=== PATIENT | male | born 1960 | race Native Hawaiian/Other Pacific Islander ===

== ENCOUNTER 2020-01-08 15:55 | Emergency (ER) | payer OTHER, SELFPAY ==
--- NOTE | 2020-01-08 | CT_ITS ---
EXAMINATION: NONCONTRAST HEAD CT NONCONTRAST CERVICAL SPINE CT INDICATION INFORMATION: Fall. COMPARISON: Report from 12/14/2018. No images available. TECHNIQUE: Separate noncontrast CT examinations of the head and cervical spine were performed. Coronal and sagittal images were created for each examination at the technologist workstation. This CT examination was performed using dose optimization techniques as appropriate, variously including the following: *Automated exposure control *Adjustment of mA and/or kV according to patient size (this includes techniques or standardized protocols for targeted exams where dose is matched to indication/reason for exam; i.e. extremities or head) *Use of iterative reconstruction technique DLP: 1415 mGy-cm FINDINGS: Head: There is no evidence of acute intracranial hemorrhage or territorial infarction. No abnormal mass effect or midline shift is seen. Leon to white matter differentiation is well preserved. No extra-axial fluid collections are identified. No hydrocephalus. Proportional prominence of the ventricles and sulcal spaces is consistent with mild volume loss. Patchy periventricular and deep white matter hypoattenuation is consistent with mild small vessel ischemic changes. No acute osseous or soft tissue abnormality. The mastoid air cells and visualized portions of the paranasal sinuses are well aerated. Cervical spine: There is anatomic alignment of the vertebral bodies and posterior elements. The atlantoaxial and atlantooccipital articulations are intact. Vertebral body heights are maintained. There is multilevel intervertebral disc space narrowing with endplate osteophyte formation and facet arthropathy. No evidence of acute fracture. No prevertebral soft tissue swelling. Visualized portions of the lung apices are unremarkable. The thyroid gland is unremarkable. IMPRESSION: 1. No acute intracranial finding. 2. No acute fracture or malalignment of the cervical spine. Degenerative change noted.
--- NOTE | 2020-01-08 | XR_ITS ---
EXAMINATION: RIGHT RIBS, PELVIS, LUMBAR SPINE, RIGHT KNEE CLINICAL INFORMATION: Fall with pain COMPARISON: Chest radiograph 02/24/2019 TECHNIQUE: 4 views right knee, 3 views lumbar spine, single view pelvis, 4 views right ribs FINDINGS: RIGHT KNEE: Some minor degenerative changes are present at the patellofemoral joint but no other abnormality is seen. No fracture is detected. No effusion is seen. Some faint vascular calcifications are present. LUMBAR SPINE: Mild spondylitic changes are present with flowing anterior osteophytes. Disc spaces are well preserved. No bony destructive lesion or fracture seen. PELVIS: Single view pelvis shows no significant abnormality aside from some minimal degenerative changes in the hips with some mild supra-acetabular sclerosis. Phleboliths noted in the right hemipelvis. RIBS: Four views of the right ribs fail to demonstrate any rib fracture. IMPRESSION: No evidence of a traumatic injury.
--- NOTE | 2020-01-08 | XR_ITS ---
EXAMINATION: XR CHEST CLINICAL INFORMATION: Fall COMPARISON: None TECHNIQUE: 2 views of the chest were obtained. FINDINGS: No significant abnormality is noted involving the heart, lungs, mediastinum, bony thorax or soft tissues. Mild degenerative changes in the spine with osteophyte formation. IMPRESSION: No acute intrathoracic disease
--- NOTE | 2020-01-08 | ECG_ITS ---
Test Reason : DIZZY Blood Pressure : / mmHG Vent. Rate : 081 BPM Atrial Rate : 081 BPM P-R Int : 176 ms QRS Dur : 084 ms QT Int : 380 ms P-R-T Axes : 052 014 033 degrees QTc Int : 441 ms Normal sinus rhythm Normal ECG When compared with ECG of 24-FEB-2019 15:51, No significant change was found Referred By: Santana Yanes Electronically Signed By:JAVIER CARLOS
[2020-01-08 16:28] VITALS: BP 136/73; PULSE 94; RESP 18; TEMP 37.1; O2SAT 98; BMI 81.8
--- NOTE | 2020-01-08 16:36 | PC.NURSE ---
BGL CHECKED 208. PT REPORTS FEELING OF HYPOGLYEMIA. PATIENT ASKED TO REMAIN NP0
[2020-01-08 16:40] LABS: Glucose, Whole Blood 203 mg/dL (60-115)
[2020-01-08 21:45] VITALS: BP 140/70; PULSE 84; RESP 17; TEMP 36.6; O2SAT 97
[2020-01-08 23:04] LABS: MANUAL DIFF FLAG NO
[2020-01-08 23:08] LABS: Basophils Absolute Auto 0.1 X10*3/uL (0.0-0.2); Basophils Percent Auto 0.8 % (0-2); Eosinophils Absolute Auto 0.2 X10*3/uL (0.0-0.4); Eosinophils Percent Auto 2.5 % (0-4); Hematocrit 40.3 % (42-52); Hemoglobin 13.6 g/dl (14.0-18.0); Lymphocytes Absolute Auto 2.3 X10*3/uL (1.2-4.9); Lymphocytes Percent Auto 38.5 % (20-40); Mean Corpuscular HGB Conc 33.7 g/dl (31.0-36.0); Mean Corpuscular Hemoglobin 31.6 pg (27.0-33.0); Mean Corpuscular Volume 93.7 fL (80-98); Mean Platelet Volume 9.7 fL (9.4-12.4); Monocytes Absolute Auto 0.5 X10*3/uL (0.1-1.2); Monocytes Percent Auto 8.8 % (2-11); Neutrophils Absolute Auto 2.9 X10*3/uL (2.0-8.3); Neutrophils Percent Auto 49.4 % (45-73); Platelet Count 291 X10*3/uL (160-400); Red Cell Distribution Width 11.8 % (11.0-16.0); White Blood Count 5.9 X10*3/uL (4.8-10.8)
[2020-01-08] MEDS: Acetaminophen 325 MG TABLET 650 MG PO (23:08)
[2020-01-08 23:13] LABS: Prothrombin Time 11.4 SEC (10.8-13.0)
[2020-01-08 23:15] LABS: Partial Thromboplastin Time 36.7 SEC (24.1-38.0)
[2020-01-08 23:39] LABS: Troponin-I High Sensitivity 8.7 ng/L (<3.5-35.0)
[2020-01-09] VITALS (7 sets, daily range): BP systolic 127–150; BP diastolic 68–116; PULSE 71–92; RESP 14–20; TEMP 36.6; O2SAT 97–98
--- NOTE | 2020-01-09 00:14 | PC.NURSE ---
Pt returns from imaging, reporting 6/10 pain to right knee and lower back. Per previous RN, pt had a fall down 1 stair due to his vertigo, injuring right knee. Pt found to be wearing halter monitor, states he's wearing it for 48 hours, unable to state why. Bloodwork obtained, VSS. NSR on the monitor. Continue to monitor.
--- NOTE | 2020-01-09 00:46 | ED.FALL ---
HPI - Fall General Chief Complaint: Fall <LOCO Mccallum Last Filed: 01/09/20 03:46> Stated Complaint: Fall <LOCO Mccallum Last Filed: 01/09/20 03:46> Time Seen by Provider: 01/08/20 22:26 <LOCO Mccallum Last Filed: 01/09/20 03:46> Source: patient <LOCO Mccallum Last Filed: 01/09/20 03:46> Mode of arrival: other ( Patient ambulate with a walker) <LOCO Mccallum Last Filed: 01/09/20 03:46> History of Present Illness HPI Narrative: Patient states he fell while going down stairs. Patient states he was reaching for the last that with right foot and then felt dizzy and then he fell. Patient states history of vertigo. Patient denies having any chest pain, headache, abdominal pain, or shortness of breath for falling. Patient is on a holter monitor. Patient states vertigo has caused her to fall in the past. <LOCO Mccallum Last Filed: 01/09/20 03:46> MD complaint: fall <LOCO Mccallum Last Filed: 01/09/20 03:46> Onset (ago): day(s) ( today) <LOCO Mccallum Last Filed: 01/09/20 03:46> Fall from: down stairs (#) ( fell down 1 step) <LOCO Mccallum Last Filed: 01/09/20 03:46> Fall witnessed: no <LOCO Mccallum Last Filed: 01/09/20 03:46> Place fall occurred: home <LOCO Mccallum Last Filed: 01/09/20 03:46> Loss of consciousness: none <LOCO Mccallum Last Filed: 01/09/20 03:46> Prolonged down time: no <LOCO Mccallum Last Filed: 01/09/20 03:46> Symptoms prior to fall: dizziness <LOCO Mccallum Last Filed: 01/09/20 03:46> Location of injury: neck and back <LOCO Mccallum Last Filed: 01/09/20 03:46> Location of injury - extremities: right: knee <LOCO Mccallum Filed: 01/09/20 03:46> Severity: moderate <LOCO Mccallum Filed: 01/09/20 03:46> Related Data Home Medications: Previous Rx's Medication Instructions Recorded acetaminophen [Tylenol] 325 mg PO QID PRN #30 cap 01/09/20 meclizine 25 mg PO DAILY #20 tab 01/09/20 <LOCO Mccallum Filed: 01/09/20 03:46> Allergies/Adverse Reactions: Allergies Allergy/AdvReac Type Severity Reaction Status Date / Time penicillin V Allergy Unknown Unknown Verified 01/08/20 21:25 Penicillins [PENICILLINS] Allergy Unknown UNKNOWN-CHILDHOOD Verified 01/08/20 21:25 REACTION SEAFOOD Allergy Severe DIARRHEA,GI Uncoded 12/21/19 17:43 PAIN, NAUSEA Fish Allergy Mild Gastrointestinal Uncoded 01/08/20 21:25 Upset <LOCO Mccallum Filed: 01/09/20 03:46> Review of Systems Review of Systems: Yes all other systems are reviewed and are negative <LOCO Mccallum Filed: 01/09/20 03:46> Constitutional: Constitutional: Reports no additional constitutional complaints <LOCO Mccallum Filed: 01/09/20 03:46> Eyes: Eyes: Reports no additional eye complaints and Denies loss of vision <LOCO Mccallum Filed: 01/09/20 03:46> ENT: Reports vertigo and Reports neck pain <LOCO Mccallum Filed: 01/09/20 03:46> Cardiovascular: Cardiovascular: Reports no additional cardiovascular complaints, Denies chest pain and Denies dyspnea <LOCO Mccallum Filed: 01/09/20 03:46> Respiratory: Respiratory: Reports no additional respiratory complaints, Denies chest congestion, Denies pain with cough and Denies dyspnea <LOCO Mccallum Filed: 01/09/20 03:46> Gastrointestinal: Gastrointestinal: Denies abdominal pain, Denies melena and Denies hematochezia <LOCO Mccallum Filed: 01/09/20 03:46> Musculoskeletal: Musculoskeletal: Reports back pain, Reports arthralgias (right knee pain) and Reports neck pain <LOCO Mccallum Last Filed: 01/09/20 03:46> Neurologic: Reports system reviewed and no additional complaints, except as documented, Denies behavioral changes, Reports vertigo, Denies focal weakness, Denies loss of vision, Denies convulsions, Denies seizure-like activity, Denies paresthesias and Denies tremor(s) <LOCO Mccallum Last Filed: 01/09/20 03:46> Psychiatric: Psychiatric: Reports no additional psychiatric complaints, Denies abnormal sleep pattern, Denies anxiety and Denies behavioral changes <LOCO Mccallum Last Filed: 01/09/20 03:46> [facility] Social History Social History: Social History Alcohol intake: current Alcohol intake frequency: holidays/special occasions only Alcohol type: wine Smoking Status: Never smoker Use of substances other than those prescribed or required for medical reasons: No Advance Directives: No Advance Directives Information Provided: No <LOCO Mccallum Last Filed: 01/09/20 03:46> Physical Exam Vital Signs and I&O and Narrative: Vital Signs and I&O: Vital Signs Temp 98 F 01/09/20 07:23 Pulse 81 01/09/20 07:23 Resp 14 01/09/20 07:23 BP 150/74 H 01/09/20 07:23 Pulse Ox 98 01/09/20 07:23 Intake & Output 01/08/20 01/09/20 01/09/20 18:59 06:59 18:59 Intake Total 1000 / 1000 Balance 1000 / 1000 Weight 230 kg Intake: Intake, IV Amoun t 1000 / 1000 0.9 % Sodium C hloride 1,000 ml 1000 / 1000 @ 999 mls/hr I VCONT .Q1H1M ONE Rx#:[id number] Body Mass Index 81.8 <LOCO Mccallum Last Filed: 01/09/20 03:46> Vital Signs and I&O: Vital Signs Temp 98 F 01/09/20 07:23 Pulse 81 01/09/20 07:23 Resp 14 01/09/20 07:23 BP 150/74 H 01/09/20 07:23 Pulse Ox 98 01/09/20 07:23 Intake & Output 01/08/20 01/09/20 01/09/20 18:59 06:59 18:59 Intake Total 1000 / 1000 Balance 1000 / 1000 Weight 230 kg Intake: Intake, IV Amoun t 1000 / 1000 0.9 % Sodium C hloride 1,000 ml 1000 / 1000 @ 999 mls/hr I VCONT .Q1H1M ONE Rx#:[id number] Body Mass Index 81.8 <Rosio Duncan MD - Last Filed: 01/09/20 08:36> Const: General: cooperative, healthy appearing and comfortable <LOCO Mccallum - Last Filed: 01/09/20 03:46> Orientation/consciousness: patient oriented x3 <LOCO Mccallum Last Filed: 01/09/20 03:46> HENMT: Head: Yes normal to inspection and Yes No palpable skull fracture present <LOCO Mccallum - Last Filed: 01/09/20 03:46> Eyes: General: appearance normal, both eyes and all related structures <LOCO Mccallum - Last Filed: 01/09/20 03:46> Neck: Neck: Yes full ROM, No no meningeal signs, No positive Brudzinski's sign, No positive Kernig's sign and Yes tender ( positive posterior cervical tenderness on palpation) <LOCO Mccallum - Last Filed: 01/09/20 03:46> Chest: Chest palpation & inspection: normal inspection of the chest, normal palpation of entire chest wall and tenderness ( posterior lower right rib tenderness) <LOCO Mccallum Last Filed: 01/09/20 03:46> Resp: Effort & Inspection: normal respiratory effort, able to speak in complete sentences, no respiratory distress and no use of accessory muscles <LOCO Mccallum Last Filed: 01/09/20 03:46> Auscultation: clear to auscultation bilaterally <LOCO Mccallum Last Filed: 01/09/20 03:46> Cardio: Jugular venous distension: no JVD <LOCO Mccallum Last Filed: 01/09/20 03:46> Rhythm: regular rhythm <LOCO Mccallum Last Filed: 01/09/20 03:46> GI: Inspection: Yes normal to inspection, No abdominal wall ecchymosis, No Abdominal wall edema, No distended and No incision <LOCO Mccallum Last Filed: 01/09/20 03:46> : General: No CVA tenderness and No no CVA tenderness <LOCO Mcclalum Last Filed: 01/09/20 03:46> Back/Spine/Pelvis: Back: No no CVA tenderness, No CVA tenderness and back tenderness (lumber area) <LOCO Mccallum Last Filed: 01/09/20 03:46> Skin: General skin exam: no rashes or lesions noted and no ecchymosis <Santana Joaquín, PA Last Filed: 01/09/20 03:46> Neuro: General: patient oriented x3, gait normal, tone normal, moves all extremities, No no meningeal signs and CN's II-XI intact bilaterally <LOCO Mccallum Last Filed: 01/09/20 03:46> Extrem: General: No no pedal edema, No no calf tenderness, No amputation noted and No calf tenderness <LOCO Mccallum Filed: 01/09/20 03:46> Right lower extremity: knee Details: tenderness Location: of the patella <LOCO Mccallum Filed: 01/09/20 03:46> Psych: Appearance: grossly normal and well kempt <LOCO Mccallum Filed: 01/09/20 03:46> Course Course Course Narrative: fall most likely due to vertigo. Patient will have imaging of head CT, C-spine, right knee x-ray, chest x-ray, back x-ray, right low rib x-ray. Patient have EKG troponin done due to patient states dizziness before falling. Patient has history of high blood pressure and diabetes. EKG will be ordered. Fluid and meclizine ordered. <LOCO Mccallum Last Filed: 01/09/20 03:46> Reevaluation(s) Reevaluation #1: patient is orthostatic negative. Patient imaging negative for any fractures a life-threatening emergencies. Patient's EKG is normal. First troponin came back 8.7. Will order 2nd troponin to rule out NE. Patient denies any chest pain or shortness of breath. Patient given meclizine and fluids. <LOCO Mccallum - Last Filed: 01/09/20 03:46> Time: 02:12 <LOCO Mccallum - Last Filed: 01/09/20 03:46> MDM - Fall MDM Narrative Medical decision making narrative: patient dizziness most likely due to vertigo. EKG normal. Labs are normal. First EKG is around 8 so 2nd troponin will be sent. Case will be signed out to Dr. Duncan. Patient presently stable. Patient presently denies any pain. Patient states Tylenol relieve pain. <LOCO Mccallum - Last Filed: 01/09/20 03:46> Lab Data Result diagrams: : 01/08/20 22:57 01/09/20 04:01 <LOCO Mccallum - Last Filed: 01/09/20 03:46> Labs: Lab Results 01/08/20 01/08/20 01/08/20 Range/Units 16:35 22:57 22:57 WBC 5.9 (4.8-10.8) X10*3/uL RBC 4.30 L (4.60-5.80) X10*6/uL Hgb 13.6 L (14.0-18.0) g/dl Hct 40.3 L (42-52) % MCV 93.7 (80-98) fL MCH 31.6 (27.0-33.0) pg MCHC 33.7 (31.0-36.0) g/dl RDW 11.8 (11.0-16.0) % Plt Count 291 (160-400) X10*3/uL MPV 9.7 (9.4-12.4) fL Immature Gran % (Auto) 0.0 (0.0-0.4) % Neut % (Auto) 49.4 (45-73) % Lymph % (Auto) 38.5 (20-40) % [place] % (Auto) 8.8 (2-11) % Eos % (Auto) 2.5 (0-4) % Baso % (Auto) 0.8 (0-2) % Neut # (Auto) 2.9 (2.0-8.3) X10*3/uL Lymph # (Auto) 2.3 (1.2-4.9) X10*3/uL [place] # (Auto) 0.5 (0.1-1.2) X10*3/uL Eos # (Auto) 0.2 (0.0-0.4) X10*3/uL Baso # (Auto) 0.1 (0.0-0.2) X10*3/uL Abs Immat Gran (auto) 0.00 (0.00-0.03) X10*3/uL Absolute Nucleated RBC 0.000 (0.0-0.012) X10*3/uL Nucleated RBC % (auto) 0.0 (0.0-0.2) /100WBC PT 11.4 (10.8-13.0) SEC INR 1.0 (0.9-1.1) APTT 36.7 (24.1-38.0) SEC Sodium (135-145) mmol/L Potassium (3.3-5.1) mmol/l Chloride (96-108) mmol/L Carbon Dioxide (22-29) mmol/L Anion Gap (12-20) BUN (9-16) mg/dL Creatinine (0.5-1.4) mg/dL Estim Creat Clear Calc Estimated GFR POC Glucose 203 H (60-115) mg/dL Random Glucose (60-115) mg/dL Calcium (8.4-10.2) mg/dL Troponin I High Sens (<3.5-35.0) ng/L 01/08/20 01/09/20 01/09/20 Range/Units 22:57 01:13 02:48 WBC (4.8-10.8) X10*3/uL RBC (4.60-5.80) X10*6/uL Hgb (14.0-18.0) g/dl Hct (42-52) % MCV (80-98) fL MCH (27.0-33.0) pg MCHC (31.0-36.0) g/dl RDW (11.0-16.0) % Plt Count (160-400) X10*3/uL MPV (9.4-12.4) fL Immature Gran % (Auto) (0.0-0.4) % Neut % (Auto) (45-73) % Lymph % (Auto) (20-40) % [place] % (Auto) (2-11) % Eos % (Auto) (0-4) % Baso % (Auto) (0-2) % Neut # (Auto) (2.0-8.3) X10*3/uL Lymph # (Auto) (1.2-4.9) X10*3/uL [place] # (Auto) (0.1-1.2) X10*3/uL Eos # (Auto) (0.0-0.4) X10*3/uL Baso # (Auto) (0.0-0.2) X10*3/uL Abs Immat Gran (auto) (0.00-0.03) X10*3/uL Absolute Nucleated RBC (0.0-0.012) X10*3/uL Nucleated RBC % (auto) (0.0-0.2) /100WBC PT (10.8-13.0) SEC INR (0.9-1.1) APTT (24.1-38.0) SEC Sodium 137 (135-145) mmol/L Potassium 4.3 (3.3-5.1) mmol/l Chloride 103 (96-108) mmol/L Carbon Dioxide 27 (22-29) mmol/L Anion Gap 11 L (12-20) BUN 22 H (9-16) mg/dL Creatinine 1.60 H (0.5-1.4) mg/dL Estim Creat Clear Calc 93.8 Estimated GFR 45 POC Glucose (60-115) mg/dL Random Glucose 200 H (60-115) mg/dL Calcium 9.2 (8.4-10.2) mg/dL Troponin I High Sens 8.7 9.4 (<3.5-35.0) ng/L 01/09/20 Range/Units 04:01 WBC (4.8-10.8) X10*3/uL RBC (4.60-5.80) X10*6/uL Hgb (14.0-18.0) g/dl Hct (42-52) % MCV (80-98) fL MCH (27.0-33.0) pg MCHC (31.0-36.0) g/dl RDW (11.0-16.0) % Plt Count (160-400) X10*3/uL MPV (9.4-12.4) fL Immature Gran % (Auto) (0.0-0.4) % Neut % (Auto) (45-73) % Lymph % (Auto) (20-40) % [place] % (Auto) (2-11) % Eos % (Auto) (0-4) % Baso % (Auto) (0-2) % Neut # (Auto) (2.0-8.3) X10*3/uL Lymph # (Auto) (1.2-4.9) X10*3/uL [place] # (Auto) (0.1-1.2) X10*3/uL Eos # (Auto) (0.0-0.4) X10*3/uL Baso # (Auto) (0.0-0.2) X10*3/uL Abs Immat Gran (auto) (0.00-0.03) X10*3/uL Absolute Nucleated RBC (0.0-0.012) X10*3/uL Nucleated RBC % (auto) (0.0-0.2) /100WBC PT (10.8-13.0) SEC INR (0.9-1.1) APTT (24.1-38.0) SEC Sodium 139 (135-145) mmol/L Potassium 4.1 (3.3-5.1) mmol/l Chloride 103 (96-108) mmol/L Carbon Dioxide 27 (22-29) mmol/L Anion Gap 13 (12-20) BUN 20 H (9-16) mg/dL Creatinine 1.60 H (0.5-1.4) mg/dL Estim Creat Clear Calc 93.8 Estimated GFR 45 POC Glucose (60-115) mg/dL Random Glucose 188 H (60-115) mg/dL Calcium 9.0 (8.4-10.2) mg/dL Troponin I High Sens (<3.5-35.0) ng/L <LOCO Mccallum - Last Filed: 01/09/20 03:46> Lab Results 01/08/20 01/08/20 01/08/20 Range/Units 16:35 22:57 22:57 WBC 5.9 (4.8-10.8) X10*3/uL RBC 4.30 L (4.60-5.80) X10*6/uL Hgb 13.6 L (14.0-18.0) g/dl Hct 40.3 L (42-52) % MCV 93.7 (80-98) fL MCH 31.6 (27.0-33.0) pg MCHC 33.7 (31.0-36.0) g/dl RDW 11.8 (11.0-16.0) % Plt Count 291 (160-400) X10*3/uL MPV 9.7 (9.4-12.4) fL Immature Gran % (Auto) 0.0 (0.0-0.4) % Neut % (Auto) 49.4 (45-73) % Lymph % (Auto) 38.5 (20-40) % [place] % (Auto) 8.8 (2-11) % Eos % (Auto) 2.5 (0-4) % Baso % (Auto) 0.8 (0-2) % Neut # (Auto) 2.9 (2.0-8.3) X10*3/uL Lymph # (Auto) 2.3 (1.2-4.9) X10*3/uL [place] # (Auto) 0.5 (0.1-1.2) X10*3/uL Eos # (Auto) 0.2 (0.0-0.4) X10*3/uL Baso # (Auto) 0.1 (0.0-0.2) X10*3/uL Abs Immat Gran (auto) 0.00 (0.00-0.03) X10*3/uL Absolute Nucleated RBC 0.000 (0.0-0.012) X10*3/uL Nucleated RBC % (auto) 0.0 (0.0-0.2) /100WBC PT 11.4 (10.8-13.0) SEC INR 1.0 (0.9-1.1) APTT 36.7 (24.1-38.0) SEC Sodium (135-145) mmol/L Potassium (3.3-5.1) mmol/l Chloride (96-108) mmol/L Carbon Dioxide (22-29) mmol/L Anion Gap (12-20) BUN (9-16) mg/dL Creatinine (0.5-1.4) mg/dL Estim Creat Clear Calc Estimated GFR POC Glucose 203 H (60-115) mg/dL Random Glucose (60-115) mg/dL Calcium (8.4-10.2) mg/dL Troponin I High Sens (<3.5-35.0) ng/L 01/08/20 01/09/20 01/09/20 Range/Units 22:57 01:13 02:48 WBC (4.8-10.8) X10*3/uL RBC (4.60-5.80) X10*6/uL Hgb (14.0-18.0) g/dl Hct (42-52) % MCV (80-98) fL MCH (27.0-33.0) pg MCHC (31.0-36.0) g/dl RDW (11.0-16.0) % Plt Count (160-400) X10*3/uL MPV (9.4-12.4) fL Immature Gran % (Auto) (0.0-0.4) % Neut % (Auto) (45-73) % Lymph % (Auto) (20-40) % [place] % (Auto) (2-11) % Eos % (Auto) (0-4) % Baso % (Auto) (0-2) % Neut # (Auto) (2.0-8.3) X10*3/uL Lymph # (Auto) (1.2-4.9) X10*3/uL [place] # (Auto) (0.1-1.2) X10*3/uL Eos # (Auto) (0.0-0.4) X10*3/uL Baso # (Auto) (0.0-0.2) X10*3/uL Abs Immat Gran (auto) (0.00-0.03) X10*3/uL Absolute Nucleated RBC (0.0-0.012) X10*3/uL Nucleated RBC % (auto) (0.0-0.2) /100WBC PT (10.8-13.0) SEC INR (0.9-1.1) APTT (24.1-38.0) SEC Sodium 137 (135-145) mmol/L Potassium 4.3 (3.3-5.1) mmol/l Chloride 103 (96-108) mmol/L Carbon Dioxide 27 (22-29) mmol/L Anion Gap 11 L (12-20) BUN 22 H (9-16) mg/dL Creatinine 1.60 H (0.5-1.4) mg/dL Estim Creat Clear Calc 93.8 Estimated GFR 45 POC Glucose (60-115) mg/dL Random Glucose 200 H (60-115) mg/dL Calcium 9.2 (8.4-10.2) mg/dL Troponin I High Sens 8.7 9.4 (<3.5-35.0) ng/L 01/09/20 Range/Units 04:01 WBC (4.8-10.8) X10*3/uL RBC (4.60-5.80) X10*6/uL Hgb (14.0-18.0) g/dl Hct (42-52) % MCV (80-98) fL MCH (27.0-33.0) pg MCHC (31.0-36.0) g/dl RDW (11.0-16.0) % Plt Count (160-400) X10*3/uL MPV (9.4-12.4) fL Immature Gran % (Auto) (0.0-0.4) % Neut % (Auto) (45-73) % Lymph % (Auto) (20-40) % [place] % (Auto) (2-11) % Eos % (Auto) (0-4) % Baso % (Auto) (0-2) % Neut # (Auto) (2.0-8.3) X10*3/uL Lymph # (Auto) (1.2-4.9) X10*3/uL [place] # (Auto) (0.1-1.2) X10*3/uL Eos # (Auto) (0.0-0.4) X10*3/uL Baso # (Auto) (0.0-0.2) X10*3/uL Abs Immat Gran (auto) (0.00-0.03) X10*3/uL Absolute Nucleated RBC (0.0-0.012) X10*3/uL Nucleated RBC % (auto) (0.0-0.2) /100WBC PT (10.8-13.0) SEC INR (0.9-1.1) APTT (24.1-38.0) SEC Sodium 139 (135-145) mmol/L Potassium 4.1 (3.3-5.1) mmol/l Chloride 103 (96-108) mmol/L Carbon Dioxide 27 (22-29) mmol/L Anion Gap 13 (12-20) BUN 20 H (9-16) mg/dL Creatinine 1.60 H (0.5-1.4) mg/dL Estim Creat Clear Calc 93.8 Estimated GFR 45 POC Glucose (60-115) mg/dL Random Glucose 188 H (60-115) mg/dL Calcium 9.0 (8.4-10.2) mg/dL Troponin I High Sens (<3.5-35.0) ng/L <Rosio Duncan MD - Last Filed: 01/09/20 08:36> ECG Data Pacemaker model: normal sinus rhythm. Ventricular 81bpm. GA interval 176ms. normal ekg <LOCO Mccallum - Last Filed: 01/09/20 03:46> Discharge Plan Discharge Clinical Impression: Vertigo Fall Qualifiers: Encounter type: initial encounter Qualified Code(s): W19.XXXA - Unspecified fall, initial encounter Knee sprain Qualifiers: Encounter type: initial encounter Involved ligament of knee: unspecified ligament Laterality: right Qualified Code(s): S83.91XA - Sprain of unspecified site of right knee, initial encounter <LOCO Mccallum - Last Filed: 01/09/20 03:46> Patient Disposition: Home, Self-Care <LOCO Mccallum - Last Filed: 01/09/20 03:46> Instructions: Knee Sprain (ED), Vertigo (ED) <LOCO Mccallum Last Filed: 01/09/20 03:46> Additional Instructions: return to ED for any chest pain, shortness of breath, headache, slurred speech, paralysis of extremities, vomiting blood, rectal bleeding, bloody urine, abdominal pain, chest pain, shortness of breath, coughing up blood, severe dizziness, or any other concerning symptoms. <LOCO Mccallum - Last Filed: 01/09/20 03:46> Prescriptions: New acetaminophen [Tylenol] 325 mg capsule 325 mg PO QID PRN (Reason: pain) Qty: 30 RF: 0 meclizine 25 mg tablet 25 mg PO DAILY Qty: 20 RF: 0 <LOCO Mccallum - Last Filed: 01/09/20 03:46> Referrals: Dayanna Hernandez MD [Primary Care Provider] - 2 days <LOCO Mccallum - Last Filed: 01/09/20 03:46> Print Language: Albanian <LOCO Mccallum - Last Filed: 01/09/20 03:46>
[2020-01-09] MEDS: Meclizine HCl 25 MG TABLET PO (01:05)
[2020-01-09] MEDS: 0.9 % Sodium Chloride 1,000 ML 999 ML IVCONT (01:05)
--- NOTE | 2020-01-09 01:07 | PC.NURSE ---
Orthos complete, pt reports some dizziness with standing. Pt medicated per EMAR, IVF infusing per EMAR. Pt requesting his PM dose of Clonazepam 0.5 mg, states 12 am and 1 pm everyday! aware.
--- NOTE | 2020-01-09 01:12 | PC.NURSE ---
Pt also requesting 15 mg of Melatonin. Bloodwork obtained and sent. Awaiting results.
--- NOTE | 2020-01-09 01:20 | PC.NURSE ---
TRANSONIC ENGINEER aware that pt is requesting PM medication. TRANSONIC ENGINEER not agreeable to medicating with PM meds at this time.
[2020-01-09 02:09] LABS: Anion Gap 11 (12-20); Blood Urea Nitrogen 22 mg/dL (9-16); Calcium 9.2 mg/dL (8.4-10.2); Carbon Dioxide 27 mmol/L (22-29); Chloride 103 mmol/L (96-108); Creatinine Clr Calc Pharmacy 93.8; Estimated Glomerular Filt Rate 45; Glucose Random 200 mg/dL (60-115); Potassium 4.3 mmol/l (3.3-5.1); Sodium 137 mmol/L (135-145)
--- NOTE | 2020-01-09 02:15 | PC.NURSE ---
Pt requesting to use the bathroom. electrical laboratory technician at bedside to obtain repeat Trop. Pt refusing bloodwork, GOVERNMENT INSTRUCTOR aware. Continue to monitor.
--- NOTE | 2020-01-09 02:48 | PC.NURSE ---
Repeat Troponin obtained and sent by this RN. Pt aware of plan to await results and DC home. VSS. Continue to monitor.
--- NOTE | 2020-01-09 02:54 | PC.NURSE ---
Pt provided with food/drink per request.
[2020-01-09 03:19] LABS: Troponin-I High Sensitivity 9.4 ng/L (<3.5-35.0)
--- NOTE | 2020-01-09 03:44 | PC.NURSE ---
This RN calling lab, lab agreeable to adding repeat kidney function values to recent Troponin.
--- NOTE | 2020-01-09 04:00 | PC.NURSE ---
Repeat chemistries obtained and sent for analysis. PA at bedside explaining the need to reevaluate kidney function. Pt aware of plan to DC home if Creatinine decreases. Pt resting in bed at this time, continue to monitor.
[2020-01-09 04:27] LABS: Anion Gap 13 (12-20); Blood Urea Nitrogen 20 mg/dL (9-16); Carbon Dioxide 27 mmol/L (22-29); Chloride 103 mmol/L (96-108); Creatinine Clr Calc Pharmacy 93.8; Estimated Glomerular Filt Rate 45; Glucose Random 188 mg/dL (60-115); Potassium 4.1 mmol/l (3.3-5.1); Sodium 139 mmol/L (135-145)
--- NOTE | 2020-01-09 05:58 | PC.NURSE ---
Pt remains asleep in bed at this time, VSS. ER aware that repeat lab work has been resulted for some time now. Continue to monitor.
--- NOTE | 2020-01-09 07:29 | PC.NURSE ---
LISSA WRAP APPLIED TO RIGHT KNEE.
== END 2020-01-09 08:38 | disposition home or self-care (01) ==
PROVIDERS: Physician Assistant; Emergency Provider Student in an Organized Health Care Education/Training Program; PCP Family Medicine
DX: S83.421A Sprain of lateral collateral ligament of right knee, initial encounter (principal); R42 Dizziness and giddiness; M54.2 Cervicalgia; M25.562 Pain in left knee; M25.561 Pain in right knee; M54.9 Dorsalgia, unspecified; G44.309 Post-traumatic headache, unspecified, not intractable; W10.9XXA Fall (on) (from) unspecified stairs and steps, initial encounter; Y93.9 Activity, unspecified; Y92.009 Unspecified place in unspecified non-institutional (private) residence as the place of occurrence of the external cause
CPT/HCPCS: 36415; 70450; 71046; 71101; 72100; 72125; 72170; 73564; 80048; 82947; 84484; 85025; 85610; 85730; 93005; 93010; 96360; 99284

== ENCOUNTER → 2020-03-07 14:04 | Outpatient (BNVA) | payer OTHER, SELFPAY | PROVIDERS: PCP Family Medicine; Referring Provider Family Medicine; Visit Provider Internal Medicine Endocrinology, Diabetes & Metabolism | DX: E11.65 Type 2 diabetes mellitus with hyperglycemia (principal); E11.3599 Type 2 diabetes mellitus with proliferative diabetic retinopathy without macular edema, unspecified eye; E11.21 Type 2 diabetes mellitus with diabetic nephropathy; E11.42 Type 2 diabetes mellitus with diabetic polyneuropathy; E11.22 Type 2 diabetes mellitus with diabetic chronic kidney disease; I12.9 Hypertensive chronic kidney disease with stage 1 through stage 4 chronic kidney disease, or unspecified chronic kidney disease; N18.30 Chronic kidney disease, stage 3 unspecified; E78.5 Hyperlipidemia, unspecified; Z79.4 Long term (current) use of insulin | CPT/HCPCS: 82947; 99212 ==

== ENCOUNTER 2020-03-08 15:20 | Outpatient (REF) | payer OTHER, SELFPAY | END 2020-03-08 15:21 | disposition home or self-care (01) | LOC: HO.LAB 15:20 | PROVIDERS: PCP Family Medicine; Visit Provider Internal Medicine | DX: Z20.828 Contact with and (suspected) exposure to other viral communicable diseases (principal) | CPT/HCPCS: C9803; U0003 ==

== ENCOUNTER 2020-09-25 10:00 | Outpatient (REF) | payer OTHER, SELFPAY ==
[2020-09-25 11:44] LABS: Hematocrit 41.2 % (42-52); Mean Corpuscular Volume 94.3 fL (80-98); Mean Platelet Volume 9.9 fL (9.4-12.4); Platelet Count 303 X10*3/uL (160-400); Red Blood Count 4.37 X10*6/uL (4.60-5.80); Red Cell Distribution Width 11.6 % (11.0-16.0); White Blood Count 7.3 X10*3/uL (4.8-10.8)
[2020-09-25 12:07] LABS: Alanine Aminotransferase 18 U/L (0-40); Albumin Level 4.1 g/dL (3.5-5.0); Alkaline Phosphatase 49 U/L (39-117); Anion Gap 12 (12-20); Aspartate Amino Transferase 18 U/L (5-37); Bilirubin Total 0.3 mg/dL (0.0-1.0); Blood Urea Nitrogen 32 mg/dL (9-16); Calcium 9.6 mg/dL (8.4-10.2); Carbon Dioxide 28 mmol/L (22-29); Chloride 104 mmol/L (96-108); Cholesterol 144 mg/dL; Estimated Glomerular Filt Rate 35; Glucose Random 139 mg/dL (60-115); HDL Cholesterol 37 mg/dL; LDL Cholesterol Calculated 70 mg/dl; Potassium 4.9 mmol/L (3.3-5.1); Sodium 139 mmol/L (135-145); Total Protein 6.9 g/dL (6.5-8.0); Triglycerides 189 mg/dL
[2020-09-25 12:29] LABS: Free T4 (Free Thyroxine) 0.84 ng/dL (0.71-1.85); Thyroid Stimulating Hormone 0.45 uIU/mL (0.32-4.0)
[2020-09-25 12:33] LABS: Creatinine Urine 165.23 mg/dL; Protein/Creatinine Ratio, Ur 1.73 (<0.2); Total Protein Urine Random 286 mg/dL (<12)
[2020-09-25 12:37] LABS: Vitamin B12 227 pg/mL (200-900)
[2020-09-25 13:02] LABS: Microalbum/Creatinine Ratio Ur 1256.4 ug/mg cr
[2020-09-26 07:52] LABS: LDL Cholesterol Direct 67 mg/dL (<100)
== END 2020-09-25 10:01 | disposition home or self-care (01) ==
LOC: HO.LAB 10:00
PROVIDERS: PCP Family Medicine; Visit Provider Internal Medicine Endocrinology, Diabetes & Metabolism
DX: E11.65 Type 2 diabetes mellitus with hyperglycemia (principal); E11.3599 Type 2 diabetes mellitus with proliferative diabetic retinopathy without macular edema, unspecified eye; E11.21 Type 2 diabetes mellitus with diabetic nephropathy; E11.42 Type 2 diabetes mellitus with diabetic polyneuropathy; E11.22 Type 2 diabetes mellitus with diabetic chronic kidney disease; I12.9 Hypertensive chronic kidney disease with stage 1 through stage 4 chronic kidney disease, or unspecified chronic kidney disease; N18.30 Chronic kidney disease, stage 3 unspecified; E78.5 Hyperlipidemia, unspecified; Z79.4 Long term (current) use of insulin; Z79.899 Other long term (current) drug therapy; Z71.3 Dietary counseling and surveillance
CPT/HCPCS: 36415; 80053; 80061; 82043; 82607; 82947; 83721; 84156; 84439; 84443; 85027; 99212

== ENCOUNTER → 2021-01-02 10:03 | Outpatient (BNVA) | payer OTHER, SELFPAY | PROVIDERS: PCP Family Medicine; Visit Provider Nurse Practitioner Gerontology | DX: E11.3599 Type 2 diabetes mellitus with proliferative diabetic retinopathy without macular edema, unspecified eye (principal); E11.21 Type 2 diabetes mellitus with diabetic nephropathy; E11.42 Type 2 diabetes mellitus with diabetic polyneuropathy; E11.22 Type 2 diabetes mellitus with diabetic chronic kidney disease; I12.9 Hypertensive chronic kidney disease with stage 1 through stage 4 chronic kidney disease, or unspecified chronic kidney disease; N18.30 Chronic kidney disease, stage 3 unspecified; E78.5 Hyperlipidemia, unspecified; Z79.4 Long term (current) use of insulin | CPT/HCPCS: 82947; 83036; 99212 ==

== ENCOUNTER → 2021-07-04 10:57 | Outpatient (BNVA) | payer OTHER, SELFPAY | PROVIDERS: PCP Family Medicine; Visit Provider Nurse Practitioner Gerontology | DX: E11.42 Type 2 diabetes mellitus with diabetic polyneuropathy (principal); E11.3599 Type 2 diabetes mellitus with proliferative diabetic retinopathy without macular edema, unspecified eye; E11.21 Type 2 diabetes mellitus with diabetic nephropathy; E11.22 Type 2 diabetes mellitus with diabetic chronic kidney disease; I12.9 Hypertensive chronic kidney disease with stage 1 through stage 4 chronic kidney disease, or unspecified chronic kidney disease; N18.30 Chronic kidney disease, stage 3 unspecified; E78.5 Hyperlipidemia, unspecified; E55.9 Vitamin D deficiency, unspecified; Z79.4 Long term (current) use of insulin | CPT/HCPCS: 82947; 83036; 99212 ==

== ENCOUNTER 2021-09-16 01:04 | Emergency (ER) | payer OTHER, SELFPAY ==
[2021-09-16 01:18] VITALS: BP 165/88; PULSE 75; RESP 11; TEMP 36.7; O2SAT 98; BMI 31.8
[2021-09-16 01:27] VITALS: BP 165/88; PULSE 78; RESP 14; O2SAT 98
--- NOTE | 2021-09-16 01:28 | PC.NURSE ---
pt a&ox3, vss - hypertensive, pt report htn and elevated POC at home today. pt has multiple issues that he presents with: dizziness, left lower back/leg pain, hx kidney stones, pain post fall ~2weeks ago, some increased depression/anxiety - pt reports history of SI thoughts but denies right now. pt occ tearful and reports increased stressors at home. vehicle monitor technician applied. POC in room was 140. ED provider in room.
[2021-09-16 01:29] LABS: Glucose, Whole Blood 140 mg/dL (60-115)
--- NOTE | 2021-09-16 01:31 | ED_ITS ---
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 In the ED 140. Basil suffers from vertigo and he normally takes vertigo. Onset (ago): minute(s) Severity: mild Associated symptoms: other (dizsziness) Related Data Home Medications Medication Instructions Recorded Confirmed fluoxetine 20 mg capsule 20 mg PO DAILY 03/07/20 07/04/21 clonazepam 0.5 mg tablet 0.5 mg PO DAILY PRN 03/11/20 07/04/21 fluticasone propionate 50 0 mcg intranasal 03/11/20 07/04/21 mcg/actuation nasal spray,suspension Previous Rx's Medication Instructions Recorded acetaminophen 325 mg capsule 325 mg PO QID PRN pain #30 caps 01/09/20 (Tylenol) meclizine 25 mg tablet 25 mg PO DAILY dizzines #20 tabs 01/09/20 blood-glucose meter (FreeStyle #1 ea 08/20/20 Lite Meter) FreeStyle Lancets 28 gauge #400 ea 09/25/20 (lancets) pen needle, diabetic 32 gauge x #450 ea 01/02/21 (BD Lisbet 2nd Gen Pen Needle) rosuvastatin 40 mg tablet 40 mg PO DAILY 90 days #90 tabs 01/02/21 amlodipine 5 mg tablet 5 mg PO DAILY 90 days #90 tabs 04/18/21 linagliptin 5 mg tablet (Tradjenta) 5 mg PO DAILY #90 tabs 04/18/21 fenofibrate 54 mg tablet 54 mg PO DAILY 90 days #90 tabs 05/05/21 cholecalciferol (vitamin D3) 50 50 mcg PO DAILY 30 days #90 caps 07/04/21 mcg (2,000 unit) capsule insulin degludec 200 unit/mL (3 56 unit (0.28 mL) subcut DAILY #30 07/31/21 mL) subcutaneous pen (Tresiba mL FlexTouch U-200 insulin) aspirin 81 mg tablet,delayed 81 mg PO DAILY #90 tabs 08/25/21 release blood sugar diagnostic (FreeStyle #400 ea 08/25/21 Lite Strips) insulin aspart U-100 100 unit/mL See Rx Instructions subcut 09/08/21 (3 mL) subcutaneous pen (Novolog .COMPLEX 90 days #90 mL Flexpen U-100 Insulin aspart) meclizine 25 mg tablet 25 mg PO TID PRN dizziness #30 tabs 09/16/21 Allergies Allergy/AdvReac Type Severity Reaction Status Date / Time Penicillins [PENICILLINS] Allergy Unknown UNKNOWN-CHILDHOOD Verified 09/16/21 01:18 REACTION SEAFOOD Allergy Severe DIARRHEA,GI Uncoded 07/04/21 11:01 PAIN, NAUSEA Fish Allergy Mild Gastrointestinal Uncoded 07/04/21 11:01 Upset Review of Systems Constitutional: Constitutional: Reports no additional constitutional complaints Eyes: Eyes: Reports no additional eye complaints ENT: Denies dizziness Cardiovascular: Cardiovascular: Reports no additional cardiovascular complaints Respiratory: Respiratory: Reports as per HPI Gastrointestinal: Gastrointestinal: Reports no additional gastrointestinal complaints Musculoskeletal: Musculoskeletal: Reports no additional musculoskeletal complaints Integumentary/Breasts: Skin/Breast: Denies rash Neurologic: Reports system reviewed and no additional complaints, except as documented, Denies dizziness and Denies Sensory deficit (Neuro) Psychiatric: Psychiatric: Denies anxiety PMFSH Past Medical History Medical History CVA (cerebrovascular accident due to intracerebral hemorrhage) Surgical History History of appendectomy Hx of colonoscopy Hx of laser photocoagulation of retina Hx of lithotripsy Family History Family History Father Lung cancer Father No problems noted. Mother Diabetes Social History Social History Household Members: None Housing: Apartment Alcohol intake: never Patient Tobacco Use Status: Former Tobacco user Use of substances other than those prescribed or required for medical reasons: No Physical Exam ED Vital Signs: Vital Signs - 24 hr 09/16/21 01:18 09/16/21 01:27 09/16/21 02:03 Temperature 98.1 F Pulse Rate 75 78 74 Respiratory Rate 11 L 14 16 Blood Pressure 165/88 H 165/88 H 147/87 H Pulse Oximetry 98 98 96 Oxygen Delivery Method Room Air Room Air Room Air BMI result Body Mass Index 31.8 Const General: healthy appearing Nutritional Appearance: average body habitus Orientation/consciousness: oriented to person and patient oriented x3 Limitations: no limitations HENMT Head: Yes normal to inspection Ears: external ears normal General nose exam: Normal external nose present Mouth: Normal oral and palatal mucosa present and oropharynx normal Throat: Yes posterior oropharynx normal Eyes General: appearance normal, both eyes and all related structures Neck Neck: Yes normal visual inspection Chest Chest palpation & inspection: normal inspection of the chest Resp Auscultation: clear to auscultation bilaterally Cardio Jugular venous distension: no JVD Rate: regular rate Rhythm: regular rhythm Heart sounds: S1 normal heart sound present and S2 normal heart sound present GI Inspection: Yes normal to inspection Palpation (GI): Soft to palpation, nontender and No hepatosplenomegaly present Auscultation: normal bowel sounds General: Yes no CVA tenderness Back/Spine/Pelvis Back: no CVA tenderness Skin General skin exam: no rashes or lesions noted Neuro General: oriented to person and patient oriented x3 Cranial nerves: Yes CN's II-XII intact bilaterally Motor exam (neuro): 5/5 motor strength present throughout Sensory Exam: No Sensory deficit (Neuro) Extrem General: Yes normal to inspection Psych Other: anxious Course Reevaluation(s) Reevaluation #1: Patient feeling better will dc home, likely anxiety with HTN and maybe vertigo Time: 03:20 Medical Decision Making Lab Data Labs: Lab Results 09/16/21 Range/Units 01:25 POC Glucose 140 H (60-115) mg/dL ECG Data Attestation: I personally reviewed and interpreted this ECG as follows: Interpretation: normal sinus 80, no st or twave changes Discharge Plan Discharge Clinical Impression: Hypertension, DM2 (diabetes mellitus, type 2), Vertigo, Anxiety Patient Disposition: Home, Self-Care Instructions: Vertigo (ED), Hypertension (ED), Anxiety (ED), Type 2 Diabetes in the Older Adult (ED) Prescriptions: New meclizine 25 mg tablet 25 mg PO TID PRN (Reason: dizziness) Qty: 30 0RF No Action (DME) blood-glucose meter [FreeStyle Lite Meter] Kit See Rx Instructions miscellaneous .MEDSUPPLY Qty: 1 0RF Rx Instructions: 4 times a day Tradjenta 5 mg tablet 5 mg PO DAILY Qty: 90 1RF amlodipine 5 mg tablet 5 mg PO DAILY 90 Days Qty: 90 1RF fenofibrate 54 mg tablet 54 mg PO DAILY 90 Days Qty: 90 1RF Tresiba FlexTouch U-200 200 unit/mL (3 mL) insulin pen 56 unit subcut DAILY Qty: 30 2RF aspirin 81 mg tablet,delayed release (DR/EC) 81 mg PO DAILY Qty: 90 1RF (DME) FreeStyle Lite Strips Strip See Rx Instructions .MEDSUPPLY Qty: 400 2RF Rx Instructions: 4 times a day insulin aspart U-100 [Novolog Flexpen U-100 Insulin] 100 unit/mL (3 mL) insulin pen See Rx Instructions subcut .COMPLEX MDD 135 units 90 Days Qty: 90 6RF Rx Instructions: 10-15 units snacks, 25-30 units meals subcut five times a day; acetaminophen [Tylenol] 325 mg capsule 325 mg PO QID PRN (Reason: pain) Qty: 30 0RF meclizine 25 mg tablet 25 mg PO DAILY Qty: 20 0RF fluoxetine 20 mg capsule 20 mg PO DAILY (DME) lancets [FreeStyle Lancets] 28 gauge misc See Rx Instructions .MEDSUPPLY Qty: 400 2RF Rx Instructions: 4 times a day fluticasone propionate 50 mcg/actuation spray,suspension 0 mcg intranasal clonazepam 0.5 mg tablet 0.5 mg PO DAILY PRN rosuvastatin 40 mg tablet 40 mg PO DAILY 90 Days Qty: 90 1RF (DME) pen needle, diabetic [BD Lisbet 2nd Gen Pen Needle] 32 gauge x 5/32 needle See Rx Instructions .ROUTE .MEDSUPPLY Qty: 450 1RF Rx Instructions: 5 times a day cholecalciferol (vitamin D3) 50 mcg (2,000 unit) capsule 50 mcg PO DAILY 30 Days Qty: 90 3RF Referrals: Physician,Unknown J [Primary Care Provider] - 1 week
[2021-09-16 02:03] VITALS: BP 147/87; PULSE 74; RESP 16; O2SAT 96
[2021-09-16] MEDS: amLODIPine Besylate 5 MG TABLET PO (02:21)
[2021-09-16] MEDS: Meclizine HCl 25 MG TABLET PO (02:21)
[2021-09-16 03:21] VITALS: BP 145/90; PULSE 73; RESP 16; O2SAT 98
--- NOTE | 2021-09-16 07:43 | ECG_ITS ---
Test Reason : CHEST PRESSURE Blood Pressure : / mmHG Vent. Rate : 079 BPM Atrial Rate : 079 BPM P-R Int : 178 ms QRS Dur : 086 ms QT Int : 372 ms P-R-T Axes : 047 012 031 degrees QTc Int : 426 ms Normal sinus rhythm Normal ECG When compared with ECG of 08-JAN-2020 22:35, No significant change was found Referred By: Benedicto Horn Electronically Signed By:Jim Salazar
== END 2021-09-16 04:25 | disposition home or self-care (01) ==
LOC: HO.ED 03:44
PROVIDERS: Emergency Provider Emergency Medicine
DX: R42 Dizziness and giddiness (principal); I10 Essential (primary) hypertension; E11.9 Type 2 diabetes mellitus without complications; F41.9 Anxiety disorder, unspecified; Z79.4 Long term (current) use of insulin; Z79.82 Long term (current) use of aspirin
CPT/HCPCS: 82947; 93005; 99283; 99284

== ENCOUNTER 2022-08-05 14:49 | Emergency (ER) | payer OTHER, SELFPAY ==
--- NOTE | ~2022-08-05 | XR_ITS ---
EXAMINATION: XR CHEST CLINICAL INFORMATION: Chest pain COMPARISON: Chest radiographs 01/08/2020 TECHNIQUE: Portable upright AP view of the chest was obtained. FINDINGS: The lungs are clear. There is no pneumothorax, pleural reaction, airspace consolidation, or groundglass opacity. No effusion. Costophrenic sulci are well-defined. Heart size normal. The hilar and mediastinal contours are unremarkable. No visible acute bony abnormality. XR/XR chest 1V IMPRESSION: Unremarkable examination.
--- NOTE | ~2022-08-05 | CT_ITS ---
CT head/brain wo IV con CLINICAL INFORMATION: Reason for Exam Severe vertigo COMPARISON: Prior CT scan 2019 TECHNIQUE: Department standard protocol. This CT examination was performed using dose optimization techniques as appropriate, variously including the following: *Automated exposure control *Adjustment of mA and/or kV according to patient size (this includes techniques or standardized protocols for targeted exams where dose is matched to indication/reason for exam; i.e. extremities or head) *Use of iterative reconstruction technique DLP: 787 mGy-cm FINDINGS: CEREBRAL HEMISPHERES: There is no evidence of intra-axial or extra-axial mass, hemorrhage or acute infarct. BRAIN PARENCHYMA: Normal fermin-white matter differentiation. SUBDURAL SPACE: No bleed. BASAL GANGLIA AND PINEAL GLAND: Unremarkable VENTRICLES: Symmetric and normal in size. CEREBELLUM AND BRAINSTEM: No space-occupying mass, hemorrhage or acute infarct. CEREBELLOPONTINE ANGLES: No lesion found. ORBITS: No intraorbital mass. VESSELS: Unremarkable SKULL BASE: Unremarkable INCLUDED SINUSES AT SKULL BASE: Clear SKULL AND SKIN: No fracture or bone lesion found. CT/CT head/brain wo IV con IMPRESSION: No CT evidence of intracranial space-occupying mass, bleed or infarct. Normal CT scan does not rule out the possibility of hyperacute infarct in the first 12 hours. If patient symptoms persist may consider correlation with MRI, which is more sensitive for early acute infarct.
[2022-08-05 14:57] VITALS: BP 135/83; BP 149/84; PULSE 61; PULSE 70; RESP 20; TEMP 36.6; O2SAT 98; O2SAT 99; BMI 34.2
[2022-08-05 15:16] VITALS: BP 149/79; PULSE 63; RESP 10; O2SAT 99
--- NOTE | 2022-08-05 15:26 | ECG_ITS ---
Test Reason : CHEST PAIN Blood Pressure : / mmHG Vent. Rate : 061 BPM Atrial Rate : 061 BPM P-R Int : 188 ms QRS Dur : 076 ms QT Int : 402 ms P-R-T Axes : 041 018 031 degrees QTc Int : 404 ms Normal sinus rhythm Low voltage QRS Borderline ECG When compared to the previous EKG of No significant changes seen Referred By: Rosio Duncan Electronically Signed By:MINGO MIRANDA MD
[2022-08-05 15:44] VITALS: BP 137/71; PULSE 68; RESP 16; TEMP 36.4; O2SAT 96
[2022-08-05 16:13] LABS: MANUAL DIFF FLAG NO
[2022-08-05 16:14] LABS: Basophils Percent Auto 0.5 % (0-2); Eosinophils Absolute Auto 0.1 X10*3/uL (0.0-0.4); Eosinophils Percent Auto 0.7 % (0-4); Hematocrit 41.9 % (42.0-52.0); Hemoglobin 14.5 g/dl (14.0-18.0); Imm Gran Abs Auto 0.02 X10*3/uL (0.00-0.03); Imm Gran Pct Auto 0.3 % (0.0-0.4); Lymphocytes Absolute Auto 1.4 X10*3/uL (1.2-4.9); Lymphocytes Percent Auto 18.9 % (20-40); Mean Corpuscular HGB Conc 34.6 g/dl (31.0-36.0); Mean Corpuscular Hemoglobin 31.7 pg (27.0-33.0); Mean Corpuscular Volume 91.7 fL (80.0-98.0); Monocytes Absolute Auto 0.4 X10*3/uL (0.1-1.2); Monocytes Percent Auto 4.9 % (2-11); Neutrophils Absolute Auto 5.7 x10*3/uL (2.0-8.3); Neutrophils Percent Auto 74.7 % (45-73); Platelet Count 301 X10*3/uL (160-400); Red Blood Count 4.57 X10*6/uL (4.60-5.80); Red Cell Distribution Width 11.8 % (11.0-16.0); White Blood Count 7.6 X10*3/uL (4.8-10.8)
[2022-08-05 16:20] LABS: Prothrombin Time 11.8 SEC (10.0-13.1)
[2022-08-05 16:29] LABS: Alanine Aminotransferase 11 U/L (0-40); Albumin Level 3.9 g/dL (3.5-5.0); Alkaline Phosphatase 64 U/L (39-117); Anion Gap 9 (12-20); Aspartate Amino Transferase 14 U/L (5-37); Bilirubin Direct 0.1 mg/dL (0.0-0.5); Bilirubin Total 0.5 mg/dL (0.0-1.0); Blood Urea Nitrogen 15 mg/dL (9-16); Calcium 9.2 mg/dL (8.4-10.2); Carbon Dioxide 30 mmol/L (22-29); Chloride 107 mmol/L (96-108); Estimated Glomerular Filt Rate 51; Glucose Random 121 mg/dL (60-115); Lipase 36 U/L (8-78); Potassium 4.6 mmol/L (3.3-5.1); Sodium 141 mmol/L (135-145); Total Protein 6.7 g/dL (6.5-8.0)
[2022-08-05 18:00] VITALS: BP 131/61; PULSE 76; RESP 16; TEMP 36.8; O2SAT 98
--- NOTE | 2022-08-05 18:32 | ED.CHESTPAIN ---
HPI - Chest Pain General Chief Complaint: Chest Pain Stated Complaint: Chest pain per EMS Time Seen by Provider: 08/05/22 17:45 Source: patient and family Mode of arrival: ambulatory Limitations: no limitations History of Present Illness HPI narrative: History of hypertension, hypercholesteremia, diabetes, sleep apnea on CPAP, CVA with residual left-sided weakness on aspirin no known history of coronary disease comes here for dizziness which seems like vertiginous feeling since yesterday evening along with right-sided chest pain which is sharp in character lasting for few seconds off and on gets worse on taking a deep breath and movement no shortness of breath no diaphoresis no vomiting feel nauseated history vertigo in the past but this seems to be worse than before patient refused to take meclizine and does not suit him. Patient has mild headache, no fever no chills urinary complaints no abdominal pain no new focal deficit patient does have chronic tinnitus Related Data Home Medications Medication Instructions Recorded Confirmed fluoxetine 20 mg capsule 20 mg PO DAILY 03/07/20 07/04/21 clonazepam 0.5 mg tablet 0.5 mg PO DAILY PRN 03/11/20 07/04/21 fluticasone propionate 50 0 mcg intranasal 03/11/20 07/04/21 mcg/actuation nasal spray,suspension Previous Rx's Medication Instructions Recorded acetaminophen 325 mg capsule 325 mg PO QID PRN pain #30 caps 01/09/20 (Tylenol) meclizine 25 mg tablet 25 mg PO DAILY dizzines #20 tabs 01/09/20 blood-glucose meter (FreeStyle #1 ea 08/20/20 Lite Meter kit) rosuvastatin 40 mg tablet 40 mg PO DAILY 90 days #90 tabs 01/02/21 amlodipine 5 mg tablet 5 mg PO DAILY 90 days #90 tabs 04/18/21 linagliptin 5 mg tablet (Tradjenta) 5 mg PO DAILY #90 tabs 04/18/21 cholecalciferol (vitamin D3) 50 50 mcg PO DAILY 30 days #90 caps 07/04/21 mcg (2,000 unit) capsule insulin degludec 200 unit/mL (3 56 unit (0.28 mL) subcut DAILY #30 07/31/21 mL) subcutaneous pen (Tresiba mL FlexTouch U-200 insulin) aspirin 81 mg tablet,delayed 81 mg PO DAILY #90 tabs 08/25/21 release insulin aspart U-100 100 unit/mL See Rx Instructions subcut 09/08/21 (3 mL) subcutaneous pen (Novolog .COMPLEX 90 days #90 mL FlexPen U-100 Insulin aspart) meclizine 25 mg tablet 25 mg PO TID PRN dizziness #30 tabs 09/16/21 fenofibrate 54 mg tablet 54 mg PO DAILY 90 days #90 tabs 12/16/21 FreeStyle Lancets 28 gauge #400 ea 12/24/21 (lancets) blood sugar diagnostic (FreeStyle #400 ea 12/24/21 Lite Strips) pen needle, diabetic 32 gauge x #450 ea 12/24/21 (BD Lsibet 2nd Gen Pen Needle) Allergies Allergy/AdvReac Type Severity Reaction Status Date / Time Penicillins [PENICILLINS] Allergy Unknown UNKNOWN-CHILDHOOD Verified 09/16/21 01:18 REACTION SEAFOOD Allergy Severe DIARRHEA,GI Uncoded 07/04/21 11:01 PAIN, NAUSEA Fish Allergy Mild Gastrointestinal Uncoded 07/04/21 11:01 Upset Review of Systems Review of Systems: Yes all other systems are reviewed and are negative [facility] Past Medical History Medical History Chronic rhinitis CKD stage 3 due to type 2 diabetes mellitus CVA (cerebrovascular accident due to intracerebral hemorrhage) Diabetes type 2, uncontrolled Diabetic nephropathy associated with type 2 diabetes mellitus Diabetic polyneuropathy associated with type 2 diabetes mellitus Dyslipidemia Hypertension 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 Mother Diabetes Social History Social History Household Members: None Housing: Apartment Alcohol intake: never Patient Tobacco Use Status: Former Tobacco user Smoked in Last 30 Days: No Use of substances other than those prescribed or required for medical reasons: No Advance Directives: No Advance Directives Information Provided: No Physical Exam Vital Signs: Vital Signs: Last Vital Signs Temp 98.2 F 08/05/22 18:00 Pulse 72 08/05/22 19:11 Resp 10 L 08/05/22 19:11 BP 135/80 08/05/22 19:11 Pulse Ox 98 08/05/22 19:11 O2 Del Method Room Air 08/05/22 19:11 BMI result Body Mass Index 34.2 Appearance: Alert. Oriented X3. No acute distress. Eyes: PERRLA, No Nystagmus ENT: Pharynx normal. Oral Mucosa moist Neck: Normal inspection. Neck supple. CVS: Normal heart rate and rhythm. Pulses normal. Respiratory: No respiratory distress. Equal air entry bilateral, no wheezing/rales/rhonchi Abdomen: Soft and nontender. Bowel sounds are present, no mass palpable, no CVA tenderness Skin: Skin warm and dry. Normal skin color. Normal skin turgor. Extremities: No lower extremity edema. No calf tenderness Neuro: Oriented X 3. Residual left-sided weakness, . No sensory deficit.No cerebellar signs , cranial nerves II-XII intact Medications Administered Discontinued Medications Generic Name Dose Route Start Last Admin Trade Name Freq PRN Reason Stop Dose Admin Lorazepam 1 mg 08/05/22 18:15 08/05/22 18:47 Lorazepam 1 Mg Tablet PO 08/05/22 18:16 1 mg ONCE ONE Administration Melatonin 5 mg 08/06/22 01:00 08/06/22 01:05 Melatonin 3 Mg Tablet PO 08/06/22 01:01 5 mg ONCE ONE Administration Ondansetron HCl 4 mg 08/05/22 18:16 08/05/22 18:47 Ondansetron Odt 4 Mg Tab.Rapdis TRANSLINGU 08/05/22 18:17 4 mg ONCE ONE Administration Medical Decision Making Medical Decision Making [facility] Narrative: Patient with multiple complaints workup negative for ACS dizziness patient refused to take the meclizine because side effects in the ER patient had difficulty in walking refused to go home and he lives alone would like to go to rehab as the past will consult the case management Differential Diagnosis BPPV/CVA/hyperglycemia/CLEMENTINA/cardiac Lab Data [facility] Lab Attestation statement: I reviewed the patient's lab results. 08/05/22 16:10 08/05/22 16:10 Labs: Lab Results 08/05/22 08/05/22 08/05/22 Range/Units 16:10 16:10 16:10 WBC 7.6 (4.8-10.8) X10*3/uL RBC 4.57 L (4.60-5.80) X10*6/uL Hgb 14.5 (14.0-18.0) g/dl Hct 41.9 L (42.0-52.0) % MCV 91.7 (80.0-98.0) fL MCH 31.7 (27.0-33.0) pg MCHC 34.6 (31.0-36.0) g/dl RDW 11.8 (11.0-16.0) % Plt Count 301 (160-400) X10*3/uL MPV 9.0 L (9.4-12.4) fL Immature Gran % (Auto) 0.3 (0.0-0.4) % Neut % (Auto) 74.7 H (45-73) % Lymph % (Auto) 18.9 L (20-40) % [place] % (Auto) 4.9 (2-11) % Eos % (Auto) 0.7 (0-4) % Baso % (Auto) 0.5 (0-2) % Lymph # (Auto) 1.4 (1.2-4.9) X10*3/uL [place] # (Auto) 0.4 (0.1-1.2) X10*3/uL Eos # (Auto) 0.1 (0.0-0.4) X10*3/uL Baso # (Auto) 0.0 (0.0-0.2) X10*3/uL Abs Immat Gran (auto) 0.02 (0.00-0.03) X10*3/uL Absolute Neuts (auto) 5.7 (2.0-8.3) x10*3/uL Absolute Nucleated RBC 0.000 (0.0-0.012) X10*3/uL Nucleated RBC % (auto) 0.0 (0.0-0.2) /100WBC PT 11.8 (10.0-13.1) SEC INR 1.0 (0.9-1.1) D-Dimer High Sensitivty < 150 NG/ML Sodium 141 (135-145) mmol/L Potassium 4.6 (3.3-5.1) mmol/L Chloride 107 (96-108) mmol/L Carbon Dioxide 30 H (22-29) mmol/L Anion Gap 9 L (12-20) BUN 15 (9-16) mg/dL Creatinine 1.42 H (0.5-1.4) mg/dL Estim Creat Clear Calc 60.0 Estimated GFR 51 Random Glucose 121 H (60-115) mg/dL Calcium 9.2 (8.4-10.2) mg/dL Total Bilirubin 0.5 (0.0-1.0) mg/dL Direct Bilirubin 0.1 (0.0-0.5) mg/dL AST 14 (5-37) U/L ALT 11 (0-40) U/L Alkaline Phosphatase 64 (39-117) U/L Troponin I High Sens (<3.5-35.0) ng/L Total Protein 6.7 (6.5-8.0) g/dL Albumin 3.9 (3.5-5.0) g/dL Lipase 36 (8-78) U/L Urine Color Urine Appearance Urine pH (5.0-9.0) Ur Specific [place] (1.005-1.025) Urine Protein (Neg-Trace) mg/dL Urine Glucose (UA) (Negative) mg/dL Urine Ketones (Negative) mg/dL Urine Blood (Negative) Urine Nitrite (Negative) Ur Leukocyte Esterase (Negative) Urine RBC (0-2) /HPF Urine WBC (0-5) /HPF Ur Squamous Epith Cells (0-2) /HPF Urine Bacteria (None Seen) Hyaline Casts (0-2) /LPF 08/05/22 08/05/22 08/05/22 Range/Units 16:10 18:41 19:22 WBC (4.8-10.8) X10*3/uL RBC (4.60-5.80) X10*6/uL Hgb (14.0-18.0) g/dl Hct (42.0-52.0) % MCV (80.0-98.0) fL MCH (27.0-33.0) pg MCHC (31.0-36.0) g/dl RDW (11.0-16.0) % Plt Count (160-400) X10*3/uL MPV (9.4-12.4) fL Immature Gran % (Auto) (0.0-0.4) % Neut % (Auto) (45-73) % Lymph % (Auto) (20-40) % [place] % (Auto) (2-11) % Eos % (Auto) (0-4) % Baso % (Auto) (0-2) % Lymph # (Auto) (1.2-4.9) X10*3/uL [place] # (Auto) (0.1-1.2) X10*3/uL Eos # (Auto) (0.0-0.4) X10*3/uL Baso # (Auto) (0.0-0.2) X10*3/uL Abs Immat Gran (auto) (0.00-0.03) X10*3/uL Absolute Neuts (auto) (2.0-8.3) x10*3/uL Absolute Nucleated RBC (0.0-0.012) X10*3/uL Nucleated RBC % (auto) (0.0-0.2) /100WBC PT (10.0-13.1) SEC INR (0.9-1.1) D-Dimer High Sensitivty NG/ML Sodium (135-145) mmol/L Potassium (3.3-5.1) mmol/L Chloride (96-108) mmol/L Carbon Dioxide (22-29) mmol/L Anion Gap (12-20) BUN (9-16) mg/dL Creatinine (0.5-1.4) mg/dL Estim Creat Clear Calc Estimated GFR Random Glucose (60-115) mg/dL Calcium (8.4-10.2) mg/dL Total Bilirubin (0.0-1.0) mg/dL Direct Bilirubin (0.0-0.5) mg/dL AST (5-37) U/L ALT (0-40) U/L Alkaline Phosphatase (39-117) U/L Troponin I High Sens 3.0 3.0 (<3.5-35.0) ng/L Total Protein (6.5-8.0) g/dL Albumin (3.5-5.0) g/dL Lipase (8-78) U/L Urine Color Yellow Urine Appearance Clear Urine pH 7.0 (5.0-9.0) Ur Specific [place] 1.015 (1.005-1.025) Urine Protein 300 (3+) H (Neg-Trace) mg/dL Urine Glucose (UA) Negative (Negative) mg/dL Urine Ketones Negative (Negative) mg/dL Urine Blood Negative (Negative) Urine Nitrite Negative (Negative) Ur Leukocyte Esterase Negative (Negative) Urine RBC 0-2 (0-2) /HPF Urine WBC 0-5 (0-5) /HPF Ur Squamous Epith Cells 0-2 (0-2) /HPF Urine Bacteria None Seen (None Seen) Hyaline Casts 0-2 (0-2) /LPF Independent Interpretation I performed an independent interpretation of an: EKG Interpretation: Normal sinus rhythm heart rate 61 beats per minute no acute ST-T changes no acute ischemia Discharge Plan Discharge Clinical Impression: Benign paroxysmal positional vertigo, CKD stage 3 due to type 2 diabetes mellitus Patient Disposition: Still a Patient Prescriptions: No Action (DME) blood-glucose meter [FreeStyle Lite Meter] Kit See Rx Instructions miscellaneous .MEDSUPPLY Qty: 1 0RF Rx Instructions: 4 times a day Tradjenta 5 mg tablet 5 mg PO DAILY Qty: 90 1RF amlodipine 5 mg tablet 5 mg PO DAILY 90 Days Qty: 90 1RF Tresiba FlexTouch U-200 200 unit/mL (3 mL) insulin pen 56 unit subcut DAILY Qty: 30 2RF aspirin 81 mg tablet,delayed release (DR/EC) 81 mg PO DAILY Qty: 90 1RF insulin aspart U-100 [Novolog FlexPen U-100 Insulin] 100 unit/mL (3 mL) insulin pen See Rx Instructions subcut .COMPLEX MDD 135 units 90 Days Qty: 90 6RF Rx Instructions: 10-15 units snacks, 25-30 units meals subcut five times a day; fenofibrate 54 mg tablet 54 mg PO DAILY 90 Days Qty: 90 1RF (DME) FreeStyle Lite Strips Strip See Rx Instructions .MEDSUPPLY Qty: 400 0RF Rx Instructions: 4 times a day (DME) lancets [FreeStyle Lancets] 28 gauge misc See Rx Instructions .MEDSUPPLY Qty: 400 0RF Rx Instructions: 4 times a day (DME) pen needle, diabetic [BD Lisbet 2nd Gen Pen Needle] 32 gauge x 5/32 needle See Rx Instructions .ROUTE .MEDSUPPLY Qty: 450 0RF Rx Instructions: 5 times a day acetaminophen [Tylenol] 325 mg capsule 325 mg PO QID PRN (Reason: pain) Qty: 30 0RF meclizine 25 mg tablet 25 mg PO DAILY Qty: 20 0RF meclizine 25 mg tablet 25 mg PO TID PRN (Reason: dizziness) Qty: 30 0RF fluoxetine 20 mg capsule 20 mg PO DAILY fluticasone propionate 50 mcg/actuation spray,suspension 0 mcg intranasal clonazepam 0.5 mg tablet 0.5 mg PO DAILY PRN rosuvastatin 40 mg tablet 40 mg PO DAILY 90 Days Qty: 90 1RF cholecalciferol (vitamin D3) 50 mcg (2,000 unit) capsule 50 mcg PO DAILY 30 Days Qty: 90 3RF
[2022-08-05 18:41] LABS: D Dimer High Sensitivity < 150 NG/ML
[2022-08-05] MEDS: LORazepam 1 MG TABLET PO (18:47)
[2022-08-05] MEDS: Ondansetron ODT 4 MG TAB.RAPDIS TRANSLINGU (18:47)
[2022-08-05 19:11] VITALS: BP 135/80; PULSE 72; RESP 10; O2SAT 98
[2022-08-05 19:29] LABS: Appearance Urine Clear; Color Urine Yellow; Glucose Urine UA Negative (Negative); Leukocyte Esterase Urine Negative (Negative); Nitrite Urine Negative (Negative); Specific Gravity - Urine 1.015 (1.005-1.025); UMIC TRIGGER UACC YES; Urine Blood Negative (Negative); Urine Ketones Negative (Negative); Urine Protein 300 (3+) mg/dL (Neg-Trace)
[2022-08-05 19:31] LABS: Bacteria Urine None Seen (None Seen); Hyaline Casts Urine 0-2 /LPF (0-2); RBC Urine 0-2 /HPF (0-2); Squamous Epithelial Cell Urine 0-2 /HPF (0-2); WBC Urine 0-5 /HPF (0-5)
--- NOTE | 2022-08-05 19:58 | PC.NURSE ---
pt assessed reported severe dizziness while ambulating,
--- NOTE | 2022-08-05 20:33 | MHC.CM.ED ---
Addendum entered by Rachel Krause 08/05/22 21:22: CM will follow for discharge planning. Dr. Soliman aware patient will need a covid screen. Original Note: CM met with patient with emergency room technician, as patient is Afghan speaking, at request of Dr. Soliman. Pt has many physical complaints, but main concerns are dizziness and frequent falls. Pt uses a walker. Is legally blind and uses a white cane. Lives alone. Has PCS services 38.45 hours/week through [employer] insurance ([employer]). Denies any other services. States has all he needs at home. Pt is , but has friendly relationship with his ex- Sabine Laird and his daughter, Marielena Moya provides supports when needed. PCP is Dr. Dayanna Hernandez at [facility]. No HCP on file. Pt wants to speak with ex and daughter first. Declines to complete on at this time. Pt is not vaccinated. Pt is requesting STR. Explained that patient will stay overnight and have a PT evaluation in the morning. Explained that PT will make recommendations : no PT, Home PT or STR. Explained that STR is usually for 1-2 weeks. Pt agreeable to STR if recommended. Will place referrals. D/C plan: STR. Will need transport. CM will follow for
--- NOTE | 2022-08-05 23:14 | MHC.EDTECH ---
Walked patient to the bathroom
[2022-08-06] MEDS: Melatonin 3 MG TABLET 5 MG PO (01:05)
[2022-08-06 06:00] VITALS: BP 113/68; PULSE 72; RESP 16; TEMP 36.5; O2SAT 98
--- NOTE | 2022-08-06 08:18 | PHA.MEDREC ---
Pharmacy Consult ? Medication Reconciliation Pharmacy has completed the medication reconciliation. 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 Patient [facility] Patient had a printed list in his chart however a few of the medications we outdate by months. Went with most recent pharmacy claims. Patient also mentioned he self d/c'd his meclizine for vertigo as he does not like them.
--- NOTE | 2022-08-06 09:06 | PC.NURSE ---
pt is aox3 speaking in full clear sentences. ambulatory independently with a cane. ate breakfast. pt at bedside earlier today. aware of plan of care and denied having any questions.
[2022-08-06 09:18] LABS: COVID-19 Test Negative (Negative); IDNOW Serial# 9DB6401D
--- NOTE | 2022-08-06 09:43 | PC.NURSE ---
pharmacy called to edit med rec for insulin change d/t availability
[2022-08-06] MEDS: FLUoxetine HCl 20 MG CAPSULE 40 MG PO (10:31)
--- NOTE | 2022-08-06 11:14 | MHC.CM.ED ---
Patient remains in the ER overflow. Physical therapy eval completed. Short term rehab is recommended. Referrals have already been made in [facility]. Met with patient and marketing communication manager. HCP completed, signed and witnessed. Original given to patient. Copy placed in chart. [facility], [facility] and [facility] are only facilities able to offer a bed at this time. After speaking with his daughter, [facility] choice. [facility] has been asked to go for insurance auth. Continue to monitor for d/c needs.
[2022-08-06 14:36] VITALS: BP 123/68; PULSE 77; RESP 14; TEMP 36.8; O2SAT 97
[2022-08-07 06:56] LABS: Glucose, Whole Blood 140 mg/dL (60-115)
[2022-08-07 06:56] LABS: Glucose, Whole Blood 103 mg/dL (60-115)
== END 2022-08-06 16:42 ==
PROVIDERS: Nurse Practitioner Family; Student in an Organized Health Care Education/Training Program; Emergency Provider Internal Medicine
DX: H81.10 Benign paroxysmal vertigo, unspecified ear (principal); E11.22 Type 2 diabetes mellitus with diabetic chronic kidney disease; I12.9 Hypertensive chronic kidney disease with stage 1 through stage 4 chronic kidney disease, or unspecified chronic kidney disease; N18.30 Chronic kidney disease, stage 3 unspecified; I69.354 Hemiplegia and hemiparesis following cerebral infarction affecting left non-dominant side; E78.00 Pure hypercholesterolemia, unspecified; Z20.822 Contact with and (suspected) exposure to COVID-19; Z79.82 Long term (current) use of aspirin; Z79.4 Long term (current) use of insulin; Z79.899 Other long term (current) drug therapy
CPT/HCPCS: 36415; 70450; 71045; 80053; 80076; 81001; 82248; 82947; 83690; 84484; 85025; 85379; 85610; 87635; 93005; 97161; 99285

== ENCOUNTER 2022-12-18 10:52 | Outpatient (REF) | payer OTHER, SELFPAY ==
[2022-12-18 15:24] LABS: Anion Gap 13 (12-20); Blood Urea Nitrogen 16 mg/dL (9-16); Calcium 9.4 mg/dL (8.4-10.2); Carbon Dioxide 24 mmol/L (22-29); Chloride 104 mmol/L (96-108); Cholesterol 251 mg/dL (<200); Estimated Glomerular Filt Rate 52; Glucose Random 137 mg/dL (60-115); HDL Cholesterol 38 mg/dL (>40); LDL Cholesterol Calculated 152 mg/dL (<100); Sodium 137 mmol/L (135-145); Triglycerides 308 mg/dL (<150)
[2022-12-18 16:10] LABS: Creatinine Urine 158.87 mg/dL
[2022-12-18 16:25] LABS: Microalbum/Creatinine Ratio Ur 1059.9 ug/mg cr (<30)
== END 2022-12-18 10:53 | disposition home or self-care (01) ==
LOC: HO.LAB 10:52
PROVIDERS: PCP Family Medicine; Visit Provider Internal Medicine Endocrinology, Diabetes & Metabolism
DX: E11.65 Type 2 diabetes mellitus with hyperglycemia (principal); I10 Essential (primary) hypertension; E78.5 Hyperlipidemia, unspecified; E55.9 Vitamin D deficiency, unspecified; Z79.4 Long term (current) use of insulin; Z79.899 Other long term (current) drug therapy
CPT/HCPCS: 36415; 80048; 80061; 82043; 82570; 82947; 83036; 99212

== ENCOUNTER 2022-12-18 10:52 | Outpatient (AMB) | payer OTHER, SELFPAY ==
--- NOTE | 2022-12-18 10:54 | A.OFFVIS_ITS ---
Intake Vital Signs 12/18/22 11:04 Height 5 ft 6 in Weight 212 lb 4.882 oz BMI 34.3 BP 126/72 Blood Pressure Location Lt brachial Position Sitting Pulse 66 Pulse Source Pulse Oximeter Intake Visit Reasons: DM2/[place] Intake Note: New patient to Dr. Hanley present today for Type 2 Diabetes Mellitus. Last Diabetic Eye exam: approx 1-2 months ago Last Podiatry Visit: Does not see a Marketing Information Analyst Random Glucose: 155 mg/dl HgA1C: 7.6% Diploma Maker Required: Yes Diploma Maker Language: [employer] Name: Brittani, Medical Staff Information Interpreted: non-clinical & clinical Accompanied by: Self / Same As Patient Allergies Penicillins [PENICILLINS] Allergy (Unknown, Verified 12/18/22 11:29) UNKNOWN-CHILDHOOD REACTION SEAFOOD Allergy (Severe, Uncoded 12/18/22 11:29) DIARRHEA,GI PAIN, NAUSEA Fish Allergy (Mild, Uncoded 12/18/22 11:29) Gastrointestinal Upset Medication List - Last Reconciled 12/18/22 by Adams Hanley MD acetaminophen (Tylenol) 325 mg PO QID PRN amlodipine 5 mg PO DAILY 90 days aspirin 81 mg PO DAILY blood sugar diagnostic (FreeStyle Lite Strips) 4 times a day blood-glucose meter (FreeStyle Lite Meter kit) 4 times a day cetirizine 10 mg PO QAM cholecalciferol (vitamin D3) 50 mcg PO DAILY 30 days clobetasol 0.05% 1 appl topical BID clonazepam 0.5 mg PO DAILY PRN dorzolamide-timolol 22.3-6.8 mg/mL 1 drp ophthalmic (eye) BID fenofibrate 54 mg PO DAILY 90 days fluoxetine 40 mg PO QAM fluticasone propionate 50 mcg/actuation 50 mcg intranasal DAILY FreeStyle Lancets (lancets) 4 times a day NS hydrocortisone 2.5% 1 appl topical DAILY insulin aspart U-100 (Novolog FlexPen U-100 Insulin aspart) 10-15 units snacks, 25-30 units meals subcut five times a day; 90 days MDD 135 units insulin degludec (Tresiba FlexTouch U-200 insulin) 56 units (0.28 mL) subcut DAILY melatonin 5 mg PO BEDTIME pen needle, diabetic (BD Lisbet 2nd Gen Pen Needle) 5 times a day quetiapine 12.5 - 25 mg PO BEDTIME PRN trazodone 100 mg BEDTIME HPI HPI Comments History of Present Illness Details Patient is 62-year-old male with DM type 2 diagnosed around the year 1998,? who presents for management of diabetes. 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 Multiple photocoagulation and VEGF, nephropathy, neuropathy.CVA, Diabetes medications: Tresiba 80 units at 2pm , Novolog 10-15 units for snacks, 25-30 with meals, Tradjenta 5 mg not taking . Symptoms reported: denies numbness, tingling, cramping in lower extremities Hypoglycemia:? very rare Hyperglycemia:? denies ? urinary frequency, nocturia, polydypsia Blood glucose monitoring:? The past 2 weeks average blood glucose 149, range 02 to 204, 0.6 readings per day. Blood glucose taken either fasting a.m. or prior to dinner. On most days. 75% range with 25% hyperglycemia and no hypoglycemia Exercise: walks 20-30 minutes, does use walker Candy Mixer - CDE education: in past Marketing Information Analyst: rigo, does not want to go Ophthalmology evaluation: patient reports last appt 1-2 mos ago . Sees Irrigation Supervisor as well. Laboratory Tests 01/02/21 10:29 Hgb A1c (Clinic) 6.9 H ? 09/25/20 09/25/20 09/25/20 ? 10:22 11:15 11:15 Creatinine ? ?1.98 H ? Estimated GFR ? ?35 ? Hgb A1c (Clinic) ?6.1 H ? ? Triglycerides ? ?189 ? Cholesterol ? ?144 ? LDL Cholesterol Di rect ? ? ?67 LDL Cholesterol, C alc ? ?70 ? HDL Cholesterol ? ?37 ? TSH ? ?0.45 ? Free T4 ? ?0.84 ? Microalb/Creat Rat io ? 09/25/20 ? 11:15 Creatinine ? Estimated GFR ? Hgb A1c (Clinic) ? Triglycerides ? Cholesterol ? LDL Cholesterol Di rect ? LDL Cholesterol, C alc ? HDL Cholesterol ? TSH ? Free T4 ? Microalb/Creat Rat io ?1256.4 ? 09/18/19 ? 09:40 25-OH Vitamin D T otal ?27.9 PFSH Medical History Chronic rhinitis CKD stage 3 due to type 2 diabetes mellitus CVA (cerebrovascular accident due to intracerebral hemorrhage) Diabetes type 2, uncontrolled Diabetic nephropathy associated with type 2 diabetes mellitus Diabetic polyneuropathy associated with type 2 diabetes mellitus Dyslipidemia Hypertension custodial (current) use of insulin JEAN MARIE on CPAP Proliferative diabetic retinopathy Surgical History History of appendectomy Hx of colonoscopy Hx of laser photocoagulation of retina Hx of lithotripsy Family History Father Lung cancer Father No problems noted. Mother Diabetes Social History Household Members: None Housing: Apartment Alcohol intake: never Patient Tobacco Use Status: Former Tobacco user Physical Exam Vital Signs: Last Vital Signs Pulse 66 12/18/22 11:04 BP 126/72 12/18/22 11:04 BMI result Body Mass Index 34.3 Results AMB Hemoglobin A1c AMB Hemoglobin A1c 7.6 % Last Edit by HARIKA Zambrano on 12/18/22 11:36 Results Reviewed Results Reviewed: 12/18/22 11:24 Glucose, Whole Blood Routine Laboratory Last Values Glucose (Clinic) 155 mg/dL (60-115) H 12/18/22 11:24 Assessment & Plan Assessment & Plan (1) Diabetes type 2, uncontrolled: Code(s): E11.65 - Type 2 diabetes mellitus with hyperglycemia Plan: This 62-year-old male with a history of type 2 diabetes being treated with basal-bolus insulin with glycemic and and known microvascular complications namely nephropathy, neuropathy retinopathy with 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 Plan is to have the patient check his point of care before and after meals. He would be a good candidate for a sensor and I prescribed Nevaeh 2. Will have him see patient educator and web coordinator. Will check basic metabolic panel, lipid profile microalbumin to creatinine ratio. Once he has a sensor, may consider adding a G LP 1 like Trulicity or Ozempic Orders: Orders Lipid Panel Today E11.65 - Type 2 diabetes mellitus with hyperglycemia Microalbumin, Random (w Creat) Today E11.65 - Type 2 diabetes mellitus with hyperglycemia AMB Hemoglobin A1c Today E11.65 - Type 2 diabetes mellitus with hyperglycemia Basic Metabolic Panel Today E11.65 - Type 2 diabetes mellitus with hyperglycemia Referrals Diabetes Education Referral E11.65 - Type 2 diabetes mellitus with hyperglycemia Nutrition/Dietitian Referral E11.65 - Type 2 diabetes mellitus with hyperglycemia Medications: New flash glucose sensor (FreeStyle Nevaeh 2 Sensor kit) As directed change every 14 days 2 ea 5RF flash glucose scanning reader (FreeStyle Nevaeh 2 [place]) As directed 1 ea 0RF Changed From insulin degludec (Tresiba FlexTouch U-200 insulin) 56 units (0.28 mL) subcut DAILY 30 mL 2RF E11.65 - Type 2 diabetes mellitus with hyperglycemia To insulin degludec (Tresiba FlexTouch U-200 insulin) 80 units (0.4 mL) subcut DAILY 9 mL 2RF E11.65 - Type 2 diabetes mellitus with hyperglycemia Coding Level of Care Code Est Pt Level 4 (93858) Diagnoses Diabetes type 2, uncontrolled E11.
[2022-12-18 11:04] VITALS: BP 126/72; PULSE 66; BMI 34.3
[2022-12-18 11:30] LABS: Glucose, Whole Blood 155 mg/dL (60-115)
== END 2022-12-18 11:51 | disposition home or self-care (01) ==
LOC: HO.ENCR 10:52
PROVIDERS: PCP Family Medicine; Visit Provider Internal Medicine Endocrinology, Diabetes & Metabolism
DX: E11.65 Type 2 diabetes mellitus with hyperglycemia (principal)
CPT/HCPCS: 99214

== ENCOUNTER 2022-12-31 11:39 | Outpatient (REF) | payer OTHER, SELFPAY ==
[2022-12-31 14:02] LABS: Anion Gap 15 (12-20); Blood Urea Nitrogen 12 mg/dL (9-16); Calcium 9.4 mg/dL (8.4-10.2); Carbon Dioxide 23 mmol/L (22-29); Chloride 104 mmol/L (96-108); Estimated Glomerular Filt Rate 55; Potassium 3.9 mmol/L (3.3-5.1); Sodium 138 mmol/L (135-145)
[2022-12-31 14:08] LABS: Creatinine Urine 146.18 mg/dL
[2022-12-31 14:31] LABS: Microalbum/Creatinine Ratio Ur 1194.4 ug/mg cr (<30)
== END 2022-12-31 11:40 | disposition home or self-care (01) ==
LOC: HO.HHCL 11:39
PROVIDERS: Visit Provider Internal Medicine Nephrology
DX: I12.9 Hypertensive chronic kidney disease with stage 1 through stage 4 chronic kidney disease, or unspecified chronic kidney disease (principal); E11.22 Type 2 diabetes mellitus with diabetic chronic kidney disease; N18.32 Chronic kidney disease, stage 3b; E11.21 Type 2 diabetes mellitus with diabetic nephropathy; N20.0 Calculus of kidney
CPT/HCPCS: 36415; 80051; 82043; 82310; 82565; 82570; 84520

== ENCOUNTER 2023-01-08 14:58 | Outpatient (AMB) | payer OTHER, SELFPAY ==
[2023-01-08 15:10] VITALS: PULSE 84; O2SAT 97; BMI 34.2
--- NOTE | 2023-01-08 15:10 | MHC.OFFVIS ---
Intake Vital Signs 01/08/23 15:10 Height 5 ft 6 in Weight 212 lb BMI 34.2 Pulse 84 Pulse Source Pulse Oximeter Pulse Oximetry (%) 97 Oxygen Delivery Method Room Air Intake Visit Reasons: Obstructive sleep apnea Sizing Sponger Required: No Allergies Penicillins [PENICILLINS] Allergy (Unknown, Verified 01/08/23 15:11) UNKNOWN-CHILDHOOD REACTION SEAFOOD Allergy (Severe, Uncoded 01/08/23 15:11) DIARRHEA,GI PAIN, NAUSEA Fish Allergy (Mild, Uncoded 01/08/23 15:11) Gastrointestinal Upset HPI HPI Comments History of Present Illness Details The patient is a 62-year-old gentleman known history of cardiovascular disease in addition to a stroke in the past. He has a known history of severe sleep apnea. He has had sleep studies in the past which recommended CPAP. However the patient did not start CPAP at the time. He had a repeat sleep study in the summer of 2017. He had a split study demonstrating both obstructive and central sleep apnea. They started the CPAP titration with 4 cm of water. At that point he had a reaction to the flu being used to hold on to the cannula on his lips and also his tongue he developed significant inflammation and burning. Therefore, he had to stop the procedure. He has not been able to feel complete comfort in the lips in the tongue because of the burning sensation. As he is aware that it was in that the mask that given the reaction but more the glued that was being used to hold on to the cannula in place. The patient has severe sleep apnea. The patient needs to be treated with CPAP therapy as well as possible specially with his cardiovascular risk. Therefore, I will submit his prescription to a local DME company to start CPAP therapy. If the patient has elevated central sleep apneas then we would have to consider repeating the titration study. 01/08/2023 the patient is here for a pulmonary follow-up visit. The patient has been on CPAP therapy for many years now. His last sleep study back in 2018 demonstrated both obstructive and central sleep apnea. He has been on APAP ever sense. However, he has been struggling with this machine because is not working appropriately. He has had the medication adjusted multiple times and is no longer working appropriately. He has had the machine looked up by the [employer] company multiple times and also have brought into the office here many years ago and get the machine still not working appropriately. Therefore, will going to request a replacement machine based on the fact that his machine is broken beyond repair. The patient does need to be on CPAP therapy as he does have significant cardiovascular risk factors and he also cannot be without it. Therefore, will request a replacement machine at this time from his current DME company. 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 Mother Diabetes Social History Household Members: None Housing: Apartment Alcohol intake: never Patient Tobacco Use Status: Former Tobacco user Review of Systems Const Reports daytime sleepiness, Reports difficulty sleeping and Denies night sweats ENT Denies change in voice, Denies lip swelling, Denies mouth pain, Reports nasal congestion, Reports nasal discharge and Denies tongue swelling Card Denies chest pain Resp Reports cough GI Denies abdominal pain Musc Denies no additional complaints Skin/Breast Denies rash Neuro Denies Neuro-related abnormal movements Psych Denies no additional complaints Vinny/Lymph Denies easy bleeding and Denies lymphadenopathy Aller/Immun Denies lip swelling and Denies tongue swelling Physical Exam Vital Signs: Last Vital Signs Pulse 84 01/08/23 15:10 Pulse Ox 97 01/08/23 15:10 Oxygen Delivery Method Room Air 01/08/23 15:10 BMI result Body Mass Index 34.2 Assessment & Plan Assessment & Plan (1) JEAN MARIE on CPAP: Code(s): G47.33 - Obstructive sleep apnea (adult) (pediatric); Z99.89 - Dependence on other enabling machines and devices Plan: Conitnue CPAP therapy (2) Chronic rhinitis: Code(s): J31.0 - Chronic rhinitis Plan: Continue nasal spray and rinsing Plan continue fluticasone nasal rinsing Requesting a replacement CPAP. His CPAP has not been working appropriate F/U 6 months Coding Level of Care Code Est Pt Level 4 (56315) Diagnoses JEAN MARIE on CPAP G47.33; Z99.89 Chronic rhinitis J31.0 Time Spent (min) 17
== END 2023-01-08 15:38 | disposition home or self-care (01) ==
PROVIDERS: PCP Family Medicine; Visit Provider Hospitalist
DX: G47.33 Obstructive sleep apnea (adult) (pediatric) (principal); Z99.89 Dependence on other enabling machines and devices; J31.0 Chronic rhinitis
CPT/HCPCS: 99214

== ENCOUNTER → 2023-01-08 14:58 | Outpatient (BNVA) | payer OTHER, SELFPAY | PROVIDERS: PCP Family Medicine; Visit Provider Hospitalist | DX: G47.33 Obstructive sleep apnea (adult) (pediatric) (principal); J31.0 Chronic rhinitis; Z99.89 Dependence on other enabling machines and devices | CPT/HCPCS: 99212 ==

== ENCOUNTER 2023-08-24 12:55 | Outpatient (AMB) | payer OTHER, SELFPAY ==
[2023-08-24 13:00] VITALS: BP 118/60; PULSE 85; BMI 34.4
--- NOTE | 2023-08-24 13:00 | A.OFFVIS_ITS ---
Vital Signs 08/24/23 13:00 Height 5 ft 6 in Weight 213 lb 2.992 oz BMI 34.4 BP 118/60 Blood Pressure Location Rt brachial Position Sitting Pulse 85 Pulse Source Pulse Oximeter Intake Visit Reasons: f/u Type 2 DM-mailbox is full Intake Note: Patient presents today to follow up on D2MT. Last Diabetic Eye exam:01/2023 Last Podiatry Visit: Doesn't have one Random Glucose: 169 mg/dl HgA1c: 9.3% Rail Car Repairer Required: Yes Rail Car Repairer Language: Manual Tester Name: Sonia Information Interpreted: non-clinical & clinical Accompanied by: Self / Same As Patient Allergies Penicillins [PENICILLINS] Allergy (Unknown, Verified 08/24/23 13:07) UNKNOWN-CHILDHOOD REACTION SEAFOOD Allergy (Severe, Uncoded 08/24/23 13:07) DIARRHEA,GI PAIN, NAUSEA Fish Allergy (Mild, Uncoded 08/24/23 13:07) Gastrointestinal Upset Medication List - Last Reconciled 08/24/23 by Adams Hanley MD acetaminophen (Tylenol) 325 mg PO QID PRN amlodipine 5 mg PO DAILY 90 days aspirin 81 mg PO DAILY blood sugar diagnostic (FreeStyle Lite Strips) 4 times a day blood-glucose meter (FreeStyle Lite Meter kit) 4 times a day cetirizine 10 mg PO QAM cholecalciferol (vitamin D3) 50 mcg PO DAILY 30 days clobetasol 0.05% 1 appl topical BID clonazepam 0.5 mg PO DAILY PRN dorzolamide-timolol 22.3-6.8 mg/mL 1 drp ophthalmic (eye) BID fenofibrate 54 mg PO DAILY 90 days flash glucose scanning reader (FreeStyle Nevaeh 2 [place]) As directed flash glucose sensor (FreeStyle Nevaeh 2 Sensor kit) As directed change every 14 days fluoxetine 40 mg PO QAM fluticasone propionate 50 mcg/actuation 50 mcg intranasal DAILY FreeStyle Lancets (lancets) 4 times a day NS hydrocortisone 2.5% 1 appl topical DAILY insulin aspart U-100 (Novolog FlexPen U-100 Insulin aspart) 10-15 units snacks, 25-30 units meals subcut five times a day; 90 days MDD 135 units insulin degludec (Tresiba FlexTouch U-200 insulin) 80 units (0.4 mL) subcut DAILY melatonin 5 mg PO BEDTIME pen needle, diabetic (BD Lisbet 2nd Gen Pen Needle) 5 times a day quetiapine 12.5 - 25 mg PO BEDTIME PRN roflumilast 0.3% (Zoryve) appl topical rosuvastatin 40 mg PO DAILY trazodone 100 mg BEDTIME HPI Comments Details: Patient is 63-year-old male with DM type 2 diagnosed around the year 1998,? who presents for management of diabetes. 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 Multiple photocoagulation and VEGF, nephropathy, neuropathy.CVA, Diabetes medications:Toujeo 80 units at 2pm not , Novolog 10-15 units for snacks, 25-30 with meals, Tradjenta 5 mg Symptoms reported: denies numbness, tingling, cramping in lower extremities Hypoglycemia:? very rare Hyperglycemia:? denies ? urinary frequency, nocturia, polydypsia Blood glucose monitoring:? Unfortunately, patient did not bring log book or sensor or glucometer follow-up visit Exercise: walks 20-30 minutes, does use walker [employer] Emuls[employer] Supervisor - CDE education: in past Pickle Processor: rigo, does not want to go Ophthalmology evaluation: patient reports last appt 01/2023 Sees Customs And Border Protection Inspector as well. Laboratory Tests 01/02/21 10:29 Hgb A1c (Clinic) 6.9 H ? 09/25/20 09/25/20 09/25/20 ? 10:22 11:15 11:15 Creatinine ? ?1.98 H ? Estimated GFR ? ?35 ? Hgb A1c (Clinic) ?6.1 H ? ? Triglycerides ? ?189 ? Cholesterol ? ?144 ? LDL Cholesterol Direct ? ? ?67 LDL Cholesterol, Calc ? ?70 ? HDL Cholesterol ? ?37 ? TSH ? ?0.45 ? Free T4 ? ?0.84 ? Microalb/Creat Ratio ? 09/25/20 ? 11:15 Creatinine ? Estimated GFR ? Hgb A1c (Clinic) ? Triglycerides ? Cholesterol ? LDL Cholesterol Direct ? LDL Cholesterol, Calc ? HDL Cholesterol ? TSH ? Free T4 ? Microalb/Creat Ratio ?1256.4 ? 09/18/19 ? 09:40 25-OH Vitamin D Total ?27.9 PFSH Medical History Chronic rhinitis CKD stage 3 due to type 2 diabetes mellitus CVA (cerebrovascular accident due to intracerebral hemorrhage) Diabetes type 2, uncontrolled Diabetic nephropathy associated with type 2 diabetes mellitus Diabetic polyneuropathy associated with type 2 diabetes mellitus Dyslipidemia Hypertension FPC (current) use of insulin JEAN MARIE on CPAP Proliferative diabetic retinopathy Surgical History Hx of lithotripsy History of appendectomy Hx of laser photocoagulation of retina Hx of colonoscopy Family History Father Lung cancer Father No problems noted. Mother Diabetes Social History Household Members: None Housing: Apartment Alcohol intake: never Patient Tobacco Use Status: Former Tobacco user Physical Exam Vital Signs: Last Vital Signs Pulse 85 08/24/23 13:00 BP 118/60 08/24/23 13:00 BMI result Body Mass Index 34.4 Absence of Cushingoid features. Absence of acromegalic features. Neck exam reveals nl size thyroid about 15 gms. No thyroid nodules palpable. No carotid bruits present. Lungs CTA. Heart S1 S2, Reg R/R. No M/R/ G. Skin exam reveals absence of vitiligo or acanthosis nigricans. Abdominal exam reveals Soft NT/ND with NA BS. No organomegaly present. Neck Other: . Extrem Other: Visual exam of foot performed. No ulcerations or open lesions. No onchomycosis, no callouses.Pulses 2 + distally Sensation intact to monofilament exam. Vibratory sensation sensed is intact with 128 Hz tuning fork Results AMB Hemoglobin A1c AMB Hemoglobin A1c 9.3 % Last Edit by HARIKA Dueñas on 08/24/23 13:19 Results Reviewed Results Reviewed: Laboratory Last Values Glucose (Clinic) 169 mg/dL (60-115) H 08/24/23 13:09 Assessment & Plan Assessment & Plan (1) Diabetes type 2, uncontrolled: Code(s): E11.65 - Type 2 diabetes mellitus with hyperglycemia Category: Medical Plan: This 62-year-old male with a history of type 2 diabetes being treated with basal-bolus insulin with poor glycemic and and known microvascular complications namely nephropathy, neuropathy retinopathy with 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 Plan is to have the patient check his point of care before and after meals. He would be a good candidate for a sensor but is refusing 1 of present.. Will have him see family life educator and infectious disease physician. . I do not feel comfortable initiating a G LP 1 without the sensor because of fear of hypoglycemia. I explained all this to the patient via induction brazer in the correlation of poor glycemic control with progression of complications. Also, consider using MANOHAR inhibition ibased therapy like an LISSA-inhibitor or ARB but the patient states he had reactions to this in the past. He will discuss this with his veterans service representative on follow-up Orders: Orders AMB Hemoglobin A1c Today E11.65 - Type 2 diabetes mellitus with hyperglycemia, Z13.9 - Encounter for screening, unspecified Medications: New linagliptin (Tradjenta) 5 mg PO DAILY 30 tabs 5RF Refilled blood-glucose meter (FreeStyle Lite Meter kit) 4 times a day 1 ea 0RF E11.65 - Type 2 diabetes mellitus with hyperglycemia insulin aspart U-100 (Novolog FlexPen U-100 Insulin aspart) 10-15 units snacks, 25-30 units meals subcut five times a day; 90 days 90 mL 6RF MDD 135 units insulin degludec (Tresiba FlexTouch U-200 insulin) 80 units (0.4 mL) subcut DAILY 9 mL 2RF E11.65 - Type 2 diabetes mellitus with hyperglycemia Coding Level of Care Code Est Pt Level 4 (60780) Diagnoses Diabetes type 2, uncontrolled E11.65
[2023-08-24 13:14] LABS: Glucose, Whole Blood 169 mg/dL (60-115)
== END 2023-08-24 13:49 | disposition home or self-care (01) ==
PROVIDERS: PCP Family Medicine; Visit Provider Internal Medicine Endocrinology, Diabetes & Metabolism
DX: Z13.9 Encounter for screening, unspecified (principal); E11.65 Type 2 diabetes mellitus with hyperglycemia
CPT/HCPCS: 99214

== ENCOUNTER → 2023-08-24 12:55 | Outpatient (BNVA) | payer OTHER, SELFPAY | PROVIDERS: PCP Family Medicine; Visit Provider Internal Medicine Endocrinology, Diabetes & Metabolism | DX: E11.65 Type 2 diabetes mellitus with hyperglycemia (principal) | CPT/HCPCS: 82947; 83036; 99212 ==

== ENCOUNTER 2023-09-07 09:09 | Outpatient (AMB) | payer OTHER, SELFPAY ==
--- NOTE | 2023-09-07 09:35 | MHC.AMDMED ---
Intake Intake Visit Reasons: T2DM/CONFIRMED Adult Ministries Director Required: Yes Adult Ministries Director Language: Flight Deck Officer Name: Mahsa [facility] [place] Dragline Operator: Crawler Dragline Operator offered & declined Accompanied by: Grand Child Allergies Penicillins [PENICILLINS] Allergy (Unknown, Verified 08/24/23 13:07) UNKNOWN-CHILDHOOD REACTION SEAFOOD Allergy (Severe, Uncoded 08/24/23 13:07) DIARRHEA,GI PAIN, NAUSEA Fish Allergy (Mild, Uncoded 08/24/23 13:07) Gastrointestinal Upset HPI Comprehensive Diabetes Asmnt Most Recent Diabetes Results: Microalb/Creat Ratio 1194.4 ug/mg cr (<30) H 12/31/22 Cholesterol 251 mg/dL (<200) H 12/18/22 HDL Cholesterol 38 mg/dL (>40) L 12/18/22 Triglycerides 308 mg/dL (<150) H 12/18/22 Creatinine 1.33 mg/dL (0.5-1.4) 12/31/22 Blood Urea Nitrogen 12 mg/dL (9-16) 12/31/22 Sodium 138 mmol/L (135-145) 12/31/22 Potassium 3.9 mmol/L (3.3-5.1) 12/31/22 Chloride 104 mmol/L (96-108) 12/31/22 Carbon Dioxide 23 mmol/L (22-29) 12/31/22 Calcium 9.4 mg/dL (8.4-10.2) 12/31/22 AST 14 U/L (5-37) 08/05/22 ALT 11 U/L (0-40) 08/05/22 Total Protein 6.7 g/dL (6.5-8.0) 08/05/22 Albumin 3.9 g/dL (3.5-5.0) 08/05/22 [facility] Medical History Chronic rhinitis CKD stage 3 due to type 2 diabetes mellitus CVA (cerebrovascular accident due to intracerebral hemorrhage) Diabetes type 2, uncontrolled Diabetic nephropathy associated with type 2 diabetes mellitus Diabetic polyneuropathy associated with type 2 diabetes mellitus Dyslipidemia Hypertension 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 Mother Diabetes Social History Household Members: None Housing: Apartment Alcohol intake: never Patient Tobacco Use Status: Former Tobacco user Assessment & Plan Assessment & Plan (1) Diabetic polyneuropathy associated with type 2 diabetes mellitus: Code(s): E11.42 - Type 2 diabetes mellitus with diabetic polyneuropathy Plan: CGM Info Instructed Pt on what CGM can and can't do CGM Can: Give Pt minute by minute reading of glucose levels Displays glucose trend arrows that represents the direction glucose levels are fluctuating Give insight on decisions about how to dose insulin CGM cannot: Improve glucose control on its own Completely eliminate the need for all finger sticks Make dosing decision for you CGM is the reading of glucose in the interstitial fluid not actual blood glucose, finger sticks are still necessary when Pt's symptom?s do not match sensor reading and if sensors prompts Pt to do a fingerstick Patient? is interested in the Dexcom G7 Reviewed Medicare guidelines for obtaining CGM Reviewed delay of CGM from fingersticks Reminded pt that if symptoms do not match sensor still needs to check fingersticks. Portions of this note were created using voice recognition software, please excuse any words or phrases that may have been misinterpreted. Coding Level of Care Code Est Pt Level 1 (93873) Diagnoses Diabetic polyneuropathy associated with type 2 diabetes mellitus E11.42
== END 2023-09-07 09:38 | disposition home or self-care (01) ==
PROVIDERS: PCP Family Medicine; Visit Provider Registered Nurse Diabetes Educator
DX: E11.42 Type 2 diabetes mellitus with diabetic polyneuropathy (principal)

== ENCOUNTER → 2023-09-07 09:09 | Outpatient (BNVA) | payer OTHER, SELFPAY | PROVIDERS: PCP Family Medicine; Visit Provider Registered Nurse Diabetes Educator | DX: E11.22 Type 2 diabetes mellitus with diabetic chronic kidney disease (principal); I12.9 Hypertensive chronic kidney disease with stage 1 through stage 4 chronic kidney disease, or unspecified chronic kidney disease; N18.30 Chronic kidney disease, stage 3 unspecified; E55.9 Vitamin D deficiency, unspecified; R80.9 Proteinuria, unspecified; E11.42 Type 2 diabetes mellitus with diabetic polyneuropathy | CPT/HCPCS: 99202; 99211 ==

== ENCOUNTER 2023-09-07 11:25 | Outpatient (AMB) | payer OTHER, SELFPAY ==
[2023-09-07 11:25] VITALS: BP 126/84; PULSE 76; O2SAT 96; BMI 34.9
--- NOTE | 2023-09-07 11:25 | HO.NEPHOV_ITS ---
Vital Signs 09/07/23 11:25 Height 5 ft 6 in Weight 216 lb BMI 34.9 BP 126/84 Blood Pressure Location Rt brachial Position Sitting Pulse 76 Pulse Source Pulse Oximeter Pulse Oximetry (%) 96 Oxygen Delivery Method Room Air Intake Visit Reasons: Transferring care from [facility]/ [facility] Mechanic Driver Required: No Mechanic Driver Name: Beka [id number] Accompanied by: Self / Same As Patient Allergies Penicillins [PENICILLINS] Allergy (Unknown, Verified 09/07/23 11:30) UNKNOWN-CHILDHOOD REACTION SEAFOOD Allergy (Severe, Uncoded 08/24/23 13:07) DIARRHEA,GI PAIN, NAUSEA Fish Allergy (Mild, Uncoded 08/24/23 13:07) Gastrointestinal Upset HPI Comments Details: . Yehuda is a pleasant 62-year-old man with history of longstanding diabetes mellitus hypertension with CKD. Serum creatinine has been fluctuating between 1.31.5 mg/dL. In 06/23/2023 serum creatinine was 1.5 while this was checked in [facility]. She has been referred for evaluated chronic disease and proteinuria. In the past he had the urine protein creatinine ratio was more than 1 g. He has a being foamy urine. He denies any edema. No shortness of breath. Upon reviewing the records he has not on any LISSA inhibitors or ARB is. He can not recall trying any of these agents. He is on amlodipine 5 mg a day. 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 Mother Diabetes Social History Household Members: None Housing: Apartment Alcohol intake: never Patient Tobacco Use Status: Former Tobacco user Review of Systems Const Denies fever(s) and Denies weight loss Card Denies chest pain Resp Denies cough and Denies hemoptysis GI Denies abdominal pain, Denies diarrhea and Denies nausea Musc Denies back pain Neuro Denies focal weakness Physical Exam Vital Signs: Last Vital Signs Pulse 76 09/07/23 11:25 BP 126/84 09/07/23 11:25 Pulse Ox 96 09/07/23 11:25 Oxygen Delivery Method Room Air 09/07/23 11:25 BMI result Body Mass Index 34.9 Const General: comfortable Nutritional Appearance: well nourished Orientation/consciousness: patient oriented x3 HEENT Head: No normal to inspection Mouth: moist mucous membranes Neck Neck: Yes supple and Yes no JVD Resp Auscultation: clear to auscultation bilaterally, no rales and rub present Cardio Jugular venous distension: no JVD Palpation: no palpable S3 and no palpable S4 Heart sounds: no rubs GI Palpation (GI): Soft to palpation and nontender Percussion: No Fluid wave present General: Yes no CVA tenderness Back/Spine/Pelvis Back: no CVA tenderness Skin General skin exam: no rashes or lesions noted Neuro General: patient oriented x3 Extrem General: Yes no pedal edema and No clubbing Results Reviewed Nephrology Results: Hgb 14.5 g/dl (14.0-18.0) 08/05/22 WBC 7.6 X10*3/uL (4.8-10.8) 08/05/22 Plt Count 301 X10*3/uL (160-400) 08/05/22 Sodium 138 mmol/L (135-145) 12/31/22 Potassium 3.9 mmol/L (3.3-5.1) 12/31/22 Chloride 104 mmol/L (96-108) 12/31/22 Carbon Dioxide 23 mmol/L (22-29) 12/31/22 BUN 12 mg/dL (9-16) 12/31/22 Creatinine 1.33 mg/dL (0.5-1.4) 12/31/22 Calcium 9.4 mg/dL (8.4-10.2) 12/31/22 Urine Protein 300 (3+) mg/dL (Neg-Trace) H 05/03/23 Urine Creatinine 146.18 mg/dL 12/31/22 Assessment & Plan Assessment & Plan (1) CKD stage 3 due to type 2 diabetes mellitus: Code(s): E11.22 - Type 2 diabetes mellitus with diabetic chronic kidney disease; N18.30 - Chronic kidney disease, stage 3 unspecified Category: Medical (2) DM2 (diabetes mellitus, type 2): Code(s): E11.9 - Type 2 diabetes mellitus without complications Category: Medical (3) Hypertension: Code(s): I10 - Essential (primary) hypertension Category: Medical (4) Vitamin D deficiency: Code(s): E55.9 - Vitamin D deficiency, unspecified Category: Medical (5) Proteinuria: Code(s): R80.9 - Proteinuria, unspecified Category: Medical Plan . 63-year-old man with a history of longstanding diabetes mellitus hypertension obesity with proteinuria. Proteinuria is most likely due to hypertensive diabetic kidney disease. Proteinuria could be due to obesity as well. Underlying FSGS is a possibility as well. He has stage III CKD most likely due to diabetes diabetic kidney disease. Other nondiabetic causes seem unlikely nevertheless we will rule that out. Recommendations Workup initiated for CKD and proteinuria including recheck protein creatinine ratio. Obtain renal ultrasonogram to assess echogenicity and to rule out hydronephrosis. In view of the proteinuria I will discontinue amlodipine and try him on losartan 50 mg once a day. He will benefit from weight loss. He should stay on a low-salt diet which I have discussed. Blood sugar needs to be better controlled recent A1c was 9.3%. I shall refer him to dietitian. Encouraged him to continue follow up with Dr. Hanley/endocrinology. He returned to the office once the baseline workup is completed Orders: Orders Comprehensive Met. Panel Today E11.22 - Type 2 diabetes mellitus with diabetic chronic kidney disease, E11.9 - Type 2 diabetes mellitus without complications, I10 - Essential (primary) hypertension, N18.30 - Chronic kidney disease, stage 3 unspecified, N18.9 - Chronic kidney disease, unspecified US renal BI Today E11.22 - Type 2 diabetes mellitus with diabetic chronic kidney disease, N18.30 - Chronic kidney disease, stage 3 unspecified Vitamin D 25-OH (D2 and D3) Today E55.9 - Vitamin D deficiency, unspecified Parathyroid Hormone Intact Today E55.9 - Vitamin D deficiency, unspecified Complete Blood Count Auto Diff Today E11.22 - Type 2 diabetes mellitus with diabetic chronic kidney disease, E11.9 - Type 2 diabetes mellitus without complications, I10 - Essential (primary) hypertension, N18.30 - Chronic kidney disease, stage 3 unspecified Total Protein Urine Random Today E11.22 - Type 2 diabetes mellitus with diabetic chronic kidney disease, E11.9 - Type 2 diabetes mellitus without complications, I10 - Essential (primary) hypertension, N18.30 - Chronic kidney disease, stage 3 unspecified UA and rflx microscopic Today E11.22 - Type 2 diabetes mellitus with diabetic chronic kidney disease, E11.9 - Type 2 diabetes mellitus without complications, I10 - Essential (primary) hypertension, N18.30 - Chronic kidney disease, stage 3 unspecified Creatinine Urine Today E11.22 - Type 2 diabetes mellitus with diabetic chronic kidney disease, E11.9 - Type 2 diabetes mellitus without complications, I10 - Essential (primary) hypertension, N18.30 - Chronic kidney disease, stage 3 unspecified Medications: New losartan 50 mg PO DAILY 90 tabs 0RF Discontinued amlodipine Discontinued Reason: Doctor's Order 5 mg PO DAILY 90 days 90 tabs 1RF E11.65 - Type 2 diabetes mellitus with hyperglycemia Coding Level of Care Code New Pt Level 4 (65950) Diagnoses CKD stage 3 due to type 2 diabetes mellitus E11.22; N18.30 Type 2 diabetes mellitus with diabetic polyneuropathy, with long-term current use of insulin E11.9 Hypertension I10 Vitamin D deficiency E55.9 Proteinuria R80.9
== END 2023-09-07 12:05 | disposition home or self-care (01) ==
PROVIDERS: PCP Family Medicine; Visit Provider Internal Medicine Hypertension Specialist
DX: I12.9 Hypertensive chronic kidney disease with stage 1 through stage 4 chronic kidney disease, or unspecified chronic kidney disease (principal); E11.22 Type 2 diabetes mellitus with diabetic chronic kidney disease; N18.30 Chronic kidney disease, stage 3 unspecified; E55.9 Vitamin D deficiency, unspecified; R80.9 Proteinuria, unspecified
CPT/HCPCS: 99204

== ENCOUNTER 2023-09-07 12:20 | Outpatient (REF) | payer OTHER, SELFPAY ==
[2023-09-07 13:14] LABS: MANUAL DIFF FLAG NO
[2023-09-07 13:17] LABS: Appearance Urine Clear; Color Urine Yellow; Glucose Urine UA Negative (Negative); Leukocyte Esterase Urine Negative (Negative); Nitrite Urine Negative (Negative); PH 5.5 (5.0-9.0); Specific Gravity - Urine 1.015 (1.005-1.025); UMIC TRIGGER UA YES; Urine Blood Negative (Negative); Urine Ketones Negative (Negative); Urine Protein 300 (3+) mg/dL (Neg-Trace)
[2023-09-07 13:37] LABS: Basophils Absolute Auto 0.1 X10*3/uL (0.0-0.2); Basophils Percent Auto 0.8 % (0-2); Eosinophils Absolute Auto 0.1 X10*3/uL (0.0-0.4); Eosinophils Percent Auto 1.8 % (0-4); Hematocrit 38.5 % (42.0-52.0); Hemoglobin 13.3 g/dl (14.0-18.0); Imm Gran Abs Auto 0.02 X10*3/uL (0.00-0.03); Imm Gran Pct Auto 0.3 % (0.0-0.4); Lymphocytes Absolute Auto 2.7 X10*3/uL (1.2-4.9); Mean Corpuscular HGB Conc 34.5 g/dl (31.0-36.0); Mean Corpuscular Hemoglobin 32.2 pg (27.0-33.0); Mean Corpuscular Volume 93.2 fL (80.0-98.0); Mean Platelet Volume 9.5 fL (9.4-12.4); Monocytes Absolute Auto 0.7 X10*3/uL (0.1-1.2); Monocytes Percent Auto 9.3 % (2-11); Neutrophils Percent Auto 52.8 % (45-73); Platelet Count 325 X10*3/uL (160-400); Red Blood Count 4.13 X10*6/uL (4.60-5.80); Red Cell Distribution Width 11.5 % (11.0-16.0); White Blood Count 7.6 X10*3/uL (4.8-10.8)
[2023-09-07 13:55] LABS: Bacteria Urine None Seen (None Seen); Hyaline Casts Urine 0-2 /LPF (0-2); RBC Urine 0-2 /HPF (0-2); Squamous Epithelial Cell Urine 0-2 /HPF (0-2); WBC Urine 0-5 /HPF (0-5)
[2023-09-07 13:59] LABS: Alanine Aminotransferase 24 U/L (0-40); Albumin Level 4.1 g/dL (3.5-5.0); Alkaline Phosphatase 52 U/L (39-117); Anion Gap 15 (12-20); Aspartate Amino Transferase 20 U/L (5-37); Bilirubin Total 0.3 mg/dL (0.0-1.0); Blood Urea Nitrogen 23 mg/dL (9-16); Calcium 9.8 mg/dL (8.4-10.2); Carbon Dioxide 26 mmol/L (22-29); Chloride 101 mmol/L (96-108); Estimated Glomerular Filt Rate 41; Glucose Random 149 mg/dL (60-115); Potassium 4.3 mmol/L (3.3-5.1); Sodium 138 mmol/L (135-145); Total Protein 7.2 g/dL (6.5-8.0)
[2023-09-07 14:04] LABS: Creatinine Urine 111.45 mg/dL; Total Protein Urine Random 177 mg/dL (<12)
[2023-09-07 14:15] LABS: Parathyroid Hormone Intact 57.1 pg/mL (8.7-77.1)
[2023-09-12 16:18] LABS: Vitamin D 25-OH, D2 <4 ng/mL; Vitamin D 25-OH, D3 23 ng/mL; Vitamin D 25-OH, Total 23 ng/mL (30-100)
== END 2023-09-07 12:21 | disposition home or self-care (01) ==
LOC: HO.10HDL 12:20
PROVIDERS: Visit Provider Internal Medicine Hypertension Specialist
DX: E55.9 Vitamin D deficiency, unspecified (principal); E11.22 Type 2 diabetes mellitus with diabetic chronic kidney disease; I12.9 Hypertensive chronic kidney disease with stage 1 through stage 4 chronic kidney disease, or unspecified chronic kidney disease; N18.30 Chronic kidney disease, stage 3 unspecified
CPT/HCPCS: 36415; 80053; 81001; 82306; 82570; 83970; 84156; 85025

== ENCOUNTER 2023-10-12 09:05 | Outpatient (REF) | payer OTHER, SELFPAY ==
--- NOTE | ~2023-10-12 | US_ITS ---
EXAMINATION: US RETROPERITONEAL LIMITED (RENAL ONLY) CLINICAL INFORMATION: Type 2 diabetes mellitus with diabetic chronic kidney disease. COMPARISON: Renal ultrasound 01/04/2019. Ultrasound abdomen complete 06/15/2018. CT abdomen and pelvis 07/12/2016. X-ray abdomen 11/27/2015 and 05/22/2015. TECHNIQUE: Real-time imaging of the kidneys. Limited visualization due to bowel gas. FINDINGS: RIGHT KIDNEY: 10.5 x 5.5 x 4.7 cm (SAG x AP x TRV). 0.9 cm lower pole cyst with posterior echogenic focus characteristic of a calcification not identified on prior exam. No hydronephrosis. No obstructing renal calculi. Prominent renal pyramids. Nodular renal contour difficult to evaluate as limited visualization due to bowel gas. LEFT KIDNEY: 11.3 x 4.5 x 5.4 cm (SAG x AP x TRV). Prominent renal pyramids. Nodular renal contour difficult to evaluate as limited visualization due to bowel gas. No obstructing renal calculi. No gross hydronephrosis. US/US renal BI IMPRESSION: 1. Bilateral nodular renal contours and prominent renal pyramids are difficult to evaluate as visualization is limited due to bowel gas. 2. No renal calculi. 3. Right renal 0.9 cm lower pole cyst with posterior echogenic focus characteristic of a calcification not identified on prior exam. 4. CT scan with and without intravenous contrast employing renal mass protocol recommended.
== END 2023-10-12 09:06 | disposition home or self-care (01) ==
LOC: HO.US 09:05
PROVIDERS: PCP Family Medicine; Visit Provider Internal Medicine Hypertension Specialist
DX: E11.22 Type 2 diabetes mellitus with diabetic chronic kidney disease (principal); N18.30 Chronic kidney disease, stage 3 unspecified; G47.33 Obstructive sleep apnea (adult) (pediatric); Z99.89 Dependence on other enabling machines and devices
CPT/HCPCS: 76775; 99212

== ENCOUNTER 2023-10-12 09:49 | Outpatient (AMB) | payer OTHER, SELFPAY ==
[2023-10-12 10:07] VITALS: PULSE 71; O2SAT 95; BMI 34.9
--- NOTE | 2023-10-12 10:07 | MHC.OFFVIS ---
Vital Signs 10/12/23 10:07 Height 5 ft 6 in Weight 216 lb 0.848 oz BMI 34.9 Pulse 71 Pulse Source Pulse Oximeter Pulse Oximetry (%) 95 Oxygen Delivery Method Room Air Intake Visit Reasons: jean marie Bean Dumper Required: No Allergies Penicillins [PENICILLINS] Allergy (Unknown, Verified 10/12/23 10:08) UNKNOWN-CHILDHOOD REACTION SEAFOOD Allergy (Severe, Uncoded 10/12/23 10:08) DIARRHEA,GI PAIN, NAUSEA Fish Allergy (Mild, Uncoded 10/12/23 10:08) Gastrointestinal Upset HPI Comments Details: The patient is a 63-year-old gentleman known history of cardiovascular disease in addition to a stroke in the past. He has a known history of severe sleep apnea. He has had sleep studies in the past which recommended CPAP. However the patient did not start CPAP at the time. He had a repeat sleep study in the summer of 2017. He had a split study demonstrating both obstructive and central sleep apnea. They started the CPAP titration with 4 cm of water. At that point he had a reaction to the flu being used to hold on to the cannula on his lips and also his tongue he developed significant inflammation and burning. Therefore, he had to stop the procedure. He has not been able to feel complete comfort in the lips in the tongue because of the burning sensation. As he is aware that it was in that the mask that given the reaction but more the glued that was being used to hold on to the cannula in place. The patient has severe sleep apnea. The patient needs to be treated with CPAP therapy as well as possible specially with his cardiovascular risk. Therefore, I will submit his prescription to a local DME company to start CPAP therapy. If the patient has elevated central sleep apneas then we would have to consider repeating the titration study. 01/08/2023 the patient is here for a pulmonary follow-up visit. The patient has been on CPAP therapy for many years now. His last sleep study back in 2018 demonstrated both obstructive and central sleep apnea. He has been on APAP ever sense. However, he has been struggling with this machine because is not working appropriately. He has had the medication adjusted multiple times and is no longer working appropriately. He has had the machine looked up by the [email or web address] company multiple times and also have brought into the office here many years ago and get the machine still not working appropriately. Therefore, will going to request a replacement machine based on the fact that his machine is broken beyond repair. The patient does need to be on CPAP therapy as he does have significant cardiovascular risk factors and he also cannot be without it. Therefore, will request a replacement machine at this time from his current DME company. 10/12/2023 the patient is here for a pulmonary follow-up visit. The patient overall has been doing well. He has been tolerating the CPAP very well. The CPAP therapy has been affecting beneficial. His AHI is down to 2.2. Average pressure is around 10 cm. His only issue is that although he is using it more than 4 hours a night he has not getting supplies through his DME company. I did reach out to the DME company to see how we can help. He does use enough to any form air touch mask. We will request supplies since specially since he has been dealing with the same mask for about 4-6 months. As far as the settings that did adjust the machine a little bit down to 6-10 to try to help with the malfunctioning mask any higher pressure will result in leakage. Therefore once the patient is situated with new supplies we can then adjust the machine again to more proper pressure settings. Respiratory lan the patient is doing well. Denies any significant shortness of breath or cough. He has a nasal therapy for his chronic allergic rhinitis which also has been helpful. [facility] Medical History Chronic rhinitis CKD stage 3 due to type 2 diabetes mellitus CVA (cerebrovascular accident due to intracerebral hemorrhage) Diabetes type 2, uncontrolled Diabetic nephropathy associated with type 2 diabetes mellitus Diabetic polyneuropathy associated with type 2 diabetes mellitus Dyslipidemia Hypertension care home (current) use of insulin JEAN MARIE on CPAP Proliferative diabetic retinopathy Surgical History Hx of lithotripsy History of appendectomy Hx of laser photocoagulation of retina Hx of colonoscopy Family History Father Lung cancer Father No problems noted. Mother Diabetes Social History (System 09/07/23 @ 14:04 by Audra Hoskins) Household Members: None Housing: Apartment Alcohol intake: never Patient Tobacco Use Status: Former Tobacco user Review of Systems Const Denies daytime sleepiness, Reports difficulty sleeping and Denies night sweats ENT Denies change in voice, Denies lip swelling, Denies mouth pain, Reports nasal congestion, Reports nasal discharge and Denies tongue swelling Card Denies chest pain Resp Reports cough GI Denies abdominal pain Musc Denies no additional complaints Skin/Breast Denies rash Neuro Denies Neuro-related abnormal movements Psych Denies no additional complaints Vinny/Lymph Denies easy bleeding and Denies lymphadenopathy Aller/Immun Denies lip swelling and Denies tongue swelling Physical Exam Vital Signs: Last Vital Signs Pulse 71 10/12/23 10:07 Pulse Ox 95 10/12/23 10:07 Oxygen Delivery Method Room Air 10/12/23 10:07 BMI result Body Mass Index 34.9 Const General: comfortable Nutritional Appearance: well nourished Orientation/consciousness: patient oriented x3 HEENT Head: No normal to inspection Mouth: moist mucous membranes Neck Neck: Yes supple and Yes no JVD Resp Auscultation: clear to auscultation bilaterally and no rales Cardio Palpation: no palpable S3 and no palpable S4 Heart sounds: S1 normal heart sound present, S2 normal heart sound present and no rubs GI Palpation (GI): Soft to palpation and nontender Skin General skin exam: no rashes or lesions noted Neuro General: patient oriented x3 Extrem General: Yes no pedal edema and No clubbing Assessment & Plan Assessment & Plan (1) JEAN MARIE on CPAP: Code(s): G47.33 - Obstructive sleep apnea (adult) (pediatric); Z99.89 - Dependence on other enabling machines and devices Category: Medical Plan: Conitnue CPAP therapy (2) Chronic rhinitis: Code(s): J31.0 - Chronic rhinitis Category: Medical Plan: Continue nasal spray and rinsing Plan continue fluticasone nasal rinsing continue APAP (AIrsense 11) adjustes 6-10, Needs supplies from [employer] F20 Large airtouch foam F/U 6 months Coding Level of Care Code Est Pt Level 4 (33216) Diagnoses JEAN MARIE on CPAP G47.33; Z99.89 Chronic rhinitis J31.0 Time Spent (min) 17
== END 2023-10-12 10:43 | disposition home or self-care (01) ==
PROVIDERS: PCP Family Medicine; Visit Provider Hospitalist
DX: G47.33 Obstructive sleep apnea (adult) (pediatric) (principal); Z99.89 Dependence on other enabling machines and devices; J31.0 Chronic rhinitis
CPT/HCPCS: 99214

== ENCOUNTER 2023-10-12 10:00 | Outpatient (RCR) | payer OTHER, SELFPAY | END 2024-01-07 15:28 | disposition home or self-care (01) | LOC: HO.PT 10:00 | PROVIDERS: PCP Family Medicine; Visit Provider Family Medicine | DX: M54.50 Low back pain, unspecified (principal); G89.29 Other chronic pain; H54.8 Legal blindness, as defined in USA | CPT/HCPCS: 97110; 97162 ==

== ENCOUNTER 2024-01-11 12:54 | Outpatient (AMB) | payer OTHER, SELFPAY ==
--- NOTE | 2024-01-11 12:23 | A.OFFVIS_ITS ---
Vital Signs 01/11/24 13:07 Height 5 ft 6 in Weight 216 lb 0.848 oz BMI 34.9 BP 114/72 Blood Pressure Location Rt brachial Position Sitting Pulse 86 Pulse Source Pulse Oximeter Intake Visit Reasons: T2DM Intake Note: Patient presents today to re-establish treatment for Type 2 Diabetes Mellitus: Last Diabetic eye exam was on: 12/27/2023 Last Podiatry exam was on: Does not see a Storage Garage Attendant Most recent HbA1c: 7.6%, 01/11/2024 Random Glucose- 147 mg/dL, Today Trailer Body Assembler Required: Yes Trailer Body Assembler Language: Slovak Accompanied by: Self / Same As Patient Allergies Penicillins [PENICILLINS] Allergy (Unknown, Verified 01/11/24 13:11) UNKNOWN-CHILDHOOD REACTION ARB-Angiotensin Receptor Antagonist Adverse Reaction (Mild, Verified 01/11/24 13:53) Cough SEAFOOD Allergy (Severe, Uncoded 01/11/24 13:11) DIARRHEA,GI PAIN, NAUSEA Fish Allergy (Mild, Uncoded 01/11/24 13:11) Gastrointestinal Upset HPI Comments Details: Patient is 63-year-old male with DM type 2 diagnosed around the year 1998,? who presents for management of diabetes. He was last seen by Dr. Hanley 08/23/2023 at which time he recommended a sensor which the patient declined. Most recent A1c% 01/11/2024 08/23/2023 was 9.3% Past medical history: Diabetes type 2, hypertension, hyperlipidemia, BPH, nephr olithiasis secondary hyperparathyroidism due to vitamin-D deficiency, anxiety, psoriasis, vertigo Micro and macrovascular complications:?nephropathy, neuropathy retinopathy with 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? Multiple photocoagulation and VEGF, nephropathy, neuropathy.CVA, Diabetes medications: Toujeo 80 units at 2pm Novolog 10-15 units for snacks, 25-30 with meals Tradjenta 5 mg Avg glucose by glucometer: 142 Tests blood sugar 1.6 times per day am readings 127-148 (only two readings over 131) later in the day 137-170 Symptoms reported: denies numbness, tingling, cramping in lower extremities Hypoglycemia:? very rare Hyperglycemia:? denies ? urinary frequency, nocturia, polydypsia Blood glucose monitoring:? Unfortunately, patient did not bring log book or glucometer follow-up visit +Retinopathy: Legally Blind in left eye, Ophthalmology evaluation: patient reports last appt 12/2023 + nephropathy: sees Environmental Permitting Specialist, started on Arb 08/26 which he could not tolerate secondary to cough. +neuropathy: has numbness, tingling Has HLD on fenofibrate and statin ldl 152 2022 15 minutes, does use walker Mixer Slagman - CDE education: in past Storage Garage Attendant: denies, does not want to go Sees Environmental Permitting Specialist as well. 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 Mother Diabetes Social History (System 11/24/23 @ 09:54 by Rosemarie Bruce) Household Members: None Housing: Apartment Alcohol intake: never Patient Tobacco Use Status: Former Tobacco user Physical Exam Vital Signs: Last Vital Signs Pulse 86 01/11/24 13:07 BP 114/72 01/11/24 13:07 BMI result Body Mass Index 34.9 Const Other: Absence of Cushingoid features. Absence of acromegalic features. Neck exam reveals nl size thyroid about 15 gms. No thyroid nodules palpable. No carotid bruits present. Heart S1 S2, Reg R/R. No M/R G. Skin exam reveals absence of vitiligo or acanthosis nigricans. Abdomen protruberant, no areas of lipodystrophy. No edema Visual exam of foot performed. No ulcerations or open lesions. No inter digit maceration or fissuring. No onychomycosis, no callouses. Sensation intact to monofilament exam. Vibratory sensation is normal with 128 Hz tuning fork. Results Reviewed Results Reviewed: Laboratory Last Values Glucose (Clinic) 147 mg/dL (60-115) H 01/11/24 13:15 Assessment & Plan Assessment & Plan (1) Diabetes type 2, uncontrolled: Code(s): E11.65 - Type 2 diabetes mellitus with hyperglycemia Category: Medical Plan: This 63-year-old male with a history of type 2 diabetes being treated with basal-bolus insulin with improving glycemic control and known microvascular complications namely nephropathy (followed by Nephrology), neuropathy and retinopathy with 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 Most recent A1c 01/11/24 7.6%. I discussed with the patient GLP 1 agonist weekly to improve diabetic control and provide cardiovascular/nephro protection. I reviewed possible side effects. He will consider this and will discuss at his next visit. He has agreed to go on a sensor in an order for P2P-Next 2 was sent and he will return for training with the Daily Monson CDE. Patient was given a prescription for a telescoping foot mirror and sox pull. He was unable to tolerate ARB secondary to cough. Blood pressure well controlled in the office today. Could consider SGLT2 inhibitor if desired by Nephrology but I would definitely need a call prior to his starting to reduce the amount of insulin he is taking. Orders: Orders Creatinine Urine 1 Week E11.65 - Type 2 diabetes mellitus with hyperglycemia Microalbumin, Random (w Creat) 1 Week E11.65 - Type 2 diabetes mellitus with hyperglycemia Basic Metabolic Panel 1 Week E11.65 - Type 2 diabetes mellitus with hyperglycemia Lipid Panel 1 Week E11.65 - Type 2 diabetes mellitus with hyperglycemia Medications: New [telescoping foot mirror] As directed 1 ea 0RF E11.9 - Type 2 diabetes mellitus without complications [sock pull] As directed 1 ea 0RF Changed From insulin glargine U-300 conc 80 units subcut E11.21 - Type 2 diabetes mellitus with diabetic nephropathy To insulin glargine U-300 conc 80 units (0.2667 mL) subcut DAILY 90 days 24.003 mL 0RF E11.21 - Type 2 diabetes mellitus with diabetic nephropathy Refilled blood sugar diagnostic (FreeStyle Lite Strips) 4 times a day 400 ea 1RF E11.65 - Type 2 diabetes mellitus with hyperglycemia pen needle, diabetic (BD Lisbet 2nd Gen Pen Needle) 5 times a day 450 ea 6RF E11.65 - Type 2 diabetes mellitus with hyperglycemia blood sugar diagnostic (FreeStyle Lite Strips) 4 times a day 400 ea 1RF E11.65 - Type 2 diabetes mellitus with hyperglycemia Coding Level of Care Code Est Pt Level 5 (34458) Diagnoses Diabetes type 2, uncontrolled E11.65 Time Spent (min) 40 Comment Time spent reviewing labs/provider notes, face to face, chart doc
[2024-01-11 13:07] VITALS: BP 114/72; PULSE 86; BMI 34.9
[2024-01-11 13:19] LABS: Glucose, Whole Blood 147 mg/dL (60-115)
== END 2024-01-11 13:39 | disposition home or self-care (01) ==
PROVIDERS: PCP Family Medicine; Visit Provider Nurse Practitioner Adult Health
DX: E11.42 Type 2 diabetes mellitus with diabetic polyneuropathy (principal)
CPT/HCPCS: 99215

== ENCOUNTER → 2024-01-11 12:54 | Outpatient (BNVA) | payer OTHER, SELFPAY | PROVIDERS: PCP Family Medicine; Visit Provider Nurse Practitioner Adult Health | DX: E11.65 Type 2 diabetes mellitus with hyperglycemia (principal) | CPT/HCPCS: 82947; 83036; 99212 ==

== ENCOUNTER 2024-01-25 11:59 | Outpatient (AMB) | payer OTHER, SELFPAY ==
--- NOTE | 2024-01-25 12:01 | HO.NEPHOV_ITS ---
Vital Signs 01/25/24 12:02 Height 5 ft 6 in Weight 215 lb BMI 34.7 BP 104/68 Blood Pressure Location Rt brachial Position Sitting Pulse 87 Pulse Source Pulse Oximeter Pulse Oximetry (%) 96 Oxygen Delivery Method Room Air Intake Visit Reasons: CKD/ LVM Cloth Bleaching Range Back Tender Required: Yes Cloth Bleaching Range Back Tender Name: [id number] alfredo Accompanied by: Self / Same As Patient Allergies Penicillins [PENICILLINS] Allergy (Unknown, Verified 01/25/24 12:07) UNKNOWN-CHILDHOOD REACTION ARB-Angiotensin Receptor Antagonist Adverse Reaction (Mild, Verified 01/25/24 12:07) Cough SEAFOOD Allergy (Severe, Uncoded 01/11/24 13:11) DIARRHEA,GI PAIN, NAUSEA Fish Allergy (Mild, Uncoded 01/11/24 13:11) Gastrointestinal Upset Medication List - Last Reconciled 01/25/24 by Ramesh Hamm MD acetaminophen (Tylenol) 325 mg PO QID PRN apremilast (Otezla) 30 mg PO BID aspirin 81 mg PO DAILY blood sugar diagnostic (FreeStyle Lite Strips) 4 times a day blood-glucose meter (FreeStyle Lite Meter kit) 4 times a day cetirizine 10 mg PO QAM cholecalciferol (vitamin D3) 50 mcg PO DAILY 30 days clobetasol 0.05% 1 appl topical BID clonazepam 0.5 mg PO DAILY PRN CPAP (CPAP Machine/Device) As directed dorzolamide-timolol 22.3-6.8 mg/mL 1 drp ophthalmic (eye) BID fenofibrate 54 mg PO DAILY 90 days flash glucose scanning reader (CloudHashingStyle Nevaeh 14 Day Stuart) As directed flash glucose sensor (FreeStyle Nevaeh 14 Day Sensor kit) As directed fluoxetine 40 mg PO QAM fluticasone propionate 50 mcg/actuation 50 mcg intranasal DAILY FreeStyle Lancets (lancets) 4 times a day NS hydrocortisone 2.5% 1 appl topical DAILY insulin glargine U-300 conc 80 units (0.2667 mL) subcut DAILY 90 days linagliptin (Tradjenta) 5 mg PO DAILY losartan 50 mg PO DAILY melatonin 5 mg PO BEDTIME pen needle, diabetic (BD Lisbet 2nd Gen Pen Needle) 5 times a day quetiapine 12.5 - 25 mg PO BEDTIME PRN roflumilast 0.3% (Zoryve) appl topical rosuvastatin 40 mg PO DAILY [sock pull As directed] [telescoping foot mirror As directed] trazodone 100 mg BEDTIME HPI Comments Details: . Yehuda is a pleasant 62-year-old man with history of longstanding diabetes mellitus hypertension with CKD. Serum creatinine has been fluctuating between 1.31.5 mg/dL. In 06/23/2023 serum creatinine was 1.5 while this was checked in [facility]. She has been referred for evaluated chronic disease and proteinuria. In the past he had the urine protein creatinine ratio was more than 1 g. He has a being foamy urine. He denies any edema. No shortness of breath. Upon reviewing the records he has not on any LISSA inhibitors or ARB is. He can not recall trying any of these agents. He is on amlodipine 5 mg a day. All medications were reviewed 01/25/2024. He has stopped taking losartan due to abdominal discomfort. COUNTS INCLUDE 234 BEDS AT THE [facility] Medical History Chronic rhinitis CKD stage 3 due to type 2 diabetes mellitus CVA (cerebrovascular accident due to intracerebral hemorrhage) Diabetes type 2, uncontrolled Diabetic nephropathy associated with type 2 diabetes mellitus Diabetic polyneuropathy associated with type 2 diabetes mellitus Dyslipidemia Hypertension custodial (current) use of insulin JEAN MARIE on CPAP Proliferative diabetic retinopathy Surgical History Hx of lithotripsy History of appendectomy Hx of laser photocoagulation of retina Hx of colonoscopy Family History Father Lung cancer Father No problems noted. Mother Diabetes Social History Household Members: None Housing: Apartment Alcohol intake: never Patient Tobacco Use Status: Former Tobacco user Physical Exam Vital Signs: Last Vital Signs Pulse 87 01/25/24 12:02 BP 104/68 01/25/24 12:02 Pulse Ox 96 01/25/24 12:02 Oxygen Delivery Method Room Air 01/25/24 12:02 BMI result Body Mass Index 34.7 Results Reviewed Nephrology Results: Hgb 13.3 g/dl (14.0-18.0) L 09/07/23 WBC 7.6 X10*3/uL (4.8-10.8) 09/07/23 Plt Count 325 X10*3/uL (160-400) 09/07/23 Sodium 138 mmol/L (135-145) 09/07/23 Potassium 4.3 mmol/L (3.3-5.1) 09/07/23 Chloride 101 mmol/L (96-108) 09/07/23 Carbon Dioxide 26 mmol/L (22-29) 09/07/23 BUN 23 mg/dL (9-16) H 09/07/23 Creatinine 1.69 mg/dL (0.5-1.4) H 09/07/23 Calcium 9.8 mg/dL (8.4-10.2) 09/07/23 PTH Intact 57.1 pg/mL (8.7-77.1) 09/07/23 Urine Protein 300 (3+) mg/dL (Neg-Trace) H 09/07/23 Urine Creatinine 111.45 mg/dL 09/07/23 Renal US 10/12/23 Assessment & Plan Assessment & Plan (1) CKD stage 3 due to type 2 diabetes mellitus: Code(s): E11.22 - Type 2 diabetes mellitus with diabetic chronic kidney disease; N18.30 - Chronic kidney disease, stage 3 unspecified Category: Medical (2) DM2 (diabetes mellitus, type 2): Code(s): E11.9 - Type 2 diabetes mellitus without complications Category: Medical (3) Hypertension: Code(s): I10 - Essential (primary) hypertension Category: Medical (4) Vitamin D deficiency: Code(s): E55.9 - Vitamin D deficiency, unspecified Category: Medical (5) Proteinuria: Code(s): R80.9 - Proteinuria, unspecified Category: Medical (6) Diabetes type 2, uncontrolled: Code(s): E11.65 - Type 2 diabetes mellitus with hyperglycemia Category: Medical Plan . 63-year-old man with a history of longstanding diabetes mellitus hypertension obesity with proteinuria. Proteinuria is most likely due to hypertensive diabetic kidney disease. Proteinuria could be due to obesity as well. Underlying FSGS is a possibility as well. He has stage III CKD most likely due to diabetes diabetic kidney disease. Other nondiabetic causes seem unlikely nevertheless we will rule that out. Protein creatinine ratio remains unchanged. Renal ultrasonogram unremarkable. He was on losartan but he has stopped taking it since he was having some abdominal discomfort. Other option would be to add spironolactone. However the blood pressure rather low therefore I will hold off on this. He will certainly benefit from SGLT2 inhibitors. He will benefit from weight loss. He should stay on a low-salt diet which I have discussed. Blood sugar needs to be better controlled recent A1c was 9.3%. Encouraged him to continue follow up with Dr. Hanley/endocrinology. Orders: Orders Basic Metabolic Panel Today E11.22 - Type 2 diabetes mellitus with diabetic chronic kidney disease, N18.30 - Chronic kidney disease, stage 3 unspecified, R80.9 - Proteinuria, unspecified Medications: Discontinued losartan Discontinued Reason: Patient no longer taking 50 mg PO DAILY 90 tabs 0RF Coding Level of Care Code Est Pt Level 4 (96022) Diagnoses CKD stage 3 due to type 2 diabetes mellitus E11.22; N18.30 Type 2 diabetes mellitus with diabetic polyneuropathy, with long-term current use of insulin E11.9 Hypertension I10 Vitamin D deficiency E55.9 Proteinuria R80.9 Diabetes type 2, uncontrolled E11.65
[2024-01-25 12:02] VITALS: BP 104/68; PULSE 87; O2SAT 96; BMI 34.7
== END 2024-01-25 12:33 | disposition home or self-care (01) ==
PROVIDERS: PCP Family Medicine; Visit Provider Internal Medicine Hypertension Specialist
DX: I12.9 Hypertensive chronic kidney disease with stage 1 through stage 4 chronic kidney disease, or unspecified chronic kidney disease (principal); E11.22 Type 2 diabetes mellitus with diabetic chronic kidney disease; N18.30 Chronic kidney disease, stage 3 unspecified; E55.9 Vitamin D deficiency, unspecified; R80.9 Proteinuria, unspecified; E11.65 Type 2 diabetes mellitus with hyperglycemia
CPT/HCPCS: 99214

== ENCOUNTER → 2024-01-25 11:59 | Outpatient (BNVA) | payer OTHER, SELFPAY | PROVIDERS: PCP Family Medicine; Visit Provider Internal Medicine Hypertension Specialist | DX: I12.9 Hypertensive chronic kidney disease with stage 1 through stage 4 chronic kidney disease, or unspecified chronic kidney disease (principal); E11.22 Type 2 diabetes mellitus with diabetic chronic kidney disease; E11.65 Type 2 diabetes mellitus with hyperglycemia; N18.30 Chronic kidney disease, stage 3 unspecified; E55.9 Vitamin D deficiency, unspecified; R80.9 Proteinuria, unspecified | CPT/HCPCS: 99212 ==

== ENCOUNTER 2024-02-10 11:12 | Outpatient (REF) | payer OTHER, SELFPAY ==
[2024-02-10 13:59] LABS: Anion Gap 13 (12-20); Blood Urea Nitrogen 19 mg/dL (9-16); Calcium 9.4 mg/dL (8.4-10.2); Carbon Dioxide 25 mmol/L (22-29); Chloride 105 mmol/L (96-108); Estimated Glomerular Filt Rate 40; Glucose Random 176 mg/dL (60-115); Potassium 4.8 mmol/L (3.3-5.1); Sodium 138 mmol/L (135-145)
== END 2024-02-10 11:13 | disposition home or self-care (01) ==
LOC: HO.10HDL 11:12
PROVIDERS: Visit Provider Internal Medicine Hypertension Specialist
DX: R80.9 Proteinuria, unspecified (principal); E11.22 Type 2 diabetes mellitus with diabetic chronic kidney disease; N18.30 Chronic kidney disease, stage 3 unspecified
CPT/HCPCS: 36415; 80048

== ENCOUNTER 2024-02-11 10:00 | Outpatient (AMB) | payer OTHER, SELFPAY ==
--- NOTE | 2024-02-11 10:03 | A.OFFVIS_ITS ---
Vital Signs 02/11/24 10:07 Height 5 ft 6 in Weight 218 lb 4.122 oz BMI 35.2 BP 112/78 Blood Pressure Location Rt brachial Position Sitting Pulse 73 Pulse Source Pulse Oximeter Intake Visit Reasons: T2DM/CONFIRMED Intake Note: Patient presents today for a follow-up on for Type 2 Diabetes Mellitus: [place] 2 Teaching Last Diabetic eye exam was on: 12/27/2023 Last Podiatry exam was on: Does not see a Lsw Most recent HbA1c: 7.6%, 01/11/2024 Random Glucose- 134 mg/dL, Today Flash Oven Operator Required: Yes Flash Oven Operator Language: Malay Accompanied by: Self / Same As Patient Allergies Penicillins [PENICILLINS] Allergy (Unknown, Verified 02/11/24 10:04) UNKNOWN-CHILDHOOD REACTION ARB-Angiotensin Receptor Antagonist Adverse Reaction (Mild, Verified 02/11/24 10:04) Cough SEAFOOD Allergy (Severe, Uncoded 02/11/24 10:04) DIARRHEA,GI PAIN, NAUSEA Fish Allergy (Mild, Uncoded 02/11/24 10:04) Gastrointestinal Upset HPI Comments Details: Patient is 63-year-old male with DM type 2 diagnosed around the year 1998,? who presents today for libre3 education and placement. Unfortunately the pharmacy did not dispense the reader. He only has sensors with him. 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 Diabetes medications: Toujeo 80 units at 2pm Novolog 10-15 units for snacks, 25-30 with meals Tradjenta 5 mg A1c 7.6%, POC 134 Hypoglycemia:? very rare Hyperglycemia:? denies Blood glucose monitoring:?no glucometer with him today ROS: Constitutional: No fevers or chills Neurologic: No headache, dizziness, syncope Physical exam: Constitutional: Alert, in no distress. 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 Mother Diabetes Social History Household Members: None Housing: Apartment Alcohol intake: never Patient Tobacco Use Status: Former Tobacco user Physical Exam Vital Signs: Last Vital Signs Pulse 73 02/11/24 10:07 BP 112/78 02/11/24 10:07 BMI result Body Mass Index 35.2 Results Reviewed Results Reviewed: Laboratory Last Values Glucose (Clinic) 134 mg/dL (60-115) H 02/11/24 10:12 Assessment & Plan Assessment & Plan (1) Diabetes type 2, uncontrolled: Code(s): E11.65 - Type 2 diabetes mellitus with hyperglycemia Category: Medical Plan: This 63-year-old male with a history of type 2 diabetes being treated with basal-bolus insulin with improving glycemic control and known micro and macrovascular complications. My colleauge discussed with the patient GLP 1 agonist weekly to improve diabetic control and provide cardiovascular/nephro protection. He is still considering this. He has a follow up with me next month. Unfortunately the pharmacy did not dispense the reader. We are contacting the pharmacy to resolve the situation, and he will be rescheduled for Nevaeh 3 teaching and placement. Coding Level of Care Code Est Pt Level 3 (08340) Diagnoses Diabetes type 2, uncontrolled E11.65
[2024-02-11 10:07] VITALS: BP 112/78; PULSE 73; BMI 35.2
[2024-02-11 10:20] LABS: Glucose, Whole Blood 134 mg/dL (60-115)
== END 2024-02-11 10:50 | disposition home or self-care (01) ==
PROVIDERS: PCP Family Medicine; Visit Provider Physician Assistant Medical
DX: E11.65 Type 2 diabetes mellitus with hyperglycemia (principal)

== ENCOUNTER → 2024-02-11 10:00 | Outpatient (BNVA) | payer OTHER, SELFPAY | PROVIDERS: PCP Family Medicine; Visit Provider Physician Assistant Medical | DX: E11.65 Type 2 diabetes mellitus with hyperglycemia (principal); Z79.4 Long term (current) use of insulin; Z79.84 Long term (current) use of oral hypoglycemic drugs | CPT/HCPCS: 82947; 99212 ==

== ENCOUNTER 2024-02-15 13:09 | Outpatient (AMB) | payer OTHER, SELFPAY ==
--- NOTE | 2024-02-15 13:15 | A.OFFVIS_ITS ---
Intake Intake Visit Reasons: T2DM Mechanical Engineering Teacher Required: Yes Mechanical Engineering Teacher Language: Heliotherapist Name: [facility] per diem interpreter Accompanied by: Self / Same As Patient Allergies Penicillins [PENICILLINS] Allergy (Unknown, Verified 02/11/24 10:04) UNKNOWN-CHILDHOOD REACTION ARB-Angiotensin Receptor Antagonist Adverse Reaction (Mild, Verified 02/11/24 10:04) Cough SEAFOOD Allergy (Severe, Uncoded 02/11/24 10:04) DIARRHEA,GI PAIN, NAUSEA Fish Allergy (Mild, Uncoded 02/11/24 10:04) Gastrointestinal Upset HPI Comprehensive Diabetes Asmnt Most Recent Diabetes Results: Microalb/Creat Ratio 1194.4 ug/mg cr (<30) H 12/31/22 Cholesterol 251 mg/dL (<200) H 12/18/22 HDL Cholesterol 38 mg/dL (>40) L 12/18/22 Triglycerides 308 mg/dL (<150) H 12/18/22 Creatinine 1.74 mg/dL (0.5-1.4) H 02/10/24 Blood Urea Nitrogen 19 mg/dL (9-16) H 02/10/24 Sodium 138 mmol/L (135-145) 02/10/24 Potassium 4.8 mmol/L (3.3-5.1) 02/10/24 Chloride 105 mmol/L (96-108) 02/10/24 Carbon Dioxide 25 mmol/L (22-29) 02/10/24 Calcium 9.4 mg/dL (8.4-10.2) 02/10/24 AST 20 U/L (5-37) 09/07/23 ALT 24 U/L (0-40) 09/07/23 Total Protein 7.2 g/dL (6.5-8.0) 09/07/23 Albumin 4.1 g/dL (3.5-5.0) 09/07/23 [facility] Medical History CVA (cerebrovascular accident due to intracerebral hemorrhage) Chronic rhinitis JEAN MARIE on CPAP Hypertension Diabetic polyneuropathy associated with type 2 diabetes mellitus CKD stage 3 due to type 2 diabetes mellitus Diabetic nephropathy associated with type 2 diabetes mellitus detention (current) use of insulin Proliferative diabetic retinopathy Diabetes type 2, uncontrolled Dyslipidemia Surgical History Hx of lithotripsy History of appendectomy Hx of laser photocoagulation of retina Hx of colonoscopy Family History Father Lung cancer Father No problems noted. Mother Diabetes Social History Household Members: None Housing: Apartment Alcohol intake: never Patient Tobacco Use Status: Former Tobacco user Assessment & Plan Assessment & Plan (1) Diabetes type 2, uncontrolled: Code(s): E11.65 - Type 2 diabetes mellitus with hyperglycemia Plan: Patient at visit to set up an insert Nevaeh 3 sensor with Nevaeh 3 [place] Instructed patient sensors water proof you can shower, or swim do not submerge sensor in water for over 30 minutes Is sensor falls off cannot put back in you need to replace sensor, customer service number given to patient for sensor replacement Sensor placed on the back of Right arm Patient left visit with sensor in warmup Reviewed how to interpret trend arrows Reminded patient that to check finger sticks if symptoms do not match sensor reading. Discussed lag time between finger stick and sensor data.? Instructed patient she should always keep blood glucometer for backup testing if needed Reviewed delay of CGM from fingersticks Reminded pt that if symptoms do not match sensor still needs to check fingersticks. Portions of this note were created using voice recognition software, please excuse any words or phrases that may have been misinterpreted. Patient Instructions: Instrucciones para el paciente: CGM proporciona informaci?n sobre el control de la glucosa en felton a lo delfina del d?a, incluidas la hiperglucemia y la hipoglucemia. Contin?e controlando la glucosa en felton seg?n las instrucciones. Siga las pautas de nutrici?n proporcionadas. Informe cualquier molestia de inmediato al proveedor de atenci?n m?dica. Mantente helena hidratado. Puede ba?arse, ducharse, nadar y hacer ejercicio mientras usa el sensor de glucosa. No sumerja el sensor de glucosa en agua kris m?s de 30 minutos. Retire el sensor para juhi resonancia magn?prateek o juhi tomograf?a computarizada. Evite la m?quina de carroll X en los aeropuertos: retire el sensor o solicite la varita Coding Level of Care Code Est Pt Level 1 (38810) Diagnoses Diabetes type 2, uncontrolled E11.65
== END 2024-02-15 13:58 | disposition home or self-care (01) ==
PROVIDERS: PCP Family Medicine; Visit Provider Registered Nurse Diabetes Educator
DX: E11.65 Type 2 diabetes mellitus with hyperglycemia (principal)

== ENCOUNTER → 2024-02-15 13:09 | Outpatient (BNVA) | payer OTHER, SELFPAY | PROVIDERS: PCP Family Medicine; Visit Provider Registered Nurse Diabetes Educator | DX: E11.65 Type 2 diabetes mellitus with hyperglycemia (principal) | CPT/HCPCS: 99211 ==

== ENCOUNTER 2024-02-29 08:27 | Outpatient (AMB) | payer OTHER, SELFPAY ==
--- NOTE | 2024-02-29 08:33 | A.OFFVIS_ITS ---
Intake Intake Visit Reasons: 60 min-lvm Social Scientist Required: Yes Social Scientist Language: Cafeteria Supervisor Name: Bethanie [facility] [place] Accompanied by: Self / Same As Patient Allergies Penicillins [PENICILLINS] Allergy (Unknown, Verified 02/11/24 10:04) UNKNOWN-CHILDHOOD REACTION ARB-Angiotensin Receptor Antagonist Adverse Reaction (Mild, Verified 02/11/24 10:04) Cough SEAFOOD Allergy (Severe, Uncoded 02/11/24 10:04) DIARRHEA,GI PAIN, NAUSEA Fish Allergy (Mild, Uncoded 02/11/24 10:04) Gastrointestinal Upset HPI Comprehensive Diabetes Asmnt Most Recent Diabetes Results: Creatinine 1.74 mg/dL (0.5-1.4) H 02/10/24 Blood Urea Nitrogen 19 mg/dL (9-16) H 02/10/24 Sodium 138 mmol/L (135-145) 02/10/24 Potassium 4.8 mmol/L (3.3-5.1) 02/10/24 Chloride 105 mmol/L (96-108) 02/10/24 Carbon Dioxide 25 mmol/L (22-29) 02/10/24 Calcium 9.4 mg/dL (8.4-10.2) 02/10/24 PFSH Medical History CVA (cerebrovascular accident due to intracerebral hemorrhage) Chronic rhinitis JEAN MARIE on CPAP Hypertension Diabetic polyneuropathy associated with type 2 diabetes mellitus CKD stage 3 due to type 2 diabetes mellitus Diabetic nephropathy associated with type 2 diabetes 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 Mother Diabetes Social History Household Members: None Housing: Apartment Alcohol intake: never Patient Tobacco Use Status: Former Tobacco user Assessment & Plan Assessment & Plan (1) Diabetes type 2, uncontrolled: Code(s): E11.65 - Type 2 diabetes mellitus with hyperglycemia Plan: Personal Continuous Glucose Monitor: Patients CGM information reviewed, Pt uses Nevaeh 2, with Nevaeh 2 reader Patient's last A1c 7.8% 01/2024 Sensor data: Hypoglycemia: ? 0% Hyperglycemia:? 26% Time in Range:? 74 % Average glucose for the last 2 weeks 155? mg/dL Patient reports his glucose sensor fell off early, instructed patient to contact [facility] or replacement sensor At today's visit we reinserted Nevaeh 2 sensor, using overlay patch and skin tack to hold in place Instructed patient if sensors fall off he must call for replacement, pharmacy will not replace sensor Patient reports he is going on vacation for 5 months, instructed patient to discuss with [facility] how to transfer prescription for sensors to pharmacy in the [place] Patient will follow-up in 6 months Reviewed how to interpret trend arrows Reminded patient that to check finger sticks if symptoms do not match sensor reading. Discussed lag time between finger stick and sensor data.? Patient able to insert sensor independently at home without issue.? Portions of this note were created using voice recognition software, please excuse any words or phrases that may have been misinterpreted. Patient Instructions: Instrucciones para el paciente: CGM proporciona informaci?n sobre el control de la glucosa en felton a lo delfina del d?a, incluidas la hiperglucemia y la hipoglucemia. Contin?e controlando la glucosa en felton seg?n las instrucciones. Siga las pautas de nutrici?n proporcionadas. Informe cualquier molestia de inmediato al proveedor de atenci?n m?dica. Mantente helena hidratado. Puede ba?arse, ducharse, nadar y hacer ejercicio mientras usa el sensor de glucosa. No sumerja el sensor de glucosa en agua kris m?s de 30 minutos. Retire el sensor para juhi resonancia magn?prateek o juhi tomograf?a computarizada. Evite la m?quina de carroll X en los aeropuertos: retire el sensor o solicite la varita Coding Level of Care Code Est Pt Level 1 (24535) Diagnoses Diabetes type 2, uncontrolled E11.65
== END 2024-02-29 09:13 | disposition home or self-care (01) ==
PROVIDERS: PCP Family Medicine; Visit Provider Registered Nurse Diabetes Educator
DX: E11.65 Type 2 diabetes mellitus with hyperglycemia (principal)

== ENCOUNTER → 2024-02-29 08:27 | Outpatient (BNVA) | payer OTHER, SELFPAY | PROVIDERS: PCP Family Medicine; Visit Provider Registered Nurse Diabetes Educator | DX: E11.65 Type 2 diabetes mellitus with hyperglycemia (principal) | CPT/HCPCS: 99211 ==

== ENCOUNTER 2024-08-09 11:25 | Outpatient (REF) | payer OTHER, SELFPAY ==
--- OUTSIDE RECORDS SUMMARY | 2024-08-09 12:51 | XMS_ITS | Encounter Summary ---
Author Organization [employer] Address [address] [place] [address] Care Team Providers Care Butadiene Compressor Operator Name Role Phone Dayanna Hernandez MD Primary Care Provider [phone] Encounter Details Date Type Department Care Team (Latest Contact Info) Description 12/19/2018 Abstract C CONVERSIONS Dental, Provider, DDS Social History Tobacco Use Types Packs/Day Years Used Date Smoking Tobacco: Never Assessed Sex and Gender Information Value Date Recorded Sex Assigned at Male 02/02/2022 10:21 AM EDT Legal Sex Male 10:21 AM EDT Gender Identity Male 02/02/2022 10:21 AM EDT Sexual Orientation Choose not to disclose 2021 10:21 AM EDT documented as of this encounter Plan of Treatment Not on file documented as of this encounter Visit Diagnoses Not on filedocumented in this encounter Care Teams Butadiene Compressor Operator Relationship Specialty Start Date End Date Dayanna Hernandez MD [address] [place] [address] PCP - General Family Medicine 10/24/12 documented as of this encounter
--- OUTSIDE RECORDS SUMMARY | 2024-08-09 12:52 | XMS_ITS | Encounter Summary ---
Author Organization [employer] Address [address] [facility] [address] [place] [address] Care Team Providers Care Concrete Products Machine Operator Name Role Phone Dayanna Hernandez MD Primary Care Provider [phone] Reason for Referral * Consultation (Routine) - Closed Specialty Diagnoses / Procedures Referred By Quyen carter Referred To Contact Physical Therapy Diagnoses Gait instability Hemiparesis affecting left side as late effect of cerebrovascular accident (CVA) (CMS/HCC) Legal blindness Dayanna Hernandez MD [address] [place] [address] Phone: tel: fax: [facility] [address] [place] [address] Phone: tel: fax: Referral ID Status Reason Start Date Expiration Date V isits Requested Visits Authorized [id number] Closed Specialty Services Required 09/09/2023 09/08/2024 1 1 Encounter Details Date Type Department Care Team (Late st Contact Info) Description 09/09/2023 Orders Only [facility] MEDICINE [address] [place] [address] Dayanna Hernandez MD [address] [place] [address] Gait instability (Primary Dx); Hemiparesis affecting left side as late effect of cerebrovascular accident (CVA) (CMS/HCC); Legal blindness Social History Tobacco Use Types Packs/Day Years Used Date Smoking Tobacco: Former Cigarettes Passive Smoke Exposure: Never Smokeless Tobacco: Never Depression Answer Date Recorded Patient Health Questionnaire-9 Score 8 07/30/2022 Housing Stability Answer Date Recorded What is your housing situation today? I have housing today, but I am worried about losing housing in the future 01/20/[address] you li ve. Do you have problems with any of the following? None of the above 01/20/2023 Food Insecurity Answer Date Recorded Within the past 12 months, y ou worried that your food would run out before you got money to buy more: Never True 01/20/2023 Within the past 12 months,th e food you bought just didn't last and you didn't have enough money to get more: Never True Transportation Answer Date Recorded In the past 12 months, has l ack of transportation kept you from medical appts, meetings, work or from getting things needed for daily living? No 01/20/2023 Utilities Answer Date Recorded In the past 12 months, has t he electric, gas, oil or water company threatened to shut off services in your home? No 01/20/2023 Depression Answer Date Recorded Patient Health Questionnaire-2 Score 6 07/30/2022 Sex and Gender Information Value Date Recorded Sex Assigned at Male 02/02/2022 10:21 AM EDT Legal Sex Male 10:21 AM EDT Gender Identity Male 02/02/2022 10:21 AM EDT Sexual Orientation Choose not to disclose 2021 10:21 AM EDT documented as of this encounter Plan of Treatment Scheduled Referrals Name Type Priority Associated Diagnoses Orde r Schedule Referral to Physical Therapy Outpatient Referral Routine Gait instability Hemiparesis affecting left side as late effect of cerebrovascular accident (CVA) (CMS/HCC) Legal blindness Expected: 09/09/2023 (Approximate), Expires: 09/08/2024 documented as of this encounter Visit Diagnoses Diagnosis Gait instability- Primary Abnormality of gait Hemiparesis affecting left side as late effect of cerebrovascular accident (CVA) (CMS/HCC) Legal blindness Legal blindness, as defined in [place] documented in this encounter Additional Health Concerns Assessment Noted Time PHQ-9 Depression Total Score: 8 07/31/19 23 10:10 AM EDT documented as of this encounter Care Teams Concrete Products Machine Operator Relationship Specialty Start Date End Date Dayanna Hernandez MD [address] [place] [address] PCP - General Family Medicine 10/24/12 documented as of this encounter
--- OUTSIDE RECORDS SUMMARY | 2024-08-09 12:52 | XMS_ITS | Clinical Summary ---
Author Organization [facility] Address [address] [place] [address] Phone Care Team Providers Care Wrapper Stemmer Operator Name Role Phone Dayanna Hernandez MD Primary Care Provider Allergies Active Allergy Reactions Criticality Noted Date Comments Fish-Derived Products 03/06/2019 Lisinopril Other (see comments) 06/05/2020 Penicillin V Other (see comments) 06/05/2020 Shellfish Allergy 08/06/2022 Medications acetaminophen (TYLENOL) 325 MG tablet Take 1 tablet by mouth 4 (four) times a day Active aspirin (ST ANYA) 81 MG EC tablet Take 1 tablet by mouth 1 (one) time each day Active cholecalcifero l (VITAMIN D-3 SUPER STRENGTH) 50 MCG (2000 UT) tablet Take 1 capsule by mouth 1 (one) time each day Active FLUoxetine (PROzac) 40 MG capsule Take 1 capsule by mouth 1 (one) time each day Active insulin aspart (NovoLOG FLEXPEN) 100 UNIT/ML injection Active insulin degludec (Tresiba FlexTouch) 100 UNIT/ML injection Active Melatonin 5 MG tablet Take 1 tablet by mouth at bed time Active clonazePAM (KlonoPIN) 0.5 MG tablet Take 1 tablet by mouth if needed 1 Active fenofibrate (TRICOR) 54 MG tablet Take 1 tablet by mouth 1 (one) time each day 1 Active HumaLOG KWIKPEN 200 UNIT/ML solution pen-injector injection INJECT 20 40 UNITS BE SHOWED EACH MEAL OF SNACK SUBCUTANEOUSLY 4 TIMES A DAY 1 Active cetirizine (ZyrTEC) 10 MG tablet Take 10 mg by mouth 1 (one) time each day Active dorzolamide-ti molol (COSOPT) 22.3-6.8 MG/ML ophthalmic solution 1 drop 2 (two) times a day Active fluticasone (FLONASE) 50 MCG/ACT nasal spray Administer 1 spray into each nostril 1 (one) time each day Active hydrocortisone 0.5 % cream Apply topically 1 (one) time each day Active QUEtiapine (SEROquel) 25 MG tablet Take 25 mg by mouth every night Active traZODone (DESYREL) 100 MG tablet Take 100 mg by mouth every night Active amLODIPine (NORVASC) 5 MG tablet Take 1 tablet (5 mg total) by mouth 1 (one) time each day 90 tablet 3 Active Active Problems Problem Noted Date Diagnosed Date Anxiety disorder 08/06/2022 Atherosclerotic heart diseas e of [place] coronary artery without angina pectoris 08/06/2022 Benign paroxysmal vertigo, unspecified ear 08/06 Chronic rhinitis 08/06/2022 Depressive disorder 08/06/2022 Dizziness and giddiness 08/06/2022 Generalized muscle weakness 08/06/2022 Hyperlipidemia 08/06/2022 Legal blindness, as defined in [place] 08/06/2022 Other sleep apnea 08/06/2022 Type 2 diabetes mellitus with diabetic neuropath y 08/06/2022 Unsteadiness on feet 08/06/2022 Type 2 diabetes mellitus with diabetic nephropat hy 12/11/2020 Stage 3b chronic kidney disease 12/11/2020 Hypertension 12/11/2020 Acute nontraumatic kidney injury 06/05/2020 Chronic kidney disease stage 3 06/05/2020 Hemiparesis 06/05/2020 Hypertensive renal disease 06/05/2020 Renal stone 06/05/2020 Proteinuria 06/05/2020 Biliary calculus 09/16/2015 Hemiparesis as late effect of cerebrovascular ac cident 09/16/2015 Anemia of chronic disease 04/02/2015 Overview (09/02/2022): Last Assessment & Plan: - check CBC Arthritis 01/29/2015 Cobalamin deficiency 01/29/2015 Type 2 diabetes mellitus 06/19/2014 Overview (09/02/2022): Last Assessment & Plan: -A1C 8.3% on , worsened from 6.1% on 09/04/21 -[employer] [facility] [facility] [place]04[place] -Current medications: Tresiba 56 units daily, Humalog U-200 10-15 units with snack, 25-30 units with meal, Tradjenta 5 mg daily -Last eye exam: April 2019, Dr. 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 -Last microalbumin test: 09/25/20 UACR 1256, albuminuria -Last FLP: 09/25/20 TC 144; TG 189; HDL 37; LDL 67; vit D12 227 Last dental exam: ? 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 We discussed about his potential drug interaction and possible side effects with the pt, but he would like to continue taking fenofibrate. He is not fond of rosuvastatin. High-intensity statin therapy is recommended pre guideline. Consider switching to atorvastatin due to CKD in the future. Emphasized the importance of lifestyle modification. Vitamin D deficiency 01/30/2014 Overview (09/02/2022): Last Assessment & Plan: - in a setting of CKD - continue vitamin D supplementation Chronic recurrent major depressive disorder 10/2013 Glaucoma 10/09/2013 Obesity 05/16/2012 Overview (09/02/2022): Last Assessment & Plan: - JEAN MARIE, DM, HTN - continue working on lifestyle modifications Psoriasis 01/02/2012 Overview (09/02/2022): Last Assessment & Plan: -Dietary regimen is improving symptoms -Continue on Otezla and clobetasol topical -Patient is still followed by Dr. Rico - we have not received a note, will obtain latest note -Pt wants to go to [facility] in March because his psoriasis improves. -Pt will schedule a follow up appt Backache 12/21/2011 Pain of knee region 12/21/2011 Proliferative retinopathy due to diabetes mellit us 11/25/2011 Immunizations Immunization Administration Dates Next Due Hepatitis B 01/29/2015,06/19/2014,01/30/2014 Pneumococcal Polysaccharide 12/26/2015 Tdap 12/26/2015 Family History Medical History Relation Comments Diabetes Father Heart disease Mother Hypertension Mother Kidney disease Sibling 1 2 brothers with kidney transplant Diabetes Sibling 2 Relation Status Comments Father Mother Sibling 1 Sibling 2 Social History Tobacco Use Types Packs/Day Years Used Date Smoking Tobacco: Former Cigarettes Q uit: 04/05/1996 Smokeless Tobacco: Never Tobacco Cessation:Counseling Given: Not Answered Sex and Gender Information Value Date Recorded Sex Assigned at Not on file Legal Sex Male 4:42 PM EST Gender Identity Not on file Sexual Orientation Not on file Last Filed Vital Signs Vital Sign Reading Time Taken Comments Blood Pressure 128/82 11/01/2023 10:30 AM EDT Pulse 77 11/01/2023 10:30 AM EDT Temperature - - Respiratory Rate - - Oxygen Saturation 98% 01/06/2023 1:12 PM EDT Inhaled Oxygen Concentration - - Weight 97.5 kg (215 lb) 11/01/2023 10:30 AM EDT Height 167.6 cm (5' 6 ) 08/16/2019 12:00 PM EDT Body Mass Index 34.7 08/16/2019 12:00 PM EDT Plan of Treatment Health Maintenance Due Date Last Done Comments Colorectal Cancer Screening: Annual FOBT 2011 Colorectal Cancer Screening: Colonoscopy 2011 Colorectal Cancer Screening: Sigmoidoscopy 2011 Pneumococcal Vaccine: 50+ Years (2 of 2 - PCV) 12/25/2016 12/26/2015 Diabetes: Ophthalmology Exam 12/11/2020 Diabetes: Pedal Pulse Checked 12/11/2020 Diabetes: Sensory Foot Exam 12/11/2020 Diabetes: Visual Foot Exam 12/11/2020 Diabetes: Hemoglobin A1C 11/17/2023 024, 11/19/2022, 07/30/2022 Influenza Vaccine (Season Ended) 2024 Hepatitis B Vaccine Aged Out 01/29/2015, 06/19/2014, 01/30/2014 No longer eligible based on patient's age to complete this topic Pneumococcal Vaccine: Peds ( 0 to 5 Years) and At-Risk Patients (6 to 49 Years) Discontinued 12/26/2015 Insurance ([id number]) ([id number]) Care Teams Wrapper Stemmer Operator Relationship Specialty Start Date End Date Dayanna Hernandez MD PCP - General 04/15/20
--- OUTSIDE RECORDS SUMMARY | 2024-08-09 12:52 | XMS_ITS | Encounter Summary ---
Author Organization [employer] Address [address] [facility] [address] [place] [address] Care Team Providers Care Fishing Vessel Deckhand Name Role Phone Dayanna Hernandez MD Primary Care Provider [phone] Encounter Details Date Type Department Care Team (Latest Contact Info) Description 01/23/2021 Abstract [facility] CONVERSIONS Dental, Provider, DDS Social History Tobacco [...] on filedocumented in this encounter Care Teams Fishing Vessel Deckhand Relationship Specialty Start Date End Date Dayanna Hernandez MD [address] [place] [id number] PCP - General Family Medicine 10/24/12 documented as of this encounter
--- OUTSIDE RECORDS SUMMARY | 2024-08-09 12:52 | XMS_ITS | Encounter Summary ---
Author Organization [employer] Address [address] [facility] [address] [place] [address] Care Team Providers Care Parts Manager Name Role Phone Dayanna Hernandez MD Primary Care Provider [phone] Encounter Details Date Type Department Care Team (Late st Contact Info) Description 08/19/2023 Orders Only [facility] MEDICINE [address] [place], [place] [phone] Dayanna Hernandez MD [address] [place], [place] [phone] Social History Tobacco Use Types Packs/Day Years [...] Diagnoses Not on filedocumented in this encounter Additional Health Concerns Assessment Noted Time PHQ-9 Depression Total Score: 8 07/31/19 23 10:10 AM EDT documented as of this encounter Care Teams Parts Manager Relationship Specialty Start Date End Date Dayanna Hernandez MD [address] [place] [address] PCP - General Family Medicine 10/24/12 documented as of this encounter
--- OUTSIDE RECORDS SUMMARY | 2024-08-09 12:52 | XMS_ITS | Clinical Summary ---
Author Organization [employer] Address [address] [place] [address] Care Team Providers Care Paper Hanger Name Role Phone Dayanna Hernandez MD Primary Care Provider [phone] Allergies Active Allergy Reactions Criticality Noted Date Comments Fish-Derived Products 03/06/2019 Lisinopril Cough 10/05/2012 Other reaction(s): Other (see comments) Penicillin G 01/29/2012 Penicillin V Rash Low 06/05/2020 Shellfish Allergy 08/06/2022 Medications Otezla 30 MG tablet 2 Active Aspirin Low Dose 81 MG EC tablet TOME ROBIN TABLETA TODOS LOS D 2 Active cholecalciferol (Vitamin D-3) 50 MCG (1999) capsule TOME 1 C PSULA POR V A ORAL TODOS LOS D FOR 30 DAYS 3 Active clobetasol (Temovate) 0.05 % ointment PLEASE SEE ATTACHED FOR DETAILED DIRECTIONS 3 Active Clobetasol Propionate 0.05 % shampoo LET SIT ON SCALP FOR 10 MINUTES THEN LATHER AND RINSE 3X WEEKLY. 3 Active clonazePAM (KlonoPIN) 0.5 MG tablet TOME ROBIN TABLETA TODOS LOS D CUANDO SEA NECESARIO 3 Active dorzolamide-delaney lol (Cosopt) 22.3-6.8 MG/ML ophthalmic solution PONGA ROBIN GOTA EN LOS DOS OJOS DOS VECES AL D A 3 Active FLUoxetine (PROzac) 20 MG capsule TOME 2 C PSULAS POR V A ORAL TODOS LOS D EN LA MA AQUILINO 3 Active FLUoxetine (PROzac) 10 MG capsule TOME ROBIN C PSULA TODOS LOS D EN LA MA AQUILINO 3 Active hydrocortisone 2.5 % ointment APPLY TO THE GROIN TWICE DAILY FOR ONE WEEK, BREAK ONE WEEK. REPEAT NEEDED 3 Active BD Pen Needle Lisbet 2nd Gen 32G X 4 MM misc USE TO TEST 5 TIMES A DAY 2 Active Melatonin 5 MG capsule TAKE 1 CAPSULE BY MOUTH AT BEDTIME 90 MINUTOS ANTES DE DORMIR 3 Active Rocklatan 0.02-0.005 % solution PONGA ROBIN GOTA EN LOS DOS OJOS TODOS LOS D 3 Active QUEtiapine (SEROquel) 25 MG tablet TOME 1/2 A 1 TABLETA POR V A ORAL AL ACOSTARSE CUANDO SEA NECESARIO 3 Active traZODone (Desyrel) 100 MG tablet 3 Active fenofibrate (Tricor) 54 MG tablet Take 1 tablet by mouth once daily 90 tablet 3 3 Active Blood Glucose Monitoring Suppl (FreeStyle Lite) w/Device kitIndications:T ype 2 diabetes 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, with long-term current use of insulin ([facility]) 1 each before breakfast, before lunch, and before evening meal. 1 kit 3 Active cetirizine (ZyrTEC) 5 MG tabletIndication s:Allergic rhinitis, unspecified seasonality, unspecified trigger Take 2 tablets (10 mg) by mouth in the morning. 60 tablet 11 3 Active amLODIPine (Norvasc) 5 MG tablet TOME ROBIN TABLETA TODOS LOS D 30 tablet 3 Active ketoconazole (NIZOral) 2 % cream Apply topically 2 times daily. 60 g 3 3 Active NovoLOG FLEXPEN 100 UNIT/ML pen Administer 20-25 units with each meal 24 mL 11 3 Active acetaZOLAMIDE (Diamox) 500 MG 12 hr capsule 3 Active prednisoLONE acetate (Pred-Forte) 1 % ophthalmic suspension PONGA ROBIN GOTA EN ENRIQUE RADHA CUATRO VECES AL D A POR 2 SEMANAS 3 Active meclizine (Antivert) 25 MG tablet TOME ROBIN TABLETA AL ROXANA CUANDO SEA NECESARIO 90 tablet 3 Active Cyanocobalamin (B-12) 1000 MCG capsule TOME ROBIN CAPSULA TODOS LOS ALLEN 90 capsule 3 3 Active fluticasone (Flonase) 50 MCG/ACT nasal sprayIndications :Allergic rhinitis, unspecified seasonality, unspecified trigger USE 1 SPRAY INTO EACH NOSTRIL ONCE DAILY 48 mL 1 4 Active Tradjenta 5 MG tablet Take 1 tablet (5 mg) by mouth Once per day. 90 tablet 3 4 Active FREESTYLE LITE test strip USE TO TEST 4 TIMES A DAY 200 each 11 4 Active FreeStyle lancets 1 each by Other route 4 times daily. 200 each 4 08/17/19 25 Active insulin glargine (Edith Solostar, 1 unit dial,) 300 UNIT/ML injection Administer 60 units daily. Adjust as directed. 7.5 mL 11 4 Active Active Problems Problem Noted Date Diagnosed Date Urinary incontinence 08/17/2023 Assessment & Plan (08/17/2023 12:37 PM EDT): - recommended to follow-up with urologist, will write script for incontinence supplies Chronic back pain 08/17/2023 Assessment & Plan (08/17/2023 12:39 PM EDT): - diagnosed with herniated disc, patient reports radiculopathy and difficulty walking - patient requests scooter - patient has legal blindness - will refer to PT for safe and appropriate equipment for him JEAN MARIE (obstructive sleep apnea) 11/27/2022 Assessment & Plan (08/17/2023 11:35 AM EDT): -Seen by green building materials designer on 03/11/20 for JEAN MARIE -Pt had several sleep studies, most recently in 2019, showing JEAN MARIE -Continue auto PAP pressure 6-14 cm H2O -Will order a new autoPAP machine; may need a new sleep study -Most recent echo did not show pulmonary HTN -Assurance Manager Insurance recommended him to use azelastine for rhinitis. -Refer back to green building materials designer Dr. Sanchez Assessment & Plan (11/27/2022 4:34 PM EDT): -Seen by green building materials designer on 03/11/20 for JEAN MARIE -Pt had several sleep studies, most recently in 2019, showing JEAN MARIE -Continue auto PAP pressure 6-14 cm H2O -Will order a new autoPAP machine; may need a new sleep study -Most recent echo did not show pulmonary HTN -Assurance Manager Insurance recommended him to use azelastine for rhinitis. -Refer back to green building materials designer Dr. Sanchez Intertrigo 10/23/2022 Assessment & Plan (11/27/2022 4:24 PM EDT): - s/p clotrimazole BID x 28 days in October 2022 - responding well to nystatin pwd TID; refill - follow up with battery plate remover Assessment & Plan (10/23/2022 12:46 PM EDT): Pt with likely intertrigo not responsive To psoriasis tx Will tx empirically for fungal skin infection -advised to keep area dry -clotrimazole BID x 28 days -nystatin pwd TID when cream already dry out -px ammonium lactated x skin of arms and legs x dryness -explained to not apply this in groin -alarm sings and symptoms -pt to f up w his battery plate remover in 2 months per pt and has apt w PCP in 4 weeks scheduled already -can monitor rash then Vertigo 07/30/2022 Assessment & Plan (11/27/2022 4:24 PM EDT): Multifactorial. -Dx BPPV. -h/o Stroke. -Last Carotid US in 2018, showed no significant stenosis. -Referred to neurologist in September 2021; uncertain if he kept appt -Advised to call the office to schedule appt. Assessment & Plan (07/31/2022 5:37 AM EDT): Multifactorial. -Dx BPPV. -h/o Stroke. -Last Carotid US in 2018, showed no significant stenosis. -Referred to neurologist in September 2021; uncertain if he kept appt -Advised to call the office to schedule appt. Allergic rhinitis 07/30/2022 Assessment & Plan (07/31/2022 5:52 AM EDT): -continue cetrizine -continue montelukast -continue fluticasone nasal Hemiparesis 06/05/2020 Hypertensive renal disease 06/05/2020 Proteinuria 06/05/2020 Assessment & Plan (11/27/2022 4:26 PM EDT): - pt refuses to take ARB or ACEI - consider SGLT-2 inhibitor Renal stone 07/28/2016 Biliary calculus 09/16/2015 Hemiparesis affecting left s amari as late effect of cerebrovascular accident (CVA) 09/16/2015 Stage 3 chronic kidney disease 09/16/2015 Assessment & Plan (08/17/2023 11:36 AM EDT): -Bulk Tank Driver: Dr. Velasquez, last seen on 09/02/22 -Diabetic and vascular etiology, proteinuria -07/31/22 BUN 20; Scr 1.53; eGFR 53; K 4.1; Bicarb 28, UACR 1,147 -Baseline Cr 1.3-1.5 -In a setting of recurrent nephrolithiasis -Stable -Avoid nephrotoxic drugs. -Treatment Hx: Pt reported throat itching with ARB, and cough with ACEI. Assessment & Plan (11/19/2022 5:11 AM EDT): -Bulk Tank Driver: Dr. Velasquez, last seen on 09/02/22 -Diabetic and vascular etiology, proteinuria -07/31/22 BUN 20; Scr 1.53; eGFR 53; K 4.1; Bicarb 28, UACR 1,147 -Baseline Cr 1.3-1.5 -In a setting of recurrent nephrolithiasis -Stable -Avoid nephrotoxic drugs. -Treatment Hx: Pt reported throat itching with ARB, and cough with ACEI. Assessment & Plan (07/31/2022 5:30 AM EDT): -Bulk Tank Driver: Dr. Velasquez, last seen on 08/16/19, but pt reports more recent visit -09/25/20 BUN 32; SCr 1.98, K+ 4.1, UACR 1256, Microalbuminuria -> albuminuria -Baseline Cr 1.3-1.5 -In a setting of recurrent nephrolithiasis -Stable -Avoid nephrotoxic drugs. 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 -Last microalbumin test: 07/31/22 UACR 1,147 -Last lipid profile: 06/23/23 TC 149; TG 167; HDL 56; LDL 60 Last dental exam: ? Immunizations: Reviewed and discussed. 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 -Last microalbumin test: 07/31/22 UACR 1,147 -Last lipid profile: 07/31/22 TC 224; TG 183; HDL 36; LDL 156 Last dental exam: ? Immunizations: Reviewed and discussed. Pt chose not to fully vaccinated Follow up in 3-4 mo or sooner prn Assessment & Plan (07/31/2022 5:33 AM EDT): -A1C 8.3% on , worsened from 6.1% on 09/04/21 -Case Monitor: [facility], last seen in 07/04/21 -Current medications: Tresiba 56 units daily, Humalog U-200 10-15 units with snack, 25-30 units with meal, Tradjenta 5 mg daily -Last eye exam: April 2019, Dr. 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 -Last microalbumin test: 09/25/20 UACR 1256, albuminuria -Last FLP: 09/25/20 TC 144; TG 189; HDL 37; LDL 67; vit D12 227 Last dental exam: ? Immunizations: -Influenza - He declined -Pneumovax - Dec 2015 -Hep B series - Completed Aspirin use: Prescribed Dyslipidemia 01/30/2014 Assessment & Plan (08/17/2023 11:36 AM EDT): Marked hypertriglyceridemia (CKDIII) and low HDL Lab 07/31/22 TC 224; TG 183; HDL 36; LDL 156 Current medication: Previously Crestor 40 mg daily, decreased to 10 mg daily due to CKDIII; pt also has been taking fenofibrate 54 mg daily because his route sales delivery drivers supervisor in [place] prescribed him. We discussed about his potential drug interaction and possible side effects with the pt, but he would like to continue taking fenofibrate. He is not fond of rosuvastatin. High-intensity statin therapy is recommended pre guideline. Consider switching to atorvastatin due to CKD in the future. Emphasized the importance of lifestyle modification. Assessment & Plan (11/19/2022 5:12 AM EDT): Marked hypertriglyceridemia (CKDIII) and low HDL Lab 07/31/22 TC 224; TG 183; HDL 36; LDL 156 Current medication: Previously Crestor 40 mg daily, decreased to 10 mg daily due to CKDIII; pt also has been taking fenofibrate 54 mg daily because his route sales delivery drivers supervisor in prescribed him. We discussed about his potential drug interaction and possible side effects with the pt, but he would like to continue taking fenofibrate. He is not fond of rosuvastatin. High-intensity statin therapy is recommended pre guideline. Consider switching to atorvastatin due to CKD in the future. Emphasized the importance of lifestyle modification. Assessment & Plan (07/31/2022 5:41 AM EDT): Marked hypertriglyceridemia (CKDIII) and low HDL Lab 09/25/20: TC 144; TG 189; HDL 37; LDL 67; vit D12 227 Current medication: Previously Crestor 40 mg daily, decreased to 10 mg daily due to CKDIII; pt also has been taking fenofibrate 54 mg daily because his route sales delivery drivers supervisor in prescribed him. We discussed about his potential drug interaction and possible side effects with the pt, but he would like to continue taking fenofibrate. He is not fond of rosuvastatin. High-intensity statin therapy is recommended pre guideline. Consider switching to atorvastatin due to CKD in the future. Emphasized the importance of lifestyle modification. Legal blindness 01/30/2014 Vitamin D deficiency 01/30/2014 Assessment & Plan (07/31/2022 5:34 AM EDT): - in a setting of CKD - continue vitamin D supplementation Anxiety and depression 10/09/2013 Assessment & Plan (07/31/2022 5:36 AM EDT): - he has [facility] provider - prescribed clonazepam, fluoxetine, and trazodone - good family support Chronic recurrent major depressive disorder 10/2013 Glaucoma 10/09/2013 Assessment & Plan (11/27/2022 4:26 PM EDT): - following with fighter pilot - continue current medication Hypertension 05/16/2012 Assessment & Plan (08/17/2023 11:36 AM EDT): -Goal BP < 140/90 per JNC-8 and < 130/80 per ACC/AHA guideline (Treatment threshold >= 130/80 ) -Discussed about the importance of lifestyle modification and medication adherence. -Continue amlodipine 5 mg daily. -Treatment Hx: losartan - discontinued due to BERTRAND and hypotension -Follow up in 3-6 mo, sooner if any problem arises Assessment & Plan (11/27/2022 4:18 PM EDT): -Goal BP < 140/90 per JNC-8 and < 130/80 per ACC/AHA guideline (Treatment threshold >= 130/80 ) -Discussed about the importance of lifestyle modification and medication adherence. -Continue amlodipine 5 mg daily. -Treatment Hx: losartan - discontinued due to BERTRAND and hypotension -Follow up in 3-6 mo, sooner if any problem arises Assessment & Plan (07/31/2022 5:30 AM EDT): -Goal BP < per JNC-8 and < per ACC/AHA guideline (Treatment threshold >= ) -Discussed about the importance of lifestyle modification and medication adherence. -Continue amlodipine 5 mg daily. -Treatment Hx: losartan - discontinued due to BERTRAND and hypotension -Follow up in 3-6 mo, sooner if any problem arises Obesity 05/16/2012 Assessment & Plan (07/31/2022 5:31 AM EDT): - JEAN MARIE, DM, HTN - continue working on lifestyle modifications Psoriasis 01/02/2012 Assessment & Plan (08/17/2023 11:36 AM EDT): -Dietary regimen is improving symptoms -Continue on Otezla and clobetasol topical -Patient is still followed by Dr. Rico - we have not received a note, will obtain latest note -Pt wants to go to [facility] in March because his psoriasis improves. -Pt will schedule a follow up appt Assessment & Plan (11/27/2022 4:24 PM EDT): -Dietary regimen is improving symptoms -Continue on Otezla and clobetasol topical -Patient is still followed by Dr. Rico - we have not received a note, will obtain latest note -Pt wants to go to [facility] in March because his psoriasis improves. -Pt will schedule a follow up appt Assessment & Plan (07/31/2022 5:35 AM EDT): -Dietary regimen is improving symptoms -Continue on Otezla and clobetasol topical -Patient is still followed by Dr. Rico - we have not received a note, will obtain latest note -Pt wants to go to [facility] in March because his psoriasis improves. -Pt will schedule a follow up appt Backache 12/21/2011 Knee pain 12/21/2011 Proliferative diabetic retinopathy 11/25/2011 Immunizations Name Administration Dates Next Due Hep B, adult 01/29/2015,06/19/2014,01/30/2014 Pneumococcal Polysaccharide PPSV23 12/26/2015 Tdap 12/26/2015 Social History Tobacco Use Types Packs/Day Years Used Date Smoking Tobacco: Former Cigarettes Passive Smoke Exposure: Never Smokeless Tobacco: Never Tobacco Cessation:Counseling Given: Not Answered Depression Answer Date Recorded Patient Health Questionnaire-9 [...] not to disclose 2021 10:21 AM EDT Last Filed Vital Signs Vital Sign Reading Time Taken Comments Blood Pressure 110/78 08/17/2023 11:32 AM EDT Pulse 90 08/17/2023 11:32 AM EDT Temperature 35.9 ??C (96.6 ??F) 08/17/2023 11:32 AM E DT Respiratory Rate 15 08/17/2023 11:32 AM EDT Oxygen Saturation 98% 08/17/2023 11:32 AM EDT Inhaled Oxygen Concentration - - Weight 96.6 kg (213 lb) 08/17/2023 11:32 AM EDT Height 170.7 cm (5' 7.2 ) 11/19/2022 10:51 AM ED T Body Mass Index 33.16 11/19/2022 10:51 AM EDT Plan of Treatment Health Maintenance Due Date Last Done Comments CT Colonography 1962 Colonoscopy 1962 Colorectal Cancer Screening 1962 FIT DNA/Cologuard 1962 FIT 1962 FOBT 1962 Sigmoidoscopy 1962 Eye Exam 02/13/1972 Alcohol/Substance Use Screening 1974 Zoster Vaccines (1 of 2) 02/13/2012 Pneumococcal Vaccine: 50+ Years (2 of 2 - PCV) 12/25/2016 12/26/2015 RSV Patients and Patients Aged 60 years or older (1 - Risk 60-74 years 1-dose series) 2022 Depression Screening 07/31/2023 07/30/2022, 07/31/19 23 SDOH Screening 07/31/2023 07/30/2022 Diabetes: Hemoglobin A1C 11/17/2023 024, 11/19/2022, 07/30/2022 COVID-19 Vaccine ( - season) 2023 Influenza Vaccine (#1) 2023 Lipid Panel 12/19/2023 12/18/2022, 04/2 10/2022, 09/09/2021 Diabetes: Foot Exam 08/16/2024 08/17/2023, 08/17/2023, 08/17/2023, Additional history exists Tobacco Screening 08/16/2024 08/17/2023 DTaP/Tdap/Td Vaccines (2 - Td or Tdap) 12/25/2025 12/26/2015 Hepatitis B Vaccines Completed 01/29/2015, 06/19/2014, 01/30/2014 HIV Screening Completed 09/09/2021 Hepatitis C Screening Completed 09/09/2021 HIB Vaccines Aged Out No longer eligi ble based on patient's age to complete this topic HPV Vaccines Aged Out No longer eligi ble based on patient's age to complete this topic Hepatitis A Vaccines Aged Out No long er eligible based on patient's age to complete this topic IPV Vaccines Aged Out No longer eligi ble based on patient's age to complete this topic Meningococcal Vaccine Aged Out No christi kyra eligible based on patient's age to complete this topic RSV under 20 months Aged Out No longe r eligible based on patient's age to complete this topic Rotavirus Vaccines Aged Out No longer eligible based on patient's age to complete this topic Procedures Procedure Name Priority Date/Time Associated Diagnosis Comments POCT GLYCOSYLATED HEMOGLOBIN (HGB A1C) Routine 08/17/2023 11:35 AM EDT Type 2 diabetes 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, with long-term current use of insulin (CMS/HCC) LIPID PANEL, STANDARD Routine 12/18/2022 12:28 PM EDT Type 2 diabetes 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, with long-term current use of insulin (CMS/HCC) ZZZ HISTORICAL HEPATITIS C AB W/REFL TO HCV RNA, QN, PCR Routine 09/09/2021 1:06 PM EDT HIV 1/2 ANTIGEN/ANTIBODY, FOURTH GENERATION W/RFL Routine 09/09/2021 1:06 PM EDT from Last 3 Months or Most Recently Relevant to Health Maintenance Results * (ABNORMAL) POCT glycosylated hemoglobin (Hgb A1c) (08/17/2023 11:35 AM EDT) Hemoglobin A1C 9.3(A) 4.0 - 6.0 % QC Media Lot # [id number] Lot# Expiration Date Blood Capillary blood specimen / Unknown 08/17/2023 11:35 AM EDT Dayanna Hernandez MD POINT OF CARE TEST ENTER/EDIT OR DERABLES Final Result * (ABNORMAL) Lipid Panel, Standard (12/18/2022 12:28 PM EDT) Triglycerides 308(H) <150 mg/dL [facility] Comment:Desirable Triglyceri de: less than 150 mg/dLBorderline High Triglyceride 150-199 mg/dLHigh Triglyceride: 200-499 mg/dLVery High Triglyceride: greater than or equal to 5OO mg/dL Cholesterol 251(H) <200 mg/dL [facility] Comment:Desirable Cholestero l: less than 200 mg/dLBorderline High Cholesterol: 200-239 mg/dLHigh Cholesterol: greater than 239 mg/dL LDL Cholesterol Calculated 152(H) <100 mg/dL [facility] Comment:Desirable LDL: less than 100 mg/dLNear Optimal/Above Optimal LDL: 110- 129 mg/dLBorderline High LDL: 130-159 mg/dLHigh LDL: 160-189 mg/dLVery High LDL: greater than or equal to 190 mg/dL HDL Cholesterol 38(L) >40 mg/dL [facility] Comment:Desirable HDL: great er than 40 mg/dL Note: This HDL assay may give artificially low results in patients with liver disease. 12/18/2022 12:2 8 PM EDT 12/18/2022 12:32 PM EDT us Generic External Data Provider LAB BLOOD ORDERAB LES Final Result [facility] [address] [place] [phone] * HEPATITIS C AB W/REFL TO HCV RNA, QN, PCR (09/09/2021 1:06 PM EDT) HEPATITIS C ANTIBODY NON-REACT EDWARD NON-REACT EDWARD [facility] INDEX 0.04 <1.00 [facility] Comment: ?? HCV antibody was non-reactive. There is no laboratory ?? evidence of HCV infection. ?? In most cases, no further action is required. However, if recent HCV exposure is suspected, a test for HCV RNA (test code 37369) is suggested. ?? For additional information please refer to http://Press [email or web address] Trainr/faq/ZBW03a9 (This link is being provided for informational/ educational purposes only.) ?? 09/09/2021 1:06 PM EDT us Dayanna Hernandez MD HISTORICAL/NON ORDERABLE LABS Fi nal Result [facility] [address] [place] [address], * HIV 1/2 ANTIGEN/ANTIBODY,FOURTH GENERATION W/RFL (09/09/2021 1:06 PM EDT) HIV-1/2 ANTIGEN AND ANTIBODIES, 4TH GENERATION W/ REFLEX NON-REACT EDWARD NON-REACT EDWARD [facility] Comment: HIV-1 antigen and HIV-1/HIV-2 antibodies were not detected. There is no laboratory evidence of HIV infection. ?? PLEASE NOTE: This information has been disclosed to you from records whose confidentiality may be protected by state law. ??If your state requires such protection, then the state law prohibits you from making any further disclosure of the information without the specific written consent of the person to whom it pertains, or as otherwise permitted by law. A general authorization for the release of medical or other information is NOT sufficient for this purpose. ? For additional information please refer to http://Press [email or web address] Trainr/faq/RRX129 (This link is being provided for informational/ educational purposes only.) ? The performance of this assay has not been clinically validated in patients less than 2 years old. ?? 09/09/2021 1:06 PM EDT us Dayanna Hernandez MD LAB BLOOD ORDERABLES Final Resul t [facility] [address] from Last 3 Months or Most Recently Relevant to Health Maintenance Insurance Care Teams Paper Hanger Relationship Specialty Start Date End Date Dayanna Hernandez MD [address] [place] [phone] PCP - General Family Medicine 10/24/12
--- OUTSIDE RECORDS SUMMARY | 2024-08-09 12:52 | XMS_ITS | Encounter Summary ---
Author Organization [facility] Address [address] [facility] [address] [place] [address] Phone Care Team Providers Care Media Relations Intern Name Role Phone Dayanna Hernandez MD Primary Care Provider [phone] Encounter Details Date Type Department Care Team (Late st Contact Info) Description 11/01/2023 Office Communication [facility] [address] [facility] [address] [place] [phone] Haley Antoine ARNP [address] [facility] [address] [place] [phone] Social History Tobacco Use Types Packs/Day Years Used Date Smoking Tobacco: Former Cigarettes Q uit: 04/05/1996 Smokeless Tobacco: Never Sex and Gender Information Value Date Recorded Sex Assigned at Not on file Legal Sex Male 4:42 PM EST Gender Identity Not on file Sexual Orientation Not on file documented as of this encounter Plan of Treatment Not on file documented as of this encounter Visit Diagnoses Not on filedocumented in this encounter Care Teams Media Relations Intern Relationship Specialty Start Date End Date Dayanna Hernandez MD PCP - General 04/15/20 documented as of this encounter
--- OUTSIDE RECORDS SUMMARY | 2024-08-09 12:52 | XMS_ITS | Encounter Summary ---
Author Organization [employer] Address [address] [facility] [address] [place] [address] Care Team Providers Care Military Exchange Wireless Manager Name Role Phone Dayanna Hernandez MD Primary Care Provider Encounter Details Date Type Department Care Team ([facility] st Contact Info) Description 08/24/2022 Orders Only [facility] [address] [place], [place] [phone] Dayanna Hernandez MD [address] [place], [place] [phone] Type 2 diabetes 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, with long-term current use of insulin ([facility]) (Primary Dx) Social History Tobacco Use Types Packs/Day Years Used Date Smoking Tobacco: Former Cigarettes Passive Smoke Exposure: Never Smokeless Tobacco: Never Depression Answer Date Recorded Patient Health Questionnaire-9 Score 8 07/30/2022 Depression Answer Date Recorded Patient Health Questionnaire-2 Score 6 07/30/2022 Sex and Gender Information Value Date Recorded Sex Assigned at Male 02/02/2022 10:21 AM EDT Legal Sex Male 10:21 AM EDT Gender Identity Male 02/02/2022 10:21 AM EDT Sexual Orientation Choose not to disclose 2021 10:21 AM EDT COVID-19 Exposure Response Date Recorded In the last 10 days, have yo u been in contact with someone who was confirmed or suspected to have Coronavirus/COVID-19? No / Unsure 07/30/2022 9:44 AM EDT documented as of this encounter Plan of Treatment Not on file documented as of this encounter Procedures Procedure Name Priority Date/Time Associated Diagnosis Comments LIPID PANEL, STANDARD Routine 12/18/2022 12:28 PM EDT Type 2 diabetes 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, with long-term current use of insulin ([facility]) BASIC METABOLIC PANEL Routine 12/18/2022 12:28 PM EDT Type 2 diabetes 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, with long-term current use of insulin ([facility]) ALBUMIN, RANDOM URINE W/CREATININE Routine 12/18/2022 12:09 PM EDT Type 2 diabetes 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, with long-term current use of insulin ([facility]) GLUCOSE, WHOLE BLOOD Routine 12/18/2022 11:24 AM EDT Type 2 diabetes 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, with long-term current use of insulin ([facility]) documented in this encounter Results * (ABNORMAL) Lipid Panel, Standard (12/18/2022 12:28 PM EDT) Triglycerides 308(H) <150 mg/dL [facility] Comment:Desirable Triglyceri de: less than 150 mg/dLBorderline High Triglyceride 150-199 mg/dLHigh Triglyceride: 200-499 mg/dLVery High Triglyceride: greater than or equal to 5OO mg/dL Cholesterol 251(H) <200 mg/dL [facility] Comment:Desirable Cholestero l: less than 200 mg/dLBorderline High Cholesterol: 200-239 mg/dLHigh Cholesterol: greater than 239 mg/dL LDL Cholesterol Calculated 152(H) <100 mg/dL [facility] Comment:Desirable LDL: less than 100 mg/dLNear Optimal/Above Optimal LDL: 110- 129 mg/dLBorderline High LDL: 130-159 mg/dLHigh LDL: 160-189 mg/dLVery High LDL: greater than or equal to 190 mg/dL HDL Cholesterol 38(L) >40 mg/dL [facility] Comment:Desirable HDL: great er than 40 mg/dL Note: This HDL assay may give artificially low results in patients with liver disease. 12/18/2022 12:2 8 PM EDT 12/18/2022 12:32 PM EDT Generic External Data Provider LAB BLOOD ORDERAB LES Final Result Performing Organization Address [facility]/ZIP Co de Phone Number [facility] [address] [place] [address] [phone] * (ABNORMAL) Basic Metabolic Panel (12/18/2022 12:28 PM EDT) Sodium 137 135 - 145 mmol/L [facility] Potassium 4.0 3.3 - 5.1 mmol/L [facility] Comment:Slight Hemolysis Chloride 104 96 - 108 mmol/L [facility] Carbon Dioxide 24 22 - 29 mmol/L [facility] Anion Gap 13 12 - 20 [facility] Urea Nitrogen (BUN) 16 9 - 16 mg/dL [facility] Creatinine, Serum 1.40 0.5 - 1.4 mg/dL [facility] Estimated Glomerular Filt Rate 52 [facility] Comment:NOTE: For -Am erican individuals, multiply the result by 1.210.Chronic Kidney Disease: Estimated GFR < 60 mL/min/[id number] Kidney Disease: Estimated GFR < 15 mL/min/1.73m2 Glucose 137(H) 60 - 115 mg/dL [facility] Calcium 9.4 8.4 - 10.2 mg/dL [facility] 12/18/2022 12:2 8 PM EDT 12/18/2022 12:32 PM EDT [facility] External Provider LAB BLO OD ORDERABLES Final Result Performing Organization Address City/[facility]/ZIP Co de Phone Number [facility] [address] [place] [address] [phone] * (ABNORMAL) Albumin, Random Urine W/Creatinine (12/18/2022 12:09 PM EDT) Creatinine, Urine 158.87 mg/dL [facility] Microalbumin Urine 1,684.0 mg/L H [facility] Microalbum Creatinine Ratio Ur 1,059.9(H ) <30 ug/mg cr [facility] Comment:Albumin/Creatinine R atio Reference Ranges: Normal: < 30 ug/mg creatinine Microalbuminuria: 30 - 300 ug/mg creatinineClinical Albuminuria: > 300 ug/mg creatinine 12/18/2022 12:0 9 PM EDT 12/18/2022 1:59 PM EDT [facility] External Provider LAB URI NE ORDERABLES Final Result Performing Organization Address [facility] de Phone Number [facility] [address] [place] [address] [phone] * (ABNORMAL) Glucose, Whole Blood (12/18/2022 11:24 AM EDT) Glucose, Whole Blood 155(H) 60 - 115 mg/dL [facility] Comment:METER #: [id number] Testing performed in the Endocrinology Department [address] , [address], [facility]. 12/18/2022 11:2 4 AM EDT 12/18/2022 11:30 AM EDT [facility] External Provider LAB BLO OD ORDERABLES Final Result Performing Organization Address [facility] Co de Phone Number [facility] [address] [place] [address] [phone] documented in this encounter Visit Diagnoses Diagnosis Type 2 diabetes 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, with long-term current use of insulin ([facility])- Primary documented in this encounter Additional Health Concerns Assessment Noted Time PHQ-9 Depression Total Score: 8 07/31/19 23 10:10 AM EDT documented as of this encounter Care Teams Military Exchange Wireless Manager Relationship Specialty Start Date End Date Dayanna Hernandez MD [address] [place] [phone] PCP - General Family Medicine 10/24/12 documented as of this encounter
[2024-08-09 13:35] LABS: Appearance Urine Clear; Color Urine Yellow; Glucose Urine UA 500 mg/dL (Negative); Leukocyte Esterase Urine Negative (Negative); Nitrite Urine Negative (Negative); Specific Gravity - Urine 1.025 (1.005-1.025); UMIC TRIGGER UA YES; Urine Blood Trace (Negative); Urine Ketones Negative (Negative); Urine Protein >=1000 (4+) mg/dL (Neg-Trace)
[2024-08-09 13:38] LABS: Estimated Average Glucose 169 mg/dL; Hemoglobin A1C 218.6358 umol/L; Hemoglobin A1c % 7.5 % (<6.0)
[2024-08-09 13:39] LABS: Anion Gap 12 (12-20); Blood Urea Nitrogen 13 mg/dL (9-16); Calcium 8.7 mg/dL (8.4-10.2); Carbon Dioxide 25 mmol/L (22-29); Chloride 107 mmol/L (96-108); Estimated Glomerular Filt Rate 46; Glucose Random 318 mg/dL (60-115); Potassium 3.8 mmol/L (3.3-5.1); Sodium 140 mmol/L (135-145)
[2024-08-09 14:05] LABS: Bacteria Urine None Seen (None Seen); Hyaline Casts Urine 0-2 /LPF (0-2); RBC Urine 0-2 /HPF (0-2); Squamous Epithelial Cell Urine 0-2 /HPF (0-2); WBC Urine 0-5 /HPF (0-5)
[2024-08-09 14:29] LABS: Creatinine Urine 93.04 mg/dL
[2024-08-09 15:01] LABS: Total Protein Urine Random 775 mg/dL (<12)
== END 2024-08-09 11:26 | disposition home or self-care (01) ==
LOC: HO.10HDL 11:25
PROVIDERS: Visit Provider Internal Medicine Hypertension Specialist
DX: I10 Essential (primary) hypertension (principal); E11.42 Type 2 diabetes mellitus with diabetic polyneuropathy
CPT/HCPCS: 36415; 80048; 81001; 82570; 83036; 84156

== ENCOUNTER 2024-08-10 10:58 | Outpatient (AMB) | payer OTHER, SELFPAY ==
[2024-08-10 11:01] VITALS: BP 110/64; PULSE 95; O2SAT 95; BMI 35.8
--- NOTE | 2024-08-10 11:01 | HO.NEPHOV ---
Vital Signs 08/10/24 11:01 Height 5 ft 6 in Weight 222 lb BMI 35.8 BP 110/64 Blood Pressure Location Rt brachial Position Sitting Pulse 95 Pulse Source Pulse Oximeter Pulse Oximetry (%) 95 Oxygen Delivery Method Room Air Intake Visit Reasons: R/s from 08/07/24 Animal Assisted Therapist Required: Yes Animal Assisted Therapist Name: mike [id number] Accompanied by: Self / Same As Patient Allergies Penicillins [PENICILLINS] Allergy (Unknown, Verified 08/10/24 11:03) UNKNOWN-CHILDHOOD REACTION ARB-Angiotensin Receptor Antagonist Adverse Reaction (Mild, Verified 08/10/24 11:03) Cough SEAFOOD Allergy (Severe, Uncoded 02/11/24 10:04) DIARRHEA,GI PAIN, NAUSEA Fish Allergy (Mild, Uncoded 02/11/24 10:04) Gastrointestinal Upset Medication List - Last Reconciled 08/10/24 by Ramesh Hamm MD acetaminophen (Tylenol) 325 mg PO QID PRN apremilast (Otezla) 30 mg PO BID aspirin 81 mg PO DAILY blood sugar diagnostic (FreeStyle Lite Strips) 4 times a day blood-glucose meter (FreeStyle Lite Meter kit) 4 times a day cetirizine 10 mg PO QAM cholecalciferol (vitamin D3) 50 mcg PO DAILY 30 days clobetasol 0.05% 1 appl topical BID clonazepam 0.5 mg PO DAILY PRN CPAP (CPAP Machine/Device) As directed dorzolamide-timolol 22.3-6.8 mg/mL 1 drp ophthalmic (eye) BID fenofibrate 54 mg PO DAILY 90 days flash glucose scanning reader (FreeStyle Nevaeh 2 Burleson) As directed flash glucose scanning reader (FreeStyle Nevaeh 14 Day Burleson) As directed flash glucose sensor (FreeStyle Nevaeh 14 Day Sensor kit) As directed flash glucose sensor (FreeStyle Nevaeh 2 Sensor kit) As directed fluoxetine 40 mg PO QAM fluticasone propionate 50 mcg/actuation 50 mcg intranasal DAILY FreeStyle Lancets (lancets) 4 times a day NS hydrocortisone 2.5% 1 appl topical DAILY insulin aspart U-100 (Novolog FlexPen U-100 Insulin aspart) 25-30 units tid for meals, snack take 10-15 unit subcutaneously use as directed; 30 days insulin glargine U-300 conc 80 units (0.2667 mL) subcut DAILY 90 days linagliptin (Tradjenta) 5 mg PO DAILY melatonin 5 mg PO BEDTIME pen needle, diabetic (BD Lisbet 2nd Gen Pen Needle) 5 times a day quetiapine 12.5 - 25 mg PO BEDTIME PRN roflumilast 0.3% (Zoryve) appl topical rosuvastatin 40 mg PO DAILY [sock pull As directed] [telescoping foot mirror As directed] trazodone 100 mg BEDTIME HPI Comments Details: . Yehuda is a pleasant 64-year-old man with history of longstanding diabetes mellitus hypertension with CKD. Serum creatinine has been fluctuating between 1.31.5 mg/dL. In 06/23/2023 serum creatinine was 1.5 while this was checked in [facility]. She has been referred for evaluated chronic disease and proteinuria. In the past he had the urine protein creatinine ratio was more than 1 g. He has a being foamy urine. He denies any edema. No shortness of breath. Upon reviewing the records he has not on any LISSA inhibitors or ARB is. He can not recall trying any of these agents. He is on amlodipine 5 mg a day. All medications were reviewed 01/25/2024. He has stopped taking losartan due to abdominal discomfort. 08/10/24- Overall feeling ok. Does not want to take Losartan [facility] Medical History CVA (cerebrovascular accident due to intracerebral hemorrhage) Chronic rhinitis JEAN MARIE on CPAP Hypertension Diabetic polyneuropathy associated with type 2 diabetes mellitus CKD stage 3 due to type 2 diabetes mellitus Diabetic nephropathy associated with type 2 diabetes mellitus halfway (current) use of insulin Proliferative diabetic retinopathy Diabetes type 2, uncontrolled Dyslipidemia Surgical History Hx of lithotripsy History of appendectomy Hx of laser photocoagulation of retina Hx of colonoscopy Family History Father Lung cancer Father No problems noted. Mother Diabetes Social History Household Members: None Housing: Apartment Alcohol intake: never Patient Tobacco Use Status: Former Tobacco user Physical Exam Vital Signs: BMI result Body Mass Index 35.8 Const General: comfortable Nutritional Appearance: well nourished Orientation/consciousness: patient oriented x3 HEENT Head: No normal to inspection Mouth: moist mucous membranes Neck Neck: Yes supple and Yes no JVD Resp Auscultation: clear to auscultation bilaterally and no rales Cardio Jugular venous distension: no JVD Palpation: no palpable S3 and no palpable S4 Heart sounds: no rubs GI Palpation (GI): Soft to palpation and nontender Percussion: No Fluid wave present General: Yes no CVA tenderness Back/Spine/Pelvis Back: no CVA tenderness Skin General skin exam: no rashes or lesions noted Neuro General: patient oriented x3 Extrem General: Yes no pedal edema and No clubbing Results Reviewed Results Reviewed: October 2023 1. Bilateral nodular renal contours and prominent renal pyramids are difficult to evaluate as visualization is limited due to bowel gas. 2. No renal calculi. 3. Right renal 0.9 cm lower pole cyst with posterior echogenic focus characteristic of a calcification not identified on prior exam. Nephrology Results: Sodium 140 mmol/L (135-145) 08/09/24 Potassium 3.8 mmol/L (3.3-5.1) 08/09/24 Chloride 107 mmol/L (96-108) 08/09/24 Carbon Dioxide 25 mmol/L (22-29) 08/09/24 BUN 13 mg/dL (9-16) 08/09/24 Creatinine 1.53 mg/dL (0.5-1.4) H 08/09/24 Calcium 8.7 mg/dL (8.4-10.2) 08/09/24 Urine Protein >=1000 (4+) mg/dL (Neg-Trace) H 08/09/24 Urine Creatinine 93.04 mg/dL 08/09/24 Assessment & Plan Assessment & Plan (1) CKD stage 3 due to type 2 diabetes mellitus: Code(s): E11.22 - Type 2 diabetes mellitus with diabetic chronic kidney disease; N18.30 - Chronic kidney disease, stage 3 unspecified Category: Medical (2) DM2 (diabetes mellitus, type 2): Code(s): E11.9 - Type 2 diabetes mellitus without complications Category: Medical (3) Hypertension: Code(s): I10 - Essential (primary) hypertension Category: Medical (4) Vitamin D deficiency: Code(s): E55.9 - Vitamin D deficiency, unspecified Category: Medical (5) Proteinuria: Code(s): R80.9 - Proteinuria, unspecified Category: Medical (6) Diabetes type 2, uncontrolled: Code(s): E11.65 - Type 2 diabetes mellitus with hyperglycemia Category: Medical Plan . 64-year-old man with a history of longstanding diabetes mellitus hypertension obesity with proteinuria. Proteinuria is most likely due to hypertensive diabetic kidney disease. Proteinuria could be due to obesity as well. Underlying FSGS is a possibility as well. He has stage III CKD most likely due to diabetes diabetic kidney disease. Other nondiabetic causes seem unlikely nevertheless we will rule that out. Serology ordered Protein creatinine ratio remains unchanged. Renal ultrasonogram unremarkable. He was on losartan but he has stopped taking it since he was having some abdominal discomfort. Other option would be to add spironolactone. However the blood pressure rather low therefore I will hold off on this. He will certainly benefit from SGLT2 inhibitors. He will benefit from weight loss. He should stay on a low-salt diet which I have discussed. Blood sugar needs to be better controlled recent A1c was 9.3%. Encouraged him to continue follow up with Dr. Hanley/endocrinology. Orders: Orders Total Protein Urine Random Today E11.22 - Type 2 diabetes mellitus with diabetic chronic kidney disease, N18.30 - Chronic kidney disease, stage 3 unspecified Phospholipase A2 Receptor Pnl 4 Months E11.22 - Type 2 diabetes mellitus with diabetic chronic kidney disease, N18.30 - Chronic kidney disease, stage 3 unspecified, R80.9 - Proteinuria, unspecified Basic Metabolic Panel 4 Months E11.22 - Type 2 diabetes mellitus with diabetic chronic kidney disease, N18.30 - Chronic kidney disease, stage 3 unspecified UA and rflx microscopic Today E11.22 - Type 2 diabetes mellitus with diabetic chronic kidney disease, N18.30 - Chronic kidney disease, stage 3 unspecified Creatinine Urine Today E11.22 - Type 2 diabetes mellitus with diabetic chronic kidney disease, N18.30 - Chronic kidney disease, stage 3 unspecified Complement C3 4 Months E11.22 - Type 2 diabetes mellitus with diabetic chronic kidney disease, N18.30 - Chronic kidney disease, stage 3 unspecified, R80.9 - Proteinuria, unspecified Complement C4 4 Months E11.22 - Type 2 diabetes mellitus with diabetic chronic kidney disease, N18.30 - Chronic kidney disease, stage 3 unspecified, R80.9 - Proteinuria, unspecified Protein Electrophoresis, Serum 4 Months E11.22 - Type 2 diabetes mellitus with diabetic chronic kidney disease, N18.30 - Chronic kidney disease, stage 3 unspecified, R80.9 - Proteinuria, unspecified Medications: Changed From cholecalciferol (vitamin D3) 50 mcg PO DAILY 30 days 90 caps 3RF E11.65 - Type 2 diabetes mellitus with hyperglycemia To cholecalciferol (vitamin D3) 50 mcg PO DAILY 90 days 90 caps 3RF E11.65 - Type 2 diabetes mellitus with hyperglycemia Coding Level of Care Code Est Pt Level 4 (84637) Diagnoses CKD stage 3 due to type 2 diabetes mellitus E11.22; N18.30 Type 2 diabetes mellitus with diabetic polyneuropathy, with long-term current use of insulin E11.9 Hypertension I10 Vitamin D deficiency E55.9 Proteinuria R80.9 Diabetes type 2, uncontrolled E11.65
--- OUTSIDE RECORDS SUMMARY | 2024-08-10 12:31 | XMS_ITS | Encounter Summary ---
Author Organization [employer] Address [address] [facility] [address] [place] [address] Care Team Providers Care Fern Picker Name Role Phone Dayanna Hernandez MD Primary Care Provider [phone] Encounter Details Date Type Department Care Team [...] on filedocumented in this encounter Care Teams Fern Picker Relationship Specialty Start Date End Date Dayanna Hernandez MD [address] [place] [address] PCP - General Family Medicine 10/24/12 documented as of this encounter
--- OUTSIDE RECORDS SUMMARY | 2024-08-10 12:31 | XMS_ITS | Encounter Summary ---
Author Organization [employer] Address [address] [facility] [address] [place] [address] Care Team Providers Care Medical Radiation Dosimetrist Name Role Phone Dayanna Hernandez MD Primary Care Provider [phone] Encounter Details Date Type Department Care Team (Late st Contact Info) Description 08/19/2023 Orders Only [facility] [address] [place], [place] [phone] Dayanna Hernandez MD [address] [place], [place] [phone] Social History Tobacco Use Types Packs/Day Years [...] documented as of this encounter Care Teams Medical Radiation Dosimetrist Relationship Specialty Start Date End Date Dayanna Hernandez MD [address] [place] [address] PCP - General Family Medicine 10/24/12 documented as of this encounter
--- OUTSIDE RECORDS SUMMARY | 2024-08-10 12:31 | XMS_ITS | Encounter Summary ---
Author Organization [employer] Address [address] [facility] [address] [place] [address] Care Team Providers Care Digital Media Producer Name Role Phone Dayanna Hernandez MD Primary Care Provider [phone] Reason for Referral * Consultation (Routine) - Closed Specialty Diagnoses / Procedures Referred By Quyen carter Referred To Contact Physical Therapy Diagnoses Gait instability Hemiparesis affecting left side as late effect of cerebrovascular accident (CVA) (CMS/HCC) Legal blindness Dayanna Hernandez MD [address] [place] [address] Phone: tel: fax: [facility] [address] [place] [address] Phone: tel: fax: Referral ID Status Reason Start Date Expiration Date V isits Requested Visits Authorized [id number] Closed Specialty Services Required 09/09/2023 09/08/2024 1 1 Encounter Details Date Type Department Care Team (Late st Contact Info) Description 09/09/2023 Orders Only [facility] [address] [place] [address] Dayanna Hernandez MD [address] [place] [address] Gait instability (Primary Dx); Hemiparesis affecting left [...] documented as of this encounter Care Teams Digital Media Producer Relationship Specialty Start Date End Date aDyanna Hernandez MD [address] [place] [address] PCP - General Family Medicine 10/24/12 documented as of this encounter
--- OUTSIDE RECORDS SUMMARY | 2024-08-10 12:31 | XMS_ITS | Encounter Summary ---
Author Organization [employer] Address [address] [facility] [address] [place] [address] Care Team Providers Care Machine Tool Operator Name Role Phone Dayanna Hernandez MD Primary Care Provider [phone] Encounter Details Date Type Department Care Team ([facility] st Contact Info) Description 08/24/2022 Orders Only [facility] [address] [place], [place] [phone] Dayanna Hernandez MD [address] [place], [place] [phone] Type 2 diabetes 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, with long-term current use of insulin ([facility]) (Primary Dx) Social History Tobacco Use Types [...] disease, with long-term current use of insulin ([facility]) BASIC METABOLIC PANEL Routine 12/18/2022 12:28 PM EDT Type 2 diabetes 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, with long-term current use of insulin ([facility]) ALBUMIN, RANDOM URINE W/CREATININE Routine 12/18/2022 12:09 PM EDT Type 2 diabetes 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, with long-term current use of insulin ([facility]) GLUCOSE, WHOLE BLOOD Routine 12/18/2022 11:24 AM EDT Type 2 diabetes 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, with long-term current use of insulin ([facility]) documented in this encounter Results * (ABNORMAL) Lipid Panel, Standard (12/18/2022 12:28 PM EDT) Triglycerides 308(H) <150 mg/dL [facility] Comment:Desirable Triglyceri de: less than 150 mg/dLBorderline High Triglyceride 150-199 mg/dLHigh Triglyceride: 200-499 mg/dLVery High Triglyceride: greater than or equal to 5OO mg/dL Cholesterol 251(H) <200 mg/dL [facility] Comment:Desirable Cholestero l: less than 200 mg/dLBorderline High Cholesterol: 200-239 mg/dLHigh Cholesterol: greater than 239 mg/dL LDL Cholesterol Calculated 152(H) <100 mg/dL [facility] Comment:Desirable LDL: less than 100 mg/dLNear Optimal/Above Optimal LDL: 110- 129 mg/dLBorderline High LDL: 130-159 mg/dLHigh LDL: 160-189 mg/dLVery High LDL: greater than or equal to 190 mg/dL HDL Cholesterol 38(L) >40 mg/dL [facility] Comment:Desirable HDL: great er than 40 mg/dL Note: This HDL assay may give artificially low results in patients with liver disease. 12/18/2022 12:2 8 PM EDT 12/18/2022 12:32 PM EDT Generic External Data Provider LAB BLOOD ORDERAB LES Final Result Performing Organization Address [facility]/ZIP Co de Phone Number [facility] [address] [place] [address] [phone] * (ABNORMAL) Basic Metabolic Panel (12/18/2022 12:28 PM EDT) Sodium 137 135 - 145 mmol/L [facility] Potassium 4.0 3.3 - 5.1 mmol/L [facility] Comment:Slight Hemolysis Chloride 104 96 - 108 mmol/L [facility] Carbon Dioxide 24 22 - 29 mmol/L [facility] Anion Gap 13 12 - 20 [facility] Urea Nitrogen (BUN) 16 9 - 16 mg/dL [facility] Creatinine, Serum 1.40 0.5 - 1.4 mg/dL [facility] Estimated Glomerular Filt Rate 52 [facility] Comment:NOTE: For -Am erican individuals, multiply the result by 1.210.Chronic Kidney Disease: Estimated GFR < 60 mL/min/1.57h8Ojorck Kidney Disease: Estimated GFR < 15 mL/min/1.73m2 Glucose 137(H) 60 - 115 mg/dL [facility] Calcium 9.4 8.4 - 10.2 mg/dL [facility] 12/18/2022 12:2 8 PM EDT 12/18/2022 12:32 PM EDT [facility] External Provider LAB BLO OD ORDERABLES Final Result Performing Organization Address City/[facility]/ZIP Co de Phone Number [facility] [address] [place] [address] [phone] * (ABNORMAL) Albumin, Random Urine W/Creatinine (12/18/2022 12:09 PM EDT) Creatinine, Urine 158.87 mg/dL [facility] Microalbumin Urine 1,684.0 mg/L [facility] Microalbum Creatinine Ratio Ur 1,059.9(H ) <30 ug/mg cr [facility] Comment:Albumin/Creatinine R atio Reference Ranges: Normal: < 30 ug/mg creatinine Microalbuminuria: 30 - 300 ug/mg creatinineClinical Albuminuria: > 300 ug/mg creatinine 12/18/2022 12:0 9 PM EDT 12/18/2022 1:59 PM EDT [facility] External Provider LAB URI NE ORDERABLES Final Result Performing Organization Address [facility] de Phone Number [facility] [address] [place] [address] [phone] * (ABNORMAL) Glucose, Whole Blood (12/18/2022 11:24 AM EDT) Glucose, Whole Blood 155(H) 60 - 115 mg/dL [facility] Comment:METER #: [id number] Testing performed in the Endocrinology Department [address] , [address], [facility]. 12/18/2022 11:2 4 AM EDT 12/18/2022 11:30 AM EDT [facility] External Provider LAB BLO OD ORDERABLES Final Result Performing Organization Address [facility]/[employer] Co de Phone Number [facility] [address] [place] [phone] documented in this encounter Visit Diagnoses Diagnosis Type 2 diabetes 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, with long-term current use of insulin ([facility])- Primary documented in this encounter Additional Health Concerns Assessment Noted Time PHQ-9 Depression Total Score: 8 07/31/19 23 10:10 AM EDT documented as of this encounter Care Teams Machine Tool Operator Relationship Specialty Start Date End Date Dayanna Hernandez MD [address] [place] [phone] PCP - General Family Medicine 10/24/12 documented as of this encounter
--- OUTSIDE RECORDS SUMMARY | 2024-08-10 12:32 | XMS_ITS | Clinical Summary ---
Author Organization [employer] Address [address] [facility] [address] [place] [address] Care Team Providers Care Airplane Pilot Supervisor Name Role Phone Dayanna Hernandez MD Primary Care Provider [phone] Allergies Active Allergy Reactions Criticality Noted Date [...] disease, with long-term current use of insulin ([facility]) 1 each before breakfast, before lunch, and [...] Plan (08/17/2023 11:35 AM EDT): -Seen by manager engine on 03/11/20 for JEAN MARIE -Pt had several sleep studies, most recently in 2019, showing JEAN MARIE -Continue auto PAP pressure 6-14 cm H2O -Will order a new autoPAP machine; may need a new sleep study -Most recent echo did not show pulmonary HTN -Chain Builder Loom Control recommended him to use azelastine for rhinitis. -Refer back to manager engine Dr. Sanchez Assessment & Plan (11/27/2022 4:34 PM EDT): -Seen by manager engine on 03/11/20 for JEAN MARIE -Pt had several sleep studies, most recently in 2019, showing JEAN MARIE -Continue auto PAP pressure 6-14 cm H2O -Will order a new autoPAP machine; may need a new sleep study -Most recent echo did not show pulmonary HTN -Chain Builder Loom Control recommended him to use azelastine for rhinitis. -Refer back to manager engine Dr. Sanchez Intertrigo 10/23/2022 Assessment & Plan (11/27/2022 4:24 PM EDT): - s/p clotrimazole BID x 28 days in October 2022 - responding well to nystatin pwd TID; refill - follow up with professional poker player Assessment & Plan (10/23/2022 12:46 PM EDT): [...] symptoms -pt to f up w his professional poker player in 2 months per pt and has [...] Assessment & Plan (08/17/2023 11:36 AM EDT): -Restaurant Cashier: Dr. Velasquez, last seen on 09/02/22 -Diabetic and vascular etiology, proteinuria -07/31/22 BUN 20; Scr 1.53; eGFR 53; K 4.1; Bicarb 28, UACR 1,147 -Baseline Cr 1.3-1.5 -In a setting of recurrent nephrolithiasis -Stable -Avoid nephrotoxic drugs. -Treatment Hx: Pt reported throat itching with ARB, and cough with ACEI. Assessment & Plan (11/19/2022 5:11 AM EDT): -Restaurant Cashier: Dr. Velasquez, last seen on 09/02/22 -Diabetic and vascular etiology, proteinuria -07/31/22 BUN 20; Scr 1.53; eGFR 53; K 4.1; Bicarb 28, UACR 1,147 -Baseline Cr 1.3-1.5 -In a setting of recurrent nephrolithiasis -Stable -Avoid nephrotoxic drugs. -Treatment Hx: Pt reported throat itching with ARB, and cough with ACEI. Assessment & Plan (07/31/2022 5:30 AM EDT): -Restaurant Cashier: Dr. Velasquez, last seen on 08/16/19, but [...] 12:36 PM EDT): -A1C 9.6% on 08/17/23 -Customer Support Representative: [facility], last seen in 12/2022, advised to schedule appointment - change tresiba to Lantus, will start at 60 units - Continue humalog - restart tradjenta 5 mg daily -Last eye exam: August 2022 (requesting note) -Last foot exam: 08/17/2023; high-risk, has a residential program worker. -Last microalbumin test: 07/31/22 UACR 1,147 -Last lipid profile: 06/23/23 TC 149; TG 167; HDL 56; LDL 60 Last dental exam: ? Immunizations: Reviewed and discussed. Pt chose not to fully vaccinated Follow up in 3-4 mo or sooner prn Assessment & Plan (11/27/2022 4:21 PM EDT): -A1C 7.0% on 11/19/22, improved from 8.3% on 07/30/22 ( 6.1% on 09/04/21) -Customer Support Representative: [facility], last seen in 07/04/21, upcoming appt -Current medications: Tresiba 80 units daily, Humalog U-200 10-15 units with snack, 20-25 units with meal, Tradjenta 5 mg daily -Last eye exam: August 2022 (requesting note) -Last foot exam: 10/31/2018; high-risk, has a residential program worker. -Last microalbumin test: 07/31/22 UACR 1,147 -Last lipid profile: 07/31/22 TC 224; TG 183; HDL 36; LDL 156 Last dental exam: ? Immunizations: Reviewed and discussed. Pt chose not to fully vaccinated Follow up in 3-4 mo or sooner prn Assessment & Plan (07/31/2022 5:33 AM EDT): -A1C 8.3% on , worsened from 6.1% on 09/04/21 -Customer Support Representative: [facility], last seen in 07/04/21 -Current medications: Tresiba 56 units daily, Humalog U-200 10-15 units with snack, 25-30 units with meal, Tradjenta 5 mg daily -Last eye exam: April 2019, Dr. Mazariegos -Last foot exam: 10/31/2018; high-risk, has a residential program worker. -Last microalbumin test: 09/25/20 UACR 1256, albuminuria [...] taking fenofibrate 54 mg daily because his digital tech in DR prescribed him. We discussed about [...] taking fenofibrate 54 mg daily because his digital tech in prescribed him. We discussed about his [...] taking fenofibrate 54 mg daily because his digital tech in prescribed him. We discussed about his [...] (07/31/2022 5:36 AM EDT): - he has [facility] provider - prescribed clonazepam, fluoxetine, and trazodone - good family support Chronic recurrent major depressive disorder 10/2013 Glaucoma 10/09/2013 Assessment & Plan (11/27/2022 4:26 PM EDT): - following with ammunition components inspector - continue current medication Hypertension 05/16/2012 Assessment [...] latest note -Pt wants to go to [facility] in March because his psoriasis improves. -Pt will schedule a follow up appt Assessment & Plan (11/27/2022 4:24 PM EDT): -Dietary regimen is improving symptoms -Continue on Otezla and clobetasol topical -Patient is still followed by Dr. Rico - we have not received a note, will obtain latest note -Pt wants to go to [facility] in March because his psoriasis improves. -Pt will schedule a follow up appt Assessment & Plan (07/31/2022 5:35 AM EDT): -Dietary regimen is improving symptoms -Continue on Otezla and clobetasol topical -Patient is still followed by Dr. Rico - we have not received a note, will obtain latest note -Pt wants to go to [facility] in March because his psoriasis improves. [...] 12:28 PM EDT) Triglycerides 308(H) <150 mg/dL [facility] Comment:Desirable Triglyceri de: less than 150 mg/dLBorderline High Triglyceride 150-199 mg/dLHigh Triglyceride: 200-499 mg/dLVery High Triglyceride: greater than or equal to 5OO mg/dL Cholesterol 251(H) <200 mg/dL [facility] Comment:Desirable Cholestero l: less than 200 mg/dLBorderline High Cholesterol: 200-239 mg/dLHigh Cholesterol: greater than 239 mg/dL LDL Cholesterol Calculated 152(H) <100 mg/dL [facility] Comment:Desirable LDL: less than 100 mg/dLNear Optimal/Above Optimal LDL: 110- 129 mg/dLBorderline High LDL: 130-159 mg/dLHigh LDL: 160-189 mg/dLVery High LDL: greater than or equal to 190 mg/dL HDL Cholesterol 38(L) >40 mg/dL [facility] Comment:Desirable HDL: great er than 40 mg/dL Note: This HDL assay may give artificially low results in patients with liver disease. 12/18/2022 12:2 8 PM EDT 12/18/2022 12:32 PM EDT us Generic External Data Provider LAB BLOOD ORDERAB LES Final Result [facility] [address] [place] [phone] * HEPATITIS C AB W/REFL TO HCV RNA, QN, PCR (09/09/2021 1:06 PM EDT) HEPATITIS C ANTIBODY NON-REACT EDWARD NON-REACT EDWARD [facility] INDEX 0.04 <1.00 [facility] Comment: ?? HCV antibody was non-reactive. There is no laboratory ?? evidence of HCV infection. ?? In most cases, no further action is required. However, if recent HCV exposure is suspected, a test for HCV RNA (test code 89222) is suggested. ?? For additional information please refer to http://[employer]/faq/NZT46d1 (This link is being provided for informational/ educational purposes only.) ?? 09/09/2021 1:06 PM EDT us Dayanna Hernandez MD HISTORICAL/NON ORDERABLE LABS Fi nal Result [facility] [address] [place] [address], * HIV 1/2 ANTIGEN/ANTIBODY,FOURTH GENERATION W/RFL (09/09/2021 1:06 PM EDT) HIV-1/2 ANTIGEN AND ANTIBODIES, 4TH GENERATION W/ REFLEX NON-REACT EDWARD NON-REACT EDWARD [facility] Comment: HIV-1 antigen and HIV-1/HIV-2 [...] ? For additional information please refer to http://[employer]/faq/YQR306 (This link is being provided for informational/ educational purposes only.) ? The performance of this assay has not been clinically validated in patients less than 2 years old. ?? 09/09/2021 1:06 PM EDT us Dayanna Hernandez MD LAB BLOOD ORDERABLES Final Resul t [facility] [address] from Last 3 Months or Most Recently Relevant to Health Maintenance Insurance Care Teams Airplane Pilot Supervisor Relationship Specialty Start Date End Date Dayanna Hernandez MD [address] [place] [phone] PCP - General Family Medicine 10/24/12
--- OUTSIDE RECORDS SUMMARY | 2024-08-10 12:32 | XMS_ITS | Encounter Summary ---
Author Organization [facility] Address [address] [facility] [address] [place] [address] Phone Care Team Providers Care Fish Roe Processor Name Role Phone Dayanna Hernandez MD Primary Care Provider [phone] Encounter Details Date Type Department Care Team (Late st Contact Info) Description 11/01/2023 Office Communication [facility] [address] [facility] [address] [place] [phone] Haley Antoine ARNP [address] [facility] [address] [place] [address] Social History Tobacco Use Types [...] on filedocumented in this encounter Care Teams Fish Roe Processor Relationship Specialty Start Date End Date Dayanna Hernnadez MD PCP - General 04/15/20 documented as of this encounter
--- OUTSIDE RECORDS SUMMARY | 2024-08-10 12:32 | XMS_ITS | Clinical Summary ---
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 Mazariegos -Last foot exam: 10/31/2018; high-risk, has a child day care teacher. -Last microalbumin test: 09/25/20 UACR 1256, albuminuria [...] taking fenofibrate 54 mg daily because his in file operator in prescribed him. We discussed about his [...] latest note -Pt wants to go to [facility] in March because his psoriasis improves. [...] Discontinued 12/26/2015 Insurance ([id number]) ([id number]) Care Teams Nursing Aide Relationship Specialty Start Date End Date Dayanna Hernandez MD PCP - General 04/15/20
--- OUTSIDE RECORDS SUMMARY | 2024-08-10 12:32 | XMS_ITS | Encounter Summary ---
Author Organization [employer] Address [address] [facility] [address] [place] [address] Care Team Providers Care Signal Circuit Designer Name Role Phone Dayanna Hernandez MD Primary Care Provider [phone] Encounter Details Date Type Department Care Team [...] on filedocumented in this encounter Care Teams Signal Circuit Designer Relationship Specialty Start Date End Date Dayanna Hernandez MD [address] [place] [phone] PCP - General Family Medicine 10/24/12 documented as of this encounter
== END 2024-08-10 11:21 | disposition home or self-care (01) ==
LOC: HO.HKA 11:00
PROVIDERS: PCP Family Medicine; Visit Provider Internal Medicine Hypertension Specialist
DX: E11.22 Type 2 diabetes mellitus with diabetic chronic kidney disease (principal); N18.30 Chronic kidney disease, stage 3 unspecified; I10 Essential (primary) hypertension; E55.9 Vitamin D deficiency, unspecified; R80.9 Proteinuria, unspecified; E11.65 Type 2 diabetes mellitus with hyperglycemia
CPT/HCPCS: 99214

== ENCOUNTER → 2024-08-10 10:58 | Outpatient (BNVA) | payer OTHER, SELFPAY | PROVIDERS: PCP Family Medicine; Visit Provider Internal Medicine Hypertension Specialist | DX: E11.22 Type 2 diabetes mellitus with diabetic chronic kidney disease (principal); I12.9 Hypertensive chronic kidney disease with stage 1 through stage 4 chronic kidney disease, or unspecified chronic kidney disease; N18.30 Chronic kidney disease, stage 3 unspecified; E11.65 Type 2 diabetes mellitus with hyperglycemia; E55.9 Vitamin D deficiency, unspecified; R80.9 Proteinuria, unspecified | CPT/HCPCS: 99212 ==

== ENCOUNTER 2024-08-11 09:56 | Outpatient (AMB) | payer OTHER, SELFPAY ==
--- NOTE | 2024-08-11 10:09 | MHC.OFFVIS ---
Vital Signs 08/11/24 10:14 08/11/24 11:47 Height 5 ft 6 in Weight 222 lb BMI 35.8 BP 142/74 H 138/68 Blood Pressure Location Lt brachial Position Sitting Pulse 98 Pulse Source Pulse Oximeter Pulse Oximetry (%) 96 Oxygen Delivery Method Room Air Intake Visit Reasons: T2DM Intake Note: Patient present today to follow up on Type 2 Diabetes Mellitus. Last Diabetic Eye exam: 12/27/2023 Last Podiatry Visit: Does not see a Sales Order Specialist Random Glucose: 249 mg/dl HgA1C: 7.5% 08/09/2024 Auto Mechanics Instructor Required: Yes Auto Mechanics Instructor Language: Wing Mailer Machine Operator Services: Auto Mechanics Instructor Present Information Interpreted: non-clinical & clinical Accompanied by: Self / Same As Patient Allergies Penicillins [PENICILLINS] Allergy (Unknown, Verified 08/11/24 10:14) UNKNOWN-CHILDHOOD REACTION ARB-Angiotensin Receptor Antagonist Adverse Reaction (Mild, Verified 08/11/24 10:14) Cough SEAFOOD Allergy (Severe, Uncoded 08/11/24 10:14) DIARRHEA,GI PAIN, NAUSEA Fish Allergy (Mild, Uncoded 08/11/24 10:14) Gastrointestinal Upset HPI Comments Details: Patient is 64-year-old male with DM type 2 diagnosed around the year 1998 who presents today for diabetic management. 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 Hemoglobin A1c 7.5% 08/09/2024. We reviewed his Nevaeh 2 download CGM active 59% Glucose management indicator 7.5% Average glucose 175 Very high 8% High 30% Target range 62% 0% hypoglycemia He has a pattern of hyperglycemia following breakfast sometimes and in the afternoon and evening. Diabetes medications: Toujeo 100 units every morning Novolog 10-15 units for snacks, 25-40 with meals Tradjenta 5 mg Past medications: Metformin discontinued due to intolerable side effects. Hypoglycemia:? very rare Hyperglycemia:? denies Patient said he had lab work done in [place] recently, but he forgot to bring the results. He will send them to the office. ROS: Constitutional: No unexplained weight loss, fever, chills Respiratory: No shortness of breath Cardiovascular: No chest pain, chest pressure or chest discomfort. No palpitations or pedal edema. Neurologic: No headache, dizziness, syncope Skin: No rash or itching. Endocrine: No cold or heat intolerance. No polyuria or polydipsia. Physical exam: Constitutional: Alert, in no distress. Eyes: Pupils are equal, round and reactive to light. Extraocular muscles intact. Neck: Supple, Full range of motion. No lymphadenopathy. No palpable thyroid masses. Respiratory: Clear to auscultation. Cardiovascular: S1 S2 regular. No murmurs. Feet: declines exam [facility] Medical History (Updated 08/11/24 @ 11:54 by LOCO De Anda) Type 2 diabetes mellitus with diabetic neuropathy CVA (cerebrovascular accident due to intracerebral hemorrhage) Chronic rhinitis JEAN MARIE on CPAP Hypertension Diabetic polyneuropathy associated with type 2 diabetes mellitus CKD stage 3 due to type 2 diabetes mellitus Diabetic nephropathy associated with type 2 diabetes mellitus FCI (current) use of insulin Proliferative diabetic retinopathy Diabetes type 2, uncontrolled Dyslipidemia Surgical History Hx of lithotripsy History of appendectomy Hx of laser photocoagulation of retina Hx of colonoscopy Family History Father Lung cancer Father No problems noted. Mother Diabetes Social History Household Members: None Housing: Apartment Alcohol intake: never Patient Tobacco Use Status: Former Tobacco user Physical Exam Vital Signs: Last Vital Signs Pulse 98 08/11/24 10:14 BP 142/74 H 08/11/24 10:14 Pulse Ox 96 08/11/24 10:14 Oxygen Delivery Method Room Air 08/11/24 10:14 BMI result Body Mass Index 35.8 Results Reviewed Results Reviewed: Laboratory Last Values Glucose (Clinic) 249 mg/dL (60-115) H 08/11/24 10:20 Laboratory Tests 08/09/24 11:30 Creatinine 1.53 H Estimated GFR 46 Hemoglobin A1c % 7.5 H Assessment & Plan Assessment & Plan (1) Type 2 diabetes mellitus with diabetic neuropathy: Code(s): E11.40 - Type 2 diabetes mellitus with diabetic neuropathy, unspecified Category: Medical Qualifiers: Diabetes mellitus skilled nursing insulin use: with skilled nursing use Qualified Code(s): E11.40 - Type 2 diabetes mellitus with diabetic neuropathy, unspecified; Z79.4 - FCI (current) use of insulin Plan In summary this is a 64-year-old male with suboptimally controlled type 2 diabetes on Tradjenta and basal bolus insulin. I recommended adding a GLP 1, but he declines. We discussed tightening glycemic control following lunch and dinner by adjusting his short-acting insulin regimen. We also discussed decreasing carbohydrates and sugars in his diet. He will continue the current dosage of Toujeo and Tradjenta. Complications of type 2 diabetes reviewed with the patient. Nevaeh 2 is being discontinued so I have sent a Nevaeh 3+ system to the pharmacy for prior authorization. Reviewed treatment of hypoglycemia. Patient declines prescription for glucose gel or tablets. He uses juice or candy. Follow up in 3 months. Advised patient to have labs done the week before the next appointment. Orders: Orders Alanine Aminotransferase 3 Months E11.9 - Type 2 diabetes mellitus without complications, R79.89 - Other specified abnormal findings of blood chemistry Creatinine 3 Months E11.9 - Type 2 diabetes mellitus without complications Microalbumin, Random (w Creat) 3 Months E11.9 - Type 2 diabetes mellitus without complications Aspartate Amino Transferase 3 Months E11.9 - Type 2 diabetes mellitus without complications Lipid Panel 3 Months E11.9 - Type 2 diabetes mellitus without complications, E78.5 - Hyperlipidemia, unspecified Hemoglobin A1c 3 Months E11.9 - Type 2 diabetes mellitus without complications Platelet Count 3 Months E11.9 - Type 2 diabetes mellitus without complications Medications: New blood-glucose,gas cutting machine operator,cont (FreeStyle Nevaeh 3 [place]) Use daily to monitor blood glucose levels continuously. 1 ea 0RF blood-glucose sensor (FreeStyle Nevaeh 3 Plus Sensor device) Apply 1 new sensor every 15 days as directed to monitor blood glucose continuously. 2 ea 11RF E16.2 - Hypoglycemia, unspecified, R73.03 - Prediabetes Discontinued flash glucose scanning reader (FreeStyle Nevaeh 2 [place]) Discontinued Reason: Doctor's Order As directed 1 ea 1RF flash glucose scanning reader (FreeStyle Nevaeh 14 Day [place]) Discontinued Reason: Doctor's Order As directed 1 ea 0RF flash glucose sensor (FreeStyle Nevaeh 14 Day Sensor kit) Discontinued Reason: Doctor's Order As directed 6 ea 6RF E11.9 - Type 2 diabetes mellitus without complications flash glucose sensor (FreeStyle Nevaeh 2 Sensor kit) Discontinued Reason: Doctor's Order As directed 2 ea 11RF E11.9 - Type 2 diabetes mellitus without complications Patient Instructions: Toujeo 100 units every morning Novolog 10-15 units for snacks, 25-40 for meals Tradjenta 5 mg daily. If you experience low blood sugar, treat this by eating a chewable fruit candy like skittles or jelly beans (about 8 pieces), 4 ounces (1/2 cup) of fruit juice (not diet), 1 tablespoon of honey or 4 glucose tablets. If your blood sugar is under 55, take double the amount of one of the above. Recheck your blood sugar in 15 minutes. Toujeo 100 unidades cada ma?jose carlos Novolog 10-15 unidades para refrigerios, 25-40 para las comidas Tradjenta 5 mg al d?a. Si experimenta niveles bajos de az?car en la [place], tr?telo con un caramelo masticable de fruta fernanda Skittles o Jelly Beans (aproximadamente 8 piezas), 113 ml (1/2 taza) de jugo de fruta (no light), 1 cucharada de miel o 4 tabletas de glucosa. Si maya nivel de az?car en la fel[place] es inferior a 55, tome el doble de la cantidad de jesus de los medicamentos mencionados. Vuelva a medir maya nivel de az?car en la fel[place] en 15 minutos. Coding Level of Care Code Est Pt Level 4 (86064) Complex EM visit Add On G2211 Diagnoses Type 2 diabetes mellitus with diabetic neuropathy, with long-term current use of insulin E11.40; Z79.4 Diabetes mellitus termite inspector insulin use: with skilled nursing use
[2024-08-11 10:14] VITALS: BP 142/74; PULSE 98; O2SAT 96; BMI 35.8
[2024-08-11 10:24] LABS: Glucose, Whole Blood 249 mg/dL (60-115)
--- OUTSIDE RECORDS SUMMARY | 2024-08-11 10:24 | XMS_ITS | Encounter Summary ---
Author Organization [employer] Address [address] [place] [address] Care Team Providers Care Neighborhood Service Center Director Name Role Phone Dayanna Hernandez MD Primary Care Provider [phone] Encounter Details Date Type Department Care Team ([facility] st Contact Info) Description 08/24/2022 Orders Only [facility] MEDICINE [address] [place], [place] [phone] Dayanna Hernandez MD [address] [place], [place] [phone] Type 2 diabetes 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, with long-term current use of insulin ([facility]) (Primary Dx) Social History Tobacco Use Types [...] disease, with long-term current use of insulin ([facility]) BASIC METABOLIC PANEL Routine 12/18/2022 12:28 PM EDT Type 2 diabetes 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, with long-term current use of insulin ([facility]) ALBUMIN, RANDOM URINE W/CREATININE Routine 12/18/2022 12:09 PM EDT Type 2 diabetes 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, with long-term current use of insulin ([facility]) GLUCOSE, WHOLE BLOOD Routine 12/18/2022 11:24 AM EDT Type 2 diabetes 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, with long-term current use of insulin ([facility]) documented in this encounter Results * (ABNORMAL) Lipid Panel, Standard (12/18/2022 12:28 PM EDT) Triglycerides 308(H) <150 mg/dL [facility] Comment:Desirable Triglyceri de: less than 150 mg/dLBorderline High Triglyceride 150-199 mg/dLHigh Triglyceride: 200-499 mg/dLVery High Triglyceride: greater than or equal to 5OO mg/dL Cholesterol 251(H) <200 mg/dL [facility] Comment:Desirable Cholestero l: less than 200 mg/dLBorderline High Cholesterol: 200-239 mg/dLHigh Cholesterol: greater than 239 mg/dL LDL Cholesterol Calculated 152(H) <100 mg/dL [facility] Comment:Desirable LDL: less than 100 mg/dLNear Optimal/Above Optimal LDL: 110- 129 mg/dLBorderline High LDL: 130-159 mg/dLHigh LDL: 160-189 mg/dLVery High LDL: greater than or equal to 190 mg/dL HDL Cholesterol 38(L) >40 mg/dL [facility] Comment:Desirable HDL: great er than 40 mg/dL Note: This HDL assay may give artificially low results in patients with liver disease. 12/18/2022 12:2 8 PM EDT 12/18/2022 12:32 PM EDT Generic External Data Provider LAB BLOOD ORDERAB LES Final Result Performing Organization Address [facility]/ZIP Co de Phone Number [facility] [address] [place] [address] [phone] * (ABNORMAL) Basic Metabolic Panel (12/18/2022 12:28 PM EDT) Sodium 137 135 - 145 mmol/L [facility] Potassium 4.0 3.3 - 5.1 mmol/L [facility] Comment:Slight Hemolysis Chloride 104 96 - 108 mmol/L [facility] Carbon Dioxide 24 22 - 29 mmol/L [facility] Anion Gap 13 12 - 20 [facility] Urea Nitrogen (BUN) 16 9 - 16 mg/dL [facility] Creatinine, Serum 1.40 0.5 - 1.4 mg/dL [facility] Estimated Glomerular Filt Rate 52 [facility] Comment:NOTE: For -Am erican individuals, multiply the result by 1.210.Chronic Kidney Disease: Estimated GFR < 60 mL/min/1.28r9Jesflb Kidney Disease: Estimated GFR < 15 mL/min/1.73m2 Glucose 137(H) 60 - 115 mg/dL [facility] Calcium 9.4 8.4 - 10.2 mg/dL [facility] 12/18/2022 12:2 8 PM EDT 12/18/2022 12:32 PM EDT [facility] External Provider LAB BLO OD ORDERABLES Final Result Performing Organization Address City/[facility]/ZIP Co de Phone Number [facility] [address] [place] [address] [phone] * (ABNORMAL) Albumin, Random Urine W/Creatinine (12/18/2022 12:09 PM EDT) Creatinine, Urine 158.87 mg/dL [facility] Microalbumin Urine 1,684.0 mg/L [facility] Microalbum Creatinine Ratio Ur 1,059.9(H ) <30 ug/mg cr [facility] Comment:Albumin/Creatinine R atio Reference Ranges: Normal: < 30 ug/mg creatinine Microalbuminuria: 30 - 300 ug/mg creatinineClinical Albuminuria: > 300 ug/mg creatinine 12/18/2022 12:0 9 PM EDT 12/18/2022 1:59 PM EDT [facility] External Provider LAB URI NE ORDERABLES Final Result Performing Organization Address [facility] de Phone Number [facility] [address] [place] [address] [phone] * (ABNORMAL) Glucose, Whole Blood (12/18/2022 11:24 AM EDT) Glucose, Whole Blood 155(H) 60 - 115 mg/dL [facility] Comment:METER #: [id number] Testing performed in the Endocrinology Department [address] , [address], [facility]. 12/18/2022 11:2 4 AM EDT 12/18/2022 11:30 AM EDT [facility] External Provider LAB BLO OD ORDERABLES Final Result Performing Organization Address [facility] Co de Phone Number [facility] [address] [place] [address] [phone] documented in this encounter Visit Diagnoses Diagnosis Type 2 diabetes 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, with long-term current use of insulin ([facility])- Primary documented in this encounter Additional Health Concerns Assessment Noted Time PHQ-9 Depression Total Score: 8 07/31/19 23 10:10 AM EDT documented as of this encounter Care Teams Neighborhood Service Center Director Relationship Specialty Start Date End Date Dayanna Hernandez MD [address] [place] [phone] PCP - General Family Medicine 10/24/12 documented as of this encounter
--- OUTSIDE RECORDS SUMMARY | 2024-08-11 10:24 | XMS_ITS | Clinical Summary ---
Author Organization [facility] Address [address] [place] [address] Phone Care Team Providers Care Supervisor Cigar Making Hand Name Role Phone Dayanna Hernandez MD Primary Care Provider [phone] Allergies Active Allergy Reactions Criticality Noted Date [...] disorder 08/06/2022 Atherosclerotic heart diseas e of [place] coronary artery without angina pectoris 08/06/2022 Benign [...] on , worsened from 6.1% on 09/04/21 -Carpentry Teacher: [facility], last seen in 07/04/21 -Current medications: Tresiba 56 units daily, Humalog U-200 10-15 units with snack, 25-30 units with meal, Tradjenta 5 mg daily -Last eye exam: April 2019, Dr. Mazariegos -Last foot exam: 10/31/2018; high-risk, has a change advisor. -Last microalbumin test: 09/25/20 UACR 1256, albuminuria [...] taking fenofibrate 54 mg daily because his metal flooring installer in prescribed him. We discussed about his [...] latest note -Pt wants to go to [facility] in March because his psoriasis improves. [...] Discontinued 12/26/2015 Insurance ([id number]) ([id number]) Care Teams Supervisor Cigar Making Hand Relationship Specialty Start Date End Date Dayanna Hernandez MD PCP - General 04/15/20
--- OUTSIDE RECORDS SUMMARY | 2024-08-11 10:24 | XMS_ITS | Encounter Summary ---
Author Organization [employer] Address [address] [place] [address] Care Team Providers Care Yard Foreman Name Role Phone Dayanna Hernandez MD Primary Care Provider Encounter Details Date Type Department Care Team (Late st Contact Info) Description 08/19/2023 Orders Only [facility] MEDICINE [address] [place], [place] [phone] Dayanna Hernandez MD [address] [place], [place] [phone] Social History Tobacco Use Types Packs/Day Years [...] documented as of this encounter Care Teams Yard Foreman Relationship Specialty Start Date End Date Dayanna Hernandez MD [address] [place] [address] PCP - General Family Medicine 10/24/12 documented as of this encounter
--- OUTSIDE RECORDS SUMMARY | 2024-08-11 10:24 | XMS_ITS | Encounter Summary ---
Author Organization [employer] Address [address] [place] [address] Care Team Providers Care Horticultural Farmer Name Role Phone Dayanna Hernandez MD Primary Care Provider Reason for Referral * Consultation (Routine) - Closed Specialty Diagnoses / Procedures Referred By Quyen carter Referred To Contact Physical Therapy Diagnoses Gait instability Hemiparesis affecting left side as late effect of cerebrovascular accident (CVA) (CMS/HCC) Legal blindness Dayanna Hernandez MD [address] [place] [address] Phone: tel: fax: [facility] [address] [place] [address] Phone: tel: fax: Referral ID Status Reason Start Date Expiration Date V isits Requested Visits Authorized [id number] Closed Specialty Services Required 09/09/2023 09/08/2024 1 1 Encounter Details Date Type Department Care Team (Late st Contact Info) Description 09/09/2023 Orders Only [facility] MEDICINE [address] [place] [address] Dayanna Hernandez MD [address] [place] [address] Gait instability (Primary Dx); Hemiparesis affecting left [...] documented as of this encounter Care Teams Horticultural Farmer Relationship Specialty Start Date End Date Dayanna Hernandez MD [address] [place] [address] PCP - General Family Medicine 10/24/12 documented as of this encounter
--- OUTSIDE RECORDS SUMMARY | 2024-08-11 10:24 | XMS_ITS | Encounter Summary ---
Author Organization [facility] Address [address] [facility] [address] [place] [address] Phone Care Team Providers Care Head Sampler Name Role Phone Dayanna Hernandez MD Primary Care Provider [phone] Encounter Details Date Type Department Care Team (Late st Contact Info) Description 11/01/2023 Office Communication [facility] [address] [facility] [address] [place] [phone] Haley Antoine ARNP [address] [facility] [address] [place] [address] Social History Tobacco Use Types [...] on filedocumented in this encounter Care Teams Head Sampler Relationship Specialty Start Date End Date Dayanna Hernandez MD PCP - General 04/15/20 documented as of this encounter
--- OUTSIDE RECORDS SUMMARY | 2024-08-11 10:24 | XMS_ITS | Clinical Summary ---
Author Organization [employer] Address [address] [facility] [address] [place] [address] Care Team Providers Care Street Light Servicer Name Role Phone Dayanna Hernandez MD Primary Care Provider [phone] Allergies Active Allergy Reactions Criticality Noted Date [...] disease, with long-term current use of insulin ([facility]) 1 each before breakfast, before lunch, and [...] Plan (08/17/2023 11:35 AM EDT): -Seen by senior research project manager on 03/11/20 for JEAN MARIE -Pt had several sleep studies, most recently in 2019, showing JEAN MARIE -Continue auto PAP pressure 6-14 cm H2O -Will order a new autoPAP machine; may need a new sleep study -Most recent echo did not show pulmonary HTN -Title I Assistant recommended him to use azelastine for rhinitis. -Refer back to senior research project manager Dr. Snachez Assessment & Plan (11/27/2022 4:34 PM EDT): -Seen by senior research project manager on 03/11/20 for JEAN MARIE -Pt had several sleep studies, most recently in 2019, showing JEAN MARIE -Continue auto PAP pressure 6-14 cm H2O -Will order a new autoPAP machine; may need a new sleep study -Most recent echo did not show pulmonary HTN -Title I Assistant recommended him to use azelastine for rhinitis. -Refer back to senior research project manager Dr. Sanchez Intertrigo 10/23/2022 Assessment & Plan (11/27/2022 4:24 PM EDT): - s/p clotrimazole BID x 28 days in October 2022 - responding well to nystatin pwd TID; refill - follow up with restaurant crew member Assessment & Plan (10/23/2022 12:46 PM EDT): [...] symptoms -pt to f up w his restaurant crew member in 2 months per pt and has [...] Assessment & Plan (08/17/2023 11:36 AM EDT): -Center Director Lead Teacher: Dr. Velasquez, last seen on 09/02/22 -Diabetic and vascular etiology, proteinuria -07/31/22 BUN 20; Scr 1.53; eGFR 53; K 4.1; Bicarb 28, UACR 1,147 -Baseline Cr 1.3-1.5 -In a setting of recurrent nephrolithiasis -Stable -Avoid nephrotoxic drugs. -Treatment Hx: Pt reported throat itching with ARB, and cough with ACEI. Assessment & Plan (11/19/2022 5:11 AM EDT): -Center Director Lead Teacher: Dr. Velasquez, last seen on 09/02/22 -Diabetic and vascular etiology, proteinuria -07/31/22 BUN 20; Scr 1.53; eGFR 53; K 4.1; Bicarb 28, UACR 1,147 -Baseline Cr 1.3-1.5 -In a setting of recurrent nephrolithiasis -Stable -Avoid nephrotoxic drugs. -Treatment Hx: Pt reported throat itching with ARB, and cough with ACEI. Assessment & Plan (07/31/2022 5:30 AM EDT): -Center Director Lead Teacher: Dr. Velasquez, last seen on 08/16/19, but [...] 12:36 PM EDT): -A1C 9.6% on 08/17/23 -Social Worker Clinical: [facility], last seen in 12/2022, advised to schedule appointment - change tresiba to Lantus, will start at 60 units - Continue humalog - restart tradjenta 5 mg daily -Last eye exam: August 2022 (requesting note) -Last foot exam: 08/17/2023; high-risk, has a resident hall director. -Last microalbumin test: 07/31/22 UACR 1,147 -Last lipid profile: 06/23/23 TC 149; TG 167; HDL 56; LDL 60 Last dental exam: ? Immunizations: Reviewed and discussed. Pt chose not to fully vaccinated Follow up in 3-4 mo or sooner prn Assessment & Plan (11/27/2022 4:21 PM EDT): -A1C 7.0% on 11/19/22, improved from 8.3% on 07/30/22 ( 6.1% on 09/04/21) -Social Worker Clinical: [facility], last seen in 07/04/21, upcoming appt -Current medications: Tresiba 80 units daily, Humalog U-200 10-15 units with snack, 20-25 units with meal, Tradjenta 5 mg daily -Last eye exam: August 2022 (requesting note) -Last foot exam: 10/31/2018; high-risk, has a resident hall director. -Last microalbumin test: 07/31/22 UACR 1,147 -Last lipid profile: 07/31/22 TC 224; TG 183; HDL 36; LDL 156 Last dental exam: ? Immunizations: Reviewed and discussed. Pt chose not to fully vaccinated Follow up in 3-4 mo or sooner prn Assessment & Plan (07/31/2022 5:33 AM EDT): -A1C 8.3% on , worsened from 6.1% on 09/04/21 -Social Worker Clinical: [facility], last seen in 07/04/21 -Current medications: Tresiba 56 units daily, Humalog U-200 10-15 units with snack, 25-30 units with meal, Tradjenta 5 mg daily -Last eye exam: April 2019, Dr. Mazariegos -Last foot exam: 10/31/2018; high-risk, has a resident hall director. -Last microalbumin test: 09/25/20 UACR 1256, albuminuria [...] taking fenofibrate 54 mg daily because his returned item clerk in DR prescribed him. We discussed about [...] taking fenofibrate 54 mg daily because his returned item clerk in prescribed him. We discussed about his [...] taking fenofibrate 54 mg daily because his returned item clerk in prescribed him. We discussed about his [...] (07/31/2022 5:36 AM EDT): - he has [facility] provider - prescribed clonazepam, fluoxetine, and trazodone - good family support Chronic recurrent major depressive disorder 10/2013 Glaucoma 10/09/2013 Assessment & Plan (11/27/2022 4:26 PM EDT): - following with tenant coordinator - continue current medication Hypertension 05/16/2012 Assessment [...] latest note -Pt wants to go to [facility] in March because his psoriasis improves. -Pt will schedule a follow up appt Assessment & Plan (11/27/2022 4:24 PM EDT): -Dietary regimen is improving symptoms -Continue on Otezla and clobetasol topical -Patient is still followed by Dr. Rico - we have not received a note, will obtain latest note -Pt wants to go to [facility] in March because his psoriasis improves. -Pt will schedule a follow up appt Assessment & Plan (07/31/2022 5:35 AM EDT): -Dietary regimen is improving symptoms -Continue on Otezla and clobetasol topical -Patient is still followed by Dr. Rico - we have not received a note, will obtain latest note -Pt wants to go to [facility] in March because his psoriasis improves. [...] 12:28 PM EDT) Triglycerides 308(H) <150 mg/dL [facility] Comment:Desirable Triglyceri de: less than 150 mg/dLBorderline High Triglyceride 150-199 mg/dLHigh Triglyceride: 200-499 mg/dLVery High Triglyceride: greater than or equal to 5OO mg/dL Cholesterol 251(H) <200 mg/dL [facility] Comment:Desirable Cholestero l: less than 200 mg/dLBorderline High Cholesterol: 200-239 mg/dLHigh Cholesterol: greater than 239 mg/dL LDL Cholesterol Calculated 152(H) <100 mg/dL [facility] Comment:Desirable LDL: less than 100 mg/dLNear Optimal/Above Optimal LDL: 110- 129 mg/dLBorderline High LDL: 130-159 mg/dLHigh LDL: 160-189 mg/dLVery High LDL: greater than or equal to 190 mg/dL HDL Cholesterol 38(L) >40 mg/dL [facility] Comment:Desirable HDL: great er than 40 mg/dL Note: This HDL assay may give artificially low results in patients with liver disease. 12/18/2022 12:2 8 PM EDT 12/18/2022 12:32 PM EDT us Generic External Data Provider LAB BLOOD ORDERAB LES Final Result [facility] [address] [place] [phone] * HEPATITIS C AB W/REFL TO HCV RNA, QN, PCR (09/09/2021 1:06 PM EDT) HEPATITIS C ANTIBODY NON-REACT EDWARD NON-REACT EDWARD [facility] INDEX 0.04 <1.00 [facility] Comment: ?? HCV antibody was non-reactive. There is no laboratory ?? evidence of HCV infection. ?? In most cases, no further action is required. However, if recent HCV exposure is suspected, a test for HCV RNA (test code 06120) is suggested. ?? For additional information please refer to http://hetras.[employer]/faq/YHM90r5 (This link is being provided for informational/ educational purposes only.) ?? 09/09/2021 1:06 PM EDT us Dayanna Hernandez MD HISTORICAL/NON ORDERABLE LABS Fi nal Result [facility] [address] [place] [address], * HIV 1/2 ANTIGEN/ANTIBODY,FOURTH GENERATION W/RFL (09/09/2021 1:06 PM EDT) HIV-1/2 ANTIGEN AND ANTIBODIES, 4TH GENERATION W/ REFLEX NON-REACT EDWARD NON-REACT EDWARD [facility] Comment: HIV-1 antigen and HIV-1/HIV-2 [...] ? For additional information please refer to http://hetras.[employer]/faq/OHZ673 (This link is being provided for informational/ educational purposes only.) ? The performance of this assay has not been clinically validated in patients less than 2 years old. ?? 09/09/2021 1:06 PM EDT us Dayanna Hernandez MD LAB BLOOD ORDERABLES Final Resul t [facility] [address] from Last 3 Months or Most Recently Relevant to Health Maintenance Insurance Care Teams Street Light Servicer Relationship Specialty Start Date End Date Dayanna Hernandez MD [address] [place] [id number] PCP - General Family Medicine 10/24/12
--- OUTSIDE RECORDS SUMMARY | 2024-08-11 10:24 | XMS_ITS | Encounter Summary ---
Author Organization [employer] Address [address] [facility] [address] [place] [address] Care Team Providers Care Superintendent System Operation Name Role Phone Dayanna Hernandez MD Primary Care Provider [phone] Encounter Details Date Type Department Care Team [...] on filedocumented in this encounter Care Teams Superintendent System Operation Relationship Specialty Start Date End Date Dayanna Hernandez MD [address] [place] [id number] PCP - General Family Medicine 10/24/12 documented as of this encounter
--- OUTSIDE RECORDS SUMMARY | 2024-08-11 10:24 | XMS_ITS | Encounter Summary ---
Author Organization [employer] Address [address] [facility] [address] [place] [address] Care Team Providers Care Wood Drill Operator Name Role Phone Dayanna Hernandez MD Primary Care Provider [phone] Encounter Details Date Type Department Care Team [...] on filedocumented in this encounter Care Teams Wood Drill Operator Relationship Specialty Start Date End Date Dayanna Hernandez MD [address] [place] [address] PCP - General Family Medicine 10/24/12 documented as of this encounter
[2024-08-11 11:47] VITALS: BP 138/68
== END 2024-08-11 10:59 | disposition home or self-care (01) ==
LOC: HO.ENCR 09:57
PROVIDERS: PCP Family Medicine; Visit Provider Physician Assistant Medical
DX: E11.40 Type 2 diabetes mellitus with diabetic neuropathy, unspecified (principal); Z79.4 Long term (current) use of insulin

== ENCOUNTER → 2024-08-11 09:56 | Outpatient (BNVA) | payer OTHER, SELFPAY | PROVIDERS: PCP Family Medicine; Visit Provider Physician Assistant Medical | DX: E11.40 Type 2 diabetes mellitus with diabetic neuropathy, unspecified (principal); E11.649 Type 2 diabetes mellitus with hypoglycemia without coma; E78.5 Hyperlipidemia, unspecified; R79.89 Other specified abnormal findings of blood chemistry; Z79.4 Long term (current) use of insulin | CPT/HCPCS: 82947; 99212 ==

== ENCOUNTER 2024-08-17 13:25 | Outpatient (AMB) | payer OTHER, SELFPAY ==
[2024-08-17 13:26] VITALS: BP 140/70; PULSE 80; BMI 35.8
--- NOTE | 2024-08-17 13:26 | A.OFFVIS_ITS ---
Vital Signs 08/17/24 13:26 Height 5 ft 6 in Weight 222 lb BMI 35.8 BP 140/70 H Blood Pressure Location Rt brachial Position Sitting Pulse 80 Pulse Source Pulse Oximeter Intake Visit Reasons: cgm Intake Note: Patient present today to follow up on Type 2 Diabetes Mellitus: Patient having issues with the Freestyle Nevaeh Sensor Last Diabetic Eye exam: 12/27/2023 Last Podiatry Visit: Does not see a Auto Radiator Specialist Most Recent HgA1C: 7.5% 08/09/2024 Random Glucose: 169 mg/dL, Today Coach Required: Yes Coach Language: [employer] Filler Services: Coach Present Information Interpreted: non-clinical & clinical Accompanied by: Self / Same As Patient Allergies Penicillins [PENICILLINS] Allergy (Unknown, Verified 08/11/24 10:14) UNKNOWN-CHILDHOOD REACTION ARB-Angiotensin Receptor Antagonist Adverse Reaction (Mild, Verified 08/11/24 10:14) Cough SEAFOOD Allergy (Severe, Uncoded 08/11/24 10:14) DIARRHEA,GI PAIN, NAUSEA Fish Allergy (Mild, Uncoded 08/11/24 10:14) Gastrointestinal Upset HPI Comments Details: Patient is here today as he has used to freestyle 14 day sensors. He had been ordered freestyle 2 which were not dispense. He now has a new an order for freestyle 3+ sensor. And he was trained on how to use this with a reader. He is on MDI 4 shots daily with the an A1c of 7.6% down from 9.3. The purpose of today's brief visit was to assist the patient with the insertion. He has had no problems in the past but was inadvertently given freestyle 14 day from pharmacy which would not work with his reader freestyle 2. 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 Mother Diabetes Social History Household Members: None Housing: Apartment Alcohol intake: never Patient Tobacco Use Status: Former Tobacco user Physical Exam Vital Signs: Last Vital Signs Pulse 80 08/17/24 13:26 BP 140/70 H 08/17/24 13:26 BMI result Body Mass Index 35.8 Const Other: Absence of Cushingoid features. Absence of acromegalic features. In no acute distress. No dyspnea noted. Negative JVD. nodules palpable. Heart S1 S2, Reg R/R. No M/R G. Skin exam reveals _ acanthosis nigricans. Results Reviewed Results Reviewed: Laboratory Last Values Glucose (Clinic) 166 mg/dL (60-115) H 08/17/24 13:28 Assessment & Plan Assessment & Plan (1) Diabetes type 2, uncontrolled: Code(s): E11.65 - Type 2 diabetes mellitus with hyperglycemia Category: Medical Plan: 64-year-old type 2 diabetic on multiple daily doses of injections. He was trained on freestyle Nevaeh 3+. Freestyle Nevaeh 2 and 14 day are being phased out and he will need to switch over to a freestyle Nevaeh 3+. Because he is on multiple daily dose injection would be the best course of action for him. He should continue his current doses of insulin and keep his follow up appointment in 3 months. The patient had an opportunity to ask questions regarding treatment plan. The patient expressed understanding and agreement with the above treatment plan. The patient is aware they should contact our office by phone for worsening glucose readings or for any low blood sugars which may warrant a change in diabetes medication. Compliance is encouraged with medications and any followup testing/consults which may have been ordered. Coding Level of Care Code Est Pt Level 1 (41415) Complex EM visit Add On G2211 Diagnoses Diabetes type 2, uncontrolled E11.65 Time Spent (min) 15 Comment Time spent reviewing labs/provider notes, face to face, chart doc
[2024-08-17 13:36] LABS: Glucose, Whole Blood 166 mg/dL (60-115)
--- OUTSIDE RECORDS SUMMARY | 2024-08-17 14:02 | XMS_ITS | Encounter Summary ---
Author Organization [employer] Address [address] [facility] [address] [place] [address] Care Team Providers Care Management Nurse Rn Name Role Phone Dayanna Hernandez MD Primary Care Provider [phone] Encounter Details Date Type Department Care Team (Latest Contact Info) Description 12/19/2018 Abstract [facility] Dental, Provider, DDS Social History Tobacco Use Types Packs/Day Years Used Date Smoking Tobacco: Never Assessed Sex and Gender Information Value Date Recorded Sex Assigned at Male 02/02/2022 10:21 AM EDT Legal Sex Male 10:21 AM EDT Gender Identity Male 02/02/2022 10:21 AM EDT Sexual Orientation Choose not to disclose 2021 10:21 AM EDT documented as of this encounter Plan of Treatment Upcoming Encounters Date Type Department Care Team (Late st Contact Info) Description 09/12/2024 10:45 AM EDT Office Visit [facility] [address] [place] [address] Dayanna Hernandez MD [address] [place] [address] documented as of this encounter Visit Diagnoses Not on filedocumented in this encounter Care Teams Management Nurse Rn Relationship Specialty Start Date End Date Dayanna Hernandez MD [address] [place] [id number] PCP - General Family Medicine 10/24/12 documented as of this encounter
--- OUTSIDE RECORDS SUMMARY | 2024-08-17 14:02 | XMS_ITS | Clinical Summary ---
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 Mazariegos -Last foot exam: 10/31/2018; high-risk, has a manager technical services. -Last microalbumin test: 09/25/20 UACR 1256, albuminuria [...] taking fenofibrate 54 mg daily because his medical records supervisor in prescribed him. We discussed about [...] latest note -Pt wants to go to [facility] in March because his psoriasis improves. [...] Discontinued 12/26/2015 Insurance ([id number]) ([id number]) Care Teams Shipping Checker Relationship Specialty Start Date End Date Dayanna Hernandez MD PCP - General 04/15/20
--- OUTSIDE RECORDS SUMMARY | 2024-08-17 14:02 | XMS_ITS | Encounter Summary ---
Author Organization [employer] Address [address] [facility] [address] [place] [address] Care Team Providers Care Child Center Assistant Name Role Phone Dayanna Hernandez MD Primary Care Provider [phone] Encounter Details Date Type Department Care Team (Latest Contact Info) Description 01/23/2021 Abstract [facility] Dental, Provider, DDS Social History [...] Description 09/12/2024 10:45 AM EDT Office Visit [facility] [address] [place] [address] Dayanna Hernandez MD [address] [place] [address] documented as of this encounter Visit Diagnoses Not on filedocumented in this encounter Care Teams Child Center Assistant Relationship Specialty Start Date End Date Dayanna Hernandez MD [address] [place] [id number] PCP - General Family Medicine 10/24/12 documented as of this encounter
--- OUTSIDE RECORDS SUMMARY | 2024-08-17 14:02 | XMS_ITS | Encounter Summary ---
Author Organization [employer] Address [address] [facility] [address] [place] [address] Care Team Providers Care Games Manager Name Role Phone Dayanna Hernandez MD Primary Care Provider [phone] Reason for Referral * Consultation (Routine) - Closed Specialty Diagnoses / Procedures Referred By Quyen carter Referred To Contact Physical Therapy Diagnoses Gait instability Hemiparesis affecting left side as late effect of cerebrovascular accident (CVA) (CMS/HCC) Legal blindness Dayanna Hernandez MD [address] [place] [address] Phone: tel: fax: [facility] [address] [place] [address] Phone: tel: fax: Referral ID Status Reason Start Date Expiration Date V isits Requested Visits Authorized [id number] Closed Specialty Services Required 09/09/2023 09/08/2024 1 1 Encounter Details Date Type Department Care Team (Late st Contact Info) Description 09/09/2023 Orders Only [facility] [address] [place] [address] Dayanna Hernandez MD [address] [place] [address] Gait instability (Primary Dx); Hemiparesis affecting left [...] Description 09/12/2024 10:45 AM EDT Office Visit [facility] [address] [place] [address] Dayanna Hernandez MD [address] [place] [address] Scheduled Referrals Name Type Priority Associated Diagnoses Orde r Schedule Referral to Physical Therapy Outpatient Referral Routine Gait instability Hemiparesis affecting left side as late effect of cerebrovascular accident (CVA) ([facility]) Legal blindness Expected: 09/09/2023 (Approximate), Expires: 09/08/2024 documented as of this encounter Visit Diagnoses Diagnosis Gait instability- Primary Abnormality of gait Hemiparesis affecting left side as late effect of cerebrovascular accident (CVA) ([facility]) Legal blindness Legal blindness, as defined in [place] documented in this encounter Additional Health Concerns Assessment Noted Time PHQ-9 Depression Total Score: 8 07/31/19 23 10:10 AM EDT documented as of this encounter Care Teams Games Manager Relationship Specialty Start Date End Date Dayanna Hernandez MD [address] [place] [id number] PCP - General Family Medicine 10/24/12 documented as of this encounter
--- OUTSIDE RECORDS SUMMARY | 2024-08-17 14:02 | XMS_ITS | Encounter Summary ---
Author Organization [employer] Address [address] [facility] [address] [place] [address] Care Team Providers Care Irrigator Overhead Name Role Phone Dayanna Hernandez MD Primary Care Provider [phone] Encounter Details Date Type Department Care Team (Late st Contact Info) Description 08/24/2022 Orders Only [facility] MEDICINE [address] [place], [place] [phone] Dayanna Hernandez MD [address] [place], [place] [phone] Type 2 diabetes 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, with long-term current use of insulin ([facility]) (Primary Dx) Social History Tobacco [...] Description 09/12/2024 10:45 AM EDT Office Visit [facility] MEDICINE [address] [facility] [place] [address] Dayanna Hernandez MD [address] [place] [address] documented as of this encounter Procedures Procedure Name Priority Date/Time Associated Diagnosis Comments LIPID PANEL, STANDARD Routine 12/18/2022 12:28 PM EDT Type 2 diabetes 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, with long-term current use of insulin ([facility]/HCC) BASIC METABOLIC PANEL Routine 12/18/2022 12:28 PM EDT Type 2 diabetes 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, with long-term current use of insulin ([facility]) ALBUMIN, RANDOM URINE W/CREATININE Routine 12/18/2022 12:09 PM EDT Type 2 diabetes 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, with long-term current use of insulin ([facility]) GLUCOSE, WHOLE BLOOD Routine 12/18/2022 11:24 AM EDT Type 2 diabetes 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, with long-term current use of insulin ([facility]) documented in this encounter Results * (ABNORMAL) Lipid Panel, Standard (12/18/2022 12:28 PM EDT) Triglycerides 308(H) <150 mg/dL [facility] Comment:Desirable Triglyceri de: less than 150 mg/dLBorderline High Triglyceride 150-199 mg/dLHigh Triglyceride: 200-499 mg/dLVery High Triglyceride: greater than or equal to 5OO mg/dL Cholesterol 251(H) <200 mg/dL [facility] Comment:Desirable Cholestero l: less than 200 mg/dLBorderline High Cholesterol: 200-239 mg/dLHigh Cholesterol: greater than 239 mg/dL LDL Cholesterol Calculated 152(H) <100 mg/dL [facility] Comment:Desirable LDL: less than 100 mg/dLNear Optimal/Above Optimal LDL: 110- 129 mg/dLBorderline High LDL: 130-159 mg/dLHigh LDL: 160-189 mg/dLVery High LDL: greater than or equal to 190 mg/dL HDL Cholesterol 38(L) >40 mg/dL [facility] Comment:Desirable HDL: great er than 40 mg/dL Note: This HDL assay may give artificially low results in patients with liver disease. 12/18/2022 12:2 8 PM EDT 12/18/2022 12:32 PM EDT Generic External Data Provider LAB BLOOD ORDERAB LES Final Result Performing Organization Address City/[facility]/ZIP Co de Phone Number [facility] [address] [place] [phone] * (ABNORMAL) Basic Metabolic Panel (12/18/2022 12:28 PM EDT) Sodium 137 135 - 145 mmol/L [facility] Potassium 4.0 3.3 - 5.1 mmol/L [facility] Comment:Slight Hemolysis Chloride 104 96 - 108 mmol/L [facility] Carbon Dioxide 24 22 - 29 mmol/L [facility] Anion Gap 13 12 - 20 [facility] Urea Nitrogen (BUN) 16 9 - 16 mg/dL [facility] Creatinine, Serum 1.40 0.5 - 1.4 mg/dL [facility] Estimated Glomerular Filt Rate 52 [facility] Comment:NOTE: For -Am erican individuals, multiply the result by 1.210.Chronic Kidney Disease: Estimated GFR < 60 mL/min/1.36u2Ttqjci Kidney Disease: Estimated GFR < 15 mL/min/1.73m2 Glucose 137(H) 60 - 115 mg/dL [facility] Calcium 9.4 8.4 - 10.2 mg/dL [facility] 12/18/2022 12:2 8 PM EDT 12/18/2022 12:32 PM EDT [facility] External Provider LAB BLO OD ORDERABLES Final Result Performing Organization Address City/State/[facility] Co de Phone Number [facility] [address] [place] [phone] [phone] * (ABNORMAL) Albumin, Random Urine W/Creatinine (12/18/2022 12:09 PM EDT) Creatinine, Urine 158.87 mg/dL [facility] Microalbumin Urine 1,684.0 mg/L [facility] Microalbum Creatinine Ratio Ur 1,059.9(H ) <30 ug/mg cr [facility] Comment:Albumin/Creatinine R atio Reference Ranges: Normal: < 30 ug/mg creatinine Microalbuminuria: 30 - 300 ug/mg creatinineClinical Albuminuria: > 300 ug/mg creatinine 12/18/2022 12:0 9 PM EDT 12/18/2022 1:59 PM EDT [facility] External Provider LAB URI NE ORDERABLES Final Result Performing Organization Address [facility] de Phone Number [facility] [address] [place] [address] [phone] * (ABNORMAL) Glucose, Whole Blood (12/18/2022 11:24 AM EDT) Glucose, Whole Blood 155(H) 60 - 115 mg/dL [facility] Comment:METER #: [id number] Testing performed in the Endocrinology Department [address] , [address], [facility]. 12/18/2022 11:2 4 AM EDT 12/18/2022 11:30 AM EDT [facility] External Provider LAB BLO OD ORDERABLES Final Result Performing Organization Address [facility] Co de Phone Number [facility] [address] [place] [address] [phone] documented in this encounter Visit Diagnoses Diagnosis Type 2 diabetes 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, with long-term current use of insulin ([facility])- Primary documented in this encounter Additional Health Concerns Assessment Noted Time PHQ-9 Depression Total Score: 8 07/31/19 23 10:10 AM EDT documented as of this encounter Care Teams Irrigator Overhead Relationship Specialty Start Date End Date Dayanna Hernandez MD [address] [place] [address] PCP - General Family Medicine 10/24/12 documented as of this encounter
--- OUTSIDE RECORDS SUMMARY | 2024-08-17 14:02 | XMS_ITS | Encounter Summary ---
Author Organization [employer] Address [address] [facility] [address] [place] [address] Care Team Providers Care School Director Name Role Phone Dayanna Hernandez MD Primary Care Provider [phone] Encounter Details Date Type Department Care Team (Late st Contact Info) Description 08/19/2023 Orders Only [facility] MEDICINE [address] [place], [place] [phone] Dayanna Hernandez MD [address] [place], [place] [phone] Social History Tobacco Use Types Packs/Day Years [...] Description 09/12/2024 10:45 AM EDT Office Visit [facility] MEDICINE [address] [place] [address] Dayanna Hernandez MD [address] [place] [address] documented as of this encounter Visit Diagnoses Not on filedocumented in this encounter Additional Health Concerns Assessment Noted Time PHQ-9 Depression Total Score: 8 07/31/19 23 10:10 AM EDT documented as of this encounter Care Teams School Director Relationship Specialty Start Date End Date Dayanna Hernandez MD [address] [place] [address] PCP - General Family Medicine 10/24/12 documented as of this encounter
--- OUTSIDE RECORDS SUMMARY | 2024-08-17 14:02 | XMS_ITS | Clinical Summary ---
Author Organization [employer] Address [address] [facility] [address] [place] [address] Care Team Providers Care Mica Spreader Name Role Phone Dayanna Hernandez MD Primary Care Provider [phone] Allergies Active Allergy Reactions Criticality Noted Date [...] disease, with long-term current use of insulin ([facility]) 1 each before breakfast, before lunch, [...] A DAY 200 each 11 4 Active insulin glargine (Edith Solostar, 1 unit dial,) 300 UNIT/ML injection Administer 60 units daily. Adjust as directed. 7.5 mL 11 4 Active FreeStyle lancets 1 each by Other route 4 times daily. 200 each 11 4 08/17/19 25 Active Problems Problem Noted Date Diagnosed Date [...] Plan (08/17/2023 11:35 AM EDT): -Seen by wire charger on 03/11/20 for JEAN MARIE -Pt had several sleep studies, most recently in 2019, showing JEAN MARIE -Continue auto PAP pressure 6-14 cm H2O -Will order a new autoPAP machine; may need a new sleep study -Most recent echo did not show pulmonary HTN -Slip Cover Seamstress recommended him to use azelastine for rhinitis. -Refer back to wire charger Dr. Sanchez Assessment & Plan (11/27/2022 4:34 PM EDT): -Seen by wire charger on 03/11/20 for JEAN MARIE -Pt had several sleep studies, most recently in 2019, showing JEAN MARIE -Continue auto PAP pressure 6-14 cm H2O -Will order a new autoPAP machine; may need a new sleep study -Most recent echo did not show pulmonary HTN -Slip Cover Seamstress recommended him to use azelastine for rhinitis. -Refer back to wire charger Dr. Sanchez Intertrigo 10/23/2022 Assessment & Plan (11/27/2022 4:24 PM EDT): - s/p clotrimazole BID x 28 days in October 2022 - responding well to nystatin pwd TID; refill - follow up with global director air and climate change Assessment & Plan (10/23/2022 12:46 PM EDT): [...] symptoms -pt to f up w his global director air and climate change in 2 months per pt and has [...] Assessment & Plan (08/17/2023 11:36 AM EDT): -Fish Cleaner: Dr. Velasquez, last seen on 09/02/22 -Diabetic and vascular etiology, proteinuria -07/31/22 BUN 20; Scr 1.53; eGFR 53; K 4.1; Bicarb 28, UACR 1,147 -Baseline Cr 1.3-1.5 -In a setting of recurrent nephrolithiasis -Stable -Avoid nephrotoxic drugs. -Treatment Hx: Pt reported throat itching with ARB, and cough with ACEI. Assessment & Plan (11/19/2022 5:11 AM EDT): -Fish Cleaner: Dr. Velasquez, last seen on 09/02/22 -Diabetic and vascular etiology, proteinuria -07/31/22 BUN 20; Scr 1.53; eGFR 53; K 4.1; Bicarb 28, UACR 1,147 -Baseline Cr 1.3-1.5 -In a setting of recurrent nephrolithiasis -Stable -Avoid nephrotoxic drugs. -Treatment Hx: Pt reported throat itching with ARB, and cough with ACEI. Assessment & Plan (07/31/2022 5:30 AM EDT): -Fish Cleaner: Dr. Velasquez, last seen on 08/16/19, but [...] 12:36 PM EDT): -A1C 9.6% on 08/17/23 -Water Inspector: [facility], last seen in 12/2022, advised to schedule appointment - change tresiba to Lantus, will start at 60 units - Continue humalog - restart tradjenta 5 mg daily -Last eye exam: August 2022 (requesting note) -Last foot exam: 08/17/2023; high-risk, has a rate setter. -Last microalbumin test: 07/31/22 UACR 1,147 -Last lipid profile: 06/23/23 TC 149; TG 167; HDL 56; LDL 60 Last dental exam: ? Immunizations: Reviewed and discussed. Pt chose not to fully vaccinated Follow up in 3-4 mo or sooner prn Assessment & Plan (11/27/2022 4:21 PM EDT): -A1C 7.0% on 11/19/22, improved from 8.3% on 07/30/22 ( 6.1% on 09/04/21) -Water Inspector: [facility] [place], last seen in 07/04/21, upcoming appt -Current medications: Tresiba 80 units daily, Humalog U-200 10-15 units with snack, 20-25 units with meal, Tradjenta 5 mg daily -Last eye exam: August 2022 (requesting note) -Last foot exam: 10/31/2018; high-risk, has a rate setter. -Last microalbumin test: 07/31/22 UACR 1,147 -Last lipid profile: 07/31/22 TC 224; TG 183; HDL 36; LDL 156 Last dental exam: ? Immunizations: Reviewed and discussed. Pt chose not to fully vaccinated Follow up in 3-4 mo or sooner prn Assessment & Plan (07/31/2022 5:33 AM EDT): -A1C 8.3% on , worsened from 6.1% on 09/04/21 -Water Inspector: [facility] [place], last seen in 07/04/21 -Current medications: Tresiba 56 units daily, Humalog U-200 10-15 units with snack, 25-30 units with meal, Tradjenta 5 mg daily -Last eye exam: April 2019, Dr. Mazariegos -Last foot exam: 10/31/2018; high-risk, has a rate setter. -Last microalbumin test: 09/25/20 UACR 1256, albuminuria [...] taking fenofibrate 54 mg daily because his audio visual coordinator in [place] prescribed him. We discussed about [...] taking fenofibrate 54 mg daily because his audio visual coordinator in prescribed him. We discussed about [...] taking fenofibrate 54 mg daily because his audio visual coordinator in prescribed him. We discussed about [...] (07/31/2022 5:36 AM EDT): - he has [facility] provider - prescribed clonazepam, fluoxetine, and trazodone - good family support Chronic recurrent major depressive disorder 10/2013 Glaucoma 10/09/2013 Assessment & Plan (11/27/2022 4:26 PM EDT): - following with retail general manager - continue current medication Hypertension 05/16/2012 Assessment [...] latest note -Pt wants to go to [facility] in March because his psoriasis improves. -Pt will schedule a follow up appt Assessment & Plan (11/27/2022 4:24 PM EDT): -Dietary regimen is improving symptoms -Continue on Otezla and clobetasol topical -Patient is still followed by Dr. Rico - we have not received a note, will obtain latest note -Pt wants to go to [facility] in March because his psoriasis improves. -Pt will schedule a follow up appt Assessment & Plan (07/31/2022 5:35 AM EDT): -Dietary regimen is improving symptoms -Continue on Otezla and clobetasol topical -Patient is still followed by Dr. Rico - we have not received a note, will obtain latest note -Pt wants to go to [facility] in March because his psoriasis improves. -Pt will schedule a follow up appt Backache 12/21/2011 Knee pain 12/21/2011 Proliferative diabetic retinopathy 11/25/2011 Encounters Date Type Department Care Team Description 08/17/2024 Orders Only GENERIC EXTERNAL DATA DEPARTMENT Provider, Generic External Data 08/15/2024 Travel 08/11/2024 Orders Only GENERIC EXTERNAL DATA DEPARTMENT Provider, Generic External Data from Last 3 Months Immunizations Immunization Administration Dates Next Due Hep B, adult [...] 11/19/2022 10:51 AM EDT Plan of Treatment Upcoming Encounters Date Type Department Care Team (Late st Contact Info) Description 09/12/2024 10:45 AM EDT Office Visit [facility] MEDICINE [address] [place] [phone] Dayanna Hernandez MD [address] [place] [address] Health Maintenance Due Date Last Done Comments [...] series) 2022 Depression Screening 07/31/2023 07/30/2022, 07/31/19 SDOH Screening 07/31/2023 07/30/2022 Diabetes: Hemoglobin A1C 11/17/2023 024, 11/19/2022, 07/30/2022 COVID-19 Vaccine ( season) 2023 Influenza Vaccine (#1) 2023 Lipid Panel 12/19/2023 12/18/2022, 07/05, 09/09/2021 Diabetes: Foot Exam 08/16/2024 08/17/2023, 08/17/2023, 08/17/2023, Additional history exists Tobacco Screening 08/16/2024 08/17/2023 Diabetes: Urine Protein Screening 09/06/2024 09/07/2023, 12/31/2022, 12/18/2022, Additional history exists DTaP/Tdap/Td Vaccines (2 - Td or Tdap) [...] patient's age to complete this topic Meningococcal B Vaccine Aged Out No l onger eligible based on patient's age to complete [...] Procedure Name Priority Date/Time Associated Diagnosis Comments GLUCOSE, WHOLE BLOOD Routine 08/17/2024 1:28 PM EDT GLUCOSE, WHOLE BLOOD Routine 08/11/2024 10:20 AM EDT CREATININE, RANDOM URINE Routine 09/07/2023 12:25 PM EDT POCT GLYCOSYLATED HEMOGLOBIN (HGB A1C) Routine 08/17/2023 [...] Relevant to Health Maintenance Results * (ABNORMAL) Glucose, Whole Blood (08/17/2024 1:28 PM EDT) Only the most recent of2 resultswithin the time period is included. Glucose, Whole Blood 166(H) 60 - 115 mg/dL [facility] Comment:METER #: [id number] 5Testing performed in the Endocrinology Department [address] , [address], [facility]. 08/17/2024 1:28 PM EDT 08/17/2024 1:35 PM EDT us Generic External Data Provider LAB BLOOD ORDERAB LES Final Result [facility] [address] [place] [phone] * Creatinine, Random Urine (09/07/2023 12:25 PM EDT) Creatinine, Urine 111.45 mg/dL [facility] 09/07/2023 12:2 5 PM EDT 09/07/2023 1:06 PM EDT us Generic External Data Provider LAB URINE ORDERAB LES Final Result [facility] [address] [place] [phone] * (ABNORMAL) POCT glycosylated hemoglobin (Hgb A1c) (08/17/2023 11:35 AM EDT) Hemoglobin A1C 9.3(A) 4.0 - 6.0 % QC Media Lot # [id number] Lot# Expiration Date Blood Capillary blood specimen / Unknown 08/17/2023 11:35 AM EDT Dayanna Hernandez MD POINT OF CARE TEST ENTER/EDIT OR DERABLES Final Result * (ABNORMAL) Lipid Panel, Standard (12/18/2022 12:28 PM EDT) Triglycerides 308(H) <150 mg/dL [facility] Comment:Desirable Triglyceri de: less than 150 mg/dLBorderline High Triglyceride 150-199 mg/dLHigh Triglyceride: 200-499 mg/dLVery High Triglyceride: greater than or equal to 5OO mg/dL Cholesterol 251(H) <200 mg/dL [facility] Comment:Desirable Cholestero l: less than 200 mg/dLBorderline High Cholesterol: 200-239 mg/dLHigh Cholesterol: greater than 239 mg/dL LDL Cholesterol Calculated 152(H) <100 mg/dL [facility] Comment:Desirable LDL: less than 100 mg/dLNear Optimal/Above Optimal LDL: 110- 129 mg/dLBorderline High LDL: 130-159 mg/dLHigh LDL: 160-189 mg/dLVery High LDL: greater than or equal to 190 mg/dL HDL Cholesterol 38(L) >40 mg/dL [facility] Comment:Desirable HDL: great er than 40 mg/dL Note: This HDL assay may give artificially low results in patients with liver disease. 12/18/2022 12:2 8 PM EDT 12/18/2022 12:32 PM EDT us Generic External Data Provider LAB BLOOD ORDERAB LES Final Result [facility] [address] [place] [phone] [phone] * HEPATITIS C AB W/REFL TO HCV RNA, QN, PCR (09/09/2021 1:06 PM EDT) HEPATITIS C ANTIBODY NON-REACT [facility] NON-REACT [facility] INDEX 0.04 <1.00 [facility] Comment: ?? HCV antibody was non-reactive. There is no laboratory ?? evidence of HCV infection. ?? In most cases, no further action is required. However, if recent HCV exposure is suspected, a test for HCV RNA (test code 11746) is suggested. ?? For additional information please refer to http://education.[employer]/faq/MTL80g1 (This link is being provided for informational/ educational purposes only.) ?? 09/09/2021 1:06 PM EDT Dayanna Hernandez MD HISTORICAL/NON ORDERABLE LABS Fi nal Result Performing Organization Address City/[facility] Co de Phone Number [facility] [address] * HIV 1/2 ANTIGEN/ANTIBODY,FOURTH GENERATION W/RFL (09/09/2021 1:06 PM EDT) HIV-1/2 ANTIGEN AND ANTIBODIES, 4TH GENERATION W/ REFLEX NON-REACT [facility] NON-REACT [facility] Comment: HIV-1 antigen and HIV-1/HIV-2 [...] ? For additional information please refer to http://education.[employer]/faq/JBA655 (This link is being provided for informational/ educational purposes only.) ? The performance of this assay has not been clinically validated in patients less than 2 years old. ?? 09/09/2021 1:06 PM EDT us Dayanna Hernandez MD LAB BLOOD ORDERABLES Final Resul t [facility] [address] from Last 3 Months or Most Recently Relevant to Health Maintenance Insurance [facility] < [address] [place] [id number] Care Teams Mica Spreader Relationship Specialty Start Date End Date Dayanna Hernandez MD [address] [place] [address] PCP - General Family Medicine 10/24/12
--- OUTSIDE RECORDS SUMMARY | 2024-08-17 14:02 | XMS_ITS | Encounter Summary ---
Author Organization [employer] Address [address] [facility] [address] [place] [address] Care Team Providers Care Dental Office Manager Name Role Phone Dayanna Hernandez MD Primary Care Provider [phone] Encounter Details Date Type Department Care Team (Latest Contact Info) Description 08/15/2024 Travel Social History Tobacco Use Types Packs/Day Years [...] Description 09/12/2024 10:45 AM EDT Office Visit [facility] MEDICINE [address] [place] [address] Dayanna Hernandez MD [address] [place] [address] documented as of this encounter Visit Diagnoses Not on filedocumented in this encounter Additional Health Concerns Assessment Noted Time PHQ-9 Depression Total Score: 8 07/31/19 23 10:10 AM EDT documented as of this encounter Care Teams Dental Office Manager Relationship Specialty Start Date End Date Dayanna Hernandez MD [address] [place] [phone] PCP - General Family Medicine 10/24/12 documented as of this encounter
--- OUTSIDE RECORDS SUMMARY | 2024-08-17 14:02 | XMS_ITS | Encounter Summary ---
Author Organization [facility] Address [address] [facility] [address] [place] [address] Phone Care Team Providers Care Lithopress Operator Name Role Phone Dayanna Hernandez MD Primary Care Provider [phone] Encounter Details Date Type Department Care Team (Late st Contact Info) Description 11/01/2023 Office Communication [facility] [address] [facility] [address] [place] [phone] Haley Antoine ARNP [address] [facility] [address] [place] [address] Social History Tobacco Use Types [...] on filedocumented in this encounter Care Teams Lithopress Operator Relationship Specialty Start Date End Date Dayanna Hernandez MD PCP - General 04/15/20 documented as of this encounter
== END 2024-08-17 14:05 | disposition home or self-care (01) ==
LOC: HO.ENCR 13:25
PROVIDERS: PCP Family Medicine; Visit Provider Nurse Practitioner Adult Health
DX: E11.65 Type 2 diabetes mellitus with hyperglycemia (principal)
CPT/HCPCS: G2211

== ENCOUNTER → 2024-08-17 13:25 | Outpatient (BNVA) | payer OTHER, SELFPAY | PROVIDERS: PCP Family Medicine; Visit Provider Nurse Practitioner Adult Health | DX: E11.65 Type 2 diabetes mellitus with hyperglycemia (principal); Z79.4 Long term (current) use of insulin | CPT/HCPCS: 82947; 99211 ==

== ENCOUNTER 2024-08-30 16:28 | Outpatient (REF) | payer OTHER, SELFPAY ==
--- NOTE | ~2024-08-30 | XR_ITS ---
EXAMINATION: XR LUMBAR SPINE 2-3 VIEWS HISTORY: fall COMPARISON: Comparison is made with the prior examination dated 01/09/2020. FINDINGS: AP, lateral, and coned down views of the lumbar spine are submitted. Osseous mineralization is normal. Five nonrib-bearing lumbar vertebral bodies are identified, maintaining normal height and alignment without evidence of fracture or spondylolisthesis. There is mild to moderate degenerative disc disease with osteophyte formation. The posterior elements are intact. The visualized paraspinal soft tissues are unremarkable. XR/XR lumbar spine 2-3V IMPRESSION: Mild to moderate degenerative disc disease. Electronically signed by: Adams Ahn MD 08/31/2024 07:56 AM EDT
--- NOTE | ~2024-08-30 | XR_ITS ---
EXAMINATION: XR KNEE 4 OR MORE VIEWS LEFT HISTORY: fall COMPARISON: Comparison is made with the prior examination dated 03/14/2016. FINDINGS: Four views of the left knee are submitted. Osseous mineralization is normal. There is no fracture or dislocation. The joint spaces are preserved. The soft tissues are unremarkable. There is no joint effusion. XR/XR knee LT 4V IMPRESSION: Unremarkable examination of the left knee. Electronically signed by: Adams Ahn MD 08/31/2024 07:53 AM EDT
== END 2024-08-30 16:29 | disposition home or self-care (01) ==
LOC: HO.HHCX 16:28
PROVIDERS: Visit Provider Nurse Practitioner
DX: M54.50 Low back pain, unspecified (principal); M25.562 Pain in left knee
CPT/HCPCS: 72100; 73564

== ENCOUNTER → 2024-08-30 16:29 | Outpatient (BNV) | payer OTHER, SELFPAY | PROVIDERS: Visit Provider Radiology Diagnostic Radiology | DX: M25.562 Pain in left knee (principal); W19.XXXA Unspecified fall, initial encounter; M51.369 Other intervertebral disc degeneration, lumbar region without mention of lumbar back pain or lower extremity pain | CPT/HCPCS: 72100; 73564 ==

== ENCOUNTER 2024-09-19 10:55 | Outpatient (AMB) | payer OTHER, SELFPAY ==
--- NOTE | 2024-09-19 11:37 | A.OFFVIS_ITS ---
Intake Intake Visit Reasons: 60 min Refrigerator Room Clerk Required: Yes Refrigerator Room Clerk Language: Boiler/Chiller Technician Name: Adair Marr Information Interpreted: non-clinical & clinical Accompanied by: Self / Same As Patient Allergies Penicillins [PENICILLINS] Allergy (Unknown, Verified 08/11/24 10:14) UNKNOWN-CHILDHOOD REACTION ARB-Angiotensin Receptor Antagonist Adverse Reaction (Mild, Verified 08/11/24 10:14) Cough SEAFOOD Allergy (Severe, Uncoded 08/11/24 10:14) DIARRHEA,GI PAIN, NAUSEA Fish Allergy (Mild, Uncoded 08/11/24 10:14) Gastrointestinal Upset HPI Comprehensive Diabetes Asmnt Most Recent Diabetes Results: 2 Microalb/Creat Ratio 1194.4 ug/mg cr (<30) H 12/31/22 Cholesterol 251 mg/dL (<200) H 12/18/22 HDL Cholesterol 38 mg/dL (>40) L 12/18/22 Triglycerides 308 mg/dL (<150) H 12/18/22 Creatinine 1.53 mg/dL (0.5-1.4) H 08/09/24 Blood Urea Nitrogen 13 mg/dL (9-16) 08/09/24 Sodium 140 mmol/L (135-145) 08/09/24 Potassium 3.8 mmol/L (3.3-5.1) 08/09/24 Chloride 107 mmol/L (96-108) 08/09/24 Carbon Dioxide 25 mmol/L (22-29) 08/09/24 Calcium 8.7 mg/dL (8.4-10.2) 08/09/24 AST 20 U/L (5-37) 09/07/23 ALT 24 U/L (0-40) 09/07/23 Total Protein 7.2 g/dL (6.5-8.0) 09/07/23 Albumin 4.1 g/dL (3.5-5.0) 09/07/23 [facility] Medical History (Updated 08/11/24 @ 11:54 by LOCO De Anda) Type 2 diabetes mellitus with diabetic neuropathy CVA (cerebrovascular accident due to intracerebral hemorrhage) Chronic rhinitis JEAN MARIE on CPAP Hypertension Diabetic polyneuropathy associated with type 2 diabetes mellitus CKD stage 3 due to type 2 diabetes mellitus Diabetic nephropathy associated with type 2 diabetes mellitus senior care (current) use of insulin Proliferative diabetic retinopathy Diabetes type 2, uncontrolled Dyslipidemia Surgical History Hx of lithotripsy History of appendectomy Hx of laser photocoagulation of retina Hx of colonoscopy Family History Father Lung cancer Father No problems noted. Mother Diabetes Social History Household Members: None Housing: Apartment Alcohol intake: never Patient Tobacco Use Status: Former Tobacco user Assessment & Plan Assessment & Plan (1) Diabetes type 2, uncontrolled: Code(s): E11.65 - Type 2 diabetes mellitus with hyperglycemia Plan: Personal Continuous Glucose Monitor: Patients CGM information reviewed, Pt uses Nevaeh 3+ with [place] Overall patient's glucose is well controlled. Last A1c on 08/09/2024 7.5%, patient has upcoming appointment in November 2024 for next A1c Reviewed how to interpret trend arrows Reminded patient that to check finger sticks if symptoms do not match sensor reading. Discussed lag time between finger stick and sensor data.? Patient able to insert sensor independently at home without issue Patient does complain?adhesion issues with Nevaeh 3+. Offered patient sample of skin tack wipe, patient declined Suggested to patient he purchase overlay patches online, showed patient has several examples that can be ordered from trend investigator. In addition, patient was offered Dexcom G7 trial to see if he would be more satisfied with the overlay patch that it comes with At this time patient declined Dexcom G7 sample Portions of this note were created using voice recognition software, please excuse any words or phrases that may have been misinterpreted. Coding Level of Care Code Est Pt Level 1 (07634) Diagnoses Diabetes type 2, uncontrolled E11.65
--- OUTSIDE RECORDS SUMMARY | 2024-09-19 12:26 | XMS_ITS | Encounter Summary ---
Author Organization [employer] Address [address] [facility] [address] [place] [address] Care Team Providers Care Behavioral Health Aide Name Role Phone Dayanna Hernandez MD Primary Care Provider [phone] Encounter Details Date Type Department Care Team (Latest Contact Info) Description 12/19/2018 Abstract [facility] CONVERSIONS Dental, Provider, DDS Social [...] on filedocumented in this encounter Care Teams Behavioral Health Aide Relationship Specialty Start Date End Date Dayanna Hernandez MD [address] [place] [phone] PCP - General Family Medicine 10/24/12 documented as of this encounter
== END 2024-09-19 11:40 | disposition home or self-care (01) ==
LOC: HO.ENCR 10:56
PROVIDERS: PCP Family Medicine; Visit Provider Registered Nurse Diabetes Educator
DX: E11.65 Type 2 diabetes mellitus with hyperglycemia (principal)

== ENCOUNTER → 2024-09-19 10:55 | Outpatient (BNVA) | payer OTHER, SELFPAY | PROVIDERS: PCP Family Medicine; Visit Provider Registered Nurse Diabetes Educator | DX: E11.65 Type 2 diabetes mellitus with hyperglycemia (principal) | CPT/HCPCS: 99211 ==

== ENCOUNTER 2024-11-14 09:57 | Outpatient (AMB) | payer OTHER, SELFPAY ==
--- NOTE | 2024-11-14 10:00 | MHC.OFFVIS ---
Vital Signs 11/14/24 10:02 Height 5 ft 6 in Weight 213 lb 13.574 oz BMI 34.5 BP 132/84 Blood Pressure Location Rt brachial Position Sitting Pulse 75 Pulse Source Pulse Oximeter Pulse Oximetry (%) 97 Oxygen Delivery Method Room Air Intake Visit Reasons: T2DM Intake Note: Patient present today to follow up on Type 2 Diabetes Mellitus. Last Diabetic Eye exam: 12/27/2023 Last Podiatry Visit: Does not see a Firebrick Layer Helper Random Glucose: 134 mg/dL HgA1C: 7.4%, 11/14/2024 Social Welfare Administrator Required: Yes Social Welfare Administrator Language: Job Counselor Services: Social Welfare Administrator Present (VIA [employer] HEYDI) Social Welfare Administrator Name: #[id number] Accompanied by: Self / Same As Patient Allergies Penicillins (PENICILLINS) Allergy (Unknown, Verified 11/14/24 10:01) UNKNOWN-CHILDHOOD REACTION ARB-Angiotensin Receptor Antagonist Adverse Reaction (Mild, Verified 11/14/24 10:01) Cough SEAFOOD Allergy (Severe, Uncoded 11/14/24 10:01) DIARRHEA,GI PAIN, NAUSEA Fish Allergy (Mild, Uncoded 11/14/24 10:01) Gastrointestinal Upset HPI Comments Details: Patient is 64-year-old male with DM type 2 diagnosed around the year 1998 who presents today for diabetic management. 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 He did this by walking more. 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 Hemoglobin A1c 7.4% today 11/14/2024 down from 7.5% 08/09/2024. Reviewed CGM data for the past 2 weeks CGM active 81% Average glucose 151 Glucose management indicator 6.9% Glucose variability 25.3% Very high 2% High 18% Target range 80% 0% hypoglycemia He has a pattern of hyperglycemia after lunch. Diabetes medications: Insulin glargine 100 units daily Novolog 8-12 units for snacks, 30-40 with meals Tradjenta 5 mg Past medications: Metformin discontinued due to intolerable side effects. Hypoglycemia:? very rare in the high 60s Hyperglycemia:? denies He is overdue for labwork. ROS: Constitutional: No unexplained weight loss, fever, chills Respiratory: No shortness of breath Cardiovascular: No chest pain, chest pressure or chest discomfort. No palpitations or pedal edema. Neurologic: No headache, dizziness, syncope Skin: No rash or itching. Endocrine: No cold or heat intolerance. No polyuria or polydipsia. Physical exam: Constitutional: Alert, in no distress. Eyes: Pupils are equal, round and reactive to light. Extraocular muscles intact. Neck: Supple, Full range of motion. No lymphadenopathy. No palpable thyroid masses. Respiratory: Clear to auscultation. Cardiovascular: S1 S2 regular. No murmurs. Feet: declines exam [facility] Medical History Type 2 diabetes mellitus with diabetic neuropathy CVA (cerebrovascular accident due to intracerebral hemorrhage) Chronic rhinitis JEAN MARIE on CPAP Hypertension Diabetic polyneuropathy associated with type 2 diabetes mellitus CKD stage 3 due to type 2 diabetes mellitus Diabetic nephropathy associated with type 2 diabetes mellitus shelter (current) use of insulin Proliferative diabetic retinopathy Diabetes type 2, uncontrolled Dyslipidemia Surgical History Hx of lithotripsy History of appendectomy Hx of laser photocoagulation of retina Hx of colonoscopy Family History Father Lung cancer Father No problems noted. Mother Diabetes Social History Household Members: None Housing: Apartment Alcohol intake: never Patient Tobacco Use Status: Former Tobacco user Physical Exam Vital Signs: Last Vital Signs Pulse 75 11/14/24 10:02 BP 132/84 11/14/24 10:02 Pulse Ox 97 11/14/24 10:02 Oxygen Delivery Method Room Air 11/14/24 10:02 BMI result Body Mass Index 34.5 Office Procedures Glucose Monitoring Details Details: See [facility] [address] - Glucose monitoring, continuous-physician I&R Procedure code (CPT) selection complete Results AMB Hemoglobin A1c AMB Hemoglobin A1c 7.4 % Last Edit by HARIKA Robles on 11/14/24 10:24 Results Reviewed Results Reviewed: Laboratory Last Values Glucose (Clinic) 134 mg/dL (60-115) H 11/14/24 10:15 Hgb A1c (Clinic) 7.4 % (4.0-6.0) H 11/14/24 10:23 Laboratory Tests 08/09/24 11:30 Creatinine 1.53 H Estimated GFR 46 Hemoglobin A1c % 7.5 H Assessment & Plan Assessment & Plan (1) Type 2 diabetes mellitus with diabetic neuropathy: Code(s): E11.40 - Type 2 diabetes mellitus with diabetic neuropathy, unspecified Category: Medical Qualifiers: Diabetes mellitus terminal clerk insulin use: with terminal clerk use Qualified Code(s): E11.40 - Type 2 diabetes mellitus with diabetic neuropathy, unspecified; Z79.4 - shelter (current) use of insulin Plan In summary this is a 64-year-old male with suboptimally controlled type 2 diabetes on Tradjenta and basal bolus insulin. I recommended adding a GLP 1, but he declines. We discussed tightening glycemic control following lunch and dinner by adjusting his short-acting insulin regimen. We also discussed decreasing carbohydrates and sugars in his diet. Complications of type 2 diabetes reviewed with the patient. Reviewed treatment of hypoglycemia. Patient declines prescription for glucose gel or tablets. He uses juice or candy. Diabetes medications: Insulin glargine 100 units daily Novolog 8-12 units for snacks, 30-40 units with meals Tradjenta 5 mg Follow up in 3 months. Advised patient to have labs done. I printed the orders since he would like to get them done at the lab at [facility]. Orders: Orders AMB Glucose Monitoring Today E11.9 - Type 2 diabetes mellitus without complications AMB Hemoglobin A1c Today E11.65 - Type 2 diabetes mellitus with hyperglycemia Medications: Changed From insulin aspart U-100 (Novolog FlexPen U-100 Insulin aspart) 25-30 units tid for meals, snack take 10-15 unit subcutaneously use as directed; maximum 110 units per day 30 days 27 mL 0RF To insulin aspart U-100 (Novolog FlexPen U-100 Insulin aspart) 30-40 units with meals three times daily, subcutaneously; maximum 120 units per day 45 mL 5RF 30 days Refilled blood-glucose sensor (FreeStyle Nevaeh 3 Plus Sensor device) Apply 1 new sensor every 15 days as directed to monitor blood glucose continuously. 2 ea 11RF E16.2 - Hypoglycemia, unspecified, R73.03 - Prediabetes insulin glargine U-300 conc 100 units (0.3333 mL) subcut DAILY 29.997 mL 1RF 90 days E11.21 - Type 2 diabetes mellitus with diabetic nephropathy linagliptin (Tradjenta) 5 mg PO DAILY 90 tabs 1RF Patient Instructions: Diabetes medications: insulin glargine 100 units every morning Novolog 8-12 units for snacks, 30-40 with meals Tradjenta 5 mg daily If you experience low blood sugar, treat this by eating a chewable fruit candy like skittles or jelly beans (about 8 pieces), 4 ounces (1/2 cup) of fruit juice (not diet), 1 tablespoon of honey or 4 glucose tablets. If your blood sugar is under 50, take double the amount of one of the above. Recheck your blood sugar in 15 minutes. Medicamentos para la diabetes: Insulina glargina 100 unidades cada ma?jose carlos Novolog 8-12 unidades fernanda refrigerio, 30-40 con las comidas Tradjenta 5 mg al d?a Si experimenta niveles bajos de az?car en la felton, tr?telo con un caramelo masticable de fruta fernanda Skittles o Jelly Beans (aproximadamente 8 piezas), 113 ml (1/2 taza) de jugo de fruta (no light), 1 cucharada de miel o 4 tabletas de glucosa. Si maya nivel de az?car en la felton es inferior a 50, tome el doble de la cantidad de jesus de los medicamentos mencionados. Vuelva a medir maya nivel de az?car en la felton en 15 minutos. Coding Level of Care Code Est Pt Level 4 (01817) Diagnoses Type 2 diabetes mellitus with diabetic neuropathy, with long-term current use of insulin E11.40; Z79.4 Diabetes mellitus terminal clerk insulin use: with terminal clerk use CPT Codes Details - CPT: 82801 - Glucose monitoring, continuous-physician I&R ([id number])
[2024-11-14 10:02] VITALS: BP 132/84; PULSE 75; O2SAT 97; BMI 34.5
[2024-11-14 10:19] LABS: Glucose, Whole Blood 134 mg/dL (60-115)
--- OUTSIDE RECORDS SUMMARY | 2024-11-14 10:51 | XMS_ITS | Clinical Summary ---
Author Organization [facility] Address [address] [place] [address] Phone Care Team Providers Care Speech Language Pathologist Name Role Phone Dayanna Hernandez MD Primary Care Provider [phone] Allergies Active Allergy Reactions Criticality Noted Date [...] disorder 08/06/2022 Atherosclerotic heart diseas e of [place] coronary artery without angina pectoris 08/06/2022 Benign [...] on , worsened from 6.1% on 09/04/21 -[place] [facility] [place] seen [place]04[place] -Current medications: Tresiba 56 units daily, Humalog U-200 10-15 units with snack, 25-30 units with meal, Tradjenta 5 mg daily -Last eye exam: April 2019, Dr. Mazariegos -Last foot exam: 10/31/2018; high-risk, has a gun numberer. -Last microalbumin test: 09/25/20 UACR 1256, albuminuria [...] taking fenofibrate 54 mg daily because his paralegal secretary in prescribed him. We discussed about his [...] latest note -Pt wants to go to [facility] in March because his psoriasis [...] A1C 11/17/2023 024, 11/19/2022, 07/30/2022 Influenza Vaccine (#1) 2024 Hepatitis B Vaccine Aged Out 01/29/2015, 06/19/2014, 01/30/2014 No longer eligible based on patient's age to complete this topic Pneumococcal Vaccine: Peds ( 0 to 5 Years) and At-Risk Patients (6 to 49 Years) Discontinued 12/26/2015 Insurance (A2793) (A2793) Care Teams Speech Language Pathologist Relationship Specialty Start Date End Date Dayanna Hernandez MD PCP - General 04/15/20
--- OUTSIDE RECORDS SUMMARY | 2024-11-14 10:51 | XMS_ITS | Clinical Summary ---
Author Organization [facility] Address [address] [place], [place] [id number] Phone Care Team Providers Care Wastewater Process Engineer Name Role Phone Alison Luu Primary Care Provider [phone] Social History Tobacco Use Types Packs/Day Years Used Date Smoking Tobacco: Never Assessed Education Answer Date Recorded Are you interested in more education? Not on chelsea e 07/31/2022 Are you concerned about learning? Not on file 07/31/2022 No 07/31/2022 No 07/31/2022 Digital Access Answer Date Recorded No 09/01/2022 No 09/01/2022 Reliable internet access at home? Not on file 09/01/2022 Device with a working camera? Not on file Sex and Gender Information Value Date Recorded Sex Assigned at Not on file Legal Sex Male 7:11 AM EDT Gender Identity Not on file Sexual Orientation Not on file Plan of Treatment Not on file Medical Devices Not on file Insurance [facility] ONE CARE MEDICARE REPLACEMENT LOCO [place]VER[place] [id number] [place] [address] MEDICARE REPLACEMENT Care Teams Wastewater Process Engineer Relationship Specialty Start Date End Date Alison Luu PA [address] [place] [phone] [email or web address] PCP - General Litigation Coordinator 01/19/20 Additional Source Comments The information contained in this document represents components of the legal health record. It is not the complete legal health record.[facility]
--- OUTSIDE RECORDS SUMMARY | 2024-11-14 10:51 | XMS_ITS | Encounter Summary ---
Author Organization [employer] Address [address] [facility] [address] [place] [address] Care Team Providers Care Director Of Plant Operations Name Role Phone Dayanna Hernandez MD Primary Care Provider [phone] Encounter Details Date Type Department Care Team (Latest Contact Info) Description 12/19/2018 Abstract [facility] CONVERSIONS Dental, Provider, DDS Social [...] Care Team (Late st Contact Info) Description 12/26/2024 9:15 AM EDT Office Visit [facility] MEDICINE [address] [place] [phone] Dayanna Hernandez MD [address] [place] [address] documented as of this encounter Visit Diagnoses Not on filedocumented in this encounter Care Teams Director Of Plant Operations Relationship Specialty Start Date End Date Dayanna Hernandez MD [address] [place] [phone] PCP - General Family Medicine 10/24/12 documented as of this encounter
== END 2024-11-14 11:04 | disposition home or self-care (01) ==
LOC: HO.ENCR 09:58
PROVIDERS: PCP Family Medicine; Visit Provider Physician Assistant Medical
DX: E11.40 Type 2 diabetes mellitus with diabetic neuropathy, unspecified (principal); Z79.4 Long term (current) use of insulin; E11.65 Type 2 diabetes mellitus with hyperglycemia

== ENCOUNTER → 2024-11-14 09:57 | Outpatient (BNVA) | payer OTHER, SELFPAY | PROVIDERS: PCP Family Medicine; Visit Provider Physician Assistant Medical | DX: E11.65 Type 2 diabetes mellitus with hyperglycemia (principal); E11.40 Type 2 diabetes mellitus with diabetic neuropathy, unspecified; E11.3593 Type 2 diabetes mellitus with proliferative diabetic retinopathy without macular edema, bilateral; E11.21 Type 2 diabetes mellitus with diabetic nephropathy; Z79.4 Long term (current) use of insulin | CPT/HCPCS: 82947; 83036; 99212 ==

== ENCOUNTER 2024-11-16 10:52 | Outpatient (REF) | payer OTHER, SELFPAY ==
--- OUTSIDE RECORDS SUMMARY | 2024-11-16 12:04 | XMS_ITS | Encounter Summary ---
Author Organization [employer] Address [address] [facility] [address] [place] [address] Care Team Providers Care Sap Bw Architect Name Role Phone Dayanna Hernandez MD Primary Care Provider [phone] Encounter Details Date Type Department Care Team (Latest Contact Info) Description 12/19/2018 Abstract [facility] CONVERSIONS Dental, Provider, DDS Social History [...] Description 12/26/2024 9:15 AM EDT Office Visit [facility] [address] [place] [phone] Dayanna Hernandez MD [address] [place] [address] documented as of this encounter Visit Diagnoses Not on filedocumented in this encounter Care Teams Sap Bw Architect Relationship Specialty Start Date End Date Dayanna Hernandez MD [address] [place] [phone] PCP - General Family Medicine 10/24/12 documented as of this encounter
--- OUTSIDE RECORDS SUMMARY | 2024-11-16 12:04 | XMS_ITS | Clinical Summary ---
Author Organization [facility] Address [address] [place], [place] [phone] Phone Care Team Providers Care Micropaleontologist Name Role Phone Alison Luu Primary Care Provider [phone] Social History Tobacco Use Types Packs/Day Years [...] file Medical Devices Not on file Insurance [facility] ONE CARE MEDICARE REPLACEMENT LOCO [place] [id number] [place] [address] MEDICARE REPLACEMENT Care Teams Micropaleontologist Relationship Specialty Start Date End Date Alison Luu PA [address] [place] [phone] [email or web address] PCP - General Activity Aid 01/19/20 Additional Source Comments The information contained in this document represents components of the legal health record. It is not the complete legal health record.[facility]
--- OUTSIDE RECORDS SUMMARY | 2024-11-16 12:04 | XMS_ITS | Clinical Summary ---
Author Organization [facility] Address [address] [place] [address] Phone Care Team Providers Care Body Finisher Name Role Phone Dayanna Hernandez MD Primary [...] disorder 08/06/2022 Atherosclerotic heart diseas e of [place] coronary artery without angina pectoris 08/06/2022 Benign [...] on , worsened from 6.1% on 09/04/21 -Special Systems Technician: [facility] [place], last seen in 07/04/21 -Current medications: Tresiba 56 units daily, Humalog U-200 10-15 units with snack, 25-30 units with meal, Tradjenta 5 mg daily -Last eye exam: April 2019, Dr. Mazariegos -Last foot exam: 10/31/2018; high-risk, has a maintenance helper. -Last microalbumin test: 09/25/20 UACR 1256, albuminuria [...] taking fenofibrate 54 mg daily because his marine equipment preservation inspector in prescribed him. We discussed about his [...] latest note -Pt wants to go to [facility] in March because his psoriasis improves. [...] Discontinued 12/26/2015 Insurance (A2793) ([id number]) Care Teams Body Finisher Relationship Specialty Start Date End Date Dayanna Hernandez MD PCP - General 04/15/20
[2024-11-16 13:12] LABS: Appearance Urine Clear; Glucose Urine UA 100 mg/dL (Negative); PH 5.5 (5.0-9.0); Specific Gravity - Urine 1.020 (1.005-1.025); UMIC TRIGGER UA YES
[2024-11-16 13:42] LABS: Hematocrit 40.4 % (42.0-52.0); Hemoglobin 13.5 g/dl (14.0-18.0); Mean Corpuscular HGB Conc 33.4 g/dl (31.0-36.0); Mean Corpuscular Hemoglobin 31.9 pg (27.0-33.0); Mean Corpuscular Volume 95.5 fL (80.0-98.0); NRBC Abs Auto 0.000 X10*3/uL (0.0-0.012); NRBC Pct Auto 0.0 /100WBC (0.0-0.2); Platelet Count 296 X10*3/uL (160-400); Red Blood Count 4.23 X10*6/uL (4.60-5.80); White Blood Count 6.2 X10*3/uL (4.8-10.8)
[2024-11-16 13:57] LABS: Cholesterol 138 mg/dL (<200); HDL Cholesterol 35 mg/dL (>40); Hemoglobin A1C 192.6792 umol/L; Total Hemoglobin (HGBA1C) 3589.2316 umol/L; Triglycerides 155 mg/dL (<150)
[2024-11-16 13:59] LABS: Alanine Aminotransferase 16 U/L (0-40); Aspartate Amino Transferase 25 U/L (5-37); Cholesterol 140 mg/dL (<200); Estimated Glomerular Filt Rate 37; HDL Cholesterol 36 mg/dL (>40); Triglycerides 159 mg/dL (<150)
[2024-11-16 14:25] LABS: Reflex LDLD? No
[2024-11-16 14:50] LABS: Microalbum/Creatinine Ratio Ur 1228.2 ug/mg cr (<30)
[2024-11-16 15:10] LABS: Total Protein Urine Random 557 mg/dL (<12)
== END 2024-11-16 10:53 | disposition home or self-care (01) ==
LOC: HO.HHCL 10:52
PROVIDERS: Internal Medicine Hypertension Specialist; PCP Family Medicine; Visit Provider Physician Assistant Medical
DX: I12.9 Hypertensive chronic kidney disease with stage 1 through stage 4 chronic kidney disease, or unspecified chronic kidney disease (principal); E11.22 Type 2 diabetes mellitus with diabetic chronic kidney disease; N18.30 Chronic kidney disease, stage 3 unspecified; E11.65 Type 2 diabetes mellitus with hyperglycemia; E11.42 Type 2 diabetes mellitus with diabetic polyneuropathy; E78.5 Hyperlipidemia, unspecified; R79.89 Other specified abnormal findings of blood chemistry
CPT/HCPCS: 36415; 80061; 81001; 81003; 82043; 82565; 82570; 83036; 84156; 84450; 84460; 85027

== ENCOUNTER 2024-12-26 11:01 | Outpatient (AMB) | payer OTHER, SELFPAY ==
[2024-12-26 10:58] VITALS: BP 110/64; PULSE 79; O2SAT 97; BMI 35.0
--- NOTE | 2024-12-26 10:58 | HO.NEPHOV_ITS ---
Vital Signs 12/26/24 10:58 Height 5 ft 6 in Weight 217 lb BMI 35.0 BP 110/64 Blood Pressure Location Lt brachial Position Sitting Pulse 79 Pulse Source Pulse Oximeter Pulse Oximetry (%) 97 Oxygen Delivery Method Room Air Intake Visit Reasons: 4 MO FU-# Disconnected Co Supervisor Grounds And Landscape Required: Yes Co Supervisor Grounds And Landscape Name: [id number] Rodolfo Accompanied by: Self / Same As Patient Allergies Penicillins (PENICILLINS) Allergy (Unknown, Verified 12/26/24 11:01) UNKNOWN-CHILDHOOD REACTION ARB-Angiotensin Receptor Antagonist Adverse Reaction (Mild, Verified 12/26/24 11:01) Cough SEAFOOD Allergy (Severe, Uncoded 11/14/24 10:01) DIARRHEA,GI PAIN, NAUSEA Fish Allergy (Mild, Uncoded 11/14/24 10:01) Gastrointestinal Upset Medication List - Last Reconciled 12/26/24 by Ramesh Hamm MD acetaminophen (Tylenol) 325 mg PO QID PRN apremilast (Otezla) 30 mg PO BID aspirin 81 mg PO DAILY blood sugar diagnostic (FreeStyle Lite Strips) 4 times a day blood-glucose meter (FreeStyle Lite Meter kit) 4 times a day blood-glucose sensor (FreeStyle Nevaeh 3 Plus Sensor device) Apply 1 new sensor every 15 days as directed to monitor blood glucose continuously. blood-glucose,renovator machine operator,cont (FreeStyle Nevaeh 3 [place]) Use daily to monitor blood glucose levels continuously. cetirizine 10 mg PO QAM cholecalciferol (vitamin D3) 50 mcg PO DAILY 90 days clobetasol 0.05% 1 appl topical BID clonazepam 0.5 mg PO DAILY PRN CPAP (CPAP Machine/Device) As directed dorzolamide-timolol 22.3-6.8 mg/mL 1 drp ophthalmic (eye) BID fenofibrate 54 mg PO DAILY 90 days fluoxetine 40 mg PO QAM fluticasone propionate 50 mcg/actuation 50 mcg intranasal DAILY FreeStyle Lancets (lancets) 4 times a day NS hydrocortisone 2.5% 1 appl topical DAILY insulin aspart U-100 (Novolog FlexPen U-100 Insulin aspart) 30-40 units with meals three times daily, subcutaneously; maximum 120 units per day 30 days insulin glargine U-300 conc 100 units (0.3333 mL) subcut DAILY 90 days linagliptin (Tradjenta) 5 mg PO DAILY melatonin 5 mg PO BEDTIME pen needle, diabetic 5 times a day to inject insulin quetiapine 12.5 - 25 mg PO BEDTIME PRN roflumilast 0.3% (Zoryve) appl topical rosuvastatin 40 mg PO DAILY [sock pull As directed] [telescoping foot mirror As directed] trazodone 100 mg BEDTIME HPI Comments Details: . Yehuda is a pleasant 64-year-old man with history of longstanding diabetes mellitus hypertension with CKD. Serum creatinine has been fluctuating between 1.31.5 mg/dL. In 06/23/2023 serum creatinine was 1.5 while this was checked in [facility]. She has been referred for evaluated chronic disease and proteinuria. In the past he had the urine protein creatinine ratio was more than 1 g. He has a being foamy urine. He denies any edema. No shortness of breath. Upon reviewing the records he has not on any LISSA inhibitors or ARB is. He can not recall trying any of these agents. He is on amlodipine 5 mg a day. All medications were reviewed 01/25/2024. He has stopped taking losartan due to abdominal discomfort. 08/10/24- Overall feeling ok. Does not want to take Losartan 12/26/24 History of Present Illness - The patient is a 64-year-old male presenting for follow-up regarding nephrolithiasis and diabetes management. - Diabetes mellitus: HbA1c is 7.3%. - Hypertension: Blood pressure is 110/64 mmHg without medication. - Nephrolithiasis: Recent kidney stone passage with testicular pain and nausea. - Proteinuria: Related to diabetes, requires glycemic control. 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 Mother Diabetes Social History Household Members: None Housing: Apartment Alcohol intake: never Patient Tobacco Use Status: Former Tobacco user Physical Exam Vital Signs: Last Vital Signs Pulse 79 12/26/24 10:58 BP 110/64 12/26/24 10:58 Pulse Ox 97 12/26/24 10:58 Oxygen Delivery Method Room Air 12/26/24 10:58 BMI result Body Mass Index 35.0 Const General: comfortable Nutritional Appearance: well nourished Orientation/consciousness: patient oriented x3 HEENT Head: No normal to inspection Mouth: moist mucous membranes Neck Neck: Yes supple and Yes no JVD Resp Auscultation: clear to auscultation bilaterally and no rales Cardio Jugular venous distension: no JVD Palpation: no palpable S3 and no palpable S4 Heart sounds: no rubs GI Palpation (GI): Soft to palpation and nontender Percussion: No Fluid wave present General: Yes no CVA tenderness Back/Spine/Pelvis Back: no CVA tenderness Skin General skin exam: no rashes or lesions noted Neuro General: patient oriented x3 Extrem General: Yes no pedal edema and No clubbing Results Reviewed Nephrology Results: Hgb, (14.0-18.0) 13.5 g/dl L 11/16/24 WBC, (4.8-10.8) 6.2 X10*3/uL 11/16/24 Plt Count, (160-400) 296 X10*3/uL 11/16/24 Creatinine, (0.5-1.4) 1.86 mg/dL H 11/16/24 Urine Protein, (Neg-Trace) 300 (3+) mg/dL H 11/16/24 Urine Creatinine 162.83 mg/dL 11/16/24 Renal US 10/12/23 Assessment & Plan Assessment & Plan (1) CKD stage 3 due to type 2 diabetes mellitus: Code(s): E11.22 - Type 2 diabetes mellitus with diabetic chronic kidney disease; N18.30 - Chronic kidney disease, stage 3 unspecified Category: Medical (2) DM2 (diabetes mellitus, type 2): Code(s): E11.9 - Type 2 diabetes mellitus without complications Category: Medical (3) Hypertension: Code(s): I10 - Essential (primary) hypertension Category: Medical (4) Vitamin D deficiency: Code(s): E55.9 - Vitamin D deficiency, unspecified Category: Medical (5) Proteinuria: Code(s): R80.9 - Proteinuria, unspecified Category: Medical (6) Diabetes type 2, uncontrolled: Code(s): E11.65 - Type 2 diabetes mellitus with hyperglycemia Category: Medical Plan . 64-year-old man with a history of longstanding diabetes mellitus hypertension obesity with proteinuria. Proteinuria is most likely due to hypertensive diabetic kidney disease. Proteinuria could be due to obesity as well. Underlying FSGS is a possibility as well. He has stage III CKD most likely due to diabetes diabetic kidney disease. Other nondiabetic causes seem unlikely nevertheless we will rule that out. Serology ordered Protein creatinine ratio remains unchanged. Renal ultrasonogram unremarkable. He was on losartan but he has stopped taking it since he was having some abdominal discomfort. Other option would be to add spironolactone. However the blood pressure rather low therefore I will hold off on this. He will certainly benefit from SGLT2 inhibitors. He will benefit from weight loss. He should stay on a low-salt diet which I have discussed. Blood sugar needs to be better controlled recent A1c was 9.3%. Encouraged him to continue follow up with Dr. Hanley/endocrinology. 12/26/24 1. CKD In a setting of DM and proteinuria Cr up to 1.8 Urine Pro: Cr 1225 Unable to tolerated Losartan Check renal sonogram Serologies reordered 2. Hypertension - Monitor blood pressure, stable without medication. 3. Nephrolithiasis and h/o Renal cyst - Ultrasound of kidneys and bladder ordered. - Referral to urologist for evaluation. 4. . Diabetes Mellitus - Maintain blood sugar control. - Endocrinology follow-up on February 13. Patient Instructions - Maintain blood sugar control to prevent complications. - Attend endocrinology appointment on February 13. - Monitor blood pressure regularly. - Complete ultrasound of kidneys and bladder as scheduled. - Follow up with urologist for further evaluation. Orders: Orders Basic Metabolic Panel 3 Months E11.22 - Type 2 diabetes mellitus with diabetic chronic kidney disease, N18.30 - Chronic kidney disease, stage 3 unspecified Total Protein Urine Random 3 Months E11.22 - Type 2 diabetes mellitus with diabetic chronic kidney disease, N18.30 - Chronic kidney disease, stage 3 unspecified Basic Metabolic Panel Today E11.22 - Type 2 diabetes mellitus with diabetic chronic kidney disease, N18.30 - Chronic kidney disease, stage 3 unspecified Complement C4 Today E11.22 - Type 2 diabetes mellitus with diabetic chronic kidney disease, N18.30 - Chronic kidney disease, stage 3 unspecified Creatinine Urine 3 Months E11.22 - Type 2 diabetes mellitus with diabetic chronic kidney disease, N18.30 - Chronic kidney disease, stage 3 unspecified UA and rflx microscopic 3 Months E11.22 - Type 2 diabetes mellitus with diabetic chronic kidney disease, N18.30 - Chronic kidney disease, stage 3 unspecified AQUILINO Reflex Titer and Pattern Today E11.22 - Type 2 diabetes mellitus with diabetic chronic kidney disease, N18.30 - Chronic kidney disease, stage 3 unspecified Complement C3 Today E11.22 - Type 2 diabetes mellitus with diabetic chronic kidney disease, N18.30 - Chronic kidney disease, stage 3 unspecified Protein Electrophoresis, Serum Today E11.22 - Type 2 diabetes mellitus with diabetic chronic kidney disease, N18.30 - Chronic kidney disease, stage 3 unspecified Neutrophil Cytoplasma Ab Today E11.22 - Type 2 diabetes mellitus with diabetic chronic kidney disease, N18.30 - Chronic kidney disease, stage 3 unspecified US renal BI Today E11.22 - Type 2 diabetes mellitus with diabetic chronic kidney disease, N18.30 - Chronic kidney disease, stage 3 unspecified Referrals Urology Referral N20.0 - Calculus of kidney, N28.1 - Cyst of kidney, acquired Coding Level of Care Code Est Pt Level 4 (27049) Diagnoses CKD stage 3 due to type 2 diabetes mellitus E11.22; N18.30 Type 2 diabetes mellitus with diabetic polyneuropathy, with long-term current use of insulin E11.9 Hypertension I10 Vitamin D deficiency E55.9 Proteinuria R80.9 Diabetes type 2, uncontrolled E11.65
--- OUTSIDE RECORDS SUMMARY | 2024-12-26 13:40 | XMS_ITS | Encounter Summary ---
Author Organization [facility] Address [address] [facility] [address] [place] [address] Phone Care Team Providers Care Rheumatologist Name Role Phone Dayanna Hernandez MD Primary Care Provider [phone] Encounter Details Date Type Department Care Team (Late st Contact Info) Description 11/01/2023 Office Communication [facility] [address] [facility] [address] [place] [phone] Haley Antoine ARNP [address] [facility] [address] [place] [address] Social History Tobacco Use Types [...] on filedocumented in this encounter Care Teams Rheumatologist Relationship Specialty Start Date End Date Dayanna Hernandez MD PCP - General 04/15/20 documented as of this encounter
--- OUTSIDE RECORDS SUMMARY | 2024-12-26 13:40 | XMS_ITS | Clinical Summary ---
Author Organization [facility] Address [address] [place] [address] Phone Care Team Providers Care Nursing Manager Name Role Phone Dayanna Hernandez MD Primary Care Provider [phone] Allergies Active Allergy Reactions Criticality Noted Date [...] disorder 08/06/2022 Atherosclerotic heart diseas e of [place] coronary artery without angina pectoris 08/06/2022 Benign [...] on , worsened from 6.1% on 09/04/21 -Ict Sales Assistant: [facility] last seen in 07/04/21 -Current medications: Tresiba 56 units daily, Humalog U-200 10-15 units with snack, 25-30 units with meal, Tradjenta 5 mg daily -Last eye exam: April 2019, Dr. 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 -Last microalbumin test: 09/25/20 UACR 1256, [...] taking fenofibrate 54 mg daily because his manager video games in prescribed him. We discussed about his [...] latest note -Pt wants to go to [facility] in March because his psoriasis improves. [...] 12/26/2015 Insurance ([id number]) ([id number]) Care Teams Nursing Manager Relationship Specialty Start Date End Date Dayanna Hernandez MD PCP - General 04/15/20
--- OUTSIDE RECORDS SUMMARY | 2024-12-26 13:40 | XMS_ITS | Encounter Summary ---
Author Organization [employer] Address [address] [facility] [address] [place] [address] Care Team Providers Care Boom Truck Driver Name Role Phone Dayanna Hernandez MD Primary Care Provider [phone] Encounter Details Date Type Department Care Team ([facility] st Contact Info) Description 08/19/2023 Orders Only [facility] [address] [place], [place] [phone] Dayanna Hernandez MD [address] [place], [place] [phone] Social History Tobacco Use Types Packs/Day Years [...] documented as of this encounter Care Teams Boom Truck Driver Relationship Specialty Start Date End Date Dayanna Hernandez MD [address] [place] [address] PCP - General Family Medicine 10/24/12 documented as of this encounter
--- OUTSIDE RECORDS SUMMARY | 2024-12-26 13:40 | XMS_ITS | Encounter Summary ---
Author Organization [facility] Address [address] [place] [address] Phone Care Team Providers Care Lead Applier Name Role Phone Alison Luu Primary Care Provider [phone] Encounter Details Date Type Department Care Team (Late st Contact Info) Description 01/19/2020 Ancillary Orders [facility] [address] [place] [address] Alison Luu PA [address] [place] [address] [email or web address] Social History Tobacco Use Types Packs/Day Years Used Date Smoking Tobacco: Never Assessed Sex and Gender Information Value Date Recorded Sex Assigned at Not on file Legal Sex Male 7:11 AM EDT Gender Identity Not on file Sexual Orientation Not on file documented as of this encounter Plan of Treatment Not on file documented as of this encounter Results * Holter Monitor 48 Hours (01/19/2020 12:18 PM EDT) Anatomical Region Laterality Modality Heart Other Narrative 01/19/2020 12:42 PM EDT Holter monitor report Indication palpitations Findings: The underlying rhythm is a sinus rhythm with average heart rate 88 bpm, minimal heart rate 62 bpm, maximal heart rate 133 bpm. There are frequent PVCs occurring 1% of total beats these are all isolated PVC PVCs with very rare ventricular bigeminy. There are very rare premature atrial contractions. Patient events at times correlated with isolated premature atrial contractions. Some patient events however did not correlate with any abnormalities. Conclusion: Frequent PVCs occurring 1% of total beats. Procedure Note Benedicto Herman MD - 01/19/2020 Holter monitor report Indication palpitations Findings: The underlying rhythm is a sinus rhythm with average heart rate 88 bpm,minimal heart rate 62 bpm, maximal heart rate 133 bpm. There are frequent PVCs occurring 1% of total beats these are all isolatedPVC PVCs with very rare ventricular bigeminy. There are very rare premature atrial contractions. Patient events at times correlated with isolated premature atrialcontractions. Some patient events however did not correlate with anyabnormalities. Conclusion: Frequent PVCs occurring 1% of total beats. Alison ADAN [facility] ORDERA BLES Final Result documented in this encounter Visit Diagnoses Diagnosis Palpitations Palpitations documented in this encounter Care Teams Lead Applier Relationship Specialty Start Date End Date Alison Luu PA [address] [place] [phone] [email or web address] PCP - General Post Production Assistant 01/19/20 documented as of this encounter Additional Source Comments The information contained in this document represents components of the legal health record. It is not the complete legal health record.[facility]
--- OUTSIDE RECORDS SUMMARY | 2024-12-26 13:40 | XMS_ITS | Encounter Summary ---
Author Organization [employer] Address [address] [facility] [address] [place] [address] Care Team Providers Care Event Planning Manager Name Role Phone Dayanna Hernandez MD Primary Care Provider [phone] Encounter Details Date Type Department Care Team ([facility] st Contact Info) Description 08/24/2022 Orders Only [facility] [address] [place] [address] Dayanna Hernandez MD [address] [place] [address] Type 2 diabetes 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, with long-term current use of insulin ([facility]) (Primary Dx) Social History Tobacco Use Types [...] disease, with long-term current use of insulin ([facility]) BASIC METABOLIC PANEL Routine 12/18/2022 12:28 PM EDT Type 2 diabetes 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, with long-term current use of insulin ([facility]) ALBUMIN, RANDOM URINE W/CREATININE Routine 12/18/2022 12:09 PM EDT Type 2 diabetes 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, with long-term current use of insulin ([facility]) GLUCOSE, WHOLE BLOOD Routine 12/18/2022 11:24 AM EDT Type 2 diabetes 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, with long-term current use of insulin ([facility]) documented in this encounter Results * (ABNORMAL) Lipid Panel, Standard (12/18/2022 12:28 PM EDT) Triglycerides 308(H) <150 mg/dL [facility] Comment:Desirable Triglyceri de: less than 150 mg/dLBorderline High Triglyceride 150-199 mg/dLHigh Triglyceride: 200-499 mg/dLVery High Triglyceride: greater than or equal to 5OO mg/dL Cholesterol 251(H) <200 mg/dL [facility] Comment:Desirable Cholestero l: less than 200 mg/dLBorderline High Cholesterol: 200-239 mg/dLHigh Cholesterol: greater than 239 mg/dL LDL Cholesterol Calculated 152(H) <100 mg/dL [facility] Comment:Desirable LDL: less than 100 mg/dLNear Optimal/Above Optimal LDL: 110- 129 mg/dLBorderline High LDL: 130-159 mg/dLHigh LDL: 160-189 mg/dLVery High LDL: greater than or equal to 190 mg/dL HDL Cholesterol 38(L) >40 mg/dL [facility] Comment:Desirable HDL: great er than 40 mg/dL Note: This HDL assay may give artificially low results in patients with liver disease. 12/18/2022 12:2 8 PM EDT 12/18/2022 12:32 PM EDT Generic External Data Provider LAB BLOOD ORDERAB LES Final Result Performing Organization Address [facility] Co de Phone Number [facility] [address] [place] [address] [phone] * (ABNORMAL) Basic Metabolic Panel (12/18/2022 12:28 PM EDT) Sodium 137 135 - 145 mmol/L [facility] Potassium 4.0 3.3 - 5.1 mmol/L [facility] Comment:Slight Hemolysis Chloride 104 96 - 108 mmol/L [facility] Carbon Dioxide 24 22 - 29 mmol/L [facility] Anion Gap 13 12 - 20 [facility] Urea Nitrogen (BUN) 16 9 - 16 mg/dL [facility] Creatinine, Serum 1.40 0.5 - 1.4 mg/dL [facility] Estimated Glomerular Filt Rate 52 [facility] Comment:NOTE: For -Am erican individuals, multiply the result by 1.210.Chronic Kidney Disease: Estimated GFR < 60 mL/min/[id number] Kidney Disease: Estimated GFR < 15 mL/min/1.73m2 Glucose 137(H) 60 - 115 mg/dL [facility] Calcium 9.4 8.4 - 10.2 mg/dL [facility] 12/18/2022 12:2 8 PM EDT 12/18/2022 12:32 PM EDT [facility] External Provider LAB BLO OD ORDERABLES Final Result Performing Organization Address [facility] Co de Phone Number [facility] [address] [place] [address] [phone] * (ABNORMAL) Albumin, Random Urine W/Creatinine (12/18/2022 12:09 PM EDT) Creatinine, Urine 158.87 mg/dL [facility] Microalbumin Urine 1,684.0 mg/L H [facility] Microalbum Creatinine Ratio Ur 1,059.9(H ) <30 ug/mg cr [facility] Comment:Albumin/Creatinine R atio Reference Ranges: Normal: < 30 ug/mg creatinine Microalbuminuria: 30 - 300 ug/mg creatinineClinical Albuminuria: > 300 ug/mg creatinine 12/18/2022 12:0 9 PM EDT 12/18/2022 1:59 PM EDT [facility] External Provider LAB URI NE ORDERABLES Final Result Performing Organization Address [facility] Co de Phone Number [facility] [address] [place] [address] [phone] * (ABNORMAL) Glucose, Whole Blood (12/18/2022 11:24 AM EDT) Glucose, Whole Blood 155(H) 60 - 115 mg/dL [facility] Comment:METER #: [id number] Testing performed in the Endocrinology Department [address] , [address], [facility]. 12/18/2022 11:2 4 AM EDT 12/18/2022 11:30 AM EDT [facility] External Provider LAB BLO OD ORDERABLES Final Result Performing Organization Address [facility] Co de Phone Number [facility] [address] [place] [address] [phone] documented in this encounter Visit Diagnoses Diagnosis Type 2 diabetes 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, with long-term current use of insulin ([facility])- Primary documented in this encounter Additional Health Concerns Assessment Noted Time PHQ-9 Depression Total Score: 8 07/31/19 23 10:10 AM EDT documented as of this encounter Care Teams Event Planning Manager Relationship Specialty Start Date End Date Dayanna Hernandez MD [address] [place] [id number] PCP - General Family Medicine 10/24/12 documented as of this encounter
--- OUTSIDE RECORDS SUMMARY | 2024-12-26 13:40 | XMS_ITS | Clinical Summary ---
Author Organization [facility] Address [address] [place], [place] [phone] Phone Care Team Providers Care Ingot Supervisor Name Role Phone Alison Luu Primary Care Provider [phone] Social History Tobacco Use Types Packs/Day Years [...] file Medical Devices Not on file Insurance [facility] [employer] MEDICARE REPLACEMENT [employer] [place] [id number] [place] [address] MEDICARE REPLACEMENT Care Teams Ingot Supervisor Relationship Specialty Start Date End Date Alison Luu PA [address] [place] [phone] [email or web address] PCP - General Pile Trimmer 01/19/20 Additional Source Comments The information contained in this document represents components of the legal health record. It is not the complete legal health record.[facility]
--- OUTSIDE RECORDS SUMMARY | 2024-12-26 13:40 | XMS_ITS | Encounter Summary ---
Author Organization [employer] Address [address] [facility] [address] [place] [address] Care Team Providers Care Speech Correction Assistant Name Role Phone Dayanna Hernandez MD Primary Care Provider [phone] Encounter Details Date Type Department Care Team [...] on filedocumented in this encounter Care Teams Speech Correction Assistant Relationship Specialty Start Date End Date Dyaanna Hernandez MD [address] [place] [address] PCP - General Family Medicine 10/24/12 documented as of this encounter
--- OUTSIDE RECORDS SUMMARY | 2024-12-26 13:40 | XMS_ITS | Clinical Summary ---
Author Organization [employer] Address [address] [facility] [address] [place] [address] Care Team Providers Care Kitchen Lead Name Role Phone Dayanna Hernandez MD Primary Care Provider [phone] Allergies Active Allergy Reactions Criticality Noted Date Comments Fish-Derived Products 03/06/2019 Lisinopril Cough 10/05/2012 Other reaction(s): Other (see comments) Penicillin G 01/29/2012 Penicillin V Rash Low 06/05/2020 Shellfish Allergy 08/06/2022 Medications Otezla 30 MG tablet 12/30/19 22 Active Aspirin Low Dose 81 MG EC tablet 12/25/19 22 Active cholecalciferol (Vitamin D-3) 50 MCG (1999) capsule 06/28/19 23 Active clobetasol (Temovate) 0.05 % ointment 06/28/19 23 Active Clobetasol Propionate 0.05 % shampoo 06/28/19 23 Active clonazePAM (KlonoPIN) 0.5 MG tablet 07/14/19 23 Active dorzolamide-john olol (Cosopt) 22.3-6.8 MG/ML ophthalmic solution 06/28/19 23 Active hydrocortisone 2.5 % ointment 06/28/19 23 Active BD Pen Needle Lisbet 2nd Gen 32G X 4 MM misc 12/25/19 22 Active Melatonin 5 MG capsule 07/14/19 23 Active Rocklatan 0.02-0.005 % solution 06/28/19 23 Active QUEtiapine (SEROquel) 25 MG tablet 07/14/19 23 Active fenofibrate (Tricor) 54 MG tablet Take 1 tablet by mouth once daily 90 tablet 3 07/31/19 23 Active Blood Glucose Monitoring Suppl (FreeStyle Lite) w/Device kitIndications: Type 2 diabetes 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, with long-term current use of insulin ([facility]) 1 each before breakfast, before lunch, and before evening meal. 1 kit 07/31/19 23 Active cetirizine (ZyrTEC) 5 MG tabletIndicatio ns:Allergic rhinitis, unspecified seasonality, unspecified trigger Take 2 tablets (10 mg) by mouth in the morning. 60 tablet 11 07/31/19 23 Active amLODIPine (Norvasc) 5 MG tablet TOME ROBIN TABLETA TODOS LOS D 30 tablet 08/26/19 23 Active ketoconazole (NIZOral) 2 % cream Apply topically 2 times daily. 60 g 3 11/20/19 23 Active NovoLOG FLEXPEN 100 UNIT/ML pen Administer 20-25 units with each meal 24 mL 11 11/20/19 23 Active acetaZOLAMIDE (Diamox) 500 MG 12 hr capsule 11/14/19 23 Active prednisoLONE acetate (Pred-Forte) 1 % ophthalmic suspension 08/17/19 23 Active meclizine (Antivert) 25 MG tablet TOME ROBIN TABLETA AL ROXANA CUANDO SEA NECESARIO 90 tablet 12/10/19 23 Active Cyanocobalamin (B-12) 1000 MCG capsule TOME ROBIN CAPSULA TODOS LOS ALLEN 90 capsule 3 01/06/20 23 Active fluticasone (Flonase) 50 MCG/ACT nasal sprayIndication s:Allergic rhinitis, unspecified seasonality, unspecified trigger USE 1 SPRAY INTO EACH NOSTRIL ONCE DAILY 48 mL 1 04/22/19 24 Active FREESTYLE LITE test strip USE TO TEST 4 TIMES A DAY 200 each 11 08/17/19 24 Active insulin glargine (Toujeji Solostar, 1 unit dial,) 300 UNIT/ML injection Administer 60 units daily. Adjust as directed. 7.5 mL 11 08/19/19 24 Active lidocaine (Lidoderm) 5 % patchIndication s:Acute right-sided low back pain without sciatica,Acute pain of left knee Apply 1 patch topically Once per day. Remove & discard patch within 12 hours or as directed by MD. 30 patch 1 08/31/19 25 Active FLUoxetine (PROzac) 20 MG capsule Take 1 capsule (20 mg) by mouth Once per day. 180 capsule 09/13/19 25 Active ciclopirox (Loprox) 0.77 % cream Apply topically 2 times daily. 90 g 1 09/13/19 25 Active Diclofenac Sodium 1 % gelIndications: Acute right-sided low back pain without sciatica,Acute pain of left knee APPLY 1 G TOPICALLY IN THE MORNING, AT NOON AND AT BEDTIME NEEDED FOR PAIN 100 g 10/28/19 25 Active Tradjenta 5 MG tablet TOME 1 TABLETA POR VIA ORAL TODOS LOS ALLEN 90 tablet 3 11/08/19 25 Active FLUoxetine (PROzac) 10 MG capsule TAKE 1 CAPSULE (10 MG) BY MOUTH ONCE PER DAY. 90 capsule 12/12/19 25 Active traZODone (Desyrel) 100 MG tablet TAKE 1 TABLET BY MOUTH AT BEDTIME 90 tablet 12/12/19 25 Active atropine 1 % ophthalmic solution INSTILL 1 DROP IN LEFT EYE ONLY ONCE A DAY 11/07/19 25 Active brimonidine (AlphaGAN) 0.2 % ophthalmic solution instill 1 drop into left eye twice a day Active calcipotriene (Dovonex) 0.005 % cream APPLY TO AFFECTED AREAS OF PSORIASIS TWICE DAILY NEEDED. 11/07/19 25 Active Continuous Glucose Corporate Trust Officer (FreeStyle Nevaeh 3 Felton) device USE DAILY TO MONITOR BLOOD GLUCOSE LEVELS CONTINUOUSLY. 09/09/19 25 Active Continuous Glucose Sensor (FreeStyle Nevaeh 3 Plus Sensor) [facility] APPLY 1 NEW SENSOR EVERY 15 DAYS DIRECTED TO MONITOR BLOOD GLUCOSE CONTINUOUSLY. 11/15/19 25 Active polyvinyl alcohol (Artificial Tears) 1.4 % ophthalmic solution INSTILL 1 DROP INTO LEFT EYE TWICE DAILY Active rosuvastatin (Crestor) 40 MG tablet TOME 1 TABLETA POR V A ORAL TODOS LOS D 11/05/19 25 Active clobetasol (Temovate) 0.05 % external solution APPLY TO SCALP TWICE DAILY FOR 2 WEEKS BREAK FOR 1 WEEK AND REPEAT NEEDED Active FLUoxetine (PROzac) 10 MG capsule Take 1 capsule (10 mg) by mouth Once per day. 90 capsule 09/13/19 25 025 Discontinued traZODone (Desyrel) 100 MG tablet Take 1 tablet (100 mg) by mouth at bedtime. 90 tablet 09/13/19 25 025 Discontinued Active Problems Problem Noted Date Diagnosed Date Urinary incontinence 08/17/2023 Assessment & Plan (09/12/2024 9:08 AM EDT): - recommended to follow-up with urologist, will write script for incontinence supplies Assessment & Plan (08/17/2023 12:37 PM EDT): - recommended to follow-up with urologist, will write script for incontinence supplies Chronic back pain 08/17/2023 Assessment & Plan (09/12/2024 9:11 AM EDT): - diagnosed with herniated disc, patient reports radiculopathy and difficulty walking - patient requests scooter - patient has legal blindness - will refer to PT for safe and appropriate equipment for him Assessment & Plan (08/17/2023 12:39 PM EDT): - diagnosed with herniated disc, patient reports radiculopathy and difficulty walking - patient requests scooter - patient has legal blindness - will refer to PT for safe and appropriate equipment for him JEAN MARIE (obstructive sleep apnea) 11/27/2022 Assessment & Plan (09/12/2024 9:11 AM EDT): -Seen by solar tech on 03/11/20 for JEAN MARIE -Pt had several sleep studies, most recently in 2019, showing JEAN MARIE -Continue auto PAP pressure 6-14 cm H2O -Will order a new autoPAP machine; may need a new sleep study -Most recent echo did not show pulmonary HTN -Tightening Machine Operator recommended him to use azelastine for rhinitis. -Refer back to solar tech Dr. Sanchez Assessment & Plan (08/17/2023 11:35 AM EDT): -Seen by solar tech on 03/11/20 for JEAN MARIE -Pt had several sleep studies, most recently in 2019, showing JEAN MARIE -Continue auto PAP pressure 6-14 cm H2O -Will order a new autoPAP machine; may need a new sleep study -Most recent echo did not show pulmonary HTN -Tightening Machine Operator recommended him to use azelastine for rhinitis. -Refer back to solar tech Dr. Sanchez Assessment & Plan (11/27/2022 4:34 PM EDT): -Seen by solar tech on 03/11/20 for JEAN MARIE -Pt had several sleep studies, most recently in 2019, showing JEAN MARIE -Continue auto PAP pressure 6-14 cm H2O -Will order a new autoPAP machine; may need a new sleep study -Most recent echo did not show pulmonary HTN -Tightening Machine Operator recommended him to use azelastine for rhinitis. -Refer back to solar tech Dr. Sanchez Intertrigo 10/23/2022 Assessment & Plan (11/27/2022 4:24 PM EDT): - s/p clotrimazole BID x 28 days in October 2022 - responding well to nystatin pwd TID; refill - follow up with director of special events Assessment & Plan (10/23/2022 12:46 PM EDT): [...] symptoms -pt to f up w his director of special events in 2 months per pt and has apt w PCP in 4 weeks scheduled already -can monitor rash then Vertigo 07/30/2022 Assessment & Plan (09/12/2024 9:06 AM EDT): Multifactorial. -Dx BPPV. -h/o Stroke. -Last Carotid US in 2018, showed no significant stenosis. -Referred to neurologist in September 2021; uncertain if he kept appt -Advised to call the office to schedule appt. Assessment & Plan (11/27/2022 4:24 PM EDT): [...] appt. Allergic rhinitis 07/30/2022 Assessment & Plan (09/12/2024 9:05 AM EDT): -continue cetrizine -continue montelukast -continue fluticasone nasal Assessment & Plan (07/31/2022 5:52 AM EDT): [...] chronic kidney disease 09/16/2015 Assessment & Plan (09/26/2024 1:29 PM EDT): -Planning Management It Specialist: Dr. Velasquez, last seen in October 2023 -Diabetic and vascular etiology, proteinuria -07/31/22 BUN 20; Scr 1.53; eGFR 53; K 4.1; Bicarb 28, UACR 1,147 -Baseline Cr 1.3-1.5 -In a setting of recurrent nephrolithiasis -Stable -Avoid nephrotoxic drugs. -Treatment Hx: Pt reported throat itching with ARB, and cough with ACEI. Assessment & Plan (08/17/2023 11:36 AM EDT): -Planning Management It Specialist: Dr. Velasquez, last seen on 09/02/22 -Diabetic and vascular etiology, proteinuria -07/31/22 BUN 20; Scr 1.53; eGFR 53; K 4.1; Bicarb 28, UACR 1,147 -Baseline Cr 1.3-1.5 -In a setting of recurrent nephrolithiasis -Stable -Avoid nephrotoxic drugs. -Treatment Hx: Pt reported throat itching with ARB, and cough with ACEI. Assessment & Plan (11/19/2022 5:11 AM EDT): -Planning Management It Specialist: Dr. Velasquez, last seen on 09/02/22 -Diabetic and vascular etiology, proteinuria -07/31/22 BUN 20; Scr 1.53; eGFR 53; K 4.1; Bicarb 28, UACR 1,147 -Baseline Cr 1.3-1.5 -In a setting of recurrent nephrolithiasis -Stable -Avoid nephrotoxic drugs. -Treatment Hx: Pt reported throat itching with ARB, and cough with ACEI. Assessment & Plan (07/31/2022 5:30 AM EDT): -Planning Management It Specialist: Dr. Velasquez, last seen on 08/16/19, but pt reports more recent visit -09/25/20 BUN 32; SCr 1.98, K+ 4.1, UACR 1256, Microalbuminuria -> albuminuria -Baseline Cr 1.3-1.5 -In a setting of recurrent nephrolithiasis -Stable -Avoid nephrotoxic drugs. Anemia of chronic disease 04/02/2015 Assessment & Plan (09/12/2024 9:09 AM EDT): - check CBC Assessment & Plan (07/31/2022 5:34 AM EDT): - check CBC Arthritis 01/29/2015 Cobalamin deficiency 01/29/2015 Type 2 diabetes mellitus 06/19/2014 Assessment & Plan (09/12/2024 11:52 AM EDT): -A1C 7.4% on 09/12/24, improved 9.6% on 08/17/23 -Director Patient Accounting[place] [facility] last seen in 12/2022, advised to schedule appointment - change tresiba to Lantus, will start at 60 units - Continue humalog - restart tradjenta 5 mg daily -Last eye exam: August 2022 (requesting note) -Last foot exam: 09/12/24. Laceration between toes -Last microalbumin test: 07/31/22 UACR 1,147 -Last lipid profile: 06/23/23 TC 149; TG 167; HDL 56; LDL 60 Last dental exam: ? Immunizations: Reviewed and discussed. Pt chose not to fully vaccinated Follow up in 3-4 mo or sooner prn Assessment & Plan (08/17/2023 12:36 PM EDT): -A1C 9.6% on 08/17/23 -Director Patient Accounting: [facility] last seen in 12/2022, advised to schedule appointment - change tresiba to Lantus, will start at 60 units - Continue humalog - restart tradjenta 5 mg daily -Last eye exam: August 2022 (requesting note) -Last foot exam: 08/17/2023; high-risk, has a 3d technologist. -Last microalbumin test: 07/31/22 UACR 1,147 -Last lipid profile: 06/23/23 TC 149; TG 167; HDL 56; LDL 60 Last dental exam: ? Immunizations: Reviewed and discussed. Pt chose not to fully vaccinated Follow up in 3-4 mo or sooner prn Assessment & Plan (11/27/2022 4:21 PM EDT): -A1C 7.0% on 11/19/22, improved from 8.3% on 07/30/22 ( 6.1% on 09/04/21) -Director Patient Accounting[place] [facility] last seen in 07/04/21, upcoming appt -Current medications: Tresiba 80 units daily, Humalog U-200 10-15 units with snack, 20-25 units with meal, Tradjenta 5 mg daily -Last eye exam: August 2022 (requesting note) -Last foot exam: 10/31/2018; high-risk, has a 3d technologist. -Last microalbumin test: 07/31/22 UACR 1,147 -Last lipid profile: 07/31/22 TC 224; TG 183; HDL 36; LDL 156 Last dental exam: ? Immunizations: Reviewed and discussed. Pt chose not to fully vaccinated Follow up in 3-4 mo or sooner prn Assessment & Plan (07/31/2022 5:33 AM EDT): -A1C 8.3% on , worsened from 6.1% on 09/04/21 -Director Patient Accounting: [facility] last seen in 07/04/21 -Current medications: Tresiba 56 units daily, Humalog U-200 10-15 units with snack, 25-30 units with meal, Tradjenta 5 mg daily -Last eye exam: April 2019, Dr. Mazariegos -Last foot exam: 10/31/2018; high-risk, has a 3d technologist. -Last microalbumin test: 09/25/20 UACR 1256, albuminuria -Last FLP: 09/25/20 TC 144; TG 189; HDL 37; LDL 67; vit D12 227 Last dental exam: ? Immunizations: -Influenza - He declined -Pneumovax - Dec 2015 -Hep B series - Completed Aspirin use: Prescribed Dyslipidemia 01/30/2014 Assessment & Plan (09/26/2024 1:27 PM EDT): Marked hypertriglyceridemia (CKDIII) and low HDL Lab 12/18/22 TC 251; TG 308; HDL 38; LDL 152; more recent test done in Current medication: Previously Crestor 40 mg daily, decreased to 10 mg daily due to CKDIII; pt also has been taking fenofibrate 54 mg daily because his signal system testing maintainer in [place] prescribed him. We discussed about his potential drug interaction and possible side effects with the pt, but he would like to continue taking fenofibrate. He is not fond of rosuvastatin. High-intensity statin therapy is recommended pre guideline. Consider switching to atorvastatin due to CKD in the future. Emphasized the importance of lifestyle modification. Assessment & Plan (08/17/2023 11:36 AM EDT): Marked hypertriglyceridemia (CKDIII) and low HDL Lab 07/31/22 TC 224; TG 183; HDL 36; LDL 156 Current medication: Previously Crestor 40 mg daily, decreased to 10 mg daily due to CKDIII; pt also has been taking fenofibrate 54 mg daily because his signal system testing maintainer in [place] prescribed him. We discussed about [...] taking fenofibrate 54 mg daily because his signal system testing maintainer in prescribed him. We discussed about his [...] taking fenofibrate 54 mg daily because his signal system testing maintainer in prescribed him. We discussed about his [...] Vitamin D deficiency 01/30/2014 Assessment & Plan (09/12/2024 9:07 AM EDT): - in a setting of CKD - continue vitamin D supplementation Assessment & Plan (07/31/2022 5:34 AM EDT): - in a setting of CKD - continue vitamin D supplementation Anxiety and depression 10/09/2013 Assessment & Plan (09/12/2024 9:09 AM EDT): - he has S provider - prescribed clonazepam, fluoxetine, and trazodone - good family support Assessment & Plan (07/31/2022 5:36 AM EDT): - he has [facility] provider - prescribed clonazepam, fluoxetine, and trazodone - good family support Chronic recurrent major depressive disorder 10/2013 Glaucoma 10/09/2013 Assessment & Plan (09/12/2024 9:07 AM EDT): - following with truck headlight assembler - continue current medication Assessment & Plan (11/27/2022 4:26 PM EDT): - following with truck headlight assembler - continue current medication Hypertension 05/16/2012 Assessment & Plan (09/26/2024 1:28 PM EDT): -Goal BP < 130/80 per ACC/AHA guideline (Treatment threshold >= 130/80 ) -Discussed about the importance of lifestyle modification and medication adherence. -Continue amlodipine 5 mg daily. -Treatment Hx: losartan - discontinued due to BERTRAND and hypotension -Follow up in 3-6 mo, sooner if any problem arises Assessment & Plan (08/17/2023 11:36 AM EDT): [...] problem arises Obesity 05/16/2012 Assessment & Plan (09/12/2024 9:06 AM EDT): - JEAN MARIE, DM, HTN - continue working on lifestyle modifications Assessment & Plan (07/31/2022 5:31 AM EDT): - JEAN MARIE, DM, HTN - continue working on lifestyle modifications Psoriasis 01/02/2012 Assessment & Plan (09/12/2024 9:11 AM EDT): -Dietary regimen is improving symptoms -Continue on Otezla and clobetasol topical -Patient is still followed by Dr. Rico - we have not received a note, will obtain latest note -Pt wants to go to [facility] in March because his psoriasis improves. -Pt will schedule a follow up appt Assessment & Plan (08/17/2023 11:36 AM EDT): -Dietary regimen is improving symptoms -Continue on Otezla and clobetasol topical -Patient is still followed by Dr. Rioc - we have not received a note, will obtain latest note -Pt wants to go to [facility] in March because his psoriasis improves. -Pt will schedule a follow up appt Assessment & Plan (11/27/2022 4:24 PM EDT): -Dietary regimen is improving symptoms -Continue on Otezla and clobetasol topical -Patient is still followed by Dr. Rico - we have not received a note, will obtain latest note -Pt wants to go to [facility] in March because his psoriasis improves. -Pt will schedule a follow up appt Assessment & Plan (07/31/2022 5:35 AM EDT): -Dietary regimen is improving symptoms -Continue on Otezla and clobetasol topical -Patient is still followed by Dr. Rico - we have not received a note, will obtain latest note -Pt wants to go to [facility] in March because his psoriasis improves. -Pt will schedule a follow up appt Backache 12/21/2011 Knee pain 12/21/2011 Proliferative diabetic retinopathy 11/25/2011 Encounters Date Type Department Care Team Description 12/25/2024 Telephone [facility] [address] [place] [phone] Dayanna Hernandez MD chart prep 12/11/2024 Refill [facility] [address] [place] [phone] Dayanna Hernandez MD 11/16/2024 Orders Only GENERIC EXTERNAL DATA DEPARTMENT Provider, Generic External Data 11/14/2024 Orders Only GENERIC EXTERNAL DATA DEPARTMENT Provider, Generic External Data 11/06/2024 Refill [facility] [address] [place] [phone] Dayanna Hernandez MD 10/27/2024 Refill [facility] [address] [place] [phone] Dayanna Hernandez MD Acute right-sided low back pain without sciatica; Acute pain of left knee 10/19/2024 Telephone [facility] [address] [place] [address] Sarah Tamayo MA pedro luis recall 09/29/2024 Telephone [facility] [address] [place] [address] Dayanna Hernandez MD 09/27/2024 Refill [facility] [address] [place] [phone] Emy Streeter NP Acute right-sided low back pain without sciatica; Acute pain of left knee from Last 3 Months Immunizations Immunization Administration Dates Next Due Hep B, adult 01/29/2015,06/19/2014,01/30/2014 Pneumococcal Polysaccharide PPSV23 12/26/2015 Tdap 12/26/2015 Social History Tobacco Use Types Packs/Day Years Used Date Smoking Tobacco: Former Cigarettes Passive Smoke Exposure: Never Smokeless Tobacco: Never Tobacco Cessation:Counseling Given: Not Answered Alcohol Use Standard Drinks/Week Comments Never 0 (1 standard drink = 0.6 oz pur e alcohol) Depression Answer Date Recorded Patient Health Questionnaire-9 Score 16 09/12/2024 Patient Health Questionnaire-9 Score 16 09/12/2024 Last PHQ-9: Questionnaire Data Not on file 0 09/12/2024 Housing Stability Answer Date Recorded What is your housing situation today? I have carmela yousif 09/12/[address] you li ve. Do you have problems with any of the following? None of the above 09/12/2024 Food Insecurity Answer Date Recorded Within the past 12 months, y ou worried that your food would run out before you got money to buy more: Never True 09/12/2024 Within the past 12 months,th e food you bought just didn't last and you didn't have enough money to get more: Never True 01/2025 Transportation Answer Date Recorded In the past 12 months, has l ack of transportation kept you from medical appts, meetings, work or from getting things needed for daily living? No 09/12/2024 Utilities Answer Date Recorded In the past 12 months, has t he electric, gas, oil or water company threatened to shut off services in your home? No 09/12/2024 Depression Answer Date Recorded Patient Health Questionnaire-2 Score 4 09/12/2024 Internet Access Answer Date Recorded Internet Access Q1 Yes 09/12/2024 Internet Access Q2 Not on file 09/12/2024 Sex and Gender Information Value Date Recorded Sex Assigned at Male 02/02/2022 10:21 AM EDT Legal Sex Male 10:21 AM EDT Gender Identity Male 02/02/2022 10:21 AM EDT Sexual Orientation Choose not to disclose 2021 10:21 AM EDT Last Filed Vital Signs Vital Sign Reading Time Taken Comments Blood Pressure 110/58 09/12/2024 10:51 AM EDT Pulse 70 09/12/2024 10:51 AM EDT Temperature 36.9 C (98.4 F) 09/12/2024 10:51 AM EDT Respiratory Rate 18 09/12/2024 10:51 AM EDT Oxygen Saturation 97% 08/30/2024 3:45 PM EDT Inhaled Oxygen Concentration - - Weight 101 kg (223 lb) 09/12/2024 10:51 AM EDT Height 167.6 cm (5' 6 ) 09/12/2024 10:51 AM EDT Body Mass Index 35.99 09/12/2024 10:51 AM EDT Plan of Treatment Health Maintenance Due Date Last Done Comments CT Colonography 1962 Colonoscopy 1962 Colorectal Cancer Screening 1962 FIT DNA/Cologuard 1962 FIT 1962 FOBT 1962 Sigmoidoscopy 1962 Eye Exam 02/13/1972 Zoster Vaccines (1 of 2) 02/13/2012 Pneumococcal Vaccine: 50+ Years (2 of 2 - PCV) 12/25/2016 12/26/2015 RSV Patients and Patients Aged 60 years or older (1 - Risk 60-74 years 1-dose series) 2022 Diabetes: Foot Exam 08/16/2024 08/17/2023, 08/17/2023, 08/17/2023, Additional history exists COVID-19 Vaccine ( season) 2024 Influenza Vaccine (#1) 2024 Diabetes: Hemoglobin A1C 02/16/2025 025, 09/12/2024, 08/17/2023, Additional history exists Depression Monitoring 03/14/2025 09/12/2024, 025 Alcohol/Substance Use Screening 09/12/2025 09/12/2024 Disability Screening 09/12/2025 09/12/2024 SDOH Screening 09/12/2025 09/12/2024 Tobacco Screening 09/12/2025 09/12/2024 Lipid Panel 11/16/2025 11/16/2024, 11/03, 12/18/2022, Additional history exists DTaP/Tdap/Td Vaccines (2 [...] Procedure Name Priority Date/Time Associated Diagnosis Comments ALBUMIN, RANDOM URINE W/CREATININE Routine 11/16/2024 11:02 AM EDT CREATININE, RANDOM URINE Routine 11/16/2024 11:02 AM EDT LIPID PANEL, STANDARD Routine 11/16/2024 11:02 AM EDT ALT Routine 11/16/2024 11:02 AM EDT AST Routine 11/16/2024 11:02 AM EDT CREATININE, SERUM Routine 11/16/2024 11: 02 AM EDT HEMOGLOBIN A1C Routine 11/16/2024 11:02 AM EDT CBC Routine 11/16/2024 11:02 AM EDT URINALYSIS, COMPLETE Routine 11/16/2024 11:02 AM EDT LIPID PANEL WITH REFLEX TO DIRECT LDL Routine 11/16/2024 11:02 AM EDT Dyslipidemia GLUCOSE, WHOLE BLOOD Routine 11/14/2024 10:15 AM EDT ZZZ HISTORICAL HEPATITIS C AB W/REFL TO HCV RNA, QN, PCR Routine 09/09/2021 1:06 PM EDT HIV 1/2 ANTIGEN/ANTIBODY, FOURTH GENERATION W/RFL Routine 09/09/2021 1:06 PM EDT from Last 3 Months or Most Recently Relevant to Health Maintenance Results * (ABNORMAL) Lipid Panel with Reflex to Direct LDL (11/16/2024 11:02 AM EDT) Triglycerides 155(H) <150 mg/dL [facility] Comment:Desirable Triglyceri de: less than 150 mg/dLBorderline High Triglyceride 150-199 mg/dLHigh Triglyceride: 200-499 mg/dLVery High Triglyceride: greater than or equal to 5OO mg/dL Cholesterol 138 <200 mg/dL [facility] Comment:Desirable Cholestero l: less than 200 mg/dLBorderline High Cholesterol: 200-239 mg/dLHigh Cholesterol: greater than 239 mg/dL LDL Cholesterol Calculated 72 <100 mg/dL [facility] Comment:Desirable LDL: less than 100 mg/dLNear Optimal/Above Optimal LDL: 110- 129 mg/dLBorderline High LDL: 130-159 mg/dLHigh LDL: 160-189 mg/dLVery High LDL: greater than or equal to 190 mg/dL HDL Cholesterol 35(L) >40 mg/dL [facility] Comment:Desirable HDL: great er than 40 mg/dL Note: This HDL assay may give artificially low results in patients with liver disease. Blood 11/16/2024 11:0 2 AM EDT 11/16/2024 1:35 PM EDT us Dayanna Hernandez MD LAB BLOOD ORDERABLES Final Resul t [facility] [address] [place] [phone] * (ABNORMAL) Creatinine, Serum (11/16/2024 11:02 AM EDT) Creatinine, Serum 1.86(H) 0.5 - 1.4 mg/dL [facility] Estimated Glomerular Filt Rate 37 [facility] Comment:Chronic Kidney Disea se: Estimated GFR < 60 mL/min/[id number] Kidney Disease: Estimated GFR < 15 mL/min/1.73m2 11/16/2024 11:0 2 AM EDT 11/16/2024 1:40 PM EDT Generic External Data Provider LAB BLOOD ORDERAB LES Final Result Performing Organization Address [facility] Co de Phone Number [facility] [address] [place] [phone] * (ABNORMAL) Albumin, Random Urine W/Creatinine (11/16/2024 11:02 AM EDT) Creatinine, Urine 162.83 mg/dL [facility] Microalbumin Urine >2,000.0 mg/L [facility] Microalbum Creatinine Ratio Ur 1,228.2(H ) <30 ug/mg cr [facility] Comment:Albumin/Creatinine R atio Reference Ranges: Normal: < 30 ug/mg creatinine Microalbuminuria: 30 - 300 ug/mg creatinineClinical Albuminuria: > 300 ug/mg creatinine 11/16/2024 11:0 2 AM EDT 11/16/2024 12:55 PM EDT Generic External Data Provider LAB URINE ORDERAB LES Final Result Performing Organization Address [facility]/ZIP Co de Phone Number [facility] [address] [place] [phone] * (ABNORMAL) Urinalysis Complete (11/16/2024 11:02 AM EDT) Color Urine Yellow [facility] Appearance Urine Clear [facility] PH 5.5 5.0 - 9.0 [facility] Glucose Urine UA 100(A) Negative mg/dL [facility] Urine Blood Negative Negative [facility] Specific [place] - Urine 1.020 1.005 - 1.025 [facility] Urine Protein 300 (3+)(A) Neg-Trace mg/dL [facility] Urine Ketones Negative Negative mg/dL [facility] Nitrite Urine Negative Negative [facility] Leukocyte Esterase Urine Negative Negative [facility] RBC Urine 0-2 0 - 2 /HPF [facility] Urine WBC 0-5 0 - 5 /HPF [facility] Urine Squamous Epithelial Cell 0-2 0 - 2 /HPF [facility] Urine Bacteria None Seen None Seen [facility] Hyaline Casts, Urine 0-2 0 - 2 /LPF [facility] 11/16/2024 11:0 2 AM EDT 11/16/2024 12:55 PM EDT us Generic External Data Provider LAB URINE ORDERAB LES Final Result [facility] [address] [place] [phone] * (ABNORMAL) CBC (11/16/2024 11:02 AM EDT) White Blood Count 6.2 4.8 - 10.8 X10*3/uL [facility] Red Blood Count 4.23(L) 4.60 - 5.80 X10*6/uL [facility] Hemoglobin 13.5(L) 14.0 - 18.0 g/dl [facility] Hematocrit 40.4(L) 42.0 - 52.0 % [facility] Mean Corpuscular Volume 95.5 80.0 - 98.0 fL [facility] Mean Corpuscular Hemoglobin 31.9 27.0 - 33.0 pg [facility] Mean Corpuscular HGB Conc 33.4 31.0 - 36.0 g/dl [facility] Red Cell Distribution Width 11.9 11.0 - 16.0 % [facility] Platelet Count 296 160 - 400 X10*3/uL [facility] Mean Platelet Volume 10.3 9.4 - 12.4 fL [facility] NRBC Pct Auto 0.0 0.0 - 0.2 /100WBC [facility] NRBC Abs Auto 0.000 0.0 - 0.012 X10*3/uL [facility] 11/16/2024 11:0 2 AM EDT 11/16/2024 1:35 PM EDT Generic External Data Provider LAB BLOOD ORDERAB LES Final Result Performing Organization Address [facility] Co de Phone Number [facility] [address] [place] [phone] * ALT (11/16/2024 11:02 AM EDT) Alanine Aminotransferase 16 0 - 40 U/L [facility] 11/16/2024 11:0 2 AM EDT 11/16/2024 1:40 PM EDT Generic External Data Provider LAB BLOOD ORDERAB LES Final Result Performing Organization Address [facility] Co de Phone Number [facility] [address] [place] [phone] * AST (11/16/2024 11:02 AM EDT) Aspartate Amino Transferase 25 5 - 37 U/L [facility] 11/16/2024 11:0 2 AM EDT 11/16/2024 1:40 PM EDT Generic External Data Provider LAB BLOOD ORDERAB LES Final Result Performing Organization Address [facility] de Phone Number [facility] [address] [place] [phone] * (ABNORMAL) Hemoglobin A1c (11/16/2024 11:02 AM EDT) Hemoglobin A1c 7.1(H) <6.0 % [facility] Comment:Hemoglobin A1C Refer ence Range Adults: 4.8 - 6.0 % Non diabetic: < 6.0 % Goal: < 7.0 %Additional Action Suggested: > 8.0 %Note: Hemoglobin A1c results are invalid for patients with abnormal amounts of HbF. Blood transfusions may impact the HbA1c concentration in the patient sample. Estimated Average Glucose 157 mg/dL [facility] Comment:eAG = Estimated ave rage glucose which is %A1C expressed asaverage glucose, using the formula of the W2V-SisyrszWbucbqr Glucose study (ADAG), Diabetes Care, Vol.31,#8,Nov. 2007 11/16/2024 11:0 2 AM EDT 11/16/2024 1:35 PM EDT us Generic External Data Provider LAB BLOOD ORDERAB LES Final Result [facility] [address] [place] [phone] * (ABNORMAL) Lipid Panel, Standard (11/16/2024 11:02 AM EDT) Triglycerides 159(H) <150 mg/dL [facility] Comment:Desirable Triglyceri de: less than 150 mg/dLBorderline High Triglyceride 150-199 mg/dLHigh Triglyceride: 200-499 mg/dLVery High Triglyceride: greater than or equal to 5OO mg/dL Cholesterol 140 <200 mg/dL [facility] Comment:Desirable Cholestero l: less than 200 mg/dLBorderline High Cholesterol: 200-239 mg/dLHigh Cholesterol: greater than 239 mg/dL LDL Cholesterol Calculated 73 <100 mg/dL [facility] Comment:Desirable LDL: less than 100 mg/dLNear Optimal/Above Optimal LDL: 110- 129 mg/dLBorderline High LDL: 130-159 mg/dLHigh LDL: 160-189 mg/dLVery High LDL: greater than or equal to 190 mg/dL HDL Cholesterol 36(L) >40 mg/dL [facility] Comment:Desirable HDL: great er than 40 mg/dL Note: This HDL assay may give artificially low results in patients with liver disease. 11/16/2024 11:0 2 AM EDT 11/16/2024 1:40 PM EDT Generic External Data Provider LAB BLOOD ORDERAB LES Final Result Performing Organization Address [facility] Co de Phone Number [facility] [address] [place] [phone] * (ABNORMAL) Glucose, Whole Blood (11/14/2024 10:15 AM EDT) Glucose, Whole Blood 134(H) 60 - 115 mg/dL [facility] Comment:METER #: [id number] Testing performed in the Endocrinology Department [address] , [address], [facility]. 11/14/2024 10:1 5 AM EDT 11/14/2024 10:19 AM EDT us Generic External Data Provider LAB BLOOD ORDERAB LES Final Result Performing Organization Address [facility] Co de Phone Number [facility] [address] [place] [phone] * HEPATITIS C AB W/REFL TO HCV RNA, QN, PCR (09/09/2021 1:06 PM EDT) HEPATITIS C ANTIBODY NON-REACT EDWARD NON-REACT EDWARD [facility] INDEX 0.04 <1.00 [facility] Comment: HCV antibody was non-reactive. There is no laboratory evidence of HCV infection. In most cases, no further action is required. However, if recent HCV exposure is suspected, a test for HCV RNA (test code 19040) is suggested. For additional information please refer to http://education.SmartThings/faq/AZE78f1 (This link is being provided for informational/ educational purposes only.) 09/09/2021 1:06 PM EDT Dayanna Hernandez MD HISTORICAL/NON ORDERABLE LABS Fi nal Result Performing Organization Address [facility] Co de Phone Number [facility] [address] * HIV 1/2 ANTIGEN/ANTIBODY,FOURTH GENERATION W/RFL (09/09/2021 1:06 PM EDT) HIV-1/2 ANTIGEN AND ANTIBODIES, 4TH GENERATION W/ REFLEX NON-REACT EDWARD NON-REACT EDWARD [facility] Comment: HIV-1 antigen and HIV-1/HIV-2 antibodies were not detected. There is no laboratory evidence of HIV infection. PLEASE NOTE: This information has been disclosed to you from records whose confidentiality may be protected by state law. If your state requires such protection, then the state law prohibits you from making any further disclosure of the information without the specific written consent of the person to whom it pertains, or as otherwise permitted by law. A general authorization for the release of medical or other information is NOT sufficient for this purpose. For additional information please refer to http://education.SmartThings/faq/YRO145 (This link is being provided for informational/ educational purposes only.) The performance of this assay has not been clinically validated in patients less than 2 years old. 09/09/2021 1:06 PM EDT Dayanna Hernandez MD LAB BLOOD ORDERABLES Final Resul t Performing Organization Address [facility] Phone Number [facility] [address] from Last 3 Months or Most Recently Relevant to Health Maintenance Insurance [employer]ARE < 65 Care Teams Kitchen Lead Relationship Specialty Start Date End Date Dayanna Hernandez MD [address] [place] [address] PCP - General Family Medicine 10/24/12
--- OUTSIDE RECORDS SUMMARY | 2024-12-26 13:40 | XMS_ITS | Encounter Summary ---
Author Organization [employer] Address [address] [facility] [address] [place] [address] Care Team Providers Care Marble Setter Name Role Phone Dayanna Hernandez MD Primary Care Provider [phone] Reason for Referral * Consultation (Routine) - Closed Specialty Diagnoses / Procedures Referred By Contac emma Referred To Contact Physical Therapy Diagnoses Gait instability Hemiparesis affecting left side as late effect of cerebrovascular accident (CVA) (CMS/HCC) Legal blindness Dayanna Hernandez MD [address] [place] [address] Phone: tel: fax: [facility] Physical Therapy [address] [place] [address] Phone: tel: fax: Referral ID Status Reason Start Date Expiration Date V isits Requested Visits Authorized [id number] Closed Specialty Services Required 09/09/2023 09/08/2024 1 1 Encounter Details Date Type Department Care Team (Late st Contact Info) Description 09/09/2023 Orders Only [facility] [address] [place] [phone] Dayanna Hernandez MD [address] [place] [phone] Gait instability (Primary Dx); Hemiparesis affecting left [...] as late effect of cerebrovascular accident (CVA) ([facility]) Legal blindness Expected: 09/09/2023 (Approximate), Expires: 09/08/2024 documented as of this encounter Visit Diagnoses Diagnosis Gait instability- Primary Abnormality of gait Hemiparesis affecting left side as late effect of cerebrovascular accident (CVA) ([facility]) Legal blindness Legal blindness, as defined in [place] documented in this encounter Additional Health Concerns Assessment Noted Time PHQ-9 Depression Total Score: 8 07/31/19 23 10:10 AM EDT documented as of this encounter Care Teams Marble Setter Relationship Specialty Start Date End Date Dayanna Hernandez MD [address] [place] [address] PCP - General Family Medicine 10/24/12 documented as of this encounter
--- OUTSIDE RECORDS SUMMARY | 2024-12-26 13:40 | XMS_ITS | Encounter Summary ---
Author Organization [employer] Address [address] [facility] [address] [place] [address] Care Team Providers Care Mitochondrial Disorders Counselor Name Role Phone Dayanna Hernandez MD Primary Care Provider [phone] Encounter Details Date Type Department Care Team [...] on filedocumented in this encounter Care Teams Mitochondrial Disorders Counselor Relationship Specialty Start Date End Date Dayanna Hernandez MD [address] [place] [address] PCP - General Family Medicine 10/24/12 documented as of this encounter
--- OUTSIDE RECORDS SUMMARY | 2024-12-26 13:40 | XMS_ITS | Encounter Summary ---
Author Organization [employer] Address [address] [facility] [address] [place] [address] Care Team Providers Care Chemical Tank Worker Name Role Phone Dayanna Hernandez MD Primary Care Provider [phone] Reason for Visit * Reason Onset Date Comments chart prep 12/25/2024 Encounter Details Date Type Department Care Team ([facility] st Contact Info) Description 12/25/2024 Telephone [facility] [address] [place] [address] Dayanna Hernandez MD [address] [place] [address] chart prep Social History Tobacco Use Types Packs/Day Years Used Date Smoking Tobacco: Former Cigarettes Passive Smoke Exposure: Never Smokeless Tobacco: Never Alcohol Use Standard Drinks/Week Comments Never 0 [...] AM EDT documented as of this encounter Miscellaneous Notes * Telephone Encounter - Aydee Hernandez [place] - 12/25/2024 12:58 PM EDT Chart Prep Labs: done Images: done Screenings: Colonoscopy , Eye Exam, and Foot Exam Vaccines due: Covid Due, PCV20 Due, Flu Due, RSV in Pharmacy Due, and Shingles in pharmacy Due Referrals: Completed Overdue care gaps: Glucose documented in this encounter Plan of Treatment Not on file documented as of this encounter Visit Diagnoses Not on filedocumented in this encounter Additional Health Concerns Assessment Noted Time PHQ-9 Depression Total Score: 16 025 10:54 AM EDT documented as of this encounter Care Teams Chemical Tank Worker Relationship Specialty Start Date End Date Dayanna Hernandez MD [address] [place] [address] PCP - General Family Medicine 10/24/12 documented as of this encounter
== END 2024-12-26 11:20 | disposition home or self-care (01) ==
LOC: HO.HKA 11:02
PROVIDERS: PCP Family Medicine; Visit Provider Internal Medicine Hypertension Specialist
DX: E11.22 Type 2 diabetes mellitus with diabetic chronic kidney disease (principal); N18.30 Chronic kidney disease, stage 3 unspecified; I10 Essential (primary) hypertension; E11.65 Type 2 diabetes mellitus with hyperglycemia; E55.9 Vitamin D deficiency, unspecified; R80.9 Proteinuria, unspecified
CPT/HCPCS: 99214

== ENCOUNTER → 2024-12-26 11:01 | Outpatient (BNVA) | payer OTHER, SELFPAY | PROVIDERS: PCP Family Medicine; Visit Provider Internal Medicine Hypertension Specialist | DX: E11.22 Type 2 diabetes mellitus with diabetic chronic kidney disease (principal); I12.9 Hypertensive chronic kidney disease with stage 1 through stage 4 chronic kidney disease, or unspecified chronic kidney disease; N18.30 Chronic kidney disease, stage 3 unspecified; E11.65 Type 2 diabetes mellitus with hyperglycemia; E55.9 Vitamin D deficiency, unspecified; R80.9 Proteinuria, unspecified; Z79.4 Long term (current) use of insulin; Z79.899 Other long term (current) drug therapy | CPT/HCPCS: 99212 ==

== ENCOUNTER 2024-12-26 11:28 | Outpatient (REF) | payer OTHER, SELFPAY ==
[2024-12-26 13:17] LABS: Anion Gap 13 (12-20); Blood Urea Nitrogen 20 mg/dL (9-16); Calcium 9.2 mg/dL (8.4-10.2); Carbon Dioxide 28 mmol/L (22-29); Chloride 104 mmol/L (96-108); Estimated Glomerular Filt Rate 37; Potassium 4.2 mmol/L (3.3-5.1); Sodium 141 mmol/L (135-145)
[2024-12-27 09:58] LABS: Anti Nuclear Antibody Screen NEGATIVE (NEGATIVE)
[2024-12-27 21:53] LABS: Prot Elec - Albumin 3.8 g/dL (3.8-4.8); Prot Elec - Alpha1 0.3 g/dL (0.2-0.3); Prot Elec - Alpha2 0.8 g/dL (0.5-0.9); Prot Elec - Beta 1 0.4 g/dL (0.4-0.6); Prot Elec - Beta 2 0.4 g/dL (0.2-0.5); Prot Elec - Gamma 0.9 g/dL (0.8-1.7); Prot Elec - Total Protein 6.5 g/dL (6.1-8.1)
[2024-12-29 15:48] LABS: Neutrophil Cyto Ab Screen NEGATIVE (NEGATIVE)
== END 2024-12-26 11:29 | disposition home or self-care (01) ==
LOC: HO.10HDL 11:28
PROVIDERS: Visit Provider Internal Medicine Hypertension Specialist
DX: Z01.84 Encounter for antibody response examination (principal); E11.22 Type 2 diabetes mellitus with diabetic chronic kidney disease; N18.30 Chronic kidney disease, stage 3 unspecified
CPT/HCPCS: 36415; 80048; 84165; 86036; 86038; 86160

== ENCOUNTER 2025-01-15 09:17 | Outpatient (REF) | payer OTHER, SELFPAY ==
--- NOTE | ~2025-01-15 | US_ITS ---
CLINICAL HISTORY: CKD 3 US Renal Comparison: US/SR - US KIDNEY BILATERAL - 10/12/2023 09:21 AM EDT Findings: Right kidney 10.5 cm length. Left kidney 11.1 cm length. Increased bilateral renal cortical echogenicity cannot be excluded on this limited study (spleen and liver were not included in the obtained images for comparison with renal cortical echogenicity). No hydronephrosis. 13 mm hypoechoic to intermediate echogenic region measured by the senior pharmacy technician at level of the right kidney may be artifactual/due to renal pyramid or secondary to the questionable cyst seen on prior ultrasound exam. IMPRESSION: Limited exam. No hydronephrosis. This document has been electronically signed by: Charley Arnold MD on 01/15/2025 10:58:14
--- OUTSIDE RECORDS SUMMARY | 2025-01-15 09:20 | XMS_ITS | Clinical Summary ---
Author Organization [facility] Address [address] [place] [address] Phone Care Team Providers Care Pipeman Name Role Phone Dayanna Hernandez MD Primary Care Provider [phone] Allergies Active Allergy Reactions Criticality Noted Date [...] disorder 08/06/2022 Atherosclerotic heart diseas e of [place] coronary artery without angina pectoris 08/06/2022 Benign [...] on , worsened from 6.1% on 09/04/21 -Care Transition Coordinator: [facility], last seen in 07/04/21 -Current medications: Tresiba 56 units daily, Humalog U-200 10-15 units with snack, 25-30 units with meal, Tradjenta 5 mg daily -Last eye exam: April 2019, Dr. 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 -Last microalbumin test: 09/25/20 UACR 1256, albuminuria [...] taking fenofibrate 54 mg daily because his director retail brand development in prescribed him. We discussed about his [...] latest note -Pt wants to go to [facility] in March because his psoriasis [...] Discontinued 12/26/2015 Insurance ([id number]) ([id number]) Care Teams Pipeman Relationship Specialty Start Date End Date Dayanna Hernandez MD PCP - General 04/15/20
--- OUTSIDE RECORDS SUMMARY | 2025-01-15 09:20 | XMS_ITS | Clinical Summary ---
Author Organization [employer] Address [address] [facility] [address] [place] [address] Care Team Providers Care Ampoule Inspector Name Role Phone Dayanna Hernandez MD Primary Care Provider [phone] Allergies Active Allergy Reactions Criticality Noted Date Comments Fish Protein-Containing Drug Products 03/06/2019 Lisinopril Cough 10/05/2012 Other reaction(s): Other (see comments) Penicillin G 01/29/2012 Penicillin V Rash Low 06/05/2020 Shellfish Allergy 08/06/2022 Medications Otezla 30 MG tablet 12/30/19 22 Active Aspirin Low Dose 81 MG EC tablet 12/25/19 22 Active cholecalcifero l (Vitamin D-3) 50 MCG (1999) capsule 06/28/19 23 Active clobetasol (Temovate) 0.05 % ointment 06/28/19 23 Active Clobetasol Propionate 0.05 % shampoo 06/28/19 23 Active clonazePAM (KlonoPIN) 0.5 MG tablet 07/14/19 23 Active dorzolamide-ti molol (Cosopt) 22.3-6.8 MG/ML ophthalmic solution 06/28/19 23 [...] Blood Glucose Monitoring Suppl (FreeStyle Lite) w/Device kitIndications :Type 2 diabetes 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, with long-term current use of insulin (HCC) 1 each before breakfast, before lunch, and before evening meal. 1 kit 07/31/19 23 Active cetirizine (ZyrTEC) 5 MG tabletIndicati ons:Allergic rhinitis, unspecified seasonality, unspecified trigger Take 2 [...] 23 Active fluticasone (Flonase) 50 MCG/ACT nasal sprayIndicatio ns:Allergic rhinitis, unspecified seasonality, unspecified trigger USE 1 SPRAY INTO EACH NOSTRIL ONCE DAILY 48 mL 1 04/22/19 24 Active FREESTYLE LITE test strip USE TO TEST 4 TIMES A DAY 200 each 08/17/19 24 Active insulin glargine (Toujeji Solostar, 1 unit dial,) 300 UNIT/ML injection Administer 60 units daily. Adjust as directed. 7.5 mL 11 08/19/19 24 Active lidocaine (Lidoderm) 5 % patchIndicatio ns:Acute right-sided low back pain without sciatica,Acute pain of left knee Apply 1 patch topically Once per day. Remove & discard patch within 12 hours or as directed by . 30 patch 1 08/31/19 25 Active ciclopirox (Loprox) 0.77 % cream Apply topically 2 times daily. 90 g 1 09/13/19 25 Active Diclofenac Sodium 1 % gelIndications :Acute right-sided low back pain without sciatica,Acute pain of left knee APPLY 1 G TOPICALLY IN THE MORNING, AT NOON AND AT BEDTIME NEEDED FOR PAIN 100 g 10/28/19 25 Active Tradjenta 5 MG tablet TOME 1 TABLETA POR VIA ORAL TODOS LOS ALLEN 90 tablet 3 11/08/19 25 Active traZODone (Desyrel) 100 MG tablet [...] DAILY NEEDED. 11/07/19 25 Active Continuous Glucose Treating Engineer Helper (FreeStyle Nevaeh 3 Preston) device USE DAILY TO MONITOR BLOOD GLUCOSE LEVELS CONTINUOUSLY. 09/09/19 25 Active Continuous Glucose Sensor (FreeStyle Nevaeh 3 Plus Sensor) [facility] APPLY 1 NEW SENSOR EVERY 15 DAYS [...] WEEK AND REPEAT NEEDED Active FLUoxetine (PROzac) 20 MG capsule Take 1 capsule (20 mg) by mouth Once per day. 180 capsule 01/10/20 25 Active FLUoxetine (PROzac) 20 MG capsule Take 1 capsule (20 mg) by mouth Once per day. 180 capsule 09/13/19 25 025 Discontinued(Re order (will not trigger notification to Pharmacy)) FLUoxetine (PROzac) 10 MG capsule TAKE 1 CAPSULE (10 MG) BY MOUTH ONCE PER DAY. 90 capsule 12/12/19 025 Discontinued(Do se adjustment) Active Problems Problem Noted Date Diagnosed Date [...] Plan (09/12/2024 9:11 AM EDT): -Seen by language tutor on 03/11/20 for JEAN MARIE -Pt had several sleep studies, most recently in 2019, showing JEAN MARIE -Continue auto PAP pressure 6-14 cm H2O -Will order a new autoPAP machine; may need a new sleep study -Most recent echo did not show pulmonary HTN -Grant Specialist recommended him to use azelastine for rhinitis. -Refer back to language tutor Dr. Sanchez Assessment & Plan (08/17/2023 11:35 AM EDT): -Seen by language tutor on 03/11/20 for JEAN MARIE -Pt had several sleep studies, most recently in 2019, showing JEAN MARIE -Continue auto PAP pressure 6-14 cm H2O -Will order a new autoPAP machine; may need a new sleep study -Most recent echo did not show pulmonary HTN -Grant Specialist recommended him to use azelastine for rhinitis. -Refer back to language tutor Dr. Sanchez Assessment & Plan (11/27/2022 4:34 PM EDT): -Seen by language tutor on 03/11/20 for JEAN MARIE -Pt had several sleep studies, most recently in 2019, showing JEAN MARIE -Continue auto PAP pressure 6-14 cm H2O -Will order a new autoPAP machine; may need a new sleep study -Most recent echo did not show pulmonary HTN -Grant Specialist recommended him to use azelastine for rhinitis. -Refer back to language tutor Dr. Sanchez Intertrigo 10/23/2022 Assessment & Plan (11/27/2022 4:24 PM EDT): - s/p clotrimazole BID x 28 days in October 2022 - responding well to nystatin pwd TID; refill - follow up with safety representative Assessment & Plan (10/23/2022 12:46 PM EDT): [...] symptoms -pt to f up w his safety representative in 2 months per pt and has [...] cetrizine -continue montelukast -continue fluticasone nasal Hemiparesis ([facility]) 06/05/2020 Hypertensive renal disease 06/05/2020 Proteinuria 06/05/2020 Assessment & Plan (11/27/2022 4:26 PM EDT): - pt refuses to take ARB or ACEI - consider SGLT-2 inhibitor Renal stone 07/28/2016 Biliary calculus 09/16/2015 Hemiparesis affecting left s amari as late effect of cerebrovascular accident (CVA) ([facility]) 09/16/2015 Stage 3 chronic kidney disease ([facility]) 016 Assessment & Plan (09/26/2024 1:29 PM EDT): -Graphic Manager: Dr. Velasquez, last seen in October 2023 -Diabetic and vascular etiology, proteinuria -07/31/22 BUN 20; Scr 1.53; eGFR 53; K 4.1; Bicarb 28, UACR 1,147 -Baseline Cr 1.3-1.5 -In a setting of recurrent nephrolithiasis -Stable -Avoid nephrotoxic drugs. -Treatment Hx: Pt reported throat itching with ARB, and cough with ACEI. Assessment & Plan (08/17/2023 11:36 AM EDT): -Graphic Manager: Dr. Velasquez, last seen on 09/02/22 -Diabetic and vascular etiology, proteinuria -07/31/22 BUN 20; Scr 1.53; eGFR 53; K 4.1; Bicarb 28, UACR 1,147 -Baseline Cr 1.3-1.5 -In a setting of recurrent nephrolithiasis -Stable -Avoid nephrotoxic drugs. -Treatment Hx: Pt reported throat itching with ARB, and cough with ACEI. Assessment & Plan (11/19/2022 5:11 AM EDT): -Graphic Manager: Dr. Velasquez, last seen on 09/02/22 -Diabetic and vascular etiology, proteinuria -07/31/22 BUN 20; Scr 1.53; eGFR 53; K 4.1; Bicarb 28, UACR 1,147 -Baseline Cr 1.3-1.5 -In a setting of recurrent nephrolithiasis -Stable -Avoid nephrotoxic drugs. -Treatment Hx: Pt reported throat itching with ARB, and cough with ACEI. Assessment & Plan (07/31/2022 5:30 AM EDT): -Graphic Manager: Dr. Velasquez, last seen on 08/16/19, but [...] 7.4% on 09/12/24, improved 9.6% on 08/17/23 -Spoke Maker: [facility], last seen in 12/2022, advised to schedule [...] 12:36 PM EDT): -A1C 9.6% on 08/17/23 -Spoke Maker: [facility], last seen in 12/2022, advised to schedule appointment - change tresiba to Lantus, will start at 60 units - Continue humalog - restart tradjenta 5 mg daily -Last eye exam: August 2022 (requesting note) -Last foot exam: 08/17/2023; high-risk, has a deblocker. -Last microalbumin test: 07/31/22 UACR 1,147 -Last lipid profile: 06/23/23 TC 149; TG 167; HDL 56; LDL 60 Last dental exam: ? Immunizations: Reviewed and discussed. Pt chose not to fully vaccinated Follow up in 3-4 mo or sooner prn Assessment & Plan (11/27/2022 4:21 PM EDT): -A1C 7.0% on 11/19/22, improved from 8.3% on 07/30/22 ( 6.1% on 09/04/21) -Spoke Maker: [facility], last seen in 07/04/21, upcoming appt -Current medications: Tresiba 80 units daily, Humalog U-200 10-15 units with snack, 20-25 units with meal, Tradjenta 5 mg daily -Last eye exam: August 2022 (requesting note) -Last foot exam: 10/31/2018; high-risk, has a deblocker. -Last microalbumin test: 07/31/22 UACR 1,147 -Last lipid profile: 07/31/22 TC 224; TG 183; HDL 36; LDL 156 Last dental exam: ? Immunizations: Reviewed and discussed. Pt chose not to fully vaccinated Follow up in 3-4 mo or sooner prn Assessment & Plan (07/31/2022 5:33 AM EDT): -A1C 8.3% on , worsened from 6.1% on 09/04/21 -Spoke Maker: [facility], last seen in 07/04/21 -Current medications: Tresiba 56 units daily, Humalog U-200 10-15 units with snack, 25-30 units with meal, Tradjenta 5 mg daily -Last eye exam: April 2019, Dr. Mazariegos -Last foot exam: 10/31/2018; high-risk, has a deblocker. -Last microalbumin test: 09/25/20 UACR 1256, albuminuria [...] taking fenofibrate 54 mg daily because his bench boring machine operator in [place] prescribed him. We discussed about [...] taking fenofibrate 54 mg daily because his bench boring machine operator in [place] prescribed him. We discussed about [...] taking fenofibrate 54 mg daily because his bench boring machine operator in prescribed him. We discussed about [...] taking fenofibrate 54 mg daily because his bench boring machine operator in [place] prescribed him. We discussed about [...] (09/12/2024 9:09 AM EDT): - he has [facility] - prescribed clonazepam, fluoxetine, and trazodone - good family support Assessment & Plan (07/31/2022 5:36 AM EDT): - he has [facility] provider - prescribed clonazepam, fluoxetine, and trazodone - good family support Chronic recurrent major depressive disorder 10/2013 Glaucoma 10/09/2013 Assessment & Plan (09/12/2024 9:07 AM EDT): - following with student counsellor - continue current medication Assessment & Plan (11/27/2022 4:26 PM EDT): - following with student counsellor - continue current medication Hypertension 05/16/2012 Assessment [...] latest note -Pt wants to go to [facility] in March because his psoriasis improves. -Pt will schedule a follow up appt Assessment & Plan (08/17/2023 11:36 AM EDT): -Dietary regimen is improving symptoms -Continue on Otezla and clobetasol topical -Patient is still followed by Dr. Rico - we have not received a note, will obtain latest note -Pt wants to go to [facility] in March because his psoriasis improves. -Pt will schedule a follow up appt Assessment & Plan (11/27/2022 4:24 PM EDT): -Dietary regimen is improving symptoms -Continue on Otezla and clobetasol topical -Patient is still followed by Dr. Rico - we have not received a note, will obtain latest note -Pt wants to go to [facility] in March because his psoriasis improves. -Pt will schedule a follow up appt Assessment & Plan (07/31/2022 5:35 AM EDT): -Dietary regimen is improving symptoms -Continue on Otezla and clobetasol topical -Patient is still followed by Dr. Rico - we have not received a note, will obtain latest note -Pt wants to go to [facility] in March because his psoriasis improves. -Pt will schedule a follow up appt Backache 12/21/2011 Knee pain 12/21/2011 Proliferative diabetic retinopathy 11/25/2011 Encounters Date Type Department Care Team Description 01/09/2025 Orders Only [facility] [place] [address] Dayanna Hernandez MD 01/09/2025 Orders Only [facility] [place] [address] Dayanna Hernandez MD 01/09/2025 Refill [facility] [place] [address] Dayanna Hernandez MD 01/09/2025 Travel 01/05/2025 Telephone [facility] [place] [place] [address] Dayanna Hernandez MD Durable Medical Equipment ([facility] [employer]: Shower Chair) 12/25/2024 Telephone [facility] [place] [address] Dayanna Hernandez MD chart prep 12/11/2024 Refill [facility] [place] [address] Dayanna Hernandez MD 11/16/2024 Orders Only GENERIC EXTERNAL DATA DEPARTMENT Provider, Generic External Data 11/14/2024 Orders Only GENERIC EXTERNAL DATA DEPARTMENT Provider, Generic External Data 11/06/2024 Refill [facility] [place] [address] Dayanna Hernandez MD 10/27/2024 Refill [facility] [place] [address] Dayanna Hernandez MD Acute right-sided low back pain without sciatica; Acute pain of left knee 10/19/2024 Telephone [facility] [address] [place] [address] [phone] Sarah Tamayo [place] december recall from Last 3 Months Immunizations Immunization Administration [...] 09/12/2024 10:51 AM EDT Plan of Treatment Upcoming Encounters Date Type Department Care Team (Late st Contact Info) Description 01/23/2025 1:15 PM EDT Office Visit [facility] [address] [place] [address] Dayanna Hernandez MD [address] [place] [address] Health Maintenance Due Date Last Done Comments [...] 08/17/2023, Additional history exists COVID-19 Vaccine ( - season) 2024 Influenza Vaccine (#1) 2024 Diabetes: [...] 11:02 AM EDT) Triglycerides 155(H) <150 mg/dL [facility] Comment:Desirable Triglyceri de: less than 150 mg/dLBorderline High Triglyceride 150-199 mg/dLHigh Triglyceride: 200-499 mg/dLVery High Triglyceride: greater than or equal to 5OO mg/dL Cholesterol 138 <200 mg/dL [facility] Comment:Desirable Cholestero l: less than 200 mg/dLBorderline High Cholesterol: 200-239 mg/dLHigh Cholesterol: greater than 239 mg/dL LDL Cholesterol Calculated 72 <100 mg/dL [facility] Comment:Desirable LDL: less than 100 mg/dLNear Optimal/Above Optimal LDL: 110- 129 mg/dLBorderline High LDL: 130-159 mg/dLHigh LDL: 160-189 mg/dLVery High LDL: greater than or equal to 190 mg/dL HDL Cholesterol 35(L) >40 mg/dL [facility] Comment:Desirable HDL: great er than 40 mg/dL Note: This HDL assay may give artificially low results in patients with liver disease. Blood 11/16/2024 11:0 2 AM EDT 11/16/2024 1:35 PM EDT us Dayanna Hernandez MD LAB BLOOD ORDERABLES Final Resul t Performing Organization Address [facility] Co de Phone Number [facility] [address] [place] [phone] * (ABNORMAL) Creatinine, Serum (11/16/2024 11:02 AM EDT) Creatinine, Serum 1.86(H) 0.5 - 1.4 mg/dL [facility] Estimated Glomerular Filt Rate 37 [facility] Comment:Chronic Kidney Disea se: Estimated GFR < 60 mL/min/1.79x6Xjoxbd Kidney Disease: Estimated GFR < 15 mL/min/1.73m2 11/16/2024 11:0 2 AM EDT 11/16/2024 1:40 PM EDT us Generic External Data Provider LAB BLOOD ORDERAB LES Final Result Performing Organization Address [facility] de Phone Number [facility] [address] [place] [phone] * (ABNORMAL) Albumin, Random Urine W/Creatinine (11/16/2024 11:02 AM EDT) Creatinine, Urine 162.83 mg/dL [facility] Microalbumin Urine >2,000.0 mg/L H [facility] Microalbum Creatinine Ratio Ur 1,228.2(H ) <30 ug/mg cr [facility] Comment:Albumin/Creatinine R at Reference Ranges: Normal: < 30 ug/mg creatinine Microalbuminuria: 30 - 300 ug/mg creatinineClinical Albuminuria: > 300 ug/mg creatinine 11/16/2024 11:0 2 AM EDT 11/16/2024 12:55 PM EDT Generic External Data Provider LAB URINE ORDERAB LES Final Result Performing Organization Address [facility] Co de Phone Number [facility] [address] [place] [phone] * (ABNORMAL) Urinalysis Complete (11/16/2024 11:02 AM EDT) Color Urine Yellow [facility] Appearance Urine Clear [facility] PH 5.5 5.0 - 9.0 [facility] Glucose Urine UA 100(A) Negative mg/dL [facility] Urine Blood Negative Negative [facility] Specific [place] - Urine 1.020 1.005 - 1.025 [facility] Urine Protein 300 (3+)(A) Neg-Trace mg/dL [facility] Urine Ketones Negative Negative mg/dL [facility] Nitrite Urine Negative Negative [facility] Leukocyte Esterase Urine Negative Negative [facility] RBC Urine 0-2 0 - 2 /HPF [facility] Urine WBC 0-5 0 - 5 /HPF [facility] Urine Squamous Epithelial Cell 0-2 0 - 2 /HPF [facility] Urine Bacteria None Seen None Seen [facility] Hyaline Casts, Urine 0-2 0 - 2 /LPF [facility] 11/16/2024 11:0 2 AM EDT 11/16/2024 12:55 PM EDT us Generic External Data Provider LAB URINE ORDERAB LES Final Result Performing Organization Address [facility]/ZIP Co de Phone Number [facility] [address] [place] [phone] * (ABNORMAL) CBC (11/16/2024 11:02 AM EDT) White Blood Count 6.2 4.8 - 10.8 X10*3/uL [facility] Red Blood Count 4.23(L) 4.60 - 5.80 X10*6/uL [facility] Hemoglobin 13.5(L) 14.0 - 18.0 g/dl [facility] Hematocrit 40.4(L) 42.0 - 52.0 % [facility] Mean Corpuscular Volume 95.5 80.0 - 98.0 fL [facility] Mean Corpuscular Hemoglobin 31.9 27.0 - 33.0 pg [facility] Mean Corpuscular HGB Conc 33.4 31.0 - 36.0 g/dl [facility] Red Cell Distribution Width 11.9 11.0 - 16.0 % [facility] Platelet Count 296 160 - 400 X10*3/uL [facility] Mean Platelet Volume 10.3 9.4 - 12.4 fL [facility] NRBC Pct Auto 0.0 0.0 - 0.2 /100WBC [facility] NRBC Abs Auto 0.000 0.0 - 0.012 X10*3/uL [facility] 11/16/2024 11:0 2 AM EDT 11/16/2024 1:35 PM EDT us Generic External Data Provider LAB BLOOD ORDERAB LES Final Result Performing Organization Address [facility] Co de Phone Number [facility] [address] [place] [phone] * ALT (11/16/2024 11:02 AM EDT) Alanine Aminotransferase 16 0 - 40 U/L [facility] 11/16/2024 11:0 2 AM EDT 11/16/2024 1:40 PM EDT us Generic External Data Provider LAB BLOOD ORDERAB LES Final Result Performing Organization Address [facility] Co de Phone Number [facility] [address] [place] [phone] * AST (11/16/2024 11:02 AM EDT) Aspartate Amino Transferase 25 5 - 37 U/L [facility] 11/16/2024 11:0 2 AM EDT 11/16/2024 1:40 PM EDT Generic External Data Provider LAB BLOOD ORDERAB LES Final Result Performing Organization Address [facility]/ZIP Co de Phone Number [facility] [address] [place] [phone] * (ABNORMAL) Hemoglobin A1c (11/16/2024 11:02 AM EDT) Hemoglobin A1c 7.1(H) <6.0 % [facility] Comment:Hemoglobin A1C Refer ence Range Adults: 4.8 - 6.0 % Non diabetic: < 6.0 % Goal: < 7.0 %Additional Action Suggested: > 8.0 %Note: Hemoglobin A1c results are invalid for patients with abnormal amounts of HbF. Blood transfusions may impact the HbA1c concentration in the patient sample. Estimated Average Glucose 157 mg/dL [facility] Comment:eAG = Estimated ave rage glucose which is %A1C expressed asaverage glucose, using the formula of the P1H-QnbbqfbAeeusje Glucose study (ADAG), Diabetes Care, Vol.31,#8,Nov. 2007 11/16/2024 11:0 2 AM EDT 11/16/2024 1:35 PM EDT us Generic External Data Provider LAB BLOOD ORDERAB LES Final Result Performing Organization Address [facility] Co de Phone Number [facility] [address] [place] [phone] * (ABNORMAL) Lipid Panel, Standard (11/16/2024 11:02 AM EDT) Triglycerides 159(H) <150 mg/dL [facility] Comment:Desirable Triglyceri de: less than 150 mg/dLBorderline High Triglyceride 150-199 mg/dLHigh Triglyceride: 200-499 mg/dLVery High Triglyceride: greater than or equal to 5OO mg/dL Cholesterol 140 <200 mg/dL [facility] Comment:Desirable Cholestero l: less than 200 mg/dLBorderline High Cholesterol: 200-239 mg/dLHigh Cholesterol: greater than 239 mg/dL LDL Cholesterol Calculated 73 <100 mg/dL [facility] Comment:Desirable LDL: less than 100 mg/dLNear Optimal/Above Optimal LDL: 110- 129 mg/dLBorderline High LDL: 130-159 mg/dLHigh LDL: 160-189 mg/dLVery High LDL: greater than or equal to 190 mg/dL HDL Cholesterol 36(L) >40 mg/dL [facility] Comment:Desirable HDL: great er than 40 mg/dL Note: This HDL assay may give artificially low results in patients with liver disease. 11/16/2024 11:0 2 AM EDT 11/16/2024 1:40 PM EDT Generic External Data Provider LAB BLOOD ORDERAB LES Final Result Performing Organization Address City/[facility]/ZIP Co de Phone Number [facility] [address] [place] [phone] * (ABNORMAL) Glucose, Whole Blood (11/14/2024 10:15 AM EDT) [facility] Glucose, Whole Blood 134(H) 60 - 115 mg/dL [facility] Comment:METER #: [id number] Testing performed in the Endocrinology Department [address] , [address], [facility]. 11/14/2024 10:1 5 AM EDT 11/14/2024 10:19 AM EDT us Generic External Data Provider LAB BLOOD ORDERAB LES Final Result Performing Organization Address City/[facility]/ZIP Co de Phone Number [facility] [address] [place] [phone] * HEPATITIS C AB W/REFL TO HCV RNA, QN, PCR (09/09/2021 1:06 PM EDT) HEPATITIS C ANTIBODY NON-REACT EDWARD NON-REACT EDWARD [facility] INDEX 0.04 <1.00 [facility] Comment: HCV antibody was non-reactive. There is no laboratory evidence of HCV infection. In most cases, no further action is required. However, if recent HCV exposure is suspected, a test for HCV RNA (test code 74038) is suggested. For additional information please refer to http://Adzilla.enVista.Hotelcloud/faq/CPF49e0 (This link is being provided for informational/ educational purposes only.) 09/09/2021 1:06 PM EDT us Dayanna Hernandez MD HISTORICAL/NON ORDERABLE LABS Fi nal Result Performing Organization Address [facility] Co de Phone Number [facility] [address] [place] [address], * HIV 1/2 ANTIGEN/ANTIBODY,FOURTH GENERATION W/RFL (09/09/2021 1:06 PM EDT) HIV-1/2 ANTIGEN AND ANTIBODIES, 4TH GENERATION W/ REFLEX NON-REACT EDWARD NON-REACT EDWARD [facility] Comment: HIV-1 antigen and HIV-1/HIV-2 [...] purpose. For additional information please refer to http://Adzilla.enVista.Hotelcloud/faq/EBU022 (This link is being provided for informational/ educational purposes only.) The performance of this assay has not been clinically validated in patients less than 2 years old. 09/09/2021 1:06 PM EDT us Dayanna Hernandez MD LAB BLOOD ORDERABLES Final Resul t [facility] [address] from Last 3 Months or Most Recently Relevant to Health Maintenance Insurance [facility] ONE CARE < 67 [address] [place] [id number] Care Teams Ampoule Inspector Relationship Specialty Start Date End Date Dayanna Hernandez MD [address] [place] [address] PCP - General Family Medicine 10/24/12
--- OUTSIDE RECORDS SUMMARY | 2025-01-15 09:20 | XMS_ITS | Encounter Summary ---
Author Organization [facility] Address [address] [facility] [address] [place] [address] Phone Care Team Providers Care Tinter Photograph Name Role Phone Dayanna Hernandez MD Primary Care Provider [phone] Encounter Details Date Type Department Care Team (Late st Contact Info) Description 11/01/2023 Office Communication [facility] [address] [facility] [address] [place] [phone] Haley Antoine ARNP [address] [facility] [address] [place] [address] Social History Tobacco Use Types [...] on filedocumented in this encounter Care Teams Tinter Photograph Relationship Specialty Start Date End Date Dayanna Hernandez MD PCP - General 04/15/20 documented as of this encounter
--- OUTSIDE RECORDS SUMMARY | 2025-01-15 09:20 | XMS_ITS | Encounter Summary ---
Author Organization [employer] Address [address] [facility] [address] [address] Care Team Providers Care Diet Clerk Name Role Phone Dayanna Hernandez MD Primary Care Provider [phone] Encounter Details Date Type Department Care Team ([facility] st Contact Info) Description 01/09/2025 Orders Only [facility] [address] [place] [address] Dayanna Hernandez MD [address] [place] [address] Social History Tobacco Use Types Packs/Day Years [...] Description 01/23/2025 1:15 PM EDT Office Visit [facility] [address] [place] [address] Dayanna Hernandez MD [address] [place] [address] documented as of this encounter Visit Diagnoses Not on filedocumented in this encounter Additional Health Concerns Assessment Noted Time PHQ-9 Depression Total Score: 16 025 10:54 AM EDT documented as of this encounter Care Teams Diet Clerk Relationship Specialty Start Date End Date Dayanna Hernandez MD [address] [place] [address] PCP - General Family Medicine 10/24/12 documented as of this encounter
--- OUTSIDE RECORDS SUMMARY | 2025-01-15 09:20 | XMS_ITS | Encounter Summary ---
Author Organization [employer] Address [address] [facility] [address] [place] [address] Care Team Providers Care Camp Recreation Specialist Name Role Phone Dayanna Hernandez MD Primary Care Provider [phone] Encounter Details Date Type Department Care Team ([facility] st Contact Info) Description 08/24/2022 Orders Only [facility] MEDICINE [address] [place] [phone] Dayanna Hernandez MD 230 [place], [place] [phone] Type 2 diabetes 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, with long-term current use of insulin ([facility]) (Primary Dx) Social History Tobacco Use Types [...] Description 01/23/2025 1:15 PM EDT Office Visit [facility] [address] [facility] [address] Dayanna Hernandez MD [address] [facility] [place] [address] documented as of this encounter Procedures Procedure Name Priority Date/Time Associated Diagnosis Comments LIPID PANEL, STANDARD Routine 12/18/2022 12:28 PM EDT Type 2 diabetes 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, with long-term current use of insulin ([facility]) BASIC METABOLIC PANEL Routine 12/18/2022 12:28 PM EDT Type 2 diabetes 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, with long-term current use of insulin ([facility]) ALBUMIN, RANDOM URINE W/CREATININE Routine 12/18/2022 12:09 PM EDT Type 2 diabetes 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, with long-term current use of insulin ([facility]) GLUCOSE, WHOLE BLOOD Routine 12/18/2022 11:24 AM EDT Type 2 diabetes 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, with long-term current use of insulin ([facility]) documented in this encounter Results * (ABNORMAL) Lipid Panel, Standard (12/18/2022 12:28 PM EDT) Triglycerides 308(H) <150 mg/dL [facility] Comment:Desirable Triglyceri de: less than 150 mg/dLBorderline High Triglyceride 150-199 mg/dLHigh Triglyceride: 200-499 mg/dLVery High Triglyceride: greater than or equal to 5OO mg/dL Cholesterol 251(H) <200 mg/dL [facility] Comment:Desirable Cholestero l: less than 200 mg/dLBorderline High Cholesterol: 200-239 mg/dLHigh Cholesterol: greater than 239 mg/dL LDL Cholesterol Calculated 152(H) <100 mg/dL [facility] Comment:Desirable LDL: less than 100 mg/dLNear Optimal/Above Optimal LDL: 110- 129 mg/dLBorderline High LDL: 130-159 mg/dLHigh LDL: 160-189 mg/dLVery High LDL: greater than or equal to 190 mg/dL HDL Cholesterol 38(L) >40 mg/dL [facility] Comment:Desirable HDL: great er than 40 mg/dL Note: This HDL assay may give artificially low results in patients with liver disease. 12/18/2022 12:2 8 PM EDT 12/18/2022 12:32 PM EDT Generic External Data Provider LAB BLOOD ORDERAB LES Final Result [facility] [address] [place] [phone] * (ABNORMAL) Basic Metabolic Panel (12/18/2022 12:28 PM EDT) Sodium 137 135 - 145 mmol/L [facility] Potassium 4.0 3.3 - 5.1 mmol/L [facility] Comment:Slight Hemolysis Chloride 104 96 - 108 mmol/L [facility] Carbon Dioxide 24 22 - 29 mmol/L [facility] Anion Gap 13 12 - 20 [facility] Urea Nitrogen (BUN) 16 9 - 16 mg/dL [facility] Creatinine, Serum 1.40 0.5 - 1.4 mg/dL [facility] Estimated Glomerular Filt Rate 52 [facility] Comment:NOTE: For -Am erican individuals, multiply the result by 1.210.Chronic Kidney Disease: Estimated GFR < 60 mL/min/1.76p8Nbvbfi Kidney Disease: Estimated GFR < 15 mL/min/1.73m2 Glucose 137(H) 60 - 115 mg/dL [facility] Calcium 9.4 8.4 - 10.2 mg/dL [facility] 12/18/2022 12:2 8 PM EDT 12/18/2022 12:32 PM EDT us [facility] External Provider LAB BLO OD ORDERABLES Final Result Performing Organization Address [facility] Co de Phone Number [facility] [address] [place] [address] [phone] * (ABNORMAL) Albumin, Random Urine W/Creatinine (12/18/2022 12:09 PM EDT) Creatinine, Urine 158.87 mg/dL [facility] Microalbumin Urine 1,684.0 mg/L H [facility] Microalbum Creatinine Ratio Ur 1,059.9(H ) <30 ug/mg cr [facility] Comment:Albumin/Creatinine R atio Reference Ranges: Normal: < 30 ug/mg creatinine Microalbuminuria: 30 - 300 ug/mg creatinineClinical Albuminuria: > 300 ug/mg creatinine 12/18/2022 12:0 9 PM EDT 12/18/2022 1:59 PM EDT [facility] External Provider LAB URI NE ORDERABLES Final Result Performing Organization Address [facility] Co de Phone Number [facility] [address] [place] [address] [phone] * (ABNORMAL) Glucose, Whole Blood (12/18/2022 11:24 AM EDT) Glucose, Whole Blood 155(H) 60 - 115 mg/dL [facility] Comment:METER #: [id number] Testing performed in the Endocrinology Department [address] , [address], [facility]. 12/18/2022 11:2 4 AM EDT 12/18/2022 11:30 AM EDT [facility] External Provider LAB BLO OD ORDERABLES Final Result Performing Organization Address [facility] Co de Phone Number [facility] [address] [place] [address] [phone] documented in this encounter Visit Diagnoses Diagnosis Type 2 diabetes 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, with long-term current use of insulin (HCC)- Primary documented in this encounter Additional Health Concerns Assessment Noted Time PHQ-9 Depression Total Score: 8 07/31/19 23 10:10 AM EDT documented as of this encounter Care Teams Camp Recreation Specialist Relationship Specialty Start Date End Date Dayanna Hernandez MD [address] [place] [address] PCP - General Family Medicine 10/24/12 documented as of this encounter
--- OUTSIDE RECORDS SUMMARY | 2025-01-15 09:20 | XMS_ITS | Clinical Summary ---
Author Organization [facility] Address [address] [place], [place] [phone] Phone Care Team Providers Care Fixed Wing Aircraft Crew Chief Name Role Phone Alison Luu Primary Care Provider [phone] Social History Tobacco Use Types Packs/Day Years [...] file Medical Devices Not on file Insurance [facility] [employer] MEDICARE REPLACEMENT [place] [id number] [place] [address] MEDICARE REPLACEMENT Care Teams Fixed Wing Aircraft Crew Chief Relationship Specialty Start Date End Date Alison Luu PA [address] [place] [phone] [email or web address] PCP - General Wader Boot Top Assembler 01/19/20 Additional Source Comments The information contained in this document represents components of the legal health record. It is not the complete legal health record.[facility]
--- OUTSIDE RECORDS SUMMARY | 2025-01-15 09:20 | XMS_ITS | Encounter Summary ---
Author Organization [employer] Address [address] [facility] [address] [address] Care Team Providers Care Cargo Inspector Name Role Phone Dayanna Hernandez MD Primary Care Provider [phone] Encounter Details Date Type Department Care Team (Latest Contact Info) Description 12/19/2018 Abstract [facility] CONVERSIONS Dental, Provider, DDS Social History [...] Description 01/23/2025 1:15 PM EDT Office Visit [facility] MEDICINE [address] [place] [phone] Dayanna Hernandez MD [address] [place] [address] documented as of this encounter Visit Diagnoses Not on filedocumented in this encounter Care Teams Cargo Inspector Relationship Specialty Start Date End Date Dayanna Hernandez MD [address] [place] [address] PCP - General Family Medicine 10/24/12 documented as of this encounter
--- OUTSIDE RECORDS SUMMARY | 2025-01-15 09:20 | XMS_ITS | Encounter Summary ---
Author Organization [facility] Address [address] [place] [address] Phone Care Team Providers Care Staff Engineer Name Role Phone Alison Luu Primary Care Provider [phone] Encounter Details Date Type Department Care Team (Late st Contact Info) Description 01/19/2020 Ancillary Orders [facility] [address] [place] [address] Alison Luu PA [address] [place] [address] [email or web address] Palpitations Social History Tobacco Use Types Packs/Day [...] Palpitations documented in this encounter Care Teams Staff Engineer Relationship Specialty Start Date End Date Alison Luu PA [address] [place] [phone] [email or web address] PCP - General Manager Architectural 01/19/20 documented as of this encounter Additional Source Comments The information contained in this document represents components of the legal health record. It is not the complete legal health record.[facility]
--- OUTSIDE RECORDS SUMMARY | 2025-01-15 09:20 | XMS_ITS | Encounter Summary ---
Author Organization [employer] Address 75 [facility] [address] [place] [address] Care Team Providers Care Airbrush Painter Name Role Phone Dayanna Hernandez MD Primary Care Provider [phone] Reason for Referral * Consultation (Routine) - Closed Specialty Diagnoses / Procedures Referred By Contac emma Referred To Contact Physical Therapy Diagnoses Gait instability Hemiparesis affecting left side as late effect of cerebrovascular accident (CVA) (CMS/HCC) (HCC) Legal blindness Dayanna Hernandez MD [address] [place] [address] Phone: tel: fax: [facility] Physical Therapy [address] [place] [address] Phone: tel: fax: Referral ID Status Reason Start Date Expiration Date V isits Requested Visits Authorized [id number] Closed Specialty Services Required 09/09/2023 09/08/2024 1 1 Encounter Details Date Type Department Care Team (Late st Contact Info) Description 09/09/2023 Orders Only [facility] [address] [place] [address] Dayanna Hernandez MD [address] [place], [place] [phone] Gait instability (Primary Dx); Hemiparesis affecting left [...] Description 01/23/2025 1:15 PM EDT Office Visit [facility] [address] [place] [address] Dayanna Hernandez MD [address] [place] [address] Scheduled Referrals Name Type Priority Associated Diagnoses Orde r Schedule Referral to Physical Therapy Outpatient Referral Routine Gait instability Hemiparesis affecting left side as late effect of cerebrovascular accident (CVA) ([facility]) Legal blindness Expected: 09/09/2023 (Approximate), Expires: 09/08/2024 documented as of this encounter Visit Diagnoses Diagnosis Gait instability- Primary Abnormality of gait Hemiparesis affecting left side as late effect of cerebrovascular accident (CVA) (CMS/HCC) (HCC) Legal blindness Legal blindness, as defined in [place] documented in this encounter Additional Health Concerns Assessment Noted Time PHQ-9 Depression Total Score: 8 07/31/19 23 10:10 AM EDT documented as of this encounter Care Teams Airbrush Painter Relationship Specialty Start Date End Date Dayanna Hernandez MD [address] [place] [phone] PCP - General Family Medicine 10/24/12 documented as of this encounter
--- OUTSIDE RECORDS SUMMARY | 2025-01-15 09:20 | XMS_ITS | Encounter Summary ---
Author Organization [employer] Address 75 [facility] [address] [address] Care Team Providers Care Vitreo Retinal Surgeon Name Role Phone Dayanna Hernandez MD Primary Care Provider [phone] Encounter Details Date Type Department Care Team ([facility] st Contact Info) Description 01/09/2025 Orders Only [facility] MEDICINE [address] [place] [address] Dayanna Hernandez MD [address] [place] [address] Social History Tobacco Use Types Packs/Day Years [...] Description 01/23/2025 1:15 PM EDT Office Visit [facility] MEDICINE [address] [place] [address] Dayanna Hernandez MD [address] [place] [address] documented as of this encounter Visit Diagnoses Not on filedocumented in this encounter Additional Health Concerns Assessment Noted Time PHQ-9 Depression Total Score: 16 025 10:54 AM EDT documented as of this encounter Care Teams Vitreo Retinal Surgeon Relationship Specialty Start Date End Date Dayanna Hernandez MD [address] [place] [address] PCP - General Family Medicine 10/24/12 documented as of this encounter
--- OUTSIDE RECORDS SUMMARY | 2025-01-15 09:20 | XMS_ITS | Encounter Summary ---
Author Organization [employer] Address 75 [facility] [address] [place] [address] Care Team Providers Care Hoeing Row Boss Name Role Phone Dayanna Hernandez MD Primary Care Provider [phone] Encounter Details Date Type Department Care Team ([facility] st Contact Info) Description 08/19/2023 Orders Only [facility] MEDICINE [address] [place], [place] [phone] Dayanna Hernandez MD [address] [place], [place] [phone] Social History Tobacco Use Types Packs/Day Years [...] Description 01/23/2025 1:15 PM EDT Office Visit [facility] MEDICINE [address] [place] [address] Dayanna Hernandez MD [address] [place] [address] documented as of this encounter Visit Diagnoses Not on filedocumented in this encounter Additional Health Concerns Assessment Noted Time PHQ-9 Depression Total Score: 8 07/31/19 23 10:10 AM EDT documented as of this encounter Care Teams Hoeing Row Boss Relationship Specialty Start Date End Date Dayanna Hernandez MD [address] [place] [address] PCP - General Family Medicine 10/24/12 documented as of this encounter
--- OUTSIDE RECORDS SUMMARY | 2025-01-15 09:20 | XMS_ITS | Encounter Summary ---
Author Organization [employer] Address 75 [facility] [address] [address] Care Team Providers Care Application Helper Name Role Phone Dayanna Hernandez MD Primary Care Provider [phone] Encounter Details Date Type Department Care Team (Latest Contact Info) Description 01/23/2021 Abstract [facility] CONVERSIONS Dental, Provider, DDS Social History [...] Description 01/23/2025 1:15 PM EDT Office Visit [facility] MEDICINE [address] [place] [address] Dayanna Hernandez MD [address] [place] [address] documented as of this encounter Visit Diagnoses Not on filedocumented in this encounter Care Teams Application Helper Relationship Specialty Start Date End Date Dayanna Hernandez MD [address] [place] [address] PCP - General Family Medicine 10/24/12 documented as of this encounter
[2025-01-15 10:26] LABS: Appearance Urine Clear; Glucose Urine UA 100 mg/dL (Negative); PH 6.0 (5.0-9.0); Specific Gravity - Urine 1.015 (1.005-1.025); UMIC TRIGGER UA YES
[2025-01-15 10:53] LABS: Anion Gap 11 (12-20); Blood Urea Nitrogen 26 mg/dL (9-16); Calcium 9.4 mg/dL (8.4-10.2); Carbon Dioxide 26 mmol/L (22-29); Chloride 106 mmol/L (96-108); Estimated Glomerular Filt Rate 33; Potassium 4.2 mmol/L (3.3-5.1); Sodium 139 mmol/L (135-145)
[2025-01-19 18:48] LABS: Phospholipase A2 IgG ELISA <4 RU/mL; Phospholipase A2 IgG IFA NEGATIVE (NEGATIVE)
[2025-01-19 22:03] LABS: Prot Elec - Albumin 3.7 g/dL (3.8-4.8); Prot Elec - Alpha1 0.3 g/dL (0.2-0.3); Prot Elec - Alpha2 0.8 g/dL (0.5-0.9); Prot Elec - Beta 1 0.5 g/dL (0.4-0.6); Prot Elec - Beta 2 0.4 g/dL (0.2-0.5); Prot Elec - Gamma 0.8 g/dL (0.8-1.7); Prot Elec - Total Protein 6.4 g/dL (6.1-8.1)
== END 2025-01-15 09:18 | disposition home or self-care (01) ==
LOC: HO.US 09:17
PROVIDERS: PCP Family Medicine; Visit Provider Internal Medicine Hypertension Specialist
DX: E11.22 Type 2 diabetes mellitus with diabetic chronic kidney disease (principal); N18.30 Chronic kidney disease, stage 3 unspecified; R80.9 Proteinuria, unspecified
CPT/HCPCS: 36415; 76775; 80048; 81001; 83520; 84165; 86160; 86255

== ENCOUNTER → 2025-01-15 09:18 | Outpatient (BNV) | payer OTHER, SELFPAY | PROVIDERS: PCP Family Medicine; Visit Provider Radiology Diagnostic Radiology | DX: E11.22 Type 2 diabetes mellitus with diabetic chronic kidney disease (principal); N18.30 Chronic kidney disease, stage 3 unspecified | CPT/HCPCS: 76775 ==

== ENCOUNTER 2025-01-23 14:02 | Outpatient (REF) | payer OTHER, SELFPAY ==
--- OUTSIDE RECORDS SUMMARY | 2025-01-23 13:15 | XMS_ITS | Encounter Summary ---
Author Organization [employer] Address 75 [facility] [address] [address] Care Team Providers Care Ciaio Counter Molder Name Role Phone Dayanna Hernandez MD Primary Care Provider [phone] Encounter Details Date Type Department Care Team ([facility] st Contact Info) Description 01/23/2025 1:15 PM EDT Office Visit [facility] MEDICINE [address] [place], [place] [phone] Dayanna Hernandez MD [address] [place], [place] [phone] Primary hypertension (Primary Dx); Dyslipidemia; Type 2 [...] PSA, Total 0.42 <0.05 - 4.0 ng/mL [facility] Comment:PSA methodology: Abb jessica Alipility i ChemiluminescentMicroparticle Immunoassay (CMIA) Blood Venous blood specimen / Unknown 01/23/2025 2:08 PM EDT 01/23/2025 4:04 PM EDT us Dayanna Hernandez MD LAB BLOOD ORDERABLES Final Resul t Performing Organization Address City/State/[facility] Co de Phone Number [facility] [address] [place] [phone] * (ABNORMAL) POCT Hgb A1c (01/23/2025 1:28 PM EDT) Pathologist [facility] Hemoglobin A1C 7.7(A) 4.0 - 5.7 % QC Media Lot # [id number] Lot# Expiration Date Blood 01/23/2025 1:28 PM EDT us Dayanna Hernandez MD POINT OF CARE TEST ENTER/EDIT OR DERABLES Final Result * POCT Glucose (01/23/2025 1:25 PM EDT) Glucose Blood, POC 190 60 - 200 mg/dL QC Media Lot # [id number] Lot# Expiration Date 071 Blood Capillary blood specimen / Unknown 01/23/2025 [...] documented as of this encounter Care Teams Ciaio Counter Molder Relationship Specialty Start Date End Date Dayanna Hernandez MD [address] [place] [address] PCP - General Family Medicine 10/24/12 documented as of this encounter
[2025-01-23 16:11] LABS: Appearance Urine Clear; Glucose Urine UA 100 mg/dL (Negative); PH 6.0 (5.0-9.0); Specific Gravity - Urine 1.020 (1.005-1.025)
--- OUTSIDE RECORDS SUMMARY | 2025-01-23 18:55 | XMS_ITS | Encounter Summary ---
Author Organization [employer] Address 75 [facility] [address] [address] Care Team Providers Care Geomagnetist Name Role Phone Dayanna Hernandez MD Primary Care Provider Encounter Details Date Type Department Care Team ([facility] st Contact Info) Description 01/09/2025 Orders Only [facility] MEDICINE [address] [place] [address] Dayanna Hernandez MD [address] [place] [address] Social History Tobacco Use Types Packs/Day Years [...] documented as of this encounter Care Teams Geomagnetist Relationship Specialty Start Date End Date Dayanna Hernandez MD [address] [place] [address] PCP - General Family Medicine 10/24/12 documented as of this encounter
--- OUTSIDE RECORDS SUMMARY | 2025-01-23 18:55 | XMS_ITS | Encounter Summary ---
Author Organization [employer] Address [address] [facility] [address] [place] [address] Care Team Providers Care Ged Instructor Name Role Phone Daaynna Hernandez MD Primary Care Provider [phone] Reason for Visit * Reason Onset Date Comments chartprep 01/22/2025 Encounter Details Date Type Department Care Team ([facility] st Contact Info) Description 01/22/2025 Telephone [facility] MEDICINE [address] [place] [address] Dayanna Hernandez MD [address] [place] [address] chartprep Social History Tobacco Use Types Packs/Day Years [...] encounter Miscellaneous Notes * Telephone Encounter - Shara Aguilar [place] - 01/22/2025 1:36 PM EDT ..Chart Prep Labs: done Images: done US Renal Vaccines due: Covid Due, PCV20 Due, Flu Due, RSV in Pharmacy Due, and Shingles in pharmacy Due Referrals: Not Applicable Screenings: Colonoscopy , Eye Exam, and Foot Exam Overdue care gaps: A1C and Glucose documented in this encounter Plan of Treatment Not on file documented as of this encounter Visit Diagnoses Not on filedocumented in this encounter Additional Health Concerns Assessment Noted Time PHQ-9 Depression Total Score: 16 025 10:54 AM EDT documented as of this encounter Care Teams Ged Instructor Relationship Specialty Start Date End Date Dayanna Hernandez MD [address] [place] [address] PCP - General Family Medicine 10/24/12 documented as of this encounter
--- OUTSIDE RECORDS SUMMARY | 2025-01-23 18:55 | XMS_ITS | Encounter Summary ---
Author Organization [employer] Address [address] [facility] [address] [place] [address] Care Team Providers Care Db2 Systems Programmer Name Role Phone Dayanna Hernandez MD Primary Care Provider [phone] Encounter Details Date Type Department Care Team ([facility] st Contact Info) Description 08/19/2023 Orders Only [facility] MEDICINE [address] [place], [place] [phone] Dayanna Hernandez MD [address] [place], [place] [phone] Social History Tobacco Use Types Packs/Day Years [...] documented as of this encounter Care Teams Db2 Systems Programmer Relationship Specialty Start Date End Date Dayanna Hernandez MD [address] [place] [address] PCP - General Family Medicine 10/24/12 documented as of this encounter
--- OUTSIDE RECORDS SUMMARY | 2025-01-23 18:55 | XMS_ITS | Encounter Summary ---
Author Organization [employer] Address [address] [place] [address] Care Team Providers Care Makeup Instructor Name Role Phone Dayanna Hernandez MD Primary Care Provider [phone] Encounter Details Date Type Department Care Team (Late st Contact Info) Description 01/23/2025 Orders Only GENERIC EXTERNAL DATA DEPARTMENT Provider, Generic External Data Social History Tobacco Use Types Packs/Day Years [...] is your housing situation today? I have carmelajanelle yousif 09/12/[address] you [...] Procedure Name Priority Date/Time Associated Diagnosis Comments URINALYSIS WITH REFLEX TO MICROSCOPIC Routine 01/23/2025 2:08 PM EDT documented in this encounter Results * (ABNORMAL) Urinalysis with Reflex to Microscopic (01/23/2025 2:08 PM EDT) Color Urine Yellow [facility] Appearance Urine Clear [facility] PH 6.0 5.0 - 9.0 [facility] Glucose Urine UA 100(A) Negative mg/dL [facility] Urine Blood Negative Negative [facility] Specific [address] [place] - Urine 1.020 1.005 - 1.025 [facility] Urine Protein >=1000 (4+)(A) Neg-Trace mg/dL [facility] Urine Ketones Negative Negative mg/dL [facility] Nitrite Urine Negative Negative [facility] Leukocyte Esterase Urine Negative Negative [facility] 01/23/2025 2:08 PM EDT 01/23/2025 4:02 PM EDT us Generic External Data Provider LAB URINE ORDERAB LES Final Result [facility] [address] [place] [address] [phone] documented in this encounter Visit Diagnoses Not on filedocumented in this encounter Additional Health Concerns Assessment Noted Time PHQ-9 Depression Total Score: 16 09/12/ 025 10:54 AM EDT documented as of this encounter Care Teams Makeup Instructor Relationship Specialty Start Date End Date Dayanna Hernandez MD [address] [place] [address] PCP - General Family Medicine 10/24/12 documented as of this encounter
--- OUTSIDE RECORDS SUMMARY | 2025-01-23 18:55 | XMS_ITS | Clinical Summary ---
Author Organization [facility] Address [address] [place], [place] [id number] Phone Care Team Providers Care Photography Editor Name Role Phone Alison Luu Primary Care Provider [phone] Social History Tobacco Use Types Packs/Day Years [...] file Medical Devices Not on file Insurance [facility] [employer] MEDICARE REPLACEMENT [place] [address] [place] [address] MEDICARE REPLACEMENT Care Teams Photography Editor Relationship Specialty Start Date End Date Alison Luu PA [address] [place] [phone] [email or web address] PCP - General Post Acute Care Registered Nurse 01/19/20 Additional Source Comments The information contained in this document represents components of the legal health record. It is not the complete legal health record.[facility]
--- OUTSIDE RECORDS SUMMARY | 2025-01-23 18:55 | XMS_ITS | Encounter Summary ---
Author Organization [employer] Address [address] [facility] [address] [place] [address] Care Team Providers Care Instrumentation Tech Name Role Phone Dayanna Hernandez MD Primary Care Provider [phone] Encounter Details Date Type Department Care Team ([facility] st Contact Info) Description 01/23/2025 Results Follow-Up [facility] MEDICINE [address] [place] [address] Dayanna Hernandez MD [address] [place] [address] POCT Glucose, POCT Hgb A1c, PSA, Screen Social History Tobacco Use Types Packs/Day Years [...] documented as of this encounter Care Teams Instrumentation Tech Relationship Specialty Start Date End Date Dayanna Hernandez MD [address] [place] [address] PCP - General Family Medicine 10/24/12 documented as of this encounter
--- OUTSIDE RECORDS SUMMARY | 2025-01-23 18:55 | XMS_ITS | Encounter Summary ---
Author Organization [employer] Address [address] [facility] [address] [place] [address] Care Team Providers Care Web Applications Administrator Name Role Phone Dayanna Hernandez MD Primary Care Provider [phone] Encounter Details Date Type Department Care Team [...] on filedocumented in this encounter Care Teams Web Applications Administrator Relationship Specialty Start Date End Date Dayanna Hernandez MD [address] [place] [address] PCP - General Family Medicine 10/24/12 documented as of this encounter
--- OUTSIDE RECORDS SUMMARY | 2025-01-23 18:55 | XMS_ITS | Encounter Summary ---
Author Organization [employer] Address [address] [facility] [address] [place] [address] Care Team Providers Care Front End Technician Name Role Phone Dayanna Hernandez MD Primary Care Provider [phone] Reason for Referral * Consultation (Routine) - Closed Specialty Diagnoses / Procedures Referred By Contac emma Referred To Contact Physical Therapy Diagnoses Gait instability Hemiparesis affecting left side as late effect of cerebrovascular accident (CVA) (CMS/HCC) (HCC) Legal blindness Dayanna Hernandez MD [address] [place] [address] Phone: tel: fax: [facility] [address] [place] [address] Phone: tel: fax: Referral ID Status Reason Start Date Expiration Date V isits Requested Visits Authorized [id number] Closed Specialty Services Required 09/09/2023 09/08/2024 1 1 Encounter Details Date Type Department Care Team (Late st Contact Info) Description 09/09/2023 Orders Only [facility] MEDICINE [address] [place] [address] Dayanna Hernandez MD [address] [place], [place] [phone] Gait instability (Primary Dx); Hemiparesis affecting left [...] as late effect of cerebrovascular accident (CVA) ([facility]) Legal blindness Expected: 09/09/2023 (Approximate), Expires: 09/08/2024 documented as of this encounter Visit Diagnoses Diagnosis Gait instability- Primary Abnormality of gait Hemiparesis affecting left side as late effect of cerebrovascular accident (CVA) ([facility]) (HCC) Legal blindness Legal blindness, as defined in [place] documented in this encounter Additional Health Concerns Assessment Noted Time PHQ-9 Depression Total Score: 8 07/31/19 23 10:10 AM EDT documented as of this encounter Care Teams Front End Technician Relationship Specialty Start Date End Date Dayanna Hernandez MD [address] [place] [phone] PCP - General Family Medicine 10/24/12 documented as of this encounter
--- OUTSIDE RECORDS SUMMARY | 2025-01-23 18:55 | XMS_ITS | Encounter Summary ---
Author Organization [employer] Address [address] [facility] [address] [place] [address] Care Team Providers Care Production Support Consultant Name Role Phone Dayanna Hernandez MD Primary Care Provider [phone] Encounter Details Date Type Department Care Team (Latest Contact Info) Description 01/23/2025 Travel Social History Tobacco Use Types Packs/Day [...] documented as of this encounter Care Teams Production Support Consultant Relationship Specialty Start Date End Date Dayanna Hernandez MD [address] [place] [address] PCP - General Family Medicine 10/24/12 documented as of this encounter
--- OUTSIDE RECORDS SUMMARY | 2025-01-23 18:56 | XMS_ITS | Encounter Summary ---
Author Organization [employer] Address [address] [facility] [address] [place] [address] Care Team Providers Care Felter Tennis Balls Name Role Phone Dayanna Hernandez MD Primary Care Provider [phone] Encounter Details Date Type Department Care Team [...] on filedocumented in this encounter Care Teams Felter Tennis Balls Relationship Specialty Start Date End Date Dayanna Hernandez MD [address] [place] [address] PCP - General Family Medicine 10/24/12 documented as of this encounter
--- OUTSIDE RECORDS SUMMARY | 2025-01-23 18:56 | XMS_ITS | Encounter Summary ---
Author Organization [facility] Address [address] [facility] [address] [place] [address] Phone Care Team Providers Care Riveting Machine Operator Name Role Phone Dayanna Hernandez MD Primary Care Provider [phone] Encounter Details Date Type Department Care Team (Late st Contact Info) Description 11/01/2023 Office Communication [facility] [address] [facility] [address] [place] [phone] Haley Antoine ARNP [address] [facility] [address] [place] [address] Social History Tobacco Use Types [...] on filedocumented in this encounter Care Teams Riveting Machine Operator Relationship Specialty Start Date End Date Dayanna Hernandez MD PCP - General 04/15/20 documented as of this encounter
--- OUTSIDE RECORDS SUMMARY | 2025-01-23 18:56 | XMS_ITS | Clinical Summary ---
Author Organization [employer] Address [address] [place] [address] Care Team Providers Care Instructional Technology Instructor Name Role Phone Dayanna Hernandez MD Primary Care Provider [phone] Allergies Active Allergy Reactions Criticality Noted Date [...] DAILY NEEDED. 11/07/19 25 Active Continuous Glucose Baller Tender (FreeStyle Nevaeh 3 [place]) device USE DAILY TO MONITOR BLOOD GLUCOSE LEVELS CONTINUOUSLY. 09/09/19 25 Active Continuous Glucose Sensor (FreeStyle Nevaeh 3 Plus Sensor) [facility] APPLY 1 NEW SENSOR EVERY 15 DAYS [...] FOR 1 WEEK AND REPEAT NEEDED Active rosuvastatin (Crestor) 10 MG tablet Take 1 tablet (10 mg) by mouth Once per day. 30 tablet 11 01/17/20 25 026 Active FLUoxetine (PROzac) 10 MG tablet Take 1 tablet (10 mg) by mouth Once per day. 90 tablet 3 01/24/20 25 Active FLUoxetine (PROzac) 20 MG capsule Take 1 capsule (20 mg) by mouth Once per day. 180 capsule 09/13/19 25 025 Discontinued(Re order (will not trigger notification to Pharmacy)) FLUoxetine (PROzac) 10 MG capsule TAKE 1 CAPSULE (10 MG) BY MOUTH ONCE PER DAY. 90 capsule 12/12/19 025 Discontinued(Do se adjustment) FLUoxetine (PROzac) 20 MG capsule Take 1 capsule (20 mg) by mouth Once per day. 180 capsule 01/10/20 25 025 Discontinued Active Problems Problem Noted [...] Plan (09/12/2024 9:11 AM EDT): -Seen by ballet company member on 03/11/20 for JEAN MARIE -Pt had several sleep studies, most recently in 2019, showing JEAN MARIE -Continue auto PAP pressure 6-14 cm H2O -Will order a new autoPAP machine; may need a new sleep study -Most recent echo did not show pulmonary HTN -Hog Operator recommended him to use azelastine for rhinitis. -Refer back to ballet company member Dr. Sanchez Assessment & Plan (08/17/2023 11:35 AM EDT): -Seen by ballet company member on 03/11/20 for JEAN MARIE -Pt had several sleep studies, most recently in 2019, showing JEAN MARIE -Continue auto PAP pressure 6-14 cm H2O -Will order a new autoPAP machine; may need a new sleep study -Most recent echo did not show pulmonary HTN -Hog Operator recommended him to use azelastine for rhinitis. -Refer back to ballet company member Dr. Sanchez Assessment & Plan (11/27/2022 4:34 PM EDT): -Seen by ballet company member on 03/11/20 for JEAN MARIE -Pt had several sleep studies, most recently in 2019, showing JEAN MARIE -Continue auto PAP pressure 6-14 cm H2O -Will order a new autoPAP machine; may need a new sleep study -Most recent echo did not show pulmonary HTN -Hog Operator recommended him to use azelastine for rhinitis. -Refer back to ballet company member Dr. Sanchez Intertrigo 10/23/2022 Assessment & Plan (11/27/2022 4:24 PM EDT): - s/p clotrimazole BID x 28 days in October 2022 - responding well to nystatin pwd TID; refill - follow up with video effects editor Assessment & Plan (10/23/2022 12:46 PM EDT): [...] symptoms -pt to f up w his video effects editor in 2 months per pt and has [...] cetrizine -continue montelukast -continue fluticasone nasal Hemiparesis ([facility]) 06/05/2020 Hypertensive renal disease 06/05/2020 Proteinuria 06/05/2020 Assessment & Plan (11/27/2022 4:26 PM EDT): - pt refuses to take ARB or ACEI - consider SGLT-2 inhibitor Renal stone 07/28/2016 Biliary calculus 09/16/2015 Hemiparesis affecting left s amari as late effect of cerebrovascular accident (CVA) ([facility]) 09/16/2015 Stage 3 chronic kidney disease ([facility]) 016 Assessment & Plan (09/26/2024 1:29 PM EDT): -Health Technician Hearing: Dr. Velasquez, last seen in October 2023 -Diabetic and vascular etiology, proteinuria -07/31/22 BUN 20; Scr 1.53; eGFR 53; K 4.1; Bicarb 28, UACR 1,147 -Baseline Cr 1.3-1.5 -In a setting of recurrent nephrolithiasis -Stable -Avoid nephrotoxic drugs. -Treatment Hx: Pt reported throat itching with ARB, and cough with ACEI. Assessment & Plan (08/17/2023 11:36 AM EDT): -Health Technician Hearing: Dr. Velasquez, last seen on 09/02/22 -Diabetic and vascular etiology, proteinuria -07/31/22 BUN 20; Scr 1.53; eGFR 53; K 4.1; Bicarb 28, UACR 1,147 -Baseline Cr 1.3-1.5 -In a setting of recurrent nephrolithiasis -Stable -Avoid nephrotoxic drugs. -Treatment Hx: Pt reported throat itching with ARB, and cough with ACEI. Assessment & Plan (11/19/2022 5:11 AM EDT): -Health Technician Hearing: Dr. Velasquez, last seen on 09/02/22 -Diabetic and vascular etiology, proteinuria -07/31/22 BUN 20; Scr 1.53; eGFR 53; K 4.1; Bicarb 28, UACR 1,147 -Baseline Cr 1.3-1.5 -In a setting of recurrent nephrolithiasis -Stable -Avoid nephrotoxic drugs. -Treatment Hx: Pt reported throat itching with ARB, and cough with ACEI. Assessment & Plan (07/31/2022 5:30 AM EDT): -Health Technician Hearing: Dr. Velasquez, last seen on 08/16/19, but [...] 7.4% on 09/12/24, improved 9.6% on 08/17/23 -Coordinating Producer: [facility], last [...] 12:36 PM EDT): -A1C 9.6% on 08/17/23 -Coordinating Producer: [facility], last seen in 12/2022, advised to schedule appointment - change tresiba to Lantus, will start at 60 units - Continue humalog - restart tradjenta 5 mg daily -Last eye exam: August 2022 (requesting note) -Last foot exam: 08/17/2023; high-risk, has a character actor. -Last microalbumin test: 07/31/22 UACR 1,147 -Last lipid profile: 06/23/23 TC 149; TG 167; HDL 56; LDL 60 Last dental exam: ? Immunizations: Reviewed and discussed. 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 -Last microalbumin test: 07/31/22 UACR 1,147 -Last lipid profile: 07/31/22 TC 224; TG 183; HDL 36; LDL 156 Last dental exam: ? Immunizations: Reviewed and discussed. Pt chose not to fully vaccinated Follow up in 3-4 mo or sooner prn Assessment & Plan (07/31/2022 5:33 AM EDT): -A1C 8.3% on , worsened from 6.1% on 09/04/21 -Coordinating Producer: [facility], last seen in 07/04/21 -Current medications: Tresiba 56 units daily, Humalog U-200 10-15 units with snack, 25-30 units with meal, Tradjenta 5 mg daily -Last eye exam: April 2019, Dr. 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 -Last microalbumin test: 09/25/20 UACR 1256, albuminuria [...] LDL 152; more recent test done in . Current medication: Previously Crestor 40 mg daily, decreased to 10 mg daily due to CKDIII; pt also has been taking fenofibrate 54 mg daily because his salesperson pets and pet supplies in prescribed him. We discussed about his [...] taking fenofibrate 54 mg daily because his salesperson pets and pet supplies in [place] prescribed him. We discussed about [...] taking fenofibrate 54 mg daily because his salesperson pets and pet supplies in prescribed him. We discussed about his [...] taking fenofibrate 54 mg daily because his salesperson pets and pet supplies in [place] prescribed him. We discussed about [...] (07/31/2022 5:36 AM EDT): - he has S provider - prescribed clonazepam, fluoxetine, and trazodone - good family support Chronic recurrent major depressive disorder 10/2013 Glaucoma 10/09/2013 Assessment & Plan (09/12/2024 9:07 AM EDT): - following with pin maker - continue current medication Assessment & Plan (11/27/2022 4:26 PM EDT): - following with pin maker - continue current medication Hypertension 05/16/2012 Assessment [...] latest note -Pt wants to go to [facility] in March because his psoriasis improves. -Pt will schedule a follow up appt Assessment & Plan (08/17/2023 11:36 AM EDT): -Dietary regimen is improving symptoms -Continue on Otezla and clobetasol topical -Patient is still followed by Dr. Rico - we have not received a note, will obtain latest note -Pt wants to go to [facility] in March because his psoriasis improves. -Pt will schedule a follow up appt Assessment & Plan (11/27/2022 4:24 PM EDT): -Dietary regimen is improving symptoms -Continue on Otezla and clobetasol topical -Patient is still followed by Dr. Rico - we have not received a note, will obtain latest note -Pt wants to go to [facility] in March because his psoriasis improves. -Pt will schedule a follow up appt Assessment & Plan (07/31/2022 5:35 AM EDT): -Dietary regimen is improving symptoms -Continue on Otezla and clobetasol topical -Patient is still followed by Dr. Rico - we have not received a note, will obtain latest note -Pt wants to go to [facility] in March because his psoriasis improves. -Pt will schedule a follow up appt Backache 12/21/2011 Knee pain 12/21/2011 Proliferative diabetic retinopathy 11/25/2011 Encounters Date Type Department Care Team Description 01/23/2025 1:15 PM EDT Office Visit [address] [address] Dayanna Hernandez MD Primary hypertension (Primary Dx); Dyslipidemia; Type 2 diabetes 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, with long-term current use of insulin (HCC); Nocturia 01/23/2025 Results Follow-Up [address] [address] Dayanna Hernandez MD POCT Glucose, POCT Hgb A1c, PSA, Screen 01/23/2025 Orders Only GENERIC EXTERNAL DATA DEPARTMENT Provider, Generic External Data 01/23/2025 Travel 01/22/[address] [phone] Dayanna Hernandez MD chartprep 01/15/2025 Results Follow-Up [address] [address] Dayanna Hernandez MD Urinalysis with Reflex to Microscopic, Urinalysis Complete, Basic Metabolic Panel 01/15/2025 Orders Only GENERIC EXTERNAL DATA DEPARTMENT Provider, Generic External Data 01/09/[address] [facility] [address] [facility] [place] [address] Dayanna Hernandez MD 01/09/[address] [facility] [address] [facility] [place], [place] [address] Dayanna Hernandez MD 01/09/[address] [facility] [place] [facility] [place] [address] Dayanna Hernandez MD 01/09/2025 Travel 01/05/[address] [facility] [address] [facility] [place] [address] Dayanna Hernandez MD Durable Medical Equipment ([employer]: Shower Chair) 12/25/[address] [facility] [address] [place] [address] Dayanna Hernandez MD chart prep 12/11/[address] [facility] [place] [address] Dayanna Hernandez MD 11/16/2024 Orders Only GENERIC EXTERNAL DATA DEPARTMENT Provider, Generic External Data 11/14/2024 Orders Only GENERIC EXTERNAL DATA DEPARTMENT Provider, Generic External Data 11/06/[address] [facility] [place] [address] Dayanna Hernandez MD 10/27/[address] [facility] [address] Dayanna Hernandez MD Acute right-sided low back [...] Mass Index 34.99 01/23/2025 1:22 PM EDT Plan of Treatment Health Maintenance [...] ( season) 2024 Influenza Vaccine (#1) 2024 Depression Monitoring 03/14/2025 09/12/2024, 025 Diabetes: Hemoglobin A1C 04/25/2025 025, 11/16/2024, 09/12/2024, Additional history exists Alcohol/Substance Use Screening 09/12/2025 09/12/2024 Disability Screening 09/12/2025 09/12/2024 SDOH Screening 09/12/2025 09/12/2024 Lipid Panel 11/16/2025 11/16/2024, 0807/2024, 12/18/2022, Additional history exists DTaP/Tdap/Td Vaccines (2 - Td or Tdap) 12/25/2025 12/26/2015 Tobacco Screening 01/23/2026 01/23/2025 Hepatitis B Vaccines Completed 01/29/2015, 06/19/2014, 01/30/2014 [...] TO MICROSCOPIC Routine 01/23/2025 2:08 PM EDT PSA, SCREEN Routine 01/23/2025 2:08 PM EDT Nocturia POCT GLYCATED HEMOGLOBIN, TOTAL Routine 01/23/2025 1:28 PM EDT Type 2 diabetes 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, with long-term current use of insulin (HCC) POCT GLUCOSE Routine 01/23/2025 1:25 PM EDT Type 2 diabetes 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, with long-term current use of insulin (HCC) US RENAL COMPLETE Routine 01/15/2025 10: 58 AM EDT PROTEIN, TOTAL AND PROTEIN ELECTROPHORESIS Routine 01/15/2025 9:51 AM EDT PHOSPHOLIPASE A2 RECEPTOR (PLA2R) AB PANEL Routine 01/15/2025 9:51 AM EDT COMPLEMENT COMPONENT C4C Routine 01/15/2025 9:51 AM EDT COMPLEMENT COMPONENT C3C Routine 01/15/2025 9:51 AM EDT BASIC METABOLIC PANEL Routine 01/15/2025 9:51 AM EDT URINALYSIS, COMPLETE Routine 01/15/2025 9:51 AM EDT URINALYSIS WITH REFLEX TO MICROSCOPIC Routine 01/15/2025 9:51 AM EDT ALBUMIN, RANDOM URINE W/CREATININE Routine 11/16/2024 11:02 [...] Recently Relevant to Health Maintenance Results * PSA, Screen (01/23/2025 2:08 PM EDT) PSA, Total 0.42 <0.05 - 4.0 ng/mL [facility] Comment:PSA methodology: Patricia Thomas i ChemiluminescentMicroparticle Immunoassay (CMIA) Blood Venous blood specimen / Unknown 01/23/2025 2:08 PM EDT 01/23/2025 4:04 PM EDT us Dayanna Hernandez MD LAB BLOOD ORDERABLES Final Resul t Performing Organization Address [facility] Co de Phone Number [facility] [address] [place] [phone] * (ABNORMAL) Urinalysis with Reflex to Microscopic (01/23/2025 2:08 PM EDT) Only the most recent of2 resultswithin the time period is included. Color Urine Yellow [facility] Appearance Urine Clear [facility] PH 6.0 5.0 - 9.0 [facility] Glucose Urine UA 100(A) Negative mg/dL [facility] Urine Blood Negative Negative [facility] Specific [place] - Urine 1.020 1.005 - 1.025 [facility] Urine Protein >=1000 (4+)(A) Neg-Trace mg/dL [facility] Urine Ketones Negative Negative mg/dL [facility] Nitrite Urine Negative Negative [facility] Leukocyte Esterase Urine Negative Negative [facility] 01/23/2025 2:08 PM EDT 01/23/2025 4:02 PM EDT us Generic External Data Provider LAB URINE ORDERAB LES Final Result Performing Organization Address [facility] Co de Phone Number [facility] [address] [place] [phone] * (ABNORMAL) POCT Hgb A1c (01/23/2025 1:28 PM EDT) Hemoglobin A1C 7.7(A) 4.0 - 5.7 % QC Media Lot # [id number] Lot# Expiration Date [id number] Blood 01/23/2025 1:28 PM EDT Dayanna Hernandez MD POINT OF CARE TEST ENTER/EDIT OR DERABLES Final Result * POCT Glucose (01/23/2025 1:25 PM EDT) Glucose Blood, POC 190 60 - 200 mg/dL QC Media Lot # [id number] Lot# Expiration Date ,[id number] Blood Capillary blood specimen / Unknown 01/23/2025 1:25 PM EDT us Dayanna Hernandez MD POINT OF CARE TEST ENTER/EDIT OR DERABLES Final Result * US Renal Complete (01/15/2025 10:58 AM EDT) Anatomical Region Laterality Modality Kidney Ultrasound 01/15/2025 10:5 8 AM EDT Narrative 01/15/2025 10:59 AM EDT [address] [address] Ultrasound Report Signed Patient: Yehuda Casanova MR# : [id number] : 1960 Acct:[id number] Age/Sex: 64 / M ADM Date: 01/15/25 Loc: HO.US Attending Dr: Ramesh Hamm MD Ordering Physician: Ramesh Hamm MD Date of Service: 01/15/25 Procedure(s): US renal BI Accession Number(s): [id number] cc: Ramesh Hamm MD; Dayanna Hernandez MD Reason for Exam: E11.22 - Type 2 diabetes mellitus with diabetic chronic kidney disease CLINICAL HISTORY: CKD 3 US Renal Comparison: US/SR - US KIDNEY BILATERAL - 10/12/2023 09:21 AM EDT Findings: Right kidney 10.5 cm length. Left kidney 11.1 cm length. Increased bilateral renal cortical echogenicity cannot be excluded on this limited study (spleen and liver were not included in the obtained images for comparison with renal cortical echogenicity). No hydronephrosis. 13 mm hypoechoic to intermediate echogenic region measured by the technology methodology consultant at level of the right kidney may be artifactual/due to renal pyramid or secondary to the questionable cyst seen on prior ultrasound exam. IMPRESSION: Limited exam. No hydronephrosis. This document has been electronically signed by: Charley Arnold MD on 01/15/2025 10:58:14 Dictated By: Charley Arnold MD Signed By: <Electronically signed by Charley Arnold MD in OV> 01/15/25 1059 DD/ 57 TD/TT: 01/15/251057 Sales Vice President: Procedure Note Donotuseinterpreter, Image - 01/15/2025 [place] [address] Ultrasound Report Signed Patient: Yehuda Casanova DMR# : [id number] : 1960cct:[id number] Age/Sex: 64 / MADM Date: 01/15/25 Loc: HO.US Attending Dr: Ramesh Hamm MD Ordering Physician: Ramesh Hamm MD Date of Service: 01/15/25 Procedure(s): US renal BI Accession Number(s): [id number] cc: Ramesh Hamm MD; Dayanna Hernandez MD Reason for Exam: E11.22 - Type 2 diabetes mellitus with diabetic chronickidney disease CLINICAL HISTORY: CKD 3 US Renal Comparison: US/SR - US KIDNEY BILATERAL - 10/12/2023 09:21 AM EDT Findings: Right kidney 10.5 cm length. Left kidney 11.1 cm length. Increased bilateral renal cortical echogenicity cannot be excluded on this limited study (spleen and liver were not included in the obtained images for comparison with renal cortical echogenicity). No hydronephrosis. 13 mm hypoechoic to intermediate echogenic region measured by the technology methodology consultant at level of the right kidney may be artifactual/due to renal pyramid or secondary to the questionable cyst seen on prior ultrasound exam. IMPRESSION: Limited exam. No hydronephrosis. This document has been electronically signed by: Charley Arnold MD on 01/15/2025 10:58:14 Dictated By: Charley Arnold MD Signed By: <Electronically signed by Charley Arnold MD in OV> 01/15/25 1059 DD/ 1058 TD/TT: 10/13/25 1058 Sales Vice President: us [facility] External Provider IMG US PROCEDURES Final Result * Phospholipase A2 Receptor (PLA2R) Antibody Panel (01/15/2025 9:51 AM EDT) Phospholipase A2 Receptor (PLA2R) Ab, PRAVIN <4 RU/mL [facility] Comment:Reference Range: <14 : NEGATIVE 14-19: BORDERLINE >19: POSITIVE Phospholipase A2 Receptor (PLA2R) Ab, IFA NEGATIVE NEGATIVE [facility] Comment:THIS TEST WAS PERFOR MED AT:[employer] [id number] [place] [phone] AUSTIN MD,PHD,ANALISA 01/15/2025 9:51 AM EDT 01/15/2025 9:52 AM EDT Generic External Data Provider LAB BLOOD ORDERAB LES Final Result [facility] [address] [place] [phone] * (ABNORMAL) Urinalysis Complete (01/15/2025 9:51 AM EDT) Only the most recent of2 resultswithin the time period is included. Color Urine Yellow [facility] Appearance Urine Clear [facility] PH 6.0 5.0 - 9.0 [facility] Glucose Urine UA 100(A) Negative mg/dL [facility] Urine Blood Negative Negative [facility] Specific [place] - Urine 1.015 1.005 - 1.025 [facility] Urine Protein 300 (3+)(A) Neg-Trace mg/dL [facility] Urine Ketones Negative Negative mg/dL [facility] Nitrite Urine Negative Negative [facility] Leukocyte Esterase Urine Negative Negative [facility] RBC Urine 0-2 0 - 2 /HPF [facility] Urine WBC 0-5 0 - 5 /HPF [facility] Urine Squamous Epithelial Cell 0-2 0 - 2 /HPF [facility] Urine Bacteria None Seen None Seen [facility] Hyaline Casts, Urine 0-2 0 - 2 /LPF [facility] 01/15/2025 9:51 AM EDT 01/15/2025 10:11 AM EDT us Generic External Data Provider LAB URINE ORDERAB LES Final Result Performing Organization Address [facility] Co de Phone Number [facility] [address] [place] [phone] * Complement Component C3c (01/15/2025 9:51 AM EDT) Complement C3 168 82 - 185 mg/dL [facility] Comment:THIS TEST WAS PERFOR MED AT:[employer] [place] [id number] BRIGGS MD 01/15/2025 9:51 AM EDT 01/15/2025 9:52 AM EDT us Generic External Data Provider LAB BLOOD ORDERAB LES Final Result Performing Organization Address [facility] de Phone Number [facility] [address] [place] [phone] * Complement Component C4c (01/15/2025 9:51 AM EDT) Complement C4 36 15 - 53 mg/dL [facility] Comment:THIS TEST WAS PERFOR MED AT:[employer] [place] [id number] BRIGGS MD 01/15/2025 9:51 AM EDT 01/15/2025 9:52 AM EDT us Generic External Data Provider LAB BLOOD ORDERAB LES Final Result Performing Organization Address [facility] Co de Phone Number [facility] [address] [place] [phone] * (ABNORMAL) Protein, Total and Protein??Electrophoresis (01/15/2025 9:51 AM EDT) Prot Elec - Total Protein 6.4 6.1 - 8.1 g/dL [facility] Prot Elec - Albumin 3.7(A) 3.8 - 4.8 g/dL [facility] Prot Elec - Alpha1 0.3 0.2 - 0.3 g/dL [facility] Prot Elec - Alpha2 0.8 0.5 - 0.9 g/dL [facility] Prot Elec - Beta 1 0.5 0.4 - 0.6 g/dL [facility] Prot Elec - Beta 2 0.4 0.2 - 0.5 g/dL [facility] Prot Elec - Gamma 0.8 0.8 - 1.7 g/dL [facility] PES - Abn Protein Band 1 TNP [facility] PES-Abn Protein Band 2 TNP [facility] PES-Abn Protein Band 3 [facility] Prot Elec - Interpretation SEE NOTE [facility] Comment:Evaluation reveals a n isolated decrease in albumin.This pattern is suggestive of decreased proteinsynthesis or protein loss. Consider ordering pre-albumin quantitation.THIS TEST WAS PERFORMED AT:[employer] [place] [id number] BRIGGS MD 01/15/2025 9:51 AM EDT 01/15/2025 9:52 AM EDT us Generic External Data Provider LAB BLOOD ORDERAB LES Final Result [facility] [address] [place] [phone] * (ABNORMAL) Basic Metabolic Panel (01/15/2025 9:51 AM EDT) Pathologist [facility] Sodium 139 135 - 145 mmol/L [facility] Potassium 4.2 3.3 - 5.1 mmol/L [facility] Chloride 106 96 - 108 mmol/L [facility] Carbon Dioxide 26 22 - 29 mmol/L [facility] Anion Gap 11(L) 12 - 20 [facility] Urea Nitrogen (BUN) 26(H) 9 - 16 mg/dL [facility] Creatinine, Serum 2.04(H) 0.5 - 1.4 mg/dL [facility] Estimated Glomerular Filt Rate 33 [facility] Comment:Chronic Kidney Disea se: Estimated GFR < 60 mL/min/1.09b7Shixpi Kidney Disease: Estimated GFR < 15 mL/min/1.73m2 Glucose 189(H) 60 - 115 mg/dL [facility] Calcium 9.4 8.4 - 10.2 mg/dL [facility] 01/15/2025 9:51 AM EDT 01/15/2025 9:52 AM EDT us Generic External Data Provider LAB BLOOD ORDERAB LES Final Result Performing Organization Address City/State/[facility] Co de Phone Number [facility] [address] [place] [phone] * (ABNORMAL) Lipid Panel with Reflex to Direct LDL (11/16/2024 11:02 AM EDT) Triglycerides 155(H) <150 mg/dL [facility] Comment:Desirable Triglyceri de: less than 150 mg/dLBorderline High Triglyceride 150-199 mg/dLHigh Triglyceride: 200-499 mg/dLVery High Triglyceride: greater than or equal to 5OO mg/dL Cholesterol 138 <200 mg/dL [facility] Comment:Desirable Cholestero l: less than 200 mg/dLBorderline High Cholesterol: 200-239 mg/dLHigh Cholesterol: greater than 239 mg/dL LDL Cholesterol Calculated 72 <100 mg/dL [facility] Comment:Desirable LDL: less than 100 mg/dLNear Optimal/Above Optimal LDL: 110- 129 mg/dLBorderline High LDL: 130-159 mg/dLHigh LDL: 160-189 mg/dLVery High LDL: greater than or equal to 190 mg/dL HDL Cholesterol 35(L) >40 mg/dL [facility] Comment:Desirable HDL: great er than 40 mg/dL Note: This HDL assay may give artificially low results in patients with liver disease. Blood 11/16/2024 11:0 2 AM EDT 11/16/2024 1:35 PM EDT us Dayanna Hernandez MD LAB BLOOD ORDERABLES Final Resul t Performing Organization Address City/[facility]/ZIP Co de Phone Number [facility] [address] [place] [phone] * (ABNORMAL) Creatinine, Serum (11/16/2024 11:02 AM EDT) Creatinine, Serum 1.86(H) 0.5 - 1.4 mg/dL [facility] Estimated Glomerular Filt Rate 37 [facility] Comment:Chronic Kidney Disea se: Estimated GFR < 60 mL/min/1.35r5Poundm Kidney Disease: Estimated GFR < 15 mL/min/1.73m2 11/16/2024 11:0 2 AM EDT 11/16/2024 1:40 PM EDT us Generic External Data Provider LAB BLOOD ORDERAB LES Final Result Performing Organization Address [facility] Co de Phone Number [facility] [address] [place] [phone] * (ABNORMAL) Albumin, Random Urine W/Creatinine (11/16/2024 11:02 AM EDT) Creatinine, Urine 162.83 mg/dL [facility] Microalbumin Urine >2,000.0 mg/L [facility] Microalbum Creatinine Ratio Ur 1,228.2(H ) <30 ug/mg cr [facility] Comment:Albumin/Creatinine R atio Reference Ranges: Normal: < 30 ug/mg creatinine Microalbuminuria: 30 - 300 ug/mg creatinineClinical Albuminuria: > 300 ug/mg creatinine 11/16/2024 11:0 2 AM EDT 11/16/2024 12:55 PM EDT us Generic External Data Provider LAB URINE ORDERAB LES Final Result Performing Organization Address City/[facility]/ZIP Co de Phone Number [facility] [address] [place] [phone] [phone] * (ABNORMAL) CBC (11/16/2024 11:02 AM EDT) White Blood Count 6.2 4.8 - 10.8 X10*3/uL [facility] Red Blood Count 4.23(L) 4.60 - 5.80 X10*6/uL [facility] Hemoglobin 13.5(L) 14.0 - 18.0 g/dl [facility] Hematocrit 40.4(L) 42.0 - 52.0 % [facility] Mean Corpuscular Volume 95.5 80.0 - 98.0 fL [facility] Mean Corpuscular Hemoglobin 31.9 27.0 - 33.0 pg [facility] Mean Corpuscular HGB Conc 33.4 31.0 - 36.0 g/dl [facility] Red Cell Distribution Width 11.9 11.0 - 16.0 % [facility] Platelet Count 296 160 - 400 X10*3/uL [facility] Mean Platelet Volume 10.3 9.4 - 12.4 fL [facility] NRBC Pct Auto 0.0 0.0 - 0.2 /100WBC [facility] NRBC Abs Auto 0.000 0.0 - 0.012 X10*3/uL [facility] 11/16/2024 11:0 2 AM EDT 11/16/2024 1:35 PM EDT us Generic External Data Provider LAB BLOOD ORDERAB LES Final Result Performing Organization Address [facility]/ZIP Co de Phone Number [facility] [address] [place] [phone] * ALT (11/16/2024 11:02 AM EDT) Alanine Aminotransferase 16 0 - 40 U/L [facility] 11/16/2024 11:0 2 AM EDT 11/16/2024 1:40 PM EDT us Generic External Data Provider LAB BLOOD ORDERAB LES Final Result Performing Organization Address [facility] Co de Phone Number [facility] [address] [place] [phone] * AST (11/16/2024 11:02 AM EDT) Aspartate Amino Transferase 25 5 - 37 U/L [facility] 11/16/2024 11:0 2 AM EDT 11/16/2024 1:40 PM EDT Generic External Data Provider LAB BLOOD ORDERAB LES Final Result Performing Organization Address [facility] de Phone Number [facility] [address] [place] [phone] * (ABNORMAL) Hemoglobin A1c (11/16/2024 11:02 AM EDT) Hemoglobin A1c 7.1(H) <6.0 % [facility] Comment:Hemoglobin A1C Refer ence Range Adults: 4.8 - 6.0 % Non diabetic: < 6.0 % Goal: < 7.0 %Additional Action Suggested: > 8.0 %Note: Hemoglobin A1c results are invalid for patients with abnormal amounts of HbF. Blood transfusions may impact the HbA1c concentration in the patient sample. Estimated Average Glucose 157 mg/dL [facility] Comment:eAG = Estimated ave rage glucose which is %A1C expressed asaverage glucose, using the formula of the O6S-DavqmlxOdaagsj Glucose study (ADAG), Diabetes Care, Vol.31,#8,Nov. 2007 11/16/2024 11:0 2 AM EDT 11/16/2024 1:35 PM EDT us Generic External Data Provider LAB BLOOD ORDERAB LES Final Result Performing Organization Address [facility] de Phone Number [facility] [address] [place] [phone] * (ABNORMAL) Lipid Panel, Standard (11/16/2024 11:02 AM EDT) Triglycerides 159(H) <150 mg/dL [facility] Comment:Desirable Triglyceri de: less than 150 mg/dLBorderline High Triglyceride 150-199 mg/dLHigh Triglyceride: 200-499 mg/dLVery High Triglyceride: greater than or equal to 5OO mg/dL Cholesterol 140 <200 mg/dL [facility] Comment:Desirable Cholestero l: less than 200 mg/dLBorderline High Cholesterol: 200-239 mg/dLHigh Cholesterol: greater than 239 mg/dL LDL Cholesterol Calculated 73 <100 mg/dL [facility] Comment:Desirable LDL: less than 100 mg/dLNear Optimal/Above Optimal LDL: 110- 129 mg/dLBorderline High LDL: 130-159 mg/dLHigh LDL: 160-189 mg/dLVery High LDL: greater than or equal to 190 mg/dL HDL Cholesterol 36(L) >40 mg/dL [facility] Comment:Desirable HDL: great er than 40 mg/dL Note: This HDL assay may give artificially low results in patients with liver disease. 11/16/2024 11:0 2 AM EDT 11/16/2024 1:40 PM EDT Generic External Data Provider LAB BLOOD ORDERAB LES Final Result Performing Organization Address [facility]/ZIP Co de Phone Number [facility] [address] [place] [phone] * (ABNORMAL) Glucose, Whole Blood (11/14/2024 10:15 AM EDT) Glucose, Whole Blood 134(H) 60 - 115 mg/dL [facility] Comment:METER #: [id number] Testing performed in the Endocrinology Department [address] , [address], [facility]. 11/14/2024 10:1 5 AM EDT 11/14/2024 10:19 AM EDT us Generic External Data Provider LAB BLOOD ORDERAB LES Final Result [facility] [address] [place] [phone] * HEPATITIS C AB W/REFL TO [...] a test for HCV RNA (test code 40294) is suggested. For additional information please refer to http://education.SHOP.COM/faq/PVD00w7 (This link is being provided for informational/ educational purposes only.) 09/09/2021 1:06 PM EDT Dayanna Hernandez MD HISTORICAL/NON ORDERABLE LABS Fi nal Result Performing Organization Address [facility] Co de Phone Number [facility] [address] * HIV 1/2 ANTIGEN/ANTIBODY,FOURTH GENERATION W/RFL [...] purpose. For additional information please refer to http://education.Sparxent.Telcare/faq/GZX236 (This link is being provided for informational/ educational purposes only.) The performance of this assay has not been clinically validated in patients less than 2 years old. 09/09/2021 1:06 PM EDT us Dayanna Hernandez MD LAB BLOOD ORDERABLES Final Resul t [facility] [address] from Last 3 Months or Most Recently Relevant to Health Maintenance Insurance [facility] ONE [facility] < 65 [place] [id number] Care Teams Instructional Technology Instructor Relationship Specialty Start Date End Date Dayanna Hernandez MD [address] [place] [phone] PCP - General Family Medicine 10/24/12
--- OUTSIDE RECORDS SUMMARY | 2025-01-23 18:56 | XMS_ITS | Clinical Summary ---
Author Organization [facility] Address [address] [place] [address] Phone Care Team Providers Care Wash Box Operator Name Role Phone Dayanna Hernandez MD Primary Care Provider [phone] Allergies Active Allergy Reactions Criticality Noted Date Comments Fish Protein-Containing Drug Products 03/06/2019 Lisinopril Other (see comments) 06/05/2020 [...] disorder 08/06/2022 Atherosclerotic heart diseas e of [place] coronary artery without angina pectoris 08/06/2022 Benign [...] on , worsened from 6.1% on 09/04/21 -Strip Polisher: [facility], last seen in 07/04/21 -Current medications: Tresiba 56 units daily, Humalog U-200 10-15 units with snack, 25-30 units with meal, Tradjenta 5 mg daily -Last eye exam: April 2019, Dr. Mazariegos -Last foot exam: 10/31/2018; high-risk, has a forensic identification specialist. -Last microalbumin test: 09/25/20 UACR 1256, albuminuria [...] taking fenofibrate 54 mg daily because his heavy equipment supervisor in prescribed him. We discussed about [...] latest note -Pt wants to go to [facility] in March because his psoriasis improves. -Pt [...] Discontinued 12/26/2015 Insurance ([id number]) ([id number]) Care Teams Wash Box Operator Relationship Specialty Start Date End Date Dayanna Hernandez MD PCP - General 04/15/20
--- OUTSIDE RECORDS SUMMARY | 2025-01-23 18:56 | XMS_ITS | Encounter Summary ---
Author Organization [employer] Address [address] [facility] [address] [place] [address] Care Team Providers Care Annealing Furnace Operator Name Role Phone Dayanna Hernandez MD Primary Care Provider [phone] Encounter Details Date Type Department Care Team ([facility] st Contact Info) Description 01/09/2025 Orders Only [facility] [address] [place] [address] Dayanna Hernandez MD [address] [place] [address] Social History Tobacco Use Types Packs/Day Years [...] documented as of this encounter Care Teams Annealing Furnace Operator Relationship Specialty Start Date End Date Dayanna Hernandez MD [address] [place] [address] PCP - General Family Medicine 10/24/12 documented as of this encounter
--- OUTSIDE RECORDS SUMMARY | 2025-01-23 18:56 | XMS_ITS | Encounter Summary ---
Author Organization [employer] Address [address] [facility] [address] [place] [address] Care Team Providers Care Front End Software Developer Name Role Phone Dayanna Hernandez MD Primary Care Provider [phone] Encounter Details Date Type Department Care Team ([facility] st Contact Info) Description 08/24/2022 Orders Only [facility] MED[facility]INE [address] [place] [phone] Dayanna Hernandez MD [address] [place], [place] [phone] Type 2 diabetes 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, with long-term current use of insulin ([facility]) (Primary Dx) Social History Tobacco Use Types [...] disease, with long-term current use of insulin ([facility]) BASIC METABOLIC PANEL Routine 12/18/2022 12:28 PM EDT Type 2 diabetes 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, with long-term current use of insulin ([facility]) ALBUMIN, RANDOM URINE W/CREATININE Routine 12/18/2022 12:09 PM EDT Type 2 diabetes 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, with long-term current use of insulin ([facility]) GLUCOSE, WHOLE BLOOD Routine 12/18/2022 11:24 AM EDT Type 2 diabetes 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, with long-term current use of insulin ([facility]) documented in this encounter Results * (ABNORMAL) Lipid Panel, Standard (12/18/2022 12:28 PM EDT) Triglycerides 308(H) <150 mg/dL [facility] Comment:Desirable Triglyceri de: less than 150 mg/dLBorderline High Triglyceride 150-199 mg/dLHigh Triglyceride: 200-499 mg/dLVery High Triglyceride: greater than or equal to 5OO mg/dL Cholesterol 251(H) <200 mg/dL [facility] Comment:Desirable Cholestero l: less than 200 mg/dLBorderline High Cholesterol: 200-239 mg/dLHigh Cholesterol: greater than 239 mg/dL LDL Cholesterol Calculated 152(H) <100 mg/dL [facility] Comment:Desirable LDL: less than 100 mg/dLNear Optimal/Above Optimal LDL: 110- 129 mg/dLBorderline High LDL: 130-159 mg/dLHigh LDL: 160-189 mg/dLVery High LDL: greater than or equal to 190 mg/dL HDL Cholesterol 38(L) >40 mg/dL [facility] Comment:Desirable HDL: great er than 40 mg/dL Note: This HDL assay may give artificially low results in patients with liver disease. 12/18/2022 12:2 8 PM EDT 12/18/2022 12:32 PM EDT Generic External Data Provider LAB BLOOD ORDERAB LES Final Result Performing Organization Address [facility] [[email or web address]] Co de Phone Number [facility] [address] [place] [address] [phone] * (ABNORMAL) Basic Metabolic Panel (12/18/2022 12:28 PM EDT) Sodium 137 135 - 145 mmol/L [facility] Potassium 4.0 3.3 - 5.1 mmol/L [facility] Comment:Slight Hemolysis Chloride 104 96 - 108 mmol/L [facility] Carbon Dioxide 24 22 - 29 mmol/L [facility] Anion Gap 13 12 - 20 [facility] Urea Nitrogen (BUN) 16 9 - 16 mg/dL [facility] Creatinine, Serum 1.40 0.5 - 1.4 mg/dL [facility] Estimated Glomerular Filt Rate 52 [facility] Comment:NOTE: For -Am erican individuals, multiply the result by 1.210.Chronic Kidney Disease: Estimated GFR < 60 mL/min/1.38y1Uoccbf Kidney Disease: Estimated GFR < 15 mL/min/1.73m2 Glucose 137(H) 60 - 115 mg/dL [facility] Calcium 9.4 8.4 - 10.2 mg/dL [facility] 12/18/2022 12:2 8 PM EDT 12/18/2022 12:32 PM EDT [facility] External Provider LAB BLO OD ORDERABLES Final Result Performing Organization Address [facility] [[email or web address]] Co de Phone Number [facility] [address] [place] [address] [phone] * (ABNORMAL) Albumin, Random Urine W/Creatinine (12/18/2022 12:09 PM EDT) Creatinine, Urine 158.87 mg/dL [facility] Microalbumin Urine 1,684.0 mg/L [facility] Microalbum Creatinine Ratio Ur 1,059.9(H ) <30 ug/mg cr [facility] Comment:Albumin/Creatinine R atio Reference Ranges: Normal: < 30 ug/mg creatinine Microalbuminuria: 30 - 300 ug/mg creatinineClinical Albuminuria: > 300 ug/mg creatinine 12/18/2022 12:0 9 PM EDT 12/18/2022 1:59 PM EDT [facility] External Provider LAB URI NE ORDERABLES Final Result Performing Organization Address [facility] [[email or web address]] Co de Phone Number [facility] [address] [place] [address] [phone] * (ABNORMAL) Glucose, Whole Blood (12/18/2022 11:24 AM EDT) Glucose, Whole Blood 155(H) 60 - 115 mg/dL [facility] Comment:METER #: [id number] Testing performed in the Endocrinology Department [address] , [address], [facility]. 12/18/2022 11:2 4 AM EDT 12/18/2022 11:30 AM EDT [facility] External Provider LAB BLO OD ORDERABLES Final Result Performing Organization Address [facility] [[email or web address]] Co de Phone Number [facility] [address] [place] [address] [phone] documented in this encounter Visit Diagnoses Diagnosis Type 2 diabetes 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, with long-term current use of insulin (HCC)- Primary documented in this encounter Additional Health Concerns Assessment Noted Time PHQ-9 Depression Total Score: 8 07/31/19 23 10:10 AM EDT documented as of this encounter Care Teams Front End Software Developer Relationship Specialty Start Date End Date Dayanna Hernandez MD [address] [place] [address] PCP - General Family Medicine 10/24/12 documented as of this encounter
--- OUTSIDE RECORDS SUMMARY | 2025-01-23 18:56 | XMS_ITS | Encounter Summary ---
Author Organization [facility] Address [address] [place] [address] Phone Care Team Providers Care Shuttle Filler Name Role Phone Alison Luu Primary Care Provider [phone] Encounter Details Date Type Department Care Team (Late st Contact Info) Description 01/19/2020 Ancillary Orders [facility] [address] [place] [address] Alison Luu PA [address] [place] [address] [email or web address] Palpitations Social History Tobacco Use Types Packs/Day [...] Palpitations documented in this encounter Care Teams Shuttle Filler Relationship Specialty Start Date End Date Alison Luu PA [address] [place] [phone] [email or web address] PCP - General Charger 01/19/20 documented as of this encounter Additional Source Comments The information contained in this document represents components of the legal health record. It is not the complete legal health record.[facility]
== END 2025-01-23 14:03 | disposition home or self-care (01) ==
LOC: HO.HHCL 14:02
PROVIDERS: PCP Family Medicine; Referring Provider Internal Medicine Hypertension Specialist; Visit Provider Family Medicine
DX: I10 Essential (primary) hypertension (principal); E11.42 Type 2 diabetes mellitus with diabetic polyneuropathy; R35.1 Nocturia; Z12.5 Encounter for screening for malignant neoplasm of prostate
CPT/HCPCS: 36415; 81003; 84153

== ENCOUNTER 2025-01-25 08:37 | Outpatient (REF) | payer OTHER, SELFPAY ==
--- NOTE | ~2025-01-25 | XR_ITS ---
EXAMINATION: XR ABDOMEN KUB CLINICAL INDICATION: R14.0 - Abdominal distension (gaseous) COMPARISON: None available. TECHNIQUE: 3 AP supine views of the abdomen. FINDINGS: The bowel gas pattern is normal with no evidence of ileus or obstruction. Moderate-large stool burden. No unusual soft tissue calcifications are noted. Small phleboliths in the right pelvis. No gross pneumoperitoneum on the supine views. Visualized right lung bases clear. No acute osseous finding seen. The bones are unremarkable. XR/XR KUB IMPRESSION: Nonobstructive bowel gas pattern. Moderate-large stool burden. Electronically signed by: Srinivas Montelongo MD 01/25/2025 11:20 AM EDT
[2025-01-25 11:23] LABS: Iron 102 mcg/dL (45-160); Percent Iron Saturation 37 % (15-50); Total Iron Binding Capacity 274 mcg/dL (228-428); Unsaturated Iron Binding 172 ug/dL
[2025-01-25 11:52] LABS: Folate 8.2 ng/mL (> or = 4.0); Vitamin B12 214 pg/mL (200-900)
--- OUTSIDE RECORDS SUMMARY | 2025-01-25 12:17 | XMS_ITS | Clinical Summary ---
Author Organization [facility] Address [address] [place], [place] [id number] Phone Care Team Providers Care Nurses Educator Name Role Phone Alison Luu Primary Care Provider [phone] Social History Tobacco Use Types Packs/Day Years [...] file Medical Devices Not on file Insurance [facility] [employer] MEDICARE REPLACEMENT [employer] [place] [id number] [place] [address] MEDICARE REPLACEMENT Care Teams Nurses Educator Relationship Specialty Start Date End Date Alison Luu PA [address] [place] [phone] [email or web address] PCP - General Rivet Flunky 01/19/20 Additional Source Comments The information contained in this document represents components of the legal health record. It is not the complete legal health record.[facility]
--- OUTSIDE RECORDS SUMMARY | 2025-01-25 12:17 | XMS_ITS | Encounter Summary ---
Author Organization [facility] Address [address] [place] [address] Phone Care Team Providers Care Pomologist Name Role Phone Alison Luu Primary Care Provider [phone] Encounter Details Date Type Department Care Team (Late st Contact Info) Description 01/19/2020 Ancillary Orders [facility] [address] [place] [address] Alison Luu PA [address] [place] [address] [email or web address] Palpitations Social History Tobacco Use Types Packs/Day [...] Palpitations documented in this encounter Care Teams Pomologist Relationship Specialty Start Date End Date Alison Luu PA [address] [place] [phone] [email or web address] PCP - General Support Architect 01/19/20 documented as of this encounter Additional Source Comments The information contained in this document represents components of the legal health record. It is not the complete legal health record.[facility]
== END 2025-01-25 08:38 | disposition home or self-care (01) ==
LOC: HO.LAB 08:37
PROVIDERS: PCP Family Medicine; Visit Provider Nurse Practitioner Family
DX: Z12.11 Encounter for screening for malignant neoplasm of colon (principal); R19.5 Other fecal abnormalities; D64.9 Anemia, unspecified
CPT/HCPCS: 36415; 74018; 82607; 82746; 83540; 99202

== ENCOUNTER 2025-01-25 08:37 | Outpatient (AMB) | payer OTHER, SELFPAY ==
--- OUTSIDE RECORDS SUMMARY | 2025-01-23 13:15 | XMS_ITS | Encounter Summary ---
Author Organization [employer] Address 75 [facility] [address] [place] [address] Care Team Providers Care Ukrainian Folk Arts Instructor Name Role Phone Dayanna Hernandez MD Primary Care Provider [phone] Encounter Details Date Type Department Care Team ([facility] st Contact Info) Description 01/23/2025 1:15 PM EDT Office Visit [facility] MEDICINE [address] [place], [place] [phone] Dayanna Hernandez MD [address] [place], [place] [phone] Primary hypertension (Primary Dx); Dyslipidemia; Type 2 diabetes 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, with long-term current use of insulin (HCC); Nocturia Social History Tobacco Use Types Packs/Day Years [...] AM EDT documented as of this encounter Last Filed Vital Signs Vital Sign Reading Time Taken Comments Blood Pressure 120/54 01/23/2025 1:22 PM EDT Pulse 60 01/23/2025 1:22 PM EDT Temperature 35.9 C (96.6 F) 01/23/2025 1:22 PM EDT Respiratory Rate 20 01/23/2025 1:22 PM EDT Oxygen Saturation 99% 01/23/2025 1:22 PM EDT Inhaled Oxygen Concentration - - Weight 98.3 kg (216 lb 12.8 oz) 01/23/2025 1:22 PM EDT Height 167.6 cm (5' 6 ) 01/23/2025 1:22 PM EDT Body Mass Index 34.99 01/23/2025 1:22 PM EDT documented in this encounter Plan of Treatment Not on file documented as of this encounter Procedures Procedure Name Priority Date/Time Associated Diagnosis Comments PSA, SCREEN Routine 01/23/2025 2:08 PM EDT Nocturia POCT GLYCATED HEMOGLOBIN, TOTAL Routine 01/23/2025 1:28 PM EDT Type 2 diabetes 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, with long-term current use of insulin (HCC) POCT GLUCOSE Routine 01/23/2025 1:25 PM EDT Type 2 diabetes 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, with long-term current use of insulin (HCC) documented in this encounter Results * PSA, Screen (01/23/2025 2:08 PM EDT) PSA, Total 0.42 <0.05 - 4.0 ng/mL [facility] Comment:PSA methodology: Abb jessica Alipility i ChemiluminescentMicroparticle Immunoassay (CMIA) Blood Venous blood specimen / Unknown 01/23/2025 2:08 PM EDT 01/23/2025 4:04 PM EDT us Dayanna Hernandez MD LAB BLOOD ORDERABLES Final Resul t Performing Organization Address City/State/[facility] Co de Phone Number [facility] [address] [place] [phone] * (ABNORMAL) POCT Hgb A1c (01/23/2025 1:28 PM EDT) Pathologist [facility] Hemoglobin A1C 7.7(A) 4.0 - 5.7 % QC Media Lot # [id number] Lot# Expiration Date Blood 01/23/2025 1:28 PM EDT us Dayanna Hernandez MD POINT OF CARE TEST ENTER/EDIT OR DERABLES Final Result * POCT Glucose (01/23/2025 1:25 PM EDT) Glucose Blood, POC 190 60 - 200 mg/dL QC Media Lot # [id number] Lot# Expiration Date 041 Blood Capillary blood specimen / Unknown 01/23/2025 1:25 PM EDT us Dayanna Hernandez MD POINT OF CARE TEST ENTER/EDIT OR DERABLES Final Result documented in this encounter Visit Diagnoses Diagnosis Primary hypertension- Primary Unspecified essential hypertension Dyslipidemia Other and unspecified hyperlipidemia Type 2 diabetes 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, with long-term current use of insulin (HCC) Nocturia documented in this encounter Additional Health Concerns Assessment Noted Time PHQ-9 Depression Total Score: 16 025 10:54 AM EDT documented as of this encounter Care Teams Ukrainian Folk Arts Instructor Relationship Specialty Start Date End Date Dayanna Hernandez MD [address] [place] [address] PCP - General Family Medicine 10/24/12 documented as of this encounter
--- OUTSIDE RECORDS SUMMARY | 2025-01-25 09:07 | XMS_ITS | Encounter Summary ---
Author Organization [employer] Address [address] [facility] [address] [place] [address] Care Team Providers Care Disc Pad Grinder Name Role Phone Dayanna Hernandez MD Primary Care Provider [phone] Encounter Details Date Type Department Care Team ([facility] st Contact Info) Description 01/09/2025 Orders Only [facility] [address] [place] [address] Dayanna Hernandez MD [address] [place] [address] Social History Tobacco Use Types Packs/Day Years [...] documented as of this encounter Care Teams Disc Pad Grinder Relationship Specialty Start Date End Date Dayanna Hernandez MD [address] [place] [address] PCP - General Family Medicine 10/24/12 documented as of this encounter
--- OUTSIDE RECORDS SUMMARY | 2025-01-25 09:07 | XMS_ITS | Encounter Summary ---
Author Organization [employer] Address [address] [facility] [address] [place] [address] Care Team Providers Care Virtual Office Assistant Name Role Phone Dayanna Hernandez MD Primary Care Provider [phone] Encounter Details Date Type Department Care Team ([facility] st Contact Info) Description 08/19/2023 Orders Only [facility] [address] [place], [place] [phone] Dayanna Hernandez MD [address] [place], [place] [phone] Social History Tobacco Use Types Packs/Day Years [...] documented as of this encounter Care Teams Virtual Office Assistant Relationship Specialty Start Date End Date Dayanna Hernandez MD [address] [place] [address] PCP - General Family Medicine 10/24/12 documented as of this encounter
--- OUTSIDE RECORDS SUMMARY | 2025-01-25 09:07 | XMS_ITS | Encounter Summary ---
Author Organization [employer] Address [address] [facility] [address] [place] [address] Care Team Providers Care Designer And Patternmaker Name Role Phone Dayanna Hernandez MD Primary Care Provider [phone] Encounter Details Date Type Department Care Team ([facility] st Contact Info) Description 01/23/2025 Results Follow-Up [facility] MEDICINE [address] [place] [address] Dayanna Hernandez MD [address] [place] [address] POCT Glucose, POCT Hgb A1c, PSA, Screen [...] documented as of this encounter Care Teams Designer And Patternmaker Relationship Specialty Start Date End Date Dayanna Hernandez MD [address] [place] [address] PCP - General Family Medicine 10/24/12 documented as of this encounter
--- OUTSIDE RECORDS SUMMARY | 2025-01-25 09:07 | XMS_ITS | Encounter Summary ---
Author Organization [employer] Address [address] [facility] [address] [place] [address] Care Team Providers Care Audit Clerk Name Role Phone Dayanna Hernandez MD Primary Care Provider [phone] Reason for Referral * Consultation (Routine) - Closed Specialty Diagnoses / Procedures Referred By Contac emma Referred To Contact Physical Therapy Diagnoses Gait instability Hemiparesis affecting left side as late effect of cerebrovascular accident (CVA) (CMS/HCC) (HCC) Legal blindness Dayanna Hernandez MD [address] [place] [address] Phone: tel: fax: [facility] Therapy [address] [place] [address] Phone: tel: fax: Referral ID Status Reason Start Date Expiration Date V isits Requested Visits Authorized [id number] Closed Specialty Services Required 09/09/2023 09/08/2024 1 1 Encounter Details Date Type Department Care Team (Late st Contact Info) Description 09/09/2023 Orders Only [facility] MEDICINE [address] [place] [address] Dayanna Hernandez MD [address] [place], [place] [phone] Gait instability (Primary Dx); Hemiparesis affecting left [...] as late effect of cerebrovascular accident (CVA) ([facility]) Legal blindness Expected: 09/09/2023 (Approximate), Expires: 09/08/2024 documented as of this encounter Visit Diagnoses Diagnosis Gait instability- Primary Abnormality of gait Hemiparesis affecting left side as late effect of cerebrovascular accident (CVA) ([facility]) (HCC) Legal blindness Legal blindness, as defined in [place] documented in this encounter Additional Health Concerns Assessment Noted Time PHQ-9 Depression Total Score: 8 07/31/19 23 10:10 AM EDT documented as of this encounter Care Teams Audit Clerk Relationship Specialty Start Date End Date Dayanna Hernandez MD [address] [place] [phone] PCP - General Family Medicine 10/24/12 documented as of this encounter
--- OUTSIDE RECORDS SUMMARY | 2025-01-25 09:07 | XMS_ITS | Encounter Summary ---
Author Organization [employer] Address [address] [place] [address] Care Team Providers Care Tip Scourer Name Role Phone Dayanna Hernandez MD Primary Care Provider [phone] Encounter Details Date Type Department Care Team [...] documented as of this encounter Care Teams Tip Scourer Relationship Specialty Start Date End Date Dayanna Hernandez MD [address] [place] [address] PCP - General Family Medicine 10/24/12 documented as of this encounter
--- OUTSIDE RECORDS SUMMARY | 2025-01-25 09:07 | XMS_ITS | Encounter Summary ---
Author Organization [employer] Address [address] [place] [address] Care Team Providers Care Mine Engineering Manager Name Role Phone Dayanna Hernandez MD Primary Care Provider [phone] Encounter Details Date Type Department Care Team [...] (01/23/2025 2:08 PM EDT) Color Urine Yellow [facility] Appearance Urine Clear [facility] PH 6.0 5.0 - 9.0 [facility] Glucose Urine UA 100(A) Negative mg/dL [facility] Urine Blood Negative Negative [facility] Specific [place] - Urine 1.020 1.005 - 1.025 [facility] Urine Protein >=1000 (4+)(A) Neg-Trace mg/dL [facility] Urine Ketones Negative Negative mg/dL [facility] Nitrite Urine Negative Negative [facility] Leukocyte Esterase Urine Negative Negative [facility] 01/23/2025 2:08 PM EDT 01/23/2025 4:02 PM EDT us Generic External Data Provider LAB URINE ORDERAB LES Final Result [facility] [address] [place] [address] [phone] documented in this encounter Visit Diagnoses Not on filedocumented in this encounter Additional Health Concerns Assessment Noted Time PHQ-9 Depression Total Score: 16 09/12/ 025 10:54 AM EDT documented as of this encounter Care Teams Mine Engineering Manager Relationship Specialty Start Date End Date Dayanna Hernandez MD [address] [place] [address] PCP - General Family Medicine 10/24/12 documented as of this encounter
--- OUTSIDE RECORDS SUMMARY | 2025-01-25 09:07 | XMS_ITS | Encounter Summary ---
Author Organization [employer] Address [address] [facility] [address] [place] [address] Care Team Providers Care Bakery Pastry Internship Name Role Phone Dayanna Hernandez MD Primary Care Provider [phone] Encounter Details Date Type Department Care Team [...] on filedocumented in this encounter Care Teams Bakery Pastry Internship Relationship Specialty Start Date End Date Dayanna Hernandez MD [address] [place] [address] PCP - General Family Medicine 10/24/12 documented as of this encounter
--- OUTSIDE RECORDS SUMMARY | 2025-01-25 09:07 | XMS_ITS | Encounter Summary ---
Author Organization [employer] Address [address] [facility] [address] [place] [address] Care Team Providers Care Medical Investigator Name Role Phone Dayanna Hernandez MD Primary Care Provider [phone] Reason for Visit * Reason Onset Date Comments chartprep 01/22/2025 Encounter Details Date Type Department Care Team ([facility] st Contact Info) Description 01/22/2025 Telephone [facility] [address] [place] [address] Dayanna Hernandez MD [address] [place] [address] chartprep Social History Tobacco Use Types Packs/Day [...] as of this encounter Care Teams Medical Investigator Relationship Specialty Start Date End Date Dayanna Hernandez MD [address] [place] [address] PCP - General Family Medicine 10/24/12 documented as of this encounter
--- OUTSIDE RECORDS SUMMARY | 2025-01-25 09:08 | XMS_ITS | Encounter Summary ---
Author Organization [employer] Address [address] [facility] [address] [place] [address] Care Team Providers Care Entrepreneurship Program Director Name Role Phone Dayanna Hernandez MD Primary Care Provider Encounter Details Date Type Department Care Team ([facility] st Contact Info) Description 01/09/2025 Orders Only [facility] MEDICINE [address] [place] [address] Dayanna Hernandez MD [address] [place] [address] Social History Tobacco Use Types Packs/Day Years [...] documented as of this encounter Care Teams Entrepreneurship Program Director Relationship Specialty Start Date End Date Dayanna Hernandez MD [address] [place] [address] PCP - General Family Medicine 10/24/12 documented as of this encounter
--- OUTSIDE RECORDS SUMMARY | 2025-01-25 09:08 | XMS_ITS | Clinical Summary ---
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 Mazariegos -Last foot exam: 10/31/2018; high-risk, has a manager client support. -Last microalbumin test: 09/25/20 UACR 1256, albuminuria [...] taking fenofibrate 54 mg daily because his eyelet punch operator in prescribed him. We discussed about [...] latest note -Pt wants to go to [facility] in March because his psoriasis improves. [...] Discontinued 12/26/2015 Insurance (A2793) (A2793) Care Teams Outgoing Inspector Relationship Specialty Start Date End Date Dayanna Hernandez MD PCP - General 04/15/20
--- OUTSIDE RECORDS SUMMARY | 2025-01-25 09:08 | XMS_ITS | Encounter Summary ---
Author Organization [facility] Address [address] [facility] [address] [place] [address] Phone Care Team Providers Care Power Plant Operators Supervisor Name Role Phone Dayanna Hernandez MD Primary Care Provider [phone] Encounter Details Date Type Department Care Team (Late st Contact Info) Description 11/01/2023 Office Communication [facility] [address] [facility] [address] [place] [phone] Haley Antoine ARNP [address] [facility] [address] [place] [address] Social History Tobacco Use Types [...] on filedocumented in this encounter Care Teams Power Plant Operators Supervisor Relationship Specialty Start Date End Date Dayanna Hernandez MD PCP - General 04/15/20 documented as of this encounter
--- OUTSIDE RECORDS SUMMARY | 2025-01-25 09:08 | XMS_ITS | Encounter Summary ---
Author Organization [employer] Address [address] [facility] [address] [place] [address] Care Team Providers Care Dial Mounter Name Role Phone Dayanna Hernandez MD Primary Care Provider [phone] Encounter Details Date Type Department Care Team [...] on filedocumented in this encounter Care Teams Dial Mounter Relationship Specialty Start Date End Date Dayanna Hernandez MD [address] [place] [address] PCP - General Family Medicine 10/24/12 documented as of this encounter
--- OUTSIDE RECORDS SUMMARY | 2025-01-25 09:08 | XMS_ITS | Encounter Summary ---
Author Organization [employer] Address [address] [facility] [address] [place] [address] Care Team Providers Care Regulatory Leader Name Role Phone Dayanna Hernandez MD Primary Care Provider [phone] Encounter Details Date Type Department Care Team ([facility] st Contact Info) Description 08/24/2022 Orders Only [facility] MEDICINE [address] [place] [address] Dayanna Hernandez MD [address] [place], [place] [phone] Type 2 diabetes 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, with long-term current use of insulin ([facility]) (Primary Dx) Social History Tobacco Use Types [...] disease, with long-term current use of insulin ([facility]) BASIC METABOLIC PANEL Routine 12/18/2022 12:28 PM EDT Type 2 diabetes 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, with long-term current use of insulin ([facility]) ALBUMIN, RANDOM URINE W/CREATININE Routine 12/18/2022 12:09 PM EDT Type 2 diabetes 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, with long-term current use of insulin ([facility]) GLUCOSE, WHOLE BLOOD Routine 12/18/2022 11:24 AM EDT Type 2 diabetes 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, with long-term current use of insulin ([facility]) documented in this encounter Results * (ABNORMAL) Lipid Panel, Standard (12/18/2022 12:28 PM EDT) Triglycerides 308(H) <150 mg/dL [facility] Comment:Desirable Triglyceri de: less than 150 mg/dLBorderline High Triglyceride 150-199 mg/dLHigh Triglyceride: 200-499 mg/dLVery High Triglyceride: greater than or equal to 5OO mg/dL Cholesterol 251(H) <200 mg/dL [facility] Comment:Desirable Cholestero l: less than 200 mg/dLBorderline High Cholesterol: 200-239 mg/dLHigh Cholesterol: greater than 239 mg/dL LDL Cholesterol Calculated 152(H) <100 mg/dL [facility] Comment:Desirable LDL: less than 100 mg/dLNear Optimal/Above Optimal LDL: 110- 129 mg/dLBorderline High LDL: 130-159 mg/dLHigh LDL: 160-189 mg/dLVery High LDL: greater than or equal to 190 mg/dL HDL Cholesterol 38(L) >40 mg/dL [facility] Comment:Desirable HDL: great er than 40 mg/dL Note: This HDL assay may give artificially low results in patients with liver disease. 12/18/2022 12:2 8 PM EDT 12/18/2022 12:32 PM EDT Generic External Data Provider LAB BLOOD ORDERAB LES Final Result Performing Organization Address [facility] Co de Phone Number [facility] [address] [place] [address] [phone] * (ABNORMAL) Basic Metabolic Panel (12/18/2022 12:28 PM EDT) Sodium 137 135 - 145 mmol/L [facility] Potassium 4.0 3.3 - 5.1 mmol/L [facility] Comment:Slight Hemolysis Chloride 104 96 - 108 mmol/L [facility] Carbon Dioxide 24 22 - 29 mmol/L [facility] Anion Gap 13 12 - 20 [facility] Urea Nitrogen (BUN) 16 9 - 16 mg/dL [facility] Creatinine, Serum 1.40 0.5 - 1.4 mg/dL [facility] Estimated Glomerular Filt Rate 52 [facility] Comment:NOTE: For -Am erican individuals, multiply the result by 1.210.Chronic Kidney Disease: Estimated GFR < 60 mL/min/1.53r6Fvicco Kidney Disease: Estimated GFR < 15 mL/min/1.73m2 Glucose 137(H) 60 - 115 mg/dL [facility] Calcium 9.4 8.4 - 10.2 mg/dL [facility] 12/18/2022 12:2 8 PM EDT 12/18/2022 12:32 PM EDT [facility] External Provider LAB BLO OD ORDERABLES Final Result Performing Organization Address [facility] Co de Phone Number [facility] [address] [place] [address] [phone] * (ABNORMAL) Albumin, Random Urine W/Creatinine (12/18/2022 12:09 PM EDT) Creatinine, Urine 158.87 mg/dL [facility] Microalbumin Urine 1,684.0 mg/L H [facility] Microalbum Creatinine Ratio Ur 1,059.9(H ) <30 ug/mg cr [facility] Comment:Albumin/Creatinine R atio Reference Ranges: Normal: < 30 ug/mg creatinine Microalbuminuria: 30 - 300 ug/mg creatinineClinical Albuminuria: > 300 ug/mg creatinine 12/18/2022 12:0 9 PM EDT 12/18/2022 1:59 PM EDT [facility] External Provider LAB URI NE ORDERABLES Final Result Performing Organization Address [facility] Co de Phone Number [facility] [address] [place] [address] [phone] * (ABNORMAL) Glucose, Whole Blood (12/18/2022 11:24 AM EDT) Glucose, Whole Blood 155(H) 60 - 115 mg/dL [facility] Comment:METER #: [id number] Testing performed in the Endocrinology Department [address] , [address], [facility]. 12/18/2022 11:2 4 AM EDT 12/18/2022 11:30 AM EDT [facility] External Provider LAB BLO OD ORDERABLES Final Result Performing Organization Address [facility] Co de Phone Number [facility] [address] [place] [address] [phone] documented in this encounter Visit Diagnoses Diagnosis Type 2 diabetes 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, with long-term current use of insulin (HCC)- Primary documented in this encounter Additional Health Concerns Assessment Noted Time PHQ-9 Depression Total Score: 8 07/31/19 23 10:10 AM EDT documented as of this encounter Care Teams Regulatory Leader Relationship Specialty Start Date End Date Dayanna Hernandez MD [address] [place] [phone] PCP - General Family Medicine 10/24/12 documented as of this encounter
--- OUTSIDE RECORDS SUMMARY | 2025-01-25 09:08 | XMS_ITS | Clinical Summary ---
Author Organization [email or web address] Address [address] [facility] [address] [place] [address] Care Team Providers Care Director Cardiovascular Name Role Phone Dayanna Hernandez MD Primary Care Provider [phone] Allergies Active Allergy Reactions Criticality Noted Date [...] DAILY NEEDED. 11/07/19 25 Active Continuous Glucose Core Winder Machine Operator (FreeStyle Nevaeh 3 Dewey) device USE DAILY TO MONITOR BLOOD GLUCOSE LEVELS CONTINUOUSLY. 09/09/19 25 Active Continuous Glucose Sensor (FreeStyle Nevaeh 3 Plus Sensor) [facility] [place] 1 NEW SENSOR EVERY 15 DAYS [...] Plan (09/12/2024 9:11 AM EDT): -Seen by jaw skinner on 03/11/20 for JEAN MARIE -Pt had several sleep studies, most recently in 2019, showing JEAN MARIE -Continue auto PAP pressure 6-14 cm H2O -Will order a new autoPAP machine; may need a new sleep study -Most recent echo did not show pulmonary HTN -Ironworker Machine Operator recommended him to use azelastine for rhinitis. -Refer back to jaw skinner Dr. Sanchez Assessment & Plan (08/17/2023 11:35 AM EDT): -Seen by jaw skinner on 03/11/20 for JEAN MARIE -Pt had several sleep studies, most recently in 2019, showing JEAN MARIE -Continue auto PAP pressure 6-14 cm H2O -Will order a new autoPAP machine; may need a new sleep study -Most recent echo did not show pulmonary HTN -Ironworker Machine Operator recommended him to use azelastine for rhinitis. -Refer back to jaw skinner Dr. Sanchez Assessment & Plan (11/27/2022 4:34 PM EDT): -Seen by jaw skinner on 03/11/20 for JEAN MARIE -Pt had several sleep studies, most recently in 2019, showing JEAN MARIE -Continue auto PAP pressure 6-14 cm H2O -Will order a new autoPAP machine; may need a new sleep study -Most recent echo did not show pulmonary HTN -Ironworker Machine Operator recommended him to use azelastine for rhinitis. -Refer back to jaw skinner Dr. Sanchez Intertrigo 10/23/2022 Assessment & Plan (11/27/2022 4:24 PM EDT): - s/p clotrimazole BID x 28 days in October 2022 - responding well to nystatin pwd TID; refill - follow up with payroll services analyst Assessment & Plan (10/23/2022 12:46 PM EDT): [...] symptoms -pt to f up w his payroll services analyst in 2 months per pt and has [...] cetrizine -continue montelukast -continue fluticasone nasal Hemiparesis ([facility]) 06/05/2020 Hypertensive renal disease 06/05/2020 Proteinuria 06/05/2020 Assessment & Plan (11/27/2022 4:26 PM EDT): - pt refuses to take ARB or ACEI - consider SGLT-2 inhibitor Renal stone 07/28/2016 Biliary calculus 09/16/2015 Hemiparesis affecting left s amari as late effect of cerebrovascular accident (CVA) ([facility]) 09/16/2015 Stage 3 chronic kidney disease ([facility]) 016 Assessment & Plan (09/26/2024 1:29 PM EDT): -Clinical Manager Home Care: Dr. Velasquez, last seen in October 2023 -Diabetic and vascular etiology, proteinuria -07/31/22 BUN 20; Scr 1.53; eGFR 53; K 4.1; Bicarb 28, UACR 1,147 -Baseline Cr 1.3-1.5 -In a setting of recurrent nephrolithiasis -Stable -Avoid nephrotoxic drugs. -Treatment Hx: Pt reported throat itching with ARB, and cough with ACEI. Assessment & Plan (08/17/2023 11:36 AM EDT): -Clinical Manager Home Care: Dr. Velasquez, last seen on 09/02/22 -Diabetic and vascular etiology, proteinuria -07/31/22 BUN 20; Scr 1.53; eGFR 53; K 4.1; Bicarb 28, UACR 1,147 -Baseline Cr 1.3-1.5 -In a setting of recurrent nephrolithiasis -Stable -Avoid nephrotoxic drugs. -Treatment Hx: Pt reported throat itching with ARB, and cough with ACEI. Assessment & Plan (11/19/2022 5:11 AM EDT): -Clinical Manager Home Care: Dr. Velasquez, last seen on 09/02/22 -Diabetic and vascular etiology, proteinuria -07/31/22 BUN 20; Scr 1.53; eGFR 53; K 4.1; Bicarb 28, UACR 1,147 -Baseline Cr 1.3-1.5 -In a setting of recurrent nephrolithiasis -Stable -Avoid nephrotoxic drugs. -Treatment Hx: Pt reported throat itching with ARB, and cough with ACEI. Assessment & Plan (07/31/2022 5:30 AM EDT): -Clinical Manager Home Care: Dr. Velasquez, last seen on 08/16/19, but [...] 7.4% on 09/12/24, improved 9.6% on 08/17/23 -Police Officer: [facility], last seen in 12/2022, advised to schedule [...] 12:36 PM EDT): -A1C 9.6% on 08/17/23 -Police Officer: [facility], last seen in 12/2022, advised to schedule appointment - change tresiba to Lantus, will start at 60 units - Continue humalog - restart tradjenta 5 mg daily -Last eye exam: August 2022 (requesting note) -Last foot exam: 08/17/2023; high-risk, has a shake packer. -Last microalbumin test: 07/31/22 UACR 1,147 -Last lipid profile: 06/23/23 TC 149; TG 167; HDL 56; LDL 60 Last dental exam: ? Immunizations: Reviewed and discussed. Pt chose not to fully vaccinated Follow up in 3-4 mo or sooner prn Assessment & Plan (11/27/2022 4:21 PM EDT): -A1C 7.0% on 11/19/22, improved from 8.3% on 07/30/22 ( 6.1% on 09/04/21) -Police Officer: [facility], last seen in 07/04/21, upcoming appt -Current medications: Tresiba 80 units daily, Humalog U-200 10-15 units with snack, 20-25 units with meal, Tradjenta 5 mg daily -Last eye exam: August 2022 (requesting note) -Last foot exam: 10/31/2018; high-risk, has a shake packer. -Last microalbumin test: 07/31/22 UACR 1,147 -Last lipid profile: 07/31/22 TC 224; TG 183; HDL 36; LDL 156 Last dental exam: ? Immunizations: Reviewed and discussed. Pt chose not to fully vaccinated Follow up in 3-4 mo or sooner prn Assessment & Plan (07/31/2022 5:33 AM EDT): -A1C 8.3% on , worsened from 6.1% on 09/04/21 -Police Officer: [facility], last seen in 07/04/21 -Current medications: Tresiba 56 units daily, Humalog U-200 10-15 units with snack, 25-30 units with meal, Tradjenta 5 mg daily -Last eye exam: April 2019, Dr. Mazariegos -Last foot exam: 10/31/2018; high-risk, has a shake packer. -Last microalbumin test: 09/25/20 UACR 1256, albuminuria [...] taking fenofibrate 54 mg daily because his it associate in prescribed him. We discussed about his [...] taking fenofibrate 54 mg daily because his it associate in [place] prescribed him. We discussed about [...] taking fenofibrate 54 mg daily because his it associate in prescribed him. We discussed about his [...] taking fenofibrate 54 mg daily because his it associate in DR prescribed him. We discussed about [...] (09/12/2024 9:07 AM EDT): - following with sewing department supervisor - continue current medication Assessment & Plan (11/27/2022 4:26 PM EDT): - following with sewing department supervisor - continue current medication Hypertension 05/16/2012 Assessment [...] latest note -Pt wants to go to [facility] in March because his psoriasis improves. -Pt will schedule a follow up appt Assessment & Plan (08/17/2023 11:36 AM EDT): -Dietary regimen is improving symptoms -Continue on Otezla and clobetasol topical -Patient is still followed by Dr. Rico - we have not received a note, will obtain latest note -Pt wants to go to [facility] in March because his psoriasis improves. -Pt will schedule a follow up appt Assessment & Plan (11/27/2022 4:24 PM EDT): -Dietary regimen is improving symptoms -Continue on Otezla and clobetasol topical -Patient is still followed by Dr. Rico - we have not received a note, will obtain latest note -Pt wants to go to [facility] in March because his psoriasis improves. -Pt will schedule a follow up appt Assessment & Plan (07/31/2022 5:35 AM EDT): -Dietary regimen is improving symptoms -Continue on Otezla and clobetasol topical -Patient is still followed by Dr. Rico - we have not received a note, will obtain latest note -Pt wants to go to [facility] in March because his psoriasis improves. -Pt will schedule a follow up appt Backache 12/21/2011 Knee pain 12/21/2011 Proliferative diabetic retinopathy 11/25/2011 Encounters Date Type Department Care Team Description 01/23/2025 1:15 PM EDT Office Visit [address] [address] Dayanna Hernandez MD Primary hypertension (Primary Dx); Dyslipidemia; Type 2 diabetes 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, with long-term current use of insulin (HCC); Nocturia 01/23/2025 Results Follow-Up [address] [address] Dayanna Hernandez MD POCT Glucose, POCT Hgb A1c, PSA, Screen 01/23/2025 Orders Only GENERIC EXTERNAL DATA DEPARTMENT Provider, Generic External Data 01/23/2025 Travel 01/22/[address] [phone] Dayanna Hernandez MD chartprep 01/15/2025 Results Follow-Up [address] [address] Dayanna Hernandez MD Urinalysis with Reflex to Microscopic, Urinalysis Complete, Basic Metabolic Panel 01/15/2025 Orders Only GENERIC EXTERNAL DATA DEPARTMENT Provider, Generic External Data 01/09/2025 Orders Only [facility] [address] [facility] [facility] [facility] [place] [address] Dayanna Hernandez MD 01/09/2025 Orders Only [facility] [address] [place], [place] [address] Dayanna Hernandez MD 01/09/2025 Refill [facility] [place] [facility] [place] [address] Dayanna Hernandez MD 01/09/2025 Travel 01/05/2025 Telephone [facility] [address] [facility] [place] [address] Dayanna Hernandez MD Durable Medical Equipment ([employer]: Shower Chair) 12/25/2024 Telephone [facility] [address] [facility] [place] [address] Dayanna Hernandez MD chart prep 12/11/2024 Refill [facility] [place] [facility] [place] [address] Dayanna Hernandez MD 11/16/2024 Orders Only GENERIC EXTERNAL DATA DEPARTMENT Provider, Generic External Data 11/14/2024 Orders Only GENERIC EXTERNAL DATA DEPARTMENT Provider, Generic External Data 11/06/2024 Refill [facility] [address] [facility] [place] [address] Dayanna Hernandez MD 10/27/2024 Refill [facility] [place] [address] Dayanna Hernandez MD Acute right-sided low back [...] PSA, Total 0.42 <0.05 - 4.0 ng/mL [facility] Comment:PSA methodology: Patricia Thomas i ChemiluminescentMicroparticle Immunoassay (CMIA) Blood Venous blood specimen / Unknown 01/23/2025 2:08 PM EDT 01/23/2025 4:04 PM EDT us Dayanna Hernandez MD LAB BLOOD ORDERABLES Final Resul t Performing Organization Address [facility] Co de Phone Number [facility] [address] [place] [phone] * (ABNORMAL) Urinalysis with Reflex to Microscopic (01/23/2025 2:08 PM EDT) Only the most recent of2 resultswithin the time period is included. Color Urine Yellow [facility] Appearance Urine Clear [facility] PH 6.0 5.0 - 9.0 [facility] Glucose Urine UA 100(A) Negative mg/dL [facility] Urine Blood Negative Negative [facility] Specific [place] - Urine 1.020 1.005 - 1.025 [facility] Urine Protein >=1000 (4+)(A) Neg-Trace mg/dL [facility] Urine Ketones Negative Negative mg/dL [facility] Nitrite Urine Negative Negative [facility] Leukocyte Esterase Urine Negative Negative [facility] 01/23/2025 2:08 PM EDT 01/23/2025 4:02 PM EDT us Generic External Data Provider LAB URINE ORDERAB LES Final Result Performing Organization Address [facility] Co de Phone Number [facility] [address] [place] [phone] * (ABNORMAL) POCT Hgb A1c (01/23/2025 1:28 PM EDT) Hemoglobin A1C 7.7(A) 4.0 - 5.7 % QC Media Lot # [id number] Lot# Expiration Date [id number] Blood 01/23/2025 1:28 PM EDT Dayanna Hernandez MD POINT OF CARE TEST ENTER/EDIT OR DERABLES Final Result * POCT Glucose (01/23/2025 1:25 PM EDT) Glucose Blood, POC 190 60 - 200 mg/dL QC Media Lot # [id number] Lot# Expiration Date ,[id number] Blood Capillary blood specimen / Unknown 01/23/2025 1:25 PM EDT us Dayanna Hernandez MD POINT OF CARE TEST ENTER/EDIT OR DERABLES Final Result * US Renal Complete (01/15/2025 10:58 AM EDT) Anatomical Region Laterality Modality Kidney Ultrasound 01/15/2025 10:5 8 AM EDT Narrative 01/15/2025 10:59 AM EDT [address] [address] Ultrasound Report Signed Patient: Yehuda Casanova MR# : [id number] : 1960 Acct:[id number] Age/Sex: 64 / M ADM Date: 01/15/25 Loc: HO.US Attending Dr: Ramesh Hamm MD Ordering Physician: Ramesh Hamm MD Date of Service: 01/15/25 Procedure(s): US renal BI Accession Number(s): [id number] cc: Ramesh Hamm MD; Dayanna Hernandez MD [...] to intermediate echogenic region measured by the computer technical specialist at level of the right kidney may be artifactual/due to renal pyramid or secondary to the questionable cyst seen on prior ultrasound exam. IMPRESSION: Limited exam. No hydronephrosis. This document has been electronically signed by: Charley Arnold MD on 01/15/2025 10:58:14 Dictated By: Charley Arnold MD Signed By: <Electronically signed by Charley Arnold MD in OV> 01/15/25 1059 DD/ 57 TD/TT: 01/15/251057 Electronic Device Repairer: Procedure Note Donotuseinterpreter, Image - 01/15/2025 [place] [address] Ultrasound Report Signed Patient: Yehuda Casanova DMR# : [id number] : 1960cct:[id number] Age/Sex: 64 / MADM Date: 01/15/25 Loc: HO.US Attending Dr: Ramesh Hamm MD Ordering Physician: Ramesh Hamm MD Date of Service: 01/15/25 Procedure(s): US renal BI Accession Number(s): [id number] cc: Ramesh Hamm MD; Dayanna Hernandez MD [...] to intermediate echogenic region measured by the computer technical specialist at level of the right kidney may be artifactual/due to renal pyramid or secondary to the questionable cyst seen on prior ultrasound exam. IMPRESSION: Limited exam. No hydronephrosis. This document has been electronically signed by: Charley Arnold MD on 01/15/2025 10:58:14 Dictated By: Charley Arnold MD Signed By: <Electronically signed by Charley Arnold MD in OV> 01/15/25 1059 DD/ 1058 TD/TT: 10/13/25 1058 Electronic Device Repairer: us [facility] External Provider IMG US PROCEDURES Final Result * Phospholipase A2 Receptor (PLA2R) Antibody Panel (01/15/2025 9:51 AM EDT) Phospholipase A2 Receptor (PLA2R) Ab, PRAVIN <4 RU/mL [facility] Comment:Reference Range: <14 : NEGATIVE 14-19: BORDERLINE >19: POSITIVE Phospholipase A2 Receptor (PLA2R) Ab, IFA NEGATIVE NEGATIVE [facility] Comment:THIS TEST WAS PERFOR MED AT:[employer] [id number] [place] [phone] AUSTIN MD,PHD,ANALISA 01/15/2025 9:51 AM EDT 01/15/2025 9:52 AM EDT Generic External Data Provider LAB BLOOD ORDERAB LES Final Result [facility] [address] [place] [phone] * (ABNORMAL) Urinalysis Complete (01/15/2025 9:51 AM EDT) Only the most recent of2 resultswithin the time period is included. Color Urine Yellow [facility] Appearance Urine Clear [facility] PH 6.0 5.0 - 9.0 [facility] Glucose Urine UA 100(A) Negative mg/dL [facility] Urine Blood Negative Negative [facility] Specific [place] - Urine 1.015 1.005 - 1.025 [facility] Urine Protein 300 (3+)(A) Neg-Trace mg/dL [facility] Urine Ketones Negative Negative mg/dL [facility] Nitrite Urine Negative Negative [facility] Leukocyte Esterase Urine Negative Negative [facility] RBC Urine 0-2 0 - 2 /HPF [facility] Urine WBC 0-5 0 - 5 /HPF [facility] Urine Squamous Epithelial Cell 0-2 0 - 2 /HPF [facility] Urine Bacteria None Seen None Seen [facility] Hyaline Casts, Urine 0-2 0 - 2 /LPF [facility] 01/15/2025 9:51 AM EDT 01/15/2025 10:11 AM EDT us Generic External Data Provider LAB URINE ORDERAB LES Final Result Performing Organization Address [facility] Co de Phone Number [facility] [address] [place] [phone] [phone] * Complement Component C3c (01/15/2025 9:51 AM EDT) Complement C3 168 82 - 185 mg/dL [facility] Comment:THIS TEST WAS PERFOR MED AT:[employer] [place] [phone] BRIGGS MD 01/15/2025 9:51 AM EDT 01/15/2025 9:52 AM EDT us Generic External Data Provider LAB BLOOD ORDERAB LES Final Result Performing Organization Address [facility] de Phone Number [facility] [address] [place] [phone] * Complement Component C4c (01/15/2025 9:51 AM EDT) Complement C4 36 15 - 53 mg/dL [facility] Comment:THIS TEST WAS PERFOR MED AT:[employer] [place] [phone] BRIGGS MD 01/15/2025 9:51 AM EDT 01/15/2025 9:52 AM EDT us Generic External Data Provider LAB BLOOD ORDERAB LES Final Result Performing Organization Address [facility] Co de Phone Number [facility] [address] [place] [phone] * (ABNORMAL) Protein, Total and Protein??Electrophoresis (01/15/2025 9:51 AM EDT) Prot Elec - Total Protein 6.4 6.1 - 8.1 g/dL [facility] Prot Elec - Albumin 3.7(A) 3.8 - 4.8 g/dL [facility] Prot Elec - Alpha1 0.3 0.2 - 0.3 g/dL [facility] Prot Elec - Alpha2 0.8 0.5 - 0.9 g/dL [facility] Prot Elec - Beta 1 0.5 0.4 - 0.6 g/dL [facility] Prot Elec - Beta 2 0.4 0.2 - 0.5 g/dL [facility] Prot Elec - Gamma 0.8 0.8 - 1.7 g/dL [facility] PES - Abn Protein Band 1 TNP [facility] PES-Abn Protein Band 2 TNP [facility] PES-Abn Protein Band 3 [facility] Prot Elec - Interpretation SEE NOTE [facility] Comment:Evaluation reveals a n isolated decrease in albumin.This pattern is suggestive of decreased proteinsynthesis or protein loss. Consider ordering pre-albumin quantitation.THIS TEST WAS PERFORMED AT:[employer] [place] [phone] BRIGGS MD 01/15/2025 9:51 AM EDT 01/15/2025 9:52 AM EDT us Generic External Data Provider LAB BLOOD ORDERAB LES Final Result [facility] [address] [place] [phone] * (ABNORMAL) Basic Metabolic Panel (01/15/2025 9:51 AM EDT) Pathologist [facility] Sodium 139 135 - 145 mmol/L [facility] Potassium 4.2 3.3 - 5.1 mmol/L [facility] Chloride 106 96 - 108 mmol/L [facility] Carbon Dioxide 26 22 - 29 mmol/L [facility] Anion Gap 11(L) 12 - 20 [facility] Urea Nitrogen (BUN) 26(H) 9 - 16 mg/dL [facility] Creatinine, Serum 2.04(H) 0.5 - 1.4 mg/dL [facility] Estimated Glomerular Filt Rate 33 [facility] Comment:Chronic Kidney Disea se: Estimated GFR < 60 mL/min/[id number] Kidney Disease: Estimated GFR < 15 mL/min/1.73m2 Glucose 189(H) 60 - 115 mg/dL [facility] Calcium 9.4 8.4 - 10.2 mg/dL [facility] 01/15/2025 9:51 AM EDT 01/15/2025 9:52 AM EDT us Generic External Data Provider LAB BLOOD ORDERAB LES Final Result Performing Organization Address City/State/[facility] Co de Phone Number [facility] [address] [place] [phone] * (ABNORMAL) Lipid Panel with Reflex to Direct LDL (11/16/2024 11:02 AM EDT) Triglycerides 155(H) <150 mg/dL [facility] Comment:Desirable Triglyceri de: less than 150 mg/dLBorderline High Triglyceride 150-199 mg/dLHigh Triglyceride: 200-499 mg/dLVery High Triglyceride: greater than or equal to 5OO mg/dL Cholesterol 138 <200 mg/dL [facility] Comment:Desirable Cholestero l: less than 200 mg/dLBorderline High Cholesterol: 200-239 mg/dLHigh Cholesterol: greater than 239 mg/dL LDL Cholesterol Calculated 72 <100 mg/dL [facility] Comment:Desirable LDL: less than 100 mg/dLNear Optimal/Above Optimal LDL: 110- 129 mg/dLBorderline High LDL: 130-159 mg/dLHigh LDL: 160-189 mg/dLVery High LDL: greater than or equal to 190 mg/dL HDL Cholesterol 35(L) >40 mg/dL [facility] Comment:Desirable HDL: great er than 40 mg/dL Note: This HDL assay may give artificially low results in patients with liver disease. Blood 11/16/2024 11:0 2 AM EDT 11/16/2024 1:35 PM EDT us Dayanna Hernandez MD LAB BLOOD ORDERABLES Final Resul t Performing Organization Address City/[facility]/ZIP Co de Phone Number [facility] [address] [place] [phone] * (ABNORMAL) Creatinine, Serum (11/16/2024 11:02 AM EDT) Creatinine, Serum 1.86(H) 0.5 - 1.4 mg/dL [facility] Estimated Glomerular Filt Rate 37 [facility] Comment:Chronic Kidney Disea se: Estimated GFR < 60 mL/min/[id number] Kidney Disease: Estimated GFR < 15 mL/min/1.73m2 11/16/2024 11:0 2 AM EDT 11/16/2024 1:40 PM EDT us Generic External Data Provider LAB BLOOD ORDERAB LES Final Result Performing Organization Address [facility] Co de Phone Number [facility] [address] [place] [phone] * (ABNORMAL) Albumin, Random Urine W/Creatinine (11/16/2024 11:02 AM EDT) Creatinine, Urine 162.83 mg/dL [facility] Microalbumin Urine >2,000.0 mg/L [facility] Microalbum Creatinine Ratio Ur 1,228.2(H ) <30 ug/mg cr [facility] Comment:Albumin/Creatinine R atio Reference Ranges: Normal: < 30 ug/mg creatinine Microalbuminuria: 30 - 300 ug/mg creatinineClinical Albuminuria: > 300 ug/mg creatinine 11/16/2024 11:0 2 AM EDT 11/16/2024 12:55 PM EDT us Generic External Data Provider LAB URINE ORDERAB LES Final Result Performing Organization Address City/[facility]/ZIP Co de Phone Number [facility] [address] [place] [phone] * (ABNORMAL) CBC (11/16/2024 11:02 AM EDT) White Blood Count 6.2 4.8 - 10.8 X10*3/uL [facility] Red Blood Count 4.23(L) 4.60 - 5.80 X10*6/uL [facility] Hemoglobin 13.5(L) 14.0 - 18.0 g/dl [facility] Hematocrit 40.4(L) 42.0 - 52.0 % [facility] Mean Corpuscular Volume 95.5 80.0 - 98.0 fL [facility] Mean Corpuscular Hemoglobin 31.9 27.0 - 33.0 pg [facility] Mean Corpuscular HGB Conc 33.4 31.0 - 36.0 g/dl [facility] Red Cell Distribution Width 11.9 11.0 - 16.0 % [facility] Platelet Count 296 160 - 400 X10*3/uL [facility] Mean Platelet Volume 10.3 9.4 - 12.4 fL [facility] NRBC Pct Auto 0.0 0.0 - 0.2 /100WBC [facility] NRBC Abs Auto 0.000 0.0 - 0.012 X10*3/uL [facility] 11/16/2024 11:0 2 AM EDT 11/16/2024 1:35 PM EDT us Generic External Data Provider LAB BLOOD ORDERAB LES Final Result Performing Organization Address [facility]/ZIP Co de Phone Number [facility] [address] [place] [phone] [phone] * ALT (11/16/2024 11:02 AM EDT) Alanine Aminotransferase 16 0 - 40 U/L [facility] [facility] 11/16/2024 11:0 2 AM EDT 11/16/2024 1:40 PM EDT us Generic External Data Provider LAB BLOOD ORDERAB LES Final Result Performing Organization Address [facility] Co de Phone Number [facility] [address] [place] [phone] * AST (11/16/2024 11:02 AM EDT) Aspartate Amino Transferase 25 5 - 37 U/L [facility] 11/16/2024 11:0 2 AM EDT 11/16/2024 1:40 PM EDT Generic External Data Provider LAB BLOOD ORDERAB LES Final Result Performing Organization Address [facility] de Phone Number [facility] [address] [place] [phone] * (ABNORMAL) Hemoglobin A1c (11/16/2024 11:02 AM EDT) Hemoglobin A1c 7.1(H) <6.0 % [facility] Comment:Hemoglobin A1C Refer ence Range Adults: 4.8 - 6.0 % Non diabetic: < 6.0 % Goal: < 7.0 %Additional Action Suggested: > 8.0 %Note: Hemoglobin A1c results are invalid for patients with abnormal amounts of HbF. Blood transfusions may impact the HbA1c concentration in the patient sample. Estimated Average Glucose 157 mg/dL [facility] Comment:eAG = Estimated ave rage glucose which is %A1C expressed asaverage glucose, using the formula of the [id number] Glucose study (ADAG), Diabetes Care, Vol.31,#8,Nov. 2007 11/16/2024 11:0 2 AM EDT 11/16/2024 1:35 PM EDT us Generic External Data Provider LAB BLOOD ORDERAB LES Final Result Performing Organization Address [facility] de Phone Number [facility] [address] [place] [address] [phone] * (ABNORMAL) Lipid Panel, Standard (11/16/2024 11:02 AM EDT) Triglycerides 159(H) <150 mg/dL [facility] Comment:Desirable Triglyceri de: less than 150 mg/dLBorderline High Triglyceride 150-199 mg/dLHigh Triglyceride: 200-499 mg/dLVery High Triglyceride: greater than or equal to 5OO mg/dL Cholesterol 140 <200 mg/dL [facility] Comment:Desirable Cholestero l: less than 200 mg/dLBorderline High Cholesterol: 200-239 mg/dLHigh Cholesterol: greater than 239 mg/dL LDL Cholesterol Calculated 73 <100 mg/dL [facility] Comment:Desirable LDL: less than 100 mg/dLNear Optimal/Above Optimal LDL: 110- 129 mg/dLBorderline High LDL: 130-159 mg/dLHigh LDL: 160-189 mg/dLVery High LDL: greater than or equal to 190 mg/dL HDL Cholesterol 36(L) >40 mg/dL [facility] Comment:Desirable HDL: great er than 40 mg/dL Note: This HDL assay may give artificially low results in patients with liver disease. 11/16/2024 11:0 2 AM EDT 11/16/2024 1:40 PM EDT Generic External Data Provider LAB BLOOD ORDERAB LES Final Result Performing Organization Address [facility]/ZIP Co de Phone Number [facility] [address] [place] [address] [phone] * (ABNORMAL) Glucose, Whole Blood (11/14/2024 10:15 AM EDT) Glucose, Whole Blood 134(H) 60 - 115 mg/dL [facility] Comment:METER #: [id number] Testing performed in the Endocrinology Department [address] , [address], [facility]. 11/14/2024 10:1 5 AM EDT 11/14/2024 10:19 AM EDT us Generic External Data Provider LAB BLOOD ORDERAB LES Final Result [facility] [address] [place] [address] [phone] * HEPATITIS C AB W/REFL TO HCV RNA, QN, PCR (09/09/2021 1:06 PM EDT) HEPATITIS C ANTIBODY NON-REACT EDWARD NON-REACT EDWARD [facility] INDEX 0.04 <1.00 [facility] Comment: HCV antibody was non-reactive. There is no laboratory evidence of HCV infection. In most cases, no further action is required. However, if recent HCV exposure is suspected, a test for HCV RNA (test code 32226) is suggested. For additional information please refer to http://education.[employer]/faq/QTF87r7 (This link is being provided for informational/ educational purposes only.) 09/09/2021 1:06 PM EDT Dayanna Hernandez MD HISTORICAL/NON ORDERABLE LABS Fi nal Result Performing Organization Address [facility] Co de Phone Number [facility] [address] * HIV 1/2 ANTIGEN/ANTIBODY,FOURTH GENERATION W/RFL (09/09/2021 1:06 PM EDT) HIV-1/2 ANTIGEN AND ANTIBODIES, 4TH GENERATION W/ REFLEX NON-REACT EDWARD NON-REACT EDWARD [facility] Comment: HIV-1 antigen and HIV-1/HIV-2 [...] purpose. For additional information please refer to http://education.[employer].GT Urological/faq/CWP712 (This link is being provided for informational/ educational purposes only.) The performance of this assay has not been clinically validated in patients less than 2 years old. 09/09/2021 1:06 PM EDT us Dayanna Hernandez MD LAB BLOOD ORDERABLES Final Resul t [facility] [address] from Last 3 Months or Most Recently Relevant to Health Maintenance Insurance [facility] < 67 [place] [id number] Care Teams Director Cardiovascular Relationship Specialty Start Date End Date Dayanna Hernandez MD [address] [place] [phone] PCP - General Family Medicine 10/24/12
--- NOTE | 2025-01-25 09:12 | A.OFFVIS_ITS ---
Vital Signs 01/25/25 09:14 Height 5 ft 6 in Weight 216 lb BMI 34.9 BP 142/84 H Blood Pressure Location Lt brachial Position Sitting Pulse 71 Pulse Oximetry (%) 97 Oxygen Delivery Method Room Air Intake Visit Reasons: colo screen Intake Note: Patient new consult for pre Colonoscopy screening Patient cc: a lot of gasses, denies any other GI issues. Senior Technical Trainer Required: Yes Senior Technical Trainer Name: MICHELLE Way Accompanied by: Self / Same As Patient Allergies Penicillins (PENICILLINS) Allergy (Unknown, Verified 01/25/25 09:12) UNKNOWN-CHILDHOOD REACTION ARB-Angiotensin Receptor Antagonist Adverse Reaction (Mild, Verified 01/25/25 09:12) Cough SEAFOOD Allergy (Severe, Uncoded 11/14/24 10:01) DIARRHEA,GI PAIN, NAUSEA Fish Allergy (Mild, Uncoded 11/14/24 10:01) Gastrointestinal Upset Medication List - Last Reconciled 01/25/25 by Nubia Vaca CNP acetaminophen (Tylenol) 325 mg PO QID PRN apremilast (Otezla) 30 mg PO BID aspirin 81 mg PO DAILY blood sugar diagnostic (FreeStyle Lite Strips) 4 times a day blood-glucose meter (FreeStyle Lite Meter kit) 4 times a day blood-glucose sensor (FreeStyle Nevaeh 3 Plus Sensor device) Apply 1 new sensor every 15 days as directed to monitor blood glucose continuously. blood-glucose,cleaning porter,cont (FreeStyle Nevaeh 3 [place]) Use daily to monitor blood glucose levels continuously. cetirizine 10 mg PO QAM cholecalciferol (vitamin D3) 50 mcg PO DAILY 90 days clobetasol 0.05% 1 appl topical BID clonazepam 0.5 mg PO DAILY PRN CPAP (CPAP Machine/Device) As directed dorzolamide-timolol 22.3-6.8 mg/mL 1 drp ophthalmic (eye) BID fenofibrate 54 mg PO DAILY 90 days fluoxetine 40 mg PO QAM fluticasone propionate 50 mcg/actuation 50 mcg intranasal DAILY FreeStyle Lancets (lancets) 4 times a day NS hydrocortisone 2.5% 1 appl topical DAILY insulin aspart U-100 (Novolog FlexPen U-100 Insulin aspart) 30-40 units with meals three times daily, subcutaneously; maximum 120 units per day 30 days insulin glargine U-300 conc 100 units (0.3333 mL) subcut DAILY 90 days linagliptin (Tradjenta) 5 mg PO DAILY melatonin 5 mg PO BEDTIME pen needle, diabetic 5 times a day to inject insulin quetiapine 12.5 - 25 mg PO BEDTIME PRN roflumilast 0.3% (Zoryve) appl topical rosuvastatin 40 mg PO DAILY [sock pull As directed] [telescoping foot mirror As directed] trazodone 100 mg BEDTIME HPI HPI colo screen: Details: Patient is a 64-year-old Tajik speaking male with PMH of diabetes, hyperlipidemia, hypertension, CKD stage 3, JEAN MARIE on CPAP, history of CVA. Referred by PCP for pre colonoscopy screening. Yehuda reports passing stools up to four times daily, with consistency typically a little loose since childhood but occasional solid stools. Ex periences increased gas, especially after consuming specific foods such as green banana and non-baked yams, but symptoms improve when he avoids triggering items. No current abdominal discomfort; reports regular passage of gas and sensation of complete bowel evacuation. He uses a wheelchair for outings due to prior stroke with left-sided weakness, chronic knee, and spine pain, though ambulates at home and performs daily walks for exercise. Weight is stable, recent reduction from 223 to 216 lbs attributed to increased physical activity Reports frequent vertigo and has a history of falls, all following a cerebrovascular event. Comorbid conditions include DM on insulin, CKD with nephrology follow-up, psoriasis managed with Otezla, HTN, sleep apnea managed with CPAP (uses day and night), chronic anemia and history of kidney stones with prior ESWL and [place]. No known heart disease, last cardiac evaluation normal. No known personal or family history of GI malignancy. Patient denies: fever/chills, n/v, appetite changes, pyrosis, regurgitation,dysphasia, unintentional wt loss, ab pain or melena/hematochezia. Social hx: -denies ETOH use, denies hx of dependence -denies recreational drug use -former smoker, cessation 25-30 years ago - family hx as below -denies personal hx of CA -tolerated anesthesia in the past without difficulty. 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 Mother Diabetes Social History Household Members: None Housing: Apartment Alcohol intake: never Patient Tobacco Use Status: Former Tobacco user Review of Systems Const Reports as per HPI ENT Reports as per HPI Card Reports as per HPI Resp Reports as per HPI GI Reports as per HPI Reports as per HPI Physical Exam Vital Signs: Last Vital Signs Pulse 71 01/25/25 09:14 BP 142/84 H 01/25/25 09:14 Pulse Ox 97 01/25/25 09:14 Oxygen Delivery Method Room Air 01/25/25 09:14 BMI result Body Mass Index 34.9 Const General: healthy appearing, no acute distress and well developed Nutritional Appearance: average body habitus Orientation/consciousness: patient oriented x3 HEENT Head: Yes normal to inspection, Yes normocephalic and Yes atraumatic Face and sinus: Yes normal facial exam Eyes General: appearance normal, both eyes and all related structures Neck Neck: Yes normal visual inspection Resp Effort & Inspection: normal respiratory effort, able to speak in complete sentences, no tracheal deviation and symmetric chest movement Cardio Jugular venous distension: no JVD GI Inspection: Yes normal to inspection, No distended and Yes obesity Palpation (GI): Soft to palpation, not firm, nontender and No hepatosplenomegaly present Auscultation: normal bowel sounds Neuro General: patient oriented x3 Gait exam (Neuro): Normal gait present Psych Appearance: grossly normal Mental Status: mental status grossly normal Speech and movement: Normal speech and movement present Affect: normal affect Attitude: cooperative Thought process: Normal thought process present Thought content: Normal thought content present Insight: Good insight present (Psych) Judgement: Good judgement present (Psych) Assessment & Plan Assessment & Plan (1) Colon cancer screening: Comment: 01/30/15 colonoscopy (Dr. Beasley) incomplete 2/2 poor prep and colon looping. 01/30/25 barium swallow-complete with poor prep-mx filling defects throughout colon c/w fecal material. No obstruction, constriction or narrowing. Code(s): Z12.11 - Encounter for screening for malignant neoplasm of colon Category: Medical Plan: Due for CRC screening; prior attempt unsuccessful due to inadequate prep. Followed by unsuccessful barium enema attempt. Additional Testing: -Abdominal XR to confirm no retained stool prior to rescheduling colonoscopy. -may need to consider CT colonography Medication Management: We will likely need extended prep. PEG rx for now script for (laxative tablets, gas tablets, solution). Lifestyle Recommendations: Education on bowel prep importance; avoid constipating foods prior to prep. Follow-Up: In-person visit in 4 weeks to review prep, imaging, and finalize colonoscopy scheduling. (2) Loose stools: Code(s): R19.5 - Other fecal abnormalities Category: Medical Plan: Longstanding loose stools without alarming features, associated with certain foods, normal sensation of bowel clearance, no weight loss. Additional Testing: Abdominal XR ordered to assess for retained stool prior to colonoscopy; -colonoscopy preferred method of screening; may need to consider alternative screening as above. Medication Management: Laxative tablets, gas tablets, and laxative solution Rx for colonoscopy prep. Lifestyle Recommendations: Continue avoiding foods triggering symptoms; maintain activity level as tolerated. Follow-Up: 4 weeks?review imaging, labs, prep instructions in detail prior to scheduling colonoscopy. (3) Anemia: Code(s): D64.9 - Anemia, unspecified Category: Medical Qualifiers: Anemia type: unspecified type Qualified Code(s): D64.9 - Anemia, unspecified Plan: Normocytic anemia persistent sense 2020, multifactorial risk (CKD, DM, post- procedure), no prior detailed anemia work-up. Additional Testing: Order iron studies, B12/folate (pending recent labs?will review with electric melt operator at upcoming visit). Medication Management: None initiated pending results. Lifestyle Recommendations: Maintain balanced diet; reinforce compliance with medical management for comorbidities. Follow-Up: Review additional lab results at nephrology and GI follow-up. Plan Follow-up next available or 4 weeks (whichever earliest) or sooner as needed Time: I spent a total of 45 minutes on the date of encounter which includes: Preparing to see the patient (reviewed previous documentation, test results and medical history) Performing a medically appropriate exam and/or evaluation Ordering medications, tests, and procedures Documenting clinical information in the health record Orders: Orders XR KUB Today R14.0 - Abdominal distension (gaseous) IRON PROFILE Today D64.9 - Anemia, unspecified Vitamin B12 and Folate Today D64.9 - Anemia, unspecified Medications: New bisacodyl Take per colonoscopy instructions 20 mg (4 x 5 mg) PO ONCE 4 tabs 0RF simethicone (Gas Relief (simethicone)) per colonoscopy prep instructions 500 mg (4 x 125 mg) PO ONCE 4 caps 0RF abdominal distention polyethylene glycol 3350 (Miralax) per colonoscopy prep instructions 238 grams PO ONCE 238 grams 0RF Coding Level of Care Code New Pt New Pt Level 4 (85301) Patient Type New Diagnoses Colon cancer screening Z12.11 Loose stools R19.5 Anemia, unspecified type D64.9 Anemia type: unspecified type
[2025-01-25 09:14] VITALS: BP 142/84; PULSE 71; O2SAT 97; BMI 34.9
--- NOTE | 2025-01-25 09:48 | A.OFFVIS_ITS ---
Vital Signs 01/25/25 09:14 Height 5 ft 6 in Weight 216 lb BMI 34.9 BP 142/84 H Blood Pressure Location Lt brachial Position Sitting Pulse 71 Pulse Oximetry (%) 97 Oxygen Delivery Method Room Air Intake Visit Reasons: colo screen Allergies Penicillins (PENICILLINS) Allergy (Unknown, Verified 01/25/25 09:12) UNKNOWN-CHILDHOOD REACTION ARB-Angiotensin Receptor Antagonist Adverse Reaction (Mild, Verified 01/25/25 09:12) Cough SEAFOOD Allergy (Severe, Uncoded 11/14/24 10:01) DIARRHEA,GI PAIN, NAUSEA Fish Allergy (Mild, Uncoded 11/14/24 10:01) Gastrointestinal Upset Medication List - Last Reconciled 01/25/25 by Nubia Vaca CNP acetaminophen (Tylenol) 325 mg PO QID PRN apremilast (Otezla) 30 mg PO BID aspirin 81 mg PO DAILY blood sugar diagnostic (FreeStyle Lite Strips) 4 times a day blood-glucose meter (FreeStyle Lite Meter kit) 4 times a day blood-glucose sensor (FreeStyle Nevaeh 3 Plus Sensor device) Apply 1 new sensor every 15 days as directed to monitor blood glucose continuously. blood-glucose,surveying or spatial science technician,cont (FreeStyle Nevaeh 3 [place]) Use daily to monitor blood glucose levels continuously. cetirizine 10 mg PO QAM cholecalciferol (vitamin D3) 50 mcg PO DAILY 90 days clobetasol 0.05% 1 appl topical BID clonazepam 0.5 mg PO DAILY PRN CPAP (CPAP Machine/Device) As directed dorzolamide-timolol 22.3-6.8 mg/mL 1 drp ophthalmic (eye) BID fenofibrate 54 mg PO DAILY 90 days fluoxetine 40 mg PO QAM fluticasone propionate 50 mcg/actuation 50 mcg intranasal DAILY FreeStyle Lancets (lancets) 4 times a day NS hydrocortisone 2.5% 1 appl topical DAILY insulin aspart U-100 (Novolog FlexPen U-100 Insulin aspart) 30-40 units with meals three times daily, subcutaneously; maximum 120 units per day 30 days insulin glargine U-300 conc 100 units (0.3333 mL) subcut DAILY 90 days linagliptin (Tradjenta) 5 mg PO DAILY melatonin 5 mg PO BEDTIME pen needle, diabetic 5 times a day to inject insulin quetiapine 12.5 - 25 mg PO BEDTIME PRN roflumilast 0.3% (Zoryve) appl topical rosuvastatin 40 mg PO DAILY [sock pull As directed] [telescoping foot mirror As directed] trazodone 100 mg BEDTIME HPI HPI colo screen: Details: Patient is a 64-year-old Sami speaking male with PMH of diabetes, hyper lipidemia, hypertension, CKD stage 3, JEAN MARIE on CPAP, history of CVA. Referred by PCP for pre colonoscopy screening. complete emptying Patient denies: fever/chills, n/v, appetite changes, pyrosis, r egurgitation,dysphasia, unintentional wt loss, ab pain or melena/hematochezia. Social hx: -denies ETOH use, denies hx of dependence -denies recreational drug use -former smoker, cessation 25-30 years ago - family hx as below -denies personal hx of CA -tolerated anesthesia in the past without difficulty. 01/30/15 colonoscopy (Dr. Beasley) incomplete with adequate prep- barium swallow 01/30/25-complete with poor prep-mx filling defects throughout colon c/w fecal material. No obstruction, constriction or narrowing. 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 Mother Diabetes Social History Household Members: None Housing: Apartment Alcohol intake: never Patient Tobacco Use Status: Former Tobacco user Physical Exam Vital Signs: Last Vital Signs Pulse 71 01/25/25 09:14 BP 142/84 H 01/25/25 09:14 Pulse Ox 97 01/25/25 09:14 Oxygen Delivery Method Room Air 01/25/25 09:14 BMI result Body Mass Index 34.9 Const General: healthy appearing, no acute distress and well developed Nutritional Appearance: average body habitus Orientation/consciousness: patient oriented x3 HEENT Head: Yes normal to inspection, Yes normocephalic and Yes atraumatic Face and sinus: Yes normal facial exam Eyes General: appearance normal, both eyes and all related structures Neck Neck: Yes normal visual inspection Resp Effort & Inspection: normal respiratory effort, able to speak in complete sentences, no tracheal deviation and symmetric chest movement Auscultation: clear to auscultation bilaterally Cardio Jugular venous distension: no JVD Rate: regular rate Rhythm: regular rhythm Heart sounds: S1 normal heart sound present, S2 normal heart sound present, no gallops and no murmurs GI Inspection: Yes normal to inspection and No distended Palpation (GI): Soft to palpation, not firm, nontender and No hepatosplenomegaly present Auscultation: normal bowel sounds Neuro General: patient oriented x3 Gait exam (Neuro): Normal gait present Psych Appearance: grossly normal Mental Status: mental status grossly normal Speech and movement: Normal speech and movement present Affect: normal affect Attitude: cooperative Thought process: Normal thought process present Thought content: Normal thought content present Insight: Good insight present (Psych) Judgement: Good judgement present (Psych) Assessment & Plan Assessment & Plan (1) Colon cancer screening: Code(s): Z12.11 - Encounter for screening for malignant neoplasm of colon Category: Medical Orders: Orders XR KUB Today R14.0 - Abdominal distension (gaseous) Medications: New bisacodyl Take per colonoscopy instructions 20 mg (4 x 5 mg) PO ONCE 4 tabs 0RF simethicone (Gas Relief (simethicone)) per colonoscopy prep instructions 500 mg (4 x 125 mg) PO ONCE 4 caps 0RF abdominal distention polyethylene glycol 3350 (Miralax) per colonoscopy prep instructions 238 grams PO ONCE 238 grams 0RF Coding Patient Type New Diagnoses Colon cancer screening Z12.11
== END 2025-01-25 10:16 | disposition home or self-care (01) ==
LOC: HO.HGI 08:37
PROVIDERS: PCP Family Medicine; Visit Provider Nurse Practitioner Family
DX: R19.7 Diarrhea, unspecified (principal); D64.9 Anemia, unspecified; Z12.11 Encounter for screening for malignant neoplasm of colon; Z91.199 Patient's noncompliance with other medical treatment and regimen due to unspecified reason
CPT/HCPCS: 99204

== ENCOUNTER → 2025-01-25 10:42 | Outpatient (BNV) | payer OTHER, SELFPAY | PROVIDERS: PCP Family Medicine; Visit Provider Radiology Diagnostic Ultrasound | DX: R14.0 Abdominal distension (gaseous) (principal); R19.5 Other fecal abnormalities | CPT/HCPCS: 74018 ==

== ENCOUNTER 2025-02-02 13:05 | Outpatient (AMB) | payer OTHER, SELFPAY ==
--- NOTE | 2025-02-02 13:08 | MHC.OFFVIS ---
Vital Signs 02/02/25 13:13 Height 5 ft 6 in Weight 212 lb BMI 34.2 Blood Pressure Location Rt brachial Position Sitting Pulse 76 Intake Visit Reasons: prep discussion Intake Note: Patient here to discuss colonoscopy prep. Patient states he is diabetic and must eat every 2.5 hrs. Reports last colonoscopy in [id number]. Denies diarrhea, constipation. Denies personal or family hx of Colon CA. Document Advisor Required: Yes Accompanied by: Self / Same As Patient Allergies Penicillins (PENICILLINS) Allergy (Unknown, Verified 01/25/25 09:12) UNKNOWN-CHILDHOOD REACTION ARB-Angiotensin Receptor Antagonist Adverse Reaction (Mild, Verified 01/25/25 09:12) Cough SEAFOOD Allergy (Severe, Uncoded 11/14/24 10:01) DIARRHEA,GI PAIN, NAUSEA Fish Allergy (Mild, Uncoded 11/14/24 10:01) Gastrointestinal Upset HPI HPI prep discussion: Details: Patient is a 64-year-old Faroese speaking male with PMH of diabetes, hyperlipidemia, hypertension, CKD stage 3, JEAN MARIE on CPAP, history of CVA. FU for evaluation and mgmt of presumed constipation after recent abd X-ray. Pt continues to describe chronic loose stools with no sensation of constipation, but abd X-ray revealed moderate to large stool burden, suggesting constipation with possible overflow diarrhea. Reports increased flatus. No acute complaints of abd pain, N/V, or hematochezia. No reported adherence to prior constipation regimen; pt expresses skepticism towards dx and concern re: medication effects on kidneys. Pt lives alone, citing difficulty obtaining and completing colonoscopy bowel prep at home. Willing to proceed with recommended mgmt and colonoscopy with appropriate support. 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 Mother Diabetes Social History Household Members: None Housing: Apartment Alcohol intake: never Patient Tobacco Use Status: Former Tobacco user Review of Systems Const Reports as per HPI ENT Reports as per HPI Card Reports as per HPI Resp Reports as per HPI GI Reports as per HPI Reports as per HPI Physical Exam Vital Signs: Last Vital Signs Pulse 76 02/02/25 13:13 BMI result Body Mass Index 34.2 Const General: healthy appearing, no acute distress and well developed Nutritional Appearance: average body habitus Orientation/consciousness: patient oriented x3 HEENT Head: Yes normal to inspection, Yes normocephalic and Yes atraumatic Face and sinus: Yes normal facial exam Eyes General: appearance normal, both eyes and all related structures Neck Neck: Yes normal visual inspection Resp Effort & Inspection: normal respiratory effort, able to speak in complete sentences, no tracheal deviation and symmetric chest movement Cardio Jugular venous distension: no JVD GI Auscultation: normal bowel sounds Neuro General: patient oriented x3 Gait exam (Neuro): Assistive device used (w/c bound) Psych Appearance: grossly normal Mental Status: mental status grossly normal Speech and movement: Normal speech and movement present Affect: normal affect Attitude: cooperative Thought process: Normal thought process present Thought content: Normal thought content present Insight: Fair insight present (Psych) Judgement: Good judgement present (Psych) Assessment & Plan Assessment & Plan (1) Constipation: Code(s): K59.00 - Constipation, unspecified Category: Medical Qualifiers: Constipation type: unspecified constipation type Qualified Code(s): K59.00 - Constipation, unspecified Plan: Imaging supports incomplete evacuation despite reported loose stools; overflow phenomenon suspected. Nonadherence to prior laxative tx due to financial and access barriers. DDX: motility disorder, malabsorption, IBS, underlying metabolic/renal dz. Post-cleanout abd X-ray offered at pt request to document response; not routinely indicated but will honor as able. Medications: - Discussed magnesium citrate solution during visit (cancelled with pharmacy). However, osmotic laxative preferred given most recent GFR of 33. - Miralax 17G daily mix with 8oz of water - Start senna tabs 1 tab PO qHS for maintenance; transition to qD or PRN based on stooling. - Avoid use of nephrotoxic agents Lifestyle Recommendations: - Emphasize high-fiber diet (vegetables) after initial cleanout. Reinforced clear liquid diet for day prior to colonoscopy prep. - Provided written and multimedia instructions for bowel regimen and dietary guidance ( Botswanan and video). Referrals / Coordination of Care: - Colonoscopy recommended for screening; pt interested but needs support for at-home prep. Will refer for colo after bowel cleanout and coordinate scheduling. No hospitalization for prep per discussion. Follow-Up Plan: - FU after cleanout and radiographic reassessment (if ordered/per pt request) to confirm clearance of stool burden. - Await spares scheduler's call re: colonoscopy date; initiate prep as instructed when scheduled. - Reassess efficacy of new bowel regimen, pt tolerance, and need for further GI workup. (2) Colon cancer screening: Comment: 01/30/15 colonoscopy (Dr. Beasley) incomplete 2/2 poor prep and colon looping. 01/30/25 barium swallow-complete with poor prep-mx filling defects throughout colon c/w fecal material. No obstruction, constriction or narrowing. Code(s): Z12.11 - Encounter for screening for malignant neoplasm of colon Category: Medical Plan: Pt overdue for CRC screening; colonoscopy planned as soon as adequate bowel prep achieved. Additional Testing: - Colonoscopy to be scheduled after successful bowel cleanout. -will likely benefit from adult scope/ab binder at time of colo Medications: - Bowel prep to be prescribed and initiated per standard protocol once procedure is scheduled. Lifestyle Recommendations: - Reinforce clear liquid diet and bowel prep instructions prior to procedure. - Provided educational materials and video instructions for prep process. Referrals / Coordination of Care: - GI scheduling to contact pt for colonoscopy date; coordination with pt to ensure understanding and support for prep. Follow-Up Plan: - FU post-colonoscopy to review results and further mgmt as indicated. Plan Pt requires extensive and repetitive education regarding bowel regimen, dietary restrictions, and colonoscopy prep, with frequent clarification and reinforcement needed throughout visit. Multiple modalities (written, video, verbal) provided to address learning needs and ensure understanding. 02/05/25 0830: Attempted Yehuda to review above bowel regimen (clin asst 18342). No answer, LMOM RCTC. Follow-up TBD Time: I spent a total of 40 minutes on the date of encounter which includes: Preparing to see the patient (reviewed previous documentation, test results and medical history) Performing a medically appropriate exam and/or evaluation Ordering medications, tests, and procedures Documenting clinical information in the health record Orders: Referrals GI Procedure Notification Z12.11 - Encounter for screening for malignant neoplasm of colon Medications: Discontinued polyethylene glycol 3350 (Miralax) per colonoscopy prep instructions Discontinued Reason: Doctor's Order 238 grams PO ONCE 238 grams 0RF Coding Level of Care Code Established Pt Est Pt Level 4 (87716) Patient Type Established Diagnoses Constipation, unspecified constipation type K59.00 Constipation type: unspecified constipation type Colon cancer screening Z12.11
[2025-02-02 13:13] VITALS: PULSE 76; BMI 34.2
--- OUTSIDE RECORDS SUMMARY | 2025-02-02 14:12 | XMS_ITS | Clinical Summary ---
Author Organization [facility] Address [address] [place], [place] [phone] Phone Care Team Providers Care Telephone Operator Chief Name Role Phone Alison Luu Primary Care Provider [phone] Social History Tobacco Use Types Packs/Day Years [...] file Medical Devices Not on file Insurance [facility] [employer] MEDICARE REPLACEMENT [facility] [id number] [place] [address] MEDICARE REPLACEMENT Care Teams Telephone Operator Chief Relationship Specialty Start Date End Date Alison Luu PA [address] [place] [phone] [email or web address] PCP - General Graphic Coordinator 01/19/20 Additional Source Comments The information contained in this document represents components of the legal health record. It is not the complete legal health record.[facility]
--- OUTSIDE RECORDS SUMMARY | 2025-02-02 14:12 | XMS_ITS | Encounter Summary ---
Author Organization [employer] Address [address] [facility] [address] [place] [address] Care Team Providers Care Stunt Man Name Role Phone Dayanna Hernandez MD Primary Care Provider [phone] Encounter Details Date Type Department Care Team ([facility] st Contact Info) Description 01/23/2025 Results Follow-Up [facility] [address] [place] [address] Dayanna Hernandez MD [address] [place] [address] POCT Glucose, POCT Hgb A1c, PSA, Screen [...] documented as of this encounter Care Teams Stunt Man Relationship Specialty Start Date End Date Dayanna Hernandez MD [address] [place] [address] PCP - General Family Medicine 10/24/12 documented as of this encounter
--- OUTSIDE RECORDS SUMMARY | 2025-02-02 14:12 | XMS_ITS | Encounter Summary ---
Author Organization [employer] Address [address] [facility] [address] [place] [address] Care Team Providers Care Bumboater Name Role Phone Dayanna Hernandez MD Primary Care Provider [phone] Encounter Details Date Type Department Care Team ([facility] st Contact Info) Description 08/19/2023 Orders Only [facility] [address] [place], [place] [phone] Dayanna Hernandez MD [address] [place], [place] [phone] Social History Tobacco Use Types Packs/Day Years [...] documented as of this encounter Care Teams Bumboater Relationship Specialty Start Date End Date Dayanna Hernandez MD [address] [place] [address] PCP - General Family Medicine 10/24/12 documented as of this encounter
--- OUTSIDE RECORDS SUMMARY | 2025-02-02 14:12 | XMS_ITS | Encounter Summary ---
Author Organization [facility] [employer] Address [address] [facility] [address] [place] [address] Care Team Providers Care Plant Electrical Engineer Name Role Phone Dayanna Hernandez MD Primary Care Provider [phone] Reason for Referral * Consultation (Routine) - Closed Specialty Diagnoses / Procedures Referred By Contac emma Referred To Contact Physical Therapy Diagnoses Gait instability Hemiparesis affecting left side as late effect of cerebrovascular accident (CVA) (CMS/HCC) (HCC) Legal blindness Daaynna Hernandez MD [address] [place] [address] Phone: tel: fax: [facility] [address] [place] [address] Phone: tel: fax: Referral ID Status Reason Start Date Expiration Date V isits Requested Visits Authorized [id number] Closed Specialty Services Required 09/09/2023 09/08/2024 1 1 Encounter Details Date Type Department Care Team (Late st Contact Info) Description 09/09/2023 Orders Only [facility] [address] [place] [address] Dayanna Hernandez MD [address] [place], [place] [phone] Gait instability (Primary Dx); Hemiparesis affecting left [...] as late effect of cerebrovascular accident (CVA) ([facility]) Legal blindness Expected: 09/09/2023 (Approximate), Expires: 09/08/2024 documented as of this encounter Visit Diagnoses Diagnosis Gait instability- Primary Abnormality of gait Hemiparesis affecting left side as late effect of cerebrovascular accident (CVA) ([facility]) (HCC) Legal blindness Legal blindness, as defined in [place] documented in this encounter Additional Health Concerns Assessment Noted Time PHQ-9 Depression Total Score: 8 07/31/19 23 10:10 AM EDT documented as of this encounter Care Teams Plant Electrical Engineer Relationship Specialty Start Date End Date Dayanna Hernandez MD [address] [place] [id number] PCP - General Family Medicine 10/24/12 documented as of this encounter
--- OUTSIDE RECORDS SUMMARY | 2025-02-02 14:12 | XMS_ITS | Clinical Summary ---
Author Organization [email or web address] Address [address] [facility] [address] [place] [address] Care Team Providers Care Welder Tack Name Role Phone Dayanna Hernandez MD Primary Care Provider [phone] Allergies Active Allergy Reactions Criticality Noted Date [...] DAILY NEEDED. 11/07/19 25 Active Continuous Glucose Environmental Protection Inspector (FreeStyle Nevaeh 3 [place]) device USE DAILY TO MONITOR BLOOD GLUCOSE LEVELS CONTINUOUSLY. 09/09/19 25 Active Continuous Glucose Sensor (FreeStyle Nevaeh 3 Plus Sensor) [facility] [place] APPLY 1 NEW SENSOR EVERY 15 DAYS [...] Plan (09/12/2024 9:11 AM EDT): -Seen by manager regional sales on 03/11/20 for JEAN MARIE -Pt had several sleep studies, most recently in 2019, showing JEAN MARIE -Continue auto PAP pressure 6-14 cm H2O -Will order a new autoPAP machine; may need a new sleep study -Most recent echo did not show pulmonary HTN -Air Tool Operator recommended him to use azelastine for rhinitis. -Refer back to manager regional sales Dr. Sanchez Assessment & Plan (08/17/2023 11:35 AM EDT): -Seen by manager regional sales on 03/11/20 for JEAN MARIE -Pt had several sleep studies, most recently in 2019, showing JEAN MARIE -Continue auto PAP pressure 6-14 cm H2O -Will order a new autoPAP machine; may need a new sleep study -Most recent echo did not show pulmonary HTN -Air Tool Operator recommended him to use azelastine for rhinitis. -Refer back to manager regional sales Dr. Sanchez Assessment & Plan (11/27/2022 4:34 PM EDT): -Seen by manager regional sales on 03/11/20 for JEAN MARIE -Pt had several sleep studies, most recently in 2019, showing JEAN MARIE -Continue auto PAP pressure 6-14 cm H2O -Will order a new autoPAP machine; may need a new sleep study -Most recent echo did not show pulmonary HTN -Air Tool Operator recommended him to use azelastine for rhinitis. -Refer back to manager regional sales Dr. Sanchez Intertrigo 10/23/2022 Assessment & Plan (11/27/2022 4:24 PM EDT): - s/p clotrimazole BID x 28 days in October 2022 - responding well to nystatin pwd TID; refill - follow up with document control manager Assessment & Plan (10/23/2022 12:46 PM EDT): [...] symptoms -pt to f up w his document control manager in 2 months per pt and has [...] cetrizine -continue montelukast -continue fluticasone nasal Hemiparesis ([facility]) 06/05/2020 Hypertensive renal disease 06/05/2020 Proteinuria 06/05/2020 Assessment & Plan (11/27/2022 4:26 PM EDT): - pt refuses to take ARB or ACEI - consider SGLT-2 inhibitor Renal stone 07/28/2016 Biliary calculus 09/16/2015 Hemiparesis affecting left s amari as late effect of cerebrovascular accident (CVA) ([facility]) 09/16/2015 Stage 3 chronic kidney disease ([facility]) 016 Assessment & Plan (09/26/2024 1:29 PM EDT): -Toll Relief Operator: Dr. Velasquez, last seen in October 2023 -Diabetic and vascular etiology, proteinuria -07/31/22 BUN 20; Scr 1.53; eGFR 53; K 4.1; Bicarb 28, UACR 1,147 -Baseline Cr 1.3-1.5 -In a setting of recurrent nephrolithiasis -Stable -Avoid nephrotoxic drugs. -Treatment Hx: Pt reported throat itching with ARB, and cough with ACEI. Assessment & Plan (08/17/2023 11:36 AM EDT): -Toll Relief Operator: Dr. Velasquez, last seen on 09/02/22 -Diabetic and vascular etiology, proteinuria -07/31/22 BUN 20; Scr 1.53; eGFR 53; K 4.1; Bicarb 28, UACR 1,147 -Baseline Cr 1.3-1.5 -In a setting of recurrent nephrolithiasis -Stable -Avoid nephrotoxic drugs. -Treatment Hx: Pt reported throat itching with ARB, and cough with ACEI. Assessment & Plan (11/19/2022 5:11 AM EDT): -Toll Relief Operator: Dr. Velasquez, last seen on 09/02/22 -Diabetic and vascular etiology, proteinuria -07/31/22 BUN 20; Scr 1.53; eGFR 53; K 4.1; Bicarb 28, UACR 1,147 -Baseline Cr 1.3-1.5 -In a setting of recurrent nephrolithiasis -Stable -Avoid nephrotoxic drugs. -Treatment Hx: Pt reported throat itching with ARB, and cough with ACEI. Assessment & Plan (07/31/2022 5:30 AM EDT): -Toll Relief Operator: Dr. Velasquez, last seen on 08/16/19, but [...] 2 diabetes mellitus 06/19/2014 Assessment & Plan (01/27/2025 12:25 AM EDT): -A1C 7.7% on 01/23/25, slight increase from 7.4% on 09/12/24 -Kiln Car Unloader[place] [facility] [place] seen in 12/2022, advised to schedule appointment - change tresiba to Lantus, will start at 60 units - Continue humalog - restart tradjenta 5 mg daily -Last eye exam: August 2022 (requesting note) -Last foot exam: 09/12/24. Laceration between toes -Last microalbumin test: 11/16/24 UACR 1,228.2 -Last lipid profile: 11/16/24 TC 138-140; TG 155-159; HDL 35-36; LDL 72-73; Last dental exam: ? Immunizations: Reviewed and discussed. Pt chose not to fully vaccinated Follow up in 3-4 mo or sooner prn Assessment & Plan (09/12/2024 11:52 AM EDT): -A1C 7.4% on 09/12/24, improved 9.6% on 08/17/23 -Kiln Car Unloader: [facility] [place], last seen in 12/2022, advised to schedule [...] 12:36 PM EDT): -A1C 9.6% on 08/17/23 -Kiln Car Unloader: [facility] [place], last seen in 12/2022, advised to schedule appointment - change tresiba to Lantus, will start at 60 units - Continue humalog - restart tradjenta 5 mg daily -Last eye exam: August 2022 (requesting note) -Last foot exam: 08/17/2023; high-risk, has a manager statistics. -Last microalbumin test: 07/31/22 UACR 1,147 -Last lipid profile: 06/23/23 TC 149; TG 167; HDL 56; LDL 60 Last dental exam: ? Immunizations: Reviewed and discussed. Pt chose not to fully vaccinated Follow up in 3-4 mo or sooner prn Assessment & Plan (11/27/2022 4:21 PM EDT): -A1C 7.0% on 11/19/22, improved from 8.3% on 07/30/22 ( 6.1% on 09/04/21) -Kiln Car Unloader: [facility] [place], last seen in 07/04/21, upcoming appt -Current medications: Tresiba 80 units daily, Humalog U-200 10-15 units with snack, 20-25 units with meal, Tradjenta 5 mg daily -Last eye exam: August 2022 (requesting note) -Last foot exam: 10/31/2018; high-risk, has a manager statistics. -Last microalbumin test: 07/31/22 UACR 1,147 -Last lipid profile: 07/31/22 TC 224; TG 183; HDL 36; LDL 156 Last dental exam: ? Immunizations: Reviewed and discussed. Pt chose not to fully vaccinated Follow up in 3-4 mo or sooner prn Assessment & Plan (07/31/2022 5:33 AM EDT): -A1C 8.3% , worsened from 6.1% on 09/04/21 -Kiln Car Unloader: [facility] [place], last seen in 07/04/21 -Current medications: Tresiba 56 units daily, Humalog U-200 10-15 units with snack, 25-30 units with meal, Tradjenta 5 mg daily -Last eye exam: April 2019, Dr. Mazariegos -Last foot exam: 10/31/2018; high-risk, has a manager statistics. -Last microalbumin test: 09/25/20 UACR 1256, albuminuria -Last FLP: 09/25/20 TC 144; TG 189; HDL 37; LDL 67; vit D12 227 Last dental exam: ? Immunizations: -Influenza - He declined -Pneumovax - Dec 2015 -Hep B series - Completed Aspirin use: Prescribed Dyslipidemia 01/30/2014 Assessment & Plan (01/27/2025 12:23 AM EDT): Marked hypertriglyceridemia (CKDIII) and low HDL Lab 11/16/24 TC 138-140; TG 155-159; HDL 35-36; LDL 72-73; more recent test done in DR. Current medication: Previously Crestor 40 mg daily, decreased to 10 mg daily due to CKDIII; pt also has been taking fenofibrate 54 mg daily because his saddle and harness maker in prescribed him. We discussed about his potential drug interaction and possible side effects with the pt, but he would like to continue taking fenofibrate. He is not fond of rosuvastatin. High-intensity statin therapy is recommended pre guideline. Consider switching to atorvastatin due to CKD in the future. Emphasized the importance of lifestyle modification. Assessment & Plan (09/26/2024 1:27 PM EDT): Marked hypertriglyceridemia (CKDIII) and low HDL Lab 12/18/22 TC 251; TG 308; HDL 38; LDL 152; more recent test done in DR. Current medication: Previously Crestor 40 mg daily, decreased to 10 mg daily due to CKDIII; pt also has been taking fenofibrate 54 mg daily because his saddle and harness maker in prescribed him. We discussed about his [...] taking fenofibrate 54 mg daily because his saddle and harness maker in prescribed him. We discussed about his [...] taking fenofibrate 54 mg daily because his saddle and harness maker in prescribed him. We discussed about his [...] taking fenofibrate 54 mg daily because his saddle and harness maker in prescribed him. We discussed about his [...] (09/12/2024 9:07 AM EDT): - following with transcription specialist - continue current medication Assessment & Plan (11/27/2022 4:26 PM EDT): - following with transcription specialist - continue current medication Hypertension 05/16/2012 Assessment & Plan (01/27/2025 12:23 AM EDT): -Goal BP < 130/80 per ACC/AHA guideline (Treatment threshold >= 130/80 ) -Discussed about the importance of lifestyle modification and medication adherence. -Continue amlodipine 5 mg daily. -Treatment Hx: losartan - discontinued due to BERTRAND and hypotension -Follow up in 3-6 mo, sooner if any problem arises Assessment & Plan (09/26/2024 1:28 PM EDT): [...] latest note -Pt wants to go to [facility] in March because his psoriasis improves. -Pt will schedule a follow up appt Assessment & Plan (08/17/2023 11:36 AM EDT): -Dietary regimen is improving symptoms -Continue on Otezla and clobetasol topical -Patient is still followed by Dr. Rico - we have not received a note, will obtain latest note -Pt wants to go to [facility] in March because his psoriasis improves. -Pt will schedule a follow up appt Assessment & Plan (11/27/2022 4:24 PM EDT): -Dietary regimen is improving symptoms -Continue on Otezla and clobetasol topical -Patient is still followed by Dr. Rico - we have not received a note, will obtain latest note -Pt wants to go to [facility] in March because his psoriasis improves. -Pt will schedule a follow up appt Assessment & Plan (07/31/2022 5:35 AM EDT): -Dietary regimen is improving symptoms -Continue on Otezla and clobetasol topical -Patient is still followed by Dr. Rico - we have not received a note, will obtain latest note -Pt wants to go to [facility] in March because his psoriasis improves. -Pt will schedule a follow up appt Backache 12/21/2011 Knee pain 12/21/2011 Proliferative diabetic retinopathy 11/25/2011 Encounters Date Type Department Care Team Description 01/25/2025 Orders Only GENERIC EXTERNAL DATA DEPARTMENT Provider, Generic External Data 01/23/2025 1:15 PM EDT Office Visit [address] [address] Dayanna Hernandez MD Primary hypertension (Primary Dx); Dyslipidemia; Type 2 diabetes 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, with long-term current use of insulin (HCC); Nocturia 01/23/2025 Results Follow-Up [address] [address] Dayanna Hernandez MD POCT Glucose, POCT Hgb A1c, PSA, Screen 01/23/2025 Orders Only GENERIC EXTERNAL DATA DEPARTMENT Provider, Generic External Data 01/23/2025 Travel 01/22/2025 Telephone [facility] [address] [place] [address] Dayanna Hernandez MD chartprep 01/15/2025 Results Follow-Up [address] [address] Dayanna Hernandez MD Urinalysis with Reflex to Microscopic, Urinalysis Complete, Basic Metabolic Panel 01/15/2025 Orders Only GENERIC EXTERNAL DATA DEPARTMENT Provider, Generic External Data 01/09/2025 Orders Only [facility] [place] [address] Dayanna Hernandez MD 01/09/2025 Orders Only [facility] MEDICINE [place], [place] [address] Dayanna Hernandez MD 01/09/2025 Refill [facility] [place] [address] Dayanna Hernandez MD 01/09/2025 Travel 01/05/2025 Telephone [facility] [place] [phone] Dayanna Hernandez MD Durable Medical Equipment ([facility] [employer] [facility]: Shower Chair) 12/25/2024 Telephone [facility] MEDICINE [place] [address] Dayanna Hernandez MD chart prep 12/11/2024 Refill [facility] [place] [place] [address] Dayanna Hernandez MD 11/16/2024 Orders Only GENERIC EXTERNAL DATA DEPARTMENT Provider, Generic External Data 11/14/2024 Orders Only GENERIC EXTERNAL DATA DEPARTMENT Provider, Generic External Data 11/06/2024 Refill [facility] [place] [address] Dayanna Hernandez MD from Last 3 Months Immunizations Immunization Administration [...] Procedure Name Priority Date/Time Associated Diagnosis Comments XR KUB AND UPRIGHT 2 VIEWS Routine 01/25/2025 11:13 AM EDT VITAMIN B12/FOLATE, SERUM PANEL Routine 01/25/2025 10:37 AM EDT IRON AND TOTAL IRON BINDING CAPACITY Routine 01/25/2025 10:37 AM EDT URINALYSIS WITH REFLEX TO MICROSCOPIC Routine 01/23/2025 [...] Recently Relevant to Health Maintenance Results * XR KUB and Upright 2 Views (01/25/2025 11:13 AM EDT) Anatomical Region Laterality Modality Radiographic Maira ging 01/25/2025 11:1 3 AM EDT Narrative 01/25/2025 11:23 AM EDT [address] [address] XRay Report Signed Patient: Yehuda Casanova MR# : [id number] : 1960 Acct:[id number] Age/Sex: 64 / M ADM Date: 01/25/25 Loc: HO.LAB Attending Dr: Nubia Vaca CNP Ordering Physician: Nubia Vaca CNP Date of Service: 01/25/25 Procedure(s): XR KUB Accession Number(s): [id number] cc: Dayanna Hernandez MD; Nubia Vaca CNP Reason for Exam: R14.0 - Abdominal distension (gaseous) EXAMINATION: XR ABDOMEN KUB CLINICAL INDICATION: R14.0 - Abdominal distension (gaseous) COMPARISON: None available. TECHNIQUE: 3 AP supine views of the abdomen. FINDINGS: The bowel gas pattern is normal with no evidence of ileus or obstruction. Moderate-large stool burden. No unusual soft tissue calcifications are noted. Small phleboliths in the right pelvis. No gross pneumoperitoneum on the supine views. Visualized right lung bases clear. No acute osseous finding seen. The bones are unremarkable. XR/XR KUB IMPRESSION: Nonobstructive bowel gas pattern. Moderate-large stool burden. Electronically signed by: Srinivas Montelongo MD 01/25/2025 11:20 AM EDT Dictated By: Srinivas Montelongo MD Signed By: <Electronically signed by Srinivas Montelongo MD in OV> 01/25/25 1120 DD/ 1113 TD/TT: 01/25/25 1115 Fire Officer: Procedure Note Donotuseinterpreter, Image - 01/25/[address] [address] XRay Report Signed Patient: Yehuda Casanova DMR# : [id number] : 1960cct:[id number] Age/Sex: 64 / MADM Date: 01/25/25 Loc: HO.LAB Attending Dr: Nubia Sarpey CO FOUNDER AND DIRECTOR Ordering Physician: Nubia Vaca CNP Date of Service: 01/25/25 Procedure(s): XR KUB Accession Number(s): [id number] cc: Dayanna Hernandez MD; Nubia Vaca CNP Reason for Exam: R14.0 - Abdominal distension (gaseous) EXAMINATION: XR ABDOMEN KUB CLINICAL INDICATION: R14.0 - Abdominal distension (gaseous) COMPARISON: None available. TECHNIQUE: 3 AP supine views of the abdomen. FINDINGS: The bowel gas pattern is normal with no evidence of ileus or obstruction. Moderate-large stool burden. No unusual soft tissue calcifications are noted. Small phleboliths in the right pelvis. No gross pneumoperitoneum on the supine views. Visualized right lung bases clear. No acute osseous finding seen. The bones are unremarkable. XR/XR KUB IMPRESSION: Nonobstructive bowel gas pattern. Moderate-large stool burden. Electronically signed by: Srinivas Montelongo MD 01/25/2025 11:20 AM EDT Dictated By: Srinivas Montelongo MD Signed By: <Electronically signed by Srinivas Montelongo MD in OV> 01/25/25 1120 DD/ 1113 TD/TT: 01/25/25 1115 Fire Officer: SANDRA [facility] External Provider IMG XR PROCEDURES Edited Result - Final * Vitamin B12 (Cobalamin) and Folate Panel, Serum (01/25/2025 10:37 AM EDT) Vitamin B12 214 200 - 900 pg/mL [facility] Comment:NORMAL 200-900 PG/ML INDETERMINATE 160-199 PG/ML DEFICIENT < 160 PG/ML Folate 8.2 > or = 4.0 ng/mL [facility] Comment:Reference Values:> o r = 4.0 ng/mL< 4.0 ng/mL suggests folate deficiency Methotrexate, aminopterin and folinic acid(leucovorin) are chemotherapeutic agents whose molecularstructures are similar to folate; therefore, the Architectfolate assay cannot be used for patients using these drugs. 01/25/2025 10:3 7 AM EDT 01/25/2025 10:37 AM EDT us Generic External Data Provider LAB BLOOD ORDERAB LES Final Result Performing Organization Address [facility] de Phone Number [facility] [address] [place] [phone] * Iron And Total Iron Binding Capacity (01/25/2025 10:37 AM EDT) Iron 102 45 - 160 mcg/dL [facility] Total Iron Binding Capacity 274 228 - 428 mcg/dL [facility] Percent Iron Saturation 37 15 - 50 % [facility] Unsaturated Iron Binding 172 ug/dL [facility] 01/25/2025 10:3 7 AM EDT 01/25/2025 10:37 AM EDT us Generic External Data Provider LAB BLOOD ORDERAB LES Final Result Performing Organization Address [facility] de Phone Number [facility] [address] [place] [phone] * PSA, Screen (01/23/2025 2:08 PM EDT) [facility] PSA, Total 0.42 <0.05 - 4.0 ng/mL [facility] Comment:PSA methodology: Abb jessica Alipility i ChemiluminescentMicroparticle Immunoassay (CMIA) Blood Venous blood specimen / Unknown 01/23/2025 2:08 PM EDT 01/23/2025 4:04 PM EDT us Dayanna Hernandez MD LAB BLOOD ORDERABLES Final Resul t Performing Organization Address [facility] de Phone Number [facility] [address] [place] [phone] * (ABNORMAL) Urinalysis with Reflex to Microscopic (01/23/2025 2:08 PM EDT) Only the most recent of2 resultswithin the time period is included. Color Urine Yellow [facility] Appearance Urine Clear [facility] PH 6.0 5.0 - 9.0 [facility] Glucose Urine UA 100(A) Negative mg/dL [facility] Urine Blood Negative Negative [facility] Specific [place] - Urine 1.020 1.005 - 1.025 [facility] Urine Protein >=1000 (4+)(A) Neg-Trace mg/dL [facility] Urine Ketones Negative Negative mg/dL [facility] Nitrite Urine Negative Negative [facility] Leukocyte Esterase Urine Negative Negative [facility] 01/23/2025 2:08 PM EDT 01/23/2025 4:02 PM EDT us Generic External Data Provider LAB URINE ORDERAB LES Final Result Performing Organization Address City/State/[place] de Phone Number [facility] [address] [place] [phone] * (ABNORMAL) POCT Hgb A1c (01/23/2025 [...] Media Lot # [id number] Lot# Expiration Date Blood Capillary blood specimen / Unknown 01/23/2025 1:25 PM EDT us Dayanna Hernandez MD POINT OF CARE TEST ENTER/EDIT OR DERABLES Final Result * US Renal Complete (01/15/2025 10:58 AM EDT) Anatomical Region Laterality Modality Kidney Ultrasound 01/15/2025 10:5 8 AM EDT Narrative 01/15/2025 10:59 AM EDT [address] [address] Ultrasound Report Signed Patient: Yehuda Casanova MR# : [id number] : 1960 Acct:[id number] Age/Sex: 64 / M ADM Date: 01/15/25 Loc: HO.US Attending Dr: Ramesh Hamm MD Ordering Physician: Ramesh Hamm MD Date of Service: 01/15/25 Procedure(s): US renal BI Accession Number(s): [id number] cc: Ramesh Hamm MD; Dayanna Hernandez MD [...] to intermediate echogenic region measured by the pulmonology technician at level of the right kidney may be artifactual/due to renal pyramid or secondary to the questionable cyst seen on prior ultrasound exam. IMPRESSION: Limited exam. No hydronephrosis. This document has been electronically signed by: Charley Arnold MD on 01/15/2025 10:58:14 Dictated By: Charley Arnold MD Signed By: <Electronically signed by Charley Arnold MD in OV> 01/15/25 1059 DD/ 1058 TD/TT: 01/15/25 1058 Fire Officer: Procedure Note Donotuseinterpreter, Image - 01/15/[address] [place] [address] Ultrasound Report Signed Patient: Yehuda Casanova DMR# : [id number] : 2Acct:[id number] Age/Sex: 64 / MADM Date: 01/15/25 Loc: HO.US Attending Dr: Ramesh Hamm MD Ordering Physician: Ramesh Hamm MD Date of Service: 01/15/25 Procedure(s): US renal BI Accession Number(s): [id number] cc: Ramesh Hamm MD; Dayanna Hernandez MD [...] to intermediate echogenic region measured by the pulmonology technician at level of the right kidney may be artifactual/due to renal pyramid or secondary to the questionable cyst seen on prior ultrasound exam. IMPRESSION: Limited exam. No hydronephrosis. This document has been electronically signed by: Charley Arnold MD on 01/15/2025 10:58:14 Dictated By: Charley Arnold MD Signed By: <Electronically signed by Charley Arnold MD in OV> 01/15/25 1059 DD/ 1058 TD/TT: 01/15/25 1058 Fire Officer: us [facility] External Provider IMG US PROCEDURES Final Result * Phospholipase A2 Receptor (PLA2R) Antibody Panel (01/15/2025 9:51 AM EDT) Phospholipase A2 Receptor (PLA2R) Ab, PRAVIN <4 RU/mL [facility] Comment:Reference Range: <14 : NEGATIVE 14-19: BORDERLINE >19: POSITIVE Phospholipase A2 Receptor (PLA2R) Ab, IFA NEGATIVE NEGATIVE [facility] Comment:THIS TEST WAS PERFOR MED AT:[employer] [id number] [place] [phone] AUSTIN MD,PHD,ANALISA 01/15/2025 9:51 AM EDT 01/15/2025 9:52 AM EDT us Generic External Data Provider LAB BLOOD ORDERAB LES Final Result Performing Organization Address [facility]/[place] Co de Phone Number [facility] [address] [place] [phone] * (ABNORMAL) Urinalysis Complete (01/15/2025 9:51 AM EDT) Only the most recent of2 resultswithin the time period is included. Color Urine Yellow [facility] Appearance Urine Clear [facility] PH 6.0 5.0 - 9.0 [facility] Glucose Urine UA 100(A) Negative mg/dL [facility] Urine Blood Negative Negative [facility] Specific [place] - Urine 1.015 1.005 - 1.025 [facility] Urine Protein 300 (3+)(A) Neg-Trace mg/dL [facility] Urine Ketones Negative Negative mg/dL [facility] Nitrite Urine Negative Negative [facility] Leukocyte Esterase Urine Negative Negative [facility] RBC Urine 0-2 0 - 2 /HPF [facility] Urine WBC 0-5 0 - 5 /HPF [facility] Urine Squamous Epithelial Cell 0-2 0 - 2 /HPF [facility] Urine Bacteria None Seen None Seen [facility] Hyaline Casts, Urine 0-2 0 - 2 /LPF [facility] 01/15/2025 9:51 AM EDT 01/15/2025 10:11 AM EDT us Generic External Data Provider LAB URINE ORDERAB LES Final Result Performing Organization Address [facility]/ZIP Co de Phone Number [facility] [address] [place] [phone] * Complement Component C3c (01/15/2025 9:51 AM EDT) Complement C3 168 82 - 185 mg/dL [facility] Comment:THIS TEST WAS PERFOR MED AT:[employer] [place] [phone] BRIGGS MD 01/15/2025 9:51 AM EDT 01/15/2025 9:52 AM EDT Generic External Data Provider LAB BLOOD ORDERAB LES Final Result Performing Organization Address City/[facility]/ZIP Co de Phone Number [facility] [address] [place] [phone] * Complement Component C4c (01/15/2025 9:51 AM EDT) Pathologist [facility] Complement C4 36 15 - 53 mg/dL [facility] Comment:THIS TEST WAS PERFOR MED AT:[employer] [place] [id number] BRIGGS MD 01/15/2025 9:51 AM EDT 01/15/2025 9:52 AM EDT us Generic External Data Provider LAB BLOOD ORDERAB LES Final Result Performing Organization Address City/[facility]/ZIP Co de Phone Number [facility] [address] [place] [phone] * (ABNORMAL) Protein, Total and Protein??Electrophoresis (01/15/2025 9:51 AM EDT) Prot Elec - Total Protein 6.4 6.1 - 8.1 g/dL [facility] Prot Elec - Albumin 3.7(A) 3.8 - 4.8 g/dL [facility] Prot Elec - Alpha1 0.3 0.2 - 0.3 g/dL [facility] Prot Elec - Alpha2 0.8 0.5 - 0.9 g/dL [facility] Prot Elec - Beta 1 0.5 0.4 - 0.6 g/dL [facility] Prot Elec - Beta 2 0.4 0.2 - 0.5 g/dL [facility] Prot Elec - Gamma 0.8 0.8 - 1.7 g/dL [facility] PES - Abn Protein Band 1 TNP [facility] PES-Abn Protein Band 2 TNP [facility] PES-Abn Protein Band 3 TNP [facility] Prot Elec - Interpretation SEE NOTE [facility] Comment:Evaluation reveals a n isolated decrease in albumin.This pattern is suggestive of decreased proteinsynthesis or protein loss. Consider ordering pre-albumin quantitation.THIS TEST WAS PERFORMED AT:[employer] [place] [id number] BRIGGS MD 01/15/2025 9:51 AM EDT 01/15/2025 9:52 AM EDT us Generic External Data Provider LAB BLOOD ORDERAB LES Final Result [facility] [address] [place] [phone] * (ABNORMAL) Basic Metabolic Panel (01/15/2025 9:51 AM EDT) Sodium 139 135 - 145 mmol/L [facility] Potassium 4.2 3.3 - 5.1 mmol/L [facility] Chloride 106 96 - 108 mmol/L [facility] Carbon Dioxide 26 22 - 29 mmol/L [facility] Anion Gap 11(L) 12 - 20 [facility] Urea Nitrogen (BUN) 26(H) 9 - 16 mg/dL [facility] Creatinine, Serum 2.04(H) 0.5 - 1.4 mg/dL [facility] Estimated Glomerular Filt Rate 33 [facility] Comment:Chronic Kidney Disea se: Estimated GFR < 60 mL/min/1.75p3Sstulf Kidney Disease: Estimated GFR < 15 mL/min/1.73m2 Glucose 189(H) 60 - 115 mg/dL [facility] Calcium 9.4 8.4 - 10.2 mg/dL [facility] 01/15/2025 9:51 AM EDT 01/15/2025 9:52 AM EDT us Generic External Data Provider LAB BLOOD ORDERAB LES Final Result Performing Organization Address [facility]/[employer] Co de Phone Number [facility] [address] [place] [phone] * (ABNORMAL) Lipid Panel with Reflex to Direct LDL (11/16/2024 11:02 AM EDT) Triglycerides 155(H) <150 mg/dL [facility] Comment:Desirable Triglyceri de: less than 150 mg/dLBorderline High Triglyceride 150-199 mg/dLHigh Triglyceride: 200-499 mg/dLVery High Triglyceride: greater than or equal to 5OO mg/dL Cholesterol 138 <200 mg/dL [facility] Comment:Desirable Cholestero l: less than 200 mg/dLBorderline High Cholesterol: 200-239 mg/dLHigh Cholesterol: greater than 239 mg/dL LDL Cholesterol Calculated 72 <100 mg/dL [facility] Comment:Desirable LDL: less than 100 mg/dLNear Optimal/Above Optimal LDL: 110- 129 mg/dLBorderline High LDL: 130-159 mg/dLHigh LDL: 160-189 mg/dLVery High LDL: greater than or equal to 190 mg/dL HDL Cholesterol 35(L) >40 mg/dL [facility] Comment:Desirable HDL: great er than 40 mg/dL Note: This HDL assay may give artificially low results in patients with liver disease. Blood 11/16/2024 11:0 2 AM EDT 11/16/2024 1:35 PM EDT us Dayanna Hernandez MD LAB BLOOD ORDERABLES Final Resul t Performing Organization Address City/[facility]/ZIP Co de Phone Number [facility] [address] [place] [phone] * (ABNORMAL) Creatinine, Serum (11/16/2024 11:02 AM EDT) Creatinine, Serum 1.86(H) 0.5 - 1.4 mg/dL [facility] Estimated Glomerular Filt Rate 37 [facility] Comment:Chronic Kidney Disea se: Estimated GFR < 60 mL/min/1.48z3Bszwwu Kidney Disease: Estimated GFR < 15 mL/min/1.73m2 11/16/2024 11:0 2 AM EDT 11/16/2024 1:40 PM EDT Generic External Data Provider LAB BLOOD ORDERAB LES Final Result Performing Organization Address [facility]/[employer] Co de Phone Number [facility] [address] [place] [phone] * (ABNORMAL) Albumin, Random Urine W/Creatinine (11/16/2024 11:02 AM EDT) Creatinine, Urine 162.83 mg/dL [facility] Microalbumin Urine >2,000.0 mg/L [facility] Microalbum Creatinine Ratio Ur 1,228.2(H ) <30 ug/mg cr [facility] Comment:Albumin/Creatinine R atio Reference Ranges: Normal: < 30 ug/mg creatinine Microalbuminuria: 30 - 300 ug/mg creatinineClinical Albuminuria: > 300 ug/mg creatinine 11/16/2024 11:0 2 AM EDT 11/16/2024 12:55 PM EDT us Generic External Data Provider LAB URINE ORDERAB LES Final Result Performing Organization Address [facility]/ZIP Co de Phone Number [facility] [address] [place] [phone] * (ABNORMAL) CBC (11/16/2024 11:02 AM EDT) White Blood Count 6.2 4.8 - 10.8 X10*3/uL [facility] Red Blood Count 4.23(L) 4.60 - 5.80 X10*6/uL [facility] Hemoglobin 13.5(L) 14.0 - 18.0 g/dl [facility] Hematocrit 40.4(L) 42.0 - 52.0 % [facility] Mean Corpuscular Volume 95.5 80.0 - 98.0 fL [facility] Mean Corpuscular Hemoglobin 31.9 27.0 - 33.0 pg [facility] Mean Corpuscular HGB Conc 33.4 31.0 - 36.0 g/dl [facility] Red Cell Distribution Width 11.9 11.0 - 16.0 % [facility] Platelet Count 296 160 - 400 X10*3/uL [facility] Mean Platelet Volume 10.3 9.4 - 12.4 fL [facility] NRBC Pct Auto 0.0 0.0 - 0.2 /100WBC [facility] NRBC Abs Auto 0.000 0.0 - 0.012 X10*3/uL [facility] 11/16/2024 11:0 2 AM EDT 11/16/2024 1:35 PM EDT us Generic External Data Provider LAB BLOOD ORDERAB LES Final Result Performing Organization Address [facility]/ZIP Co de Phone Number [facility] [address] [place] [phone] * ALT (11/16/2024 11:02 AM EDT) Alanine Aminotransferase 16 0 - 40 U/L [facility] 11/16/2024 11:0 2 AM EDT 11/16/2024 1:40 PM EDT us Generic External Data Provider LAB BLOOD ORDERAB LES Final Result Performing Organization Address City/[facility]/ZIP Co de Phone Number [facility] [address] [place] [phone] * AST (11/16/2024 11:02 AM EDT) Aspartate Amino Transferase 25 5 - 37 U/L [facility] 11/16/2024 11:0 2 AM EDT 11/16/2024 1:40 PM EDT Generic External Data Provider LAB BLOOD ORDERAB LES Final Result Performing Organization Address City/[facility]/ZIP Co de Phone Number [facility] [address] [place] [phone] * (ABNORMAL) Hemoglobin A1c (11/16/2024 11:02 AM EDT) Hemoglobin A1c 7.1(H) <6.0 % [facility] Comment:Hemoglobin A1C Refer ence Range Adults: 4.8 - 6.0 % Non diabetic: < 6.0 % Goal: < 7.0 %Additional Action Suggested: > 8.0 %Note: Hemoglobin A1c results are invalid for patients with abnormal amounts of HbF. Blood transfusions may impact the HbA1c concentration in the patient sample. Estimated Average Glucose 157 mg/dL [facility] Comment:eAG = Estimated ave rage glucose which is %A1C expressed asaverage glucose, using the formula of the X5C-VuwiuzzOwqqkad Glucose study (ADAG), Diabetes Care, Vol.31,#8,Nov. 2007 11/16/2024 11:0 2 AM EDT 11/16/2024 1:35 PM EDT us Generic External Data Provider LAB BLOOD ORDERAB LES Final Result Performing Organization Address [facility]/ZIP Co de Phone Number [facility] [address] [place] [phone] * (ABNORMAL) Lipid Panel, Standard (11/16/2024 11:02 AM EDT) Triglycerides 159(H) <150 mg/dL [facility] Comment:Desirable Triglyceri de: less than 150 mg/dLBorderline High Triglyceride 150-199 mg/dLHigh Triglyceride: 200-499 mg/dLVery High Triglyceride: greater than or equal to 5OO mg/dL Cholesterol 140 <200 mg/dL [facility] Comment:Desirable Cholestero l: less than 200 mg/dLBorderline High Cholesterol: 200-239 mg/dLHigh Cholesterol: greater than 239 mg/dL LDL Cholesterol Calculated 73 <100 mg/dL [facility] Comment:Desirable LDL: less than 100 mg/dLNear Optimal/Above Optimal LDL: 110- 129 mg/dLBorderline High LDL: 130-159 mg/dLHigh LDL: 160-189 mg/dLVery High LDL: greater than or equal to 190 mg/dL HDL Cholesterol 36(L) >40 mg/dL [facility] Comment:Desirable HDL: great er than 40 mg/dL Note: This HDL assay may give artificially low results in patients with liver disease. 11/16/2024 11:0 2 AM EDT 11/16/2024 1:40 PM EDT us Generic External Data Provider LAB BLOOD ORDERAB LES Final Result Performing Organization Address City/[facility]/ZIP Co de Phone Number [facility] [address] [place] [phone] * (ABNORMAL) Glucose, Whole Blood (11/14/2024 10:15 AM EDT) Glucose, Whole Blood 134(H) 60 - 115 mg/dL [facility] Comment:METER #: [id number] Testing performed in the Endocrinology Department [address] , [address], [facility]. 11/14/2024 10:1 5 AM EDT 11/14/2024 10:19 AM EDT Generic External Data Provider LAB BLOOD ORDERAB LES Final Result Performing Organization Address [facility]/ZIP Co de Phone Number [facility] [address] [place] [phone] * HEPATITIS C AB W/REFL TO HCV RNA, QN, PCR (09/09/2021 1:06 PM EDT) HEPATITIS C ANTIBODY NON-REACT EDWARD NON-REACT EDWARD [facility] INDEX 0.04 <1.00 [facility] Comment: HCV antibody was non-reactive. There is no laboratory evidence of HCV infection. In most cases, no further action is required. However, if recent HCV exposure is suspected, a test for HCV RNA (test code 80912) is suggested. For additional information please refer to http://[employer].Med[employer]/faq/AYK75x8 (This link is being provided for informational/ educational purposes only.) 09/09/2021 1:06 PM EDT us Dayanna Hernandez MD HISTORICAL/NON ORDERABLE LABS Fi nal Result [facility] [address] * HIV 1/2 ANTIGEN/ANTIBODY,FOURTH GENERATION W/RFL (09/09/2021 1:06 PM EDT) HIV-1/2 ANTIGEN AND ANTIBODIES, 4TH GENERATION W/ REFLEX NON-REACT EDWARD NON-REACT EDWARD [facility] Comment: HIV-1 antigen and HIV-1/HIV-2 [...] purpose. For additional information please refer to http://[email or web address]/faq/DXC597 (This link is being provided for informational/ educational purposes only.) The performance of this assay has not been clinically validated in patients less than 2 years old. 09/09/2021 1:06 PM EDT us Dayanna Hernandez MD LAB BLOOD ORDERABLES Final Resul t [facility] [address] [place] [address], from Last 3 Months or Most Recently Relevant to Health Maintenance Insurance [facility] ONE CARE < [address] [place] [id number] Care Teams Welder Tack Relationship Specialty Start Date End Date Dayanna Hernandez MD [address] [place] [address] PCP - General Family Medicine 10/24/12
--- OUTSIDE RECORDS SUMMARY | 2025-02-02 14:12 | XMS_ITS | Encounter Summary ---
Author Organization [employer] Address [address] [facility] [address] [address] Care Team Providers Care Strategic Partnership Specialist Name Role Phone Dayanna Hernandez MD Primary Care Provider [phone] Encounter Details Date Type Department Care Team ([facility] st Contact Info) Description 08/24/2022 Orders Only [facility] [address] [place] [phone] Dayanna Hernandez MD [address] [place], [place] [phone] Type 2 diabetes 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, with long-term current use of insulin ([facility]) (Primary Dx) Social History Tobacco [...] disease, with long-term current use of insulin ([facility]) BASIC METABOLIC PANEL Routine 12/18/2022 12:28 PM EDT Type 2 diabetes 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, with long-term current use of insulin ([facility]) ALBUMIN, RANDOM URINE W/CREATININE Routine 12/18/2022 12:09 PM EDT Type 2 diabetes 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, with long-term current use of insulin ([facility]) GLUCOSE, WHOLE BLOOD Routine 12/18/2022 11:24 AM EDT Type 2 diabetes 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, with long-term current use of insulin ([facility]) documented in this encounter Results * (ABNORMAL) Lipid Panel, Standard (12/18/2022 12:28 PM EDT) Triglycerides 308(H) <150 mg/dL [facility] Comment:Desirable Triglyceri de: less than 150 mg/dLBorderline High Triglyceride 150-199 mg/dLHigh Triglyceride: 200-499 mg/dLVery High Triglyceride: greater than or equal to 5OO mg/dL Cholesterol 251(H) <200 mg/dL [facility] Comment:Desirable Cholestero l: less than 200 mg/dLBorderline High Cholesterol: 200-239 mg/dLHigh Cholesterol: greater than 239 mg/dL LDL Cholesterol Calculated 152(H) <100 mg/dL [facility] Comment:Desirable LDL: less than 100 mg/dLNear Optimal/Above Optimal LDL: 110- 129 mg/dLBorderline High LDL: 130-159 mg/dLHigh LDL: 160-189 mg/dLVery High LDL: greater than or equal to 190 mg/dL HDL Cholesterol 38(L) >40 mg/dL [facility] Comment:Desirable HDL: great er than 40 mg/dL Note: This HDL assay may give artificially low results in patients with liver disease. 12/18/2022 12:2 8 PM EDT 12/18/2022 12:32 PM EDT Generic External Data Provider LAB BLOOD ORDERAB LES Final Result Performing Organization Address [facility] Co de Phone Number [facility] [address] [place] [phone] * (ABNORMAL) Basic Metabolic Panel (12/18/2022 12:28 PM EDT) Sodium 137 135 - 145 mmol/L [facility] Potassium 4.0 3.3 - 5.1 mmol/L [facility] Comment:Slight Hemolysis Chloride 104 96 - 108 mmol/L [facility] Carbon Dioxide 24 22 - 29 mmol/L [facility] Anion Gap 13 12 - 20 [facility] Urea Nitrogen (BUN) 16 9 - 16 mg/dL [facility] Creatinine, Serum 1.40 0.5 - 1.4 mg/dL [facility] Estimated Glomerular Filt Rate 52 [facility] Comment:NOTE: For -Am erican individuals, multiply the result by 1.210.Chronic Kidney Disease: Estimated GFR < 60 mL/min/1.59n6Mvjywi Kidney Disease: Estimated GFR < 15 mL/min/1.73m2 Glucose 137(H) 60 - 115 mg/dL [facility] Calcium 9.4 8.4 - 10.2 mg/dL [facility] 12/18/2022 12:2 8 PM EDT 12/18/2022 12:32 PM EDT [facility] External Provider LAB BLO OD ORDERABLES Final Result Performing Organization Address [facility] Co de Phone Number [facility] [address] [place] [phone] * (ABNORMAL) Albumin, Random Urine W/Creatinine (12/18/2022 12:09 PM EDT) Creatinine, Urine 158.87 mg/dL [facility] Microalbumin Urine 1,684.0 mg/L [facility] Microalbum Creatinine Ratio Ur 1,059.9(H ) <30 ug/mg cr [facility] Comment:Albumin/Creatinine R atio Reference Ranges: Normal: < 30 ug/mg creatinine Microalbuminuria: 30 - 300 ug/mg creatinineClinical Albuminuria: > 300 ug/mg creatinine 12/18/2022 12:0 9 PM EDT 12/18/2022 1:59 PM EDT [facility] External Provider LAB URI NE ORDERABLES Final Result Performing Organization Address [facility] Co de Phone Number [facility] [address] [place] [phone] * (ABNORMAL) Glucose, Whole Blood (12/18/2022 11:24 AM EDT) Glucose, Whole Blood 155(H) 60 - 115 mg/dL [facility] Comment:METER #: [id number] Testing performed in the Endocrinology Department [address] , [address], [facility]. 12/18/2022 11:2 4 AM EDT 12/18/2022 11:30 AM EDT [facility] External Provider LAB BLO OD ORDERABLES Final Result Performing Organization Address [facility] Co de Phone Number [facility] [address] [place] [phone] documented in this encounter Visit Diagnoses Diagnosis Type 2 diabetes 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, with long-term current use of insulin (HCC)- Primary documented in this encounter Additional Health Concerns Assessment Noted Time PHQ-9 Depression Total Score: 8 07/31/19 23 10:10 AM EDT documented as of this encounter Care Teams Strategic Partnership Specialist Relationship Specialty Start Date End Date Dayanna Hernandez MD [address] [place] [phone] PCP - General Family Medicine 10/24/12 documented as of this encounter
--- OUTSIDE RECORDS SUMMARY | 2025-02-02 14:12 | XMS_ITS | Encounter Summary ---
Author Organization [employer] Address [address] [facility] [address] [place] [address] Care Team Providers Care Rug Measurer Name Role Phone Dayanna Hernandez MD Primary Care Provider [phone] Encounter Details Date Type Department Care Team [...] on filedocumented in this encounter Care Teams Rug Measurer Relationship Specialty Start Date End Date Dayanna Hernandez MD [address] [place] [address] PCP - General Family Medicine 10/24/12 documented as of this encounter
--- OUTSIDE RECORDS SUMMARY | 2025-02-02 14:12 | XMS_ITS | Encounter Summary ---
Author Organization [facility] Address [address] [place] [address] Phone Care Team Providers Care Infirmary Attendant Name Role Phone Alison Luu Primary Care Provider [phone] Encounter Details Date Type Department Care Team (Late st Contact Info) Description 01/19/2020 Ancillary Orders [facility] [address] [place] [address] Alison Luu PA [address] [place] [address] [email or web address] Palpitations Social History Tobacco Use Types Packs/Day [...] Palpitations documented in this encounter Care Teams Infirmary Attendant Relationship Specialty Start Date End Date Alison Luu PA [address] [place] [phone] [email or web address] PCP - General Interactive Media Director 01/19/20 documented as of this encounter Additional Source Comments The information contained in this document represents components of the legal health record. It is not the complete legal health record.[facility]
--- OUTSIDE RECORDS SUMMARY | 2025-02-02 14:12 | XMS_ITS | Encounter Summary ---
Author Organization [employer] Address [address] [facility] [address] [place] [address] Care Team Providers Care Film Or Tape Librarian Name Role Phone Dayanna Hernandez MD Primary Care Provider [phone] Encounter Details Date Type Department Care Team ([facility] st Contact Info) Description 01/09/2025 Orders Only [facility] [address] [place] [address] Dayanna Hernandez MD [address] [place] [address] Social History Tobacco Use Types Packs/Day Years [...] documented as of this encounter Care Teams Film Or Tape Librarian Relationship Specialty Start Date End Date Dayanna Hernandez MD [address] [place] [address] PCP - General Family Medicine 10/24/12 documented as of this encounter
--- OUTSIDE RECORDS SUMMARY | 2025-02-02 14:13 | XMS_ITS | Encounter Summary ---
Author Organization [employer] Address [address] [facility] [address] [address] Care Team Providers Care Surgery Scheduling Coordinator Name Role Phone Dayanna Hernandez MD Primary Care Provider [phone] Encounter Details Date Type Department Care Team [...] on filedocumented in this encounter Care Teams Surgery Scheduling Coordinator Relationship Specialty Start Date End Date Dayanna Hernandez MD [address] [place] [address] PCP - General Family Medicine 10/24/12 documented as of this encounter
--- OUTSIDE RECORDS SUMMARY | 2025-02-02 14:13 | XMS_ITS | Encounter Summary ---
Author Organization [employer] Address [address] [facility] [address] [place] [address] Care Team Providers Care Mapping Specialist Name Role Phone Dayanna Hernandez MD Primary Care Provider [phone] Encounter Details Date Type Department Care Team ([facility] st Contact Info) Description 01/09/2025 Orders Only [facility] [address] [place] [address] Dayanna Hernandez MD [address] [place] [address] Social History Tobacco Use Types Packs/Day Years [...] documented as of this encounter Care Teams Mapping Specialist Relationship Specialty Start Date End Date Dayanna Hernandez MD [address] [place] [address] PCP - General Family Medicine 10/24/12 documented as of this encounter
== END 2025-02-02 13:57 | disposition home or self-care (01) ==
LOC: HO.HGI 13:06
PROVIDERS: PCP Family Medicine; Visit Provider Nurse Practitioner Family
DX: Z01.818 Encounter for other preprocedural examination (principal); Z12.11 Encounter for screening for malignant neoplasm of colon; K59.00 Constipation, unspecified
CPT/HCPCS: 99024

== ENCOUNTER → 2025-02-02 13:05 | Outpatient (BNVA) | payer OTHER, SELFPAY | PROVIDERS: PCP Family Medicine; Visit Provider Nurse Practitioner Family | DX: Z01.818 Encounter for other preprocedural examination (principal); Z12.11 Encounter for screening for malignant neoplasm of colon; K59.00 Constipation, unspecified | CPT/HCPCS: 99212 ==

== ENCOUNTER 2025-02-16 13:03 | Outpatient (AMB) | payer OTHER, SELFPAY ==
[2025-02-16 13:07] VITALS: BP 120/80; PULSE 72; O2SAT 100; BMI 34.5
--- NOTE | 2025-02-16 13:07 | A.OFFVIS_ITS ---
Vital Signs 02/16/25 13:07 Height 5 ft 6 in Weight 213 lb 13.574 oz BMI 34.5 BP 120/80 Blood Pressure Location Rt brachial Position Sitting Pulse 72 Pulse Source Pulse Oximeter Pulse Oximetry (%) 100 Oxygen Delivery Method Room Air Intake Visit Reasons: T2DM Intake Note: Patient present today to follow up on Type 2 Diabetes Mellitus. Last Diabetic Eye exam: 12/26/2024 Last Podiatry Visit: Does not see a Mechanical Design Engineer Most Recent HgA1C: 7.5%, 02/16/2025 Random Glucose: 134 mg/dL, Today Allergies Penicillins (PENICILLINS) Allergy (Unknown, Verified 01/25/25 09:12) UNKNOWN-CHILDHOOD REACTION ARB-Angiotensin Receptor Antagonist Adverse Reaction (Mild, Verified 01/25/25 09:12) Cough SEAFOOD Allergy (Severe, Uncoded 11/14/24 10:01) DIARRHEA,GI PAIN, NAUSEA Fish Allergy (Mild, Uncoded 11/14/24 10:01) Gastrointestinal Upset Medication List - Last Reconciled 02/16/25 by LOCO De Anda acetaminophen (Tylenol) 325 mg PO QID PRN apremilast (Otezla) 30 mg PO BID aspirin 81 mg PO DAILY bisacodyl 20 mg (4 x 5 mg) PO ONCE blood sugar diagnostic (FreeStyle Lite Strips) 4 times a day blood-glucose meter (FreeStyle Lite Meter kit) 4 times a day blood-glucose sensor (FreeStyle Nevaeh 3 Plus Sensor device) Apply 1 new sensor every 15 days as directed to monitor blood glucose continuously. blood-glucose,beauty operator,cont (FreeStyle Nevaeh 3 [place]) Use daily to monitor blood glucose levels continuously. cetirizine 10 mg PO QAM cholecalciferol (vitamin D3) 50 mcg PO DAILY 90 days clobetasol 0.05% 1 appl topical BID clonazepam 0.5 mg PO DAILY PRN CPAP (CPAP Machine/Device) As directed dorzolamide-timolol 22.3-6.8 mg/mL 1 drp ophthalmic (eye) BID fenofibrate 54 mg PO DAILY 90 days fluoxetine 40 mg PO QAM fluticasone propionate 50 mcg/actuation 50 mcg intranasal DAILY FreeStyle Lancets (lancets) 4 times a day NS hydrocortisone 2.5% 1 appl topical DAILY insulin aspart U-100 (Novolog FlexPen U-100 Insulin aspart) 35 units (0.35 mL) subcut TID 90 days insulin glargine U-300 conc 100 units (0.3333 mL) subcut DAILY 90 days melatonin 5 mg PO BEDTIME pen needle, diabetic 5 times a day to inject insulin polyethylene glycol 3350 (Miralax) 17 grams PO DAILY 30 days quetiapine 12.5 - 25 mg PO BEDTIME PRN roflumilast 0.3% (Zoryve) appl topical rosuvastatin 40 mg PO DAILY sennosides (senna) 8.6 mg PO BEDTIME 30 days simethicone (Gas Relief (simethicone)) 500 mg (4 x 125 mg) PO ONCE [sock pull As directed] [telescoping foot mirror As directed] trazodone 100 mg BEDTIME HPI Comments Details: Patient is 64-year-old male with DM type 2 diagnosed around the year 1998 who presents today for diabetic management. He maintained weight loss by walking more. He walks pretty much every day for exercise. 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 Hemoglobin A1c 7.5% today. Reviewed Nevaeh 3+ data from December 26 to January 08 G VT active 94% Average glucose 153 G VT 7% Glucose variability 27.4% Very high 3% High 22% Target range 75% 0% hypoglycemia My interpretation is that he has occasional postprandial hyperglycemia. Diabetes medications: Insulin glargine U300 100 units daily Novolog 25-35 before meals Past medications: Metformin discontinued due to intolerable side effects. He stopped Tradjenta due to concerns about potential side effects and low blood sugars in the evening. Hypoglycemia:? Rare Hyperglycemia:? denies He is overdue for labwork. ROS: Constitutional: No unexplained weight loss, fever, chills Respiratory: No shortness of breath, cough, wheezing or sputum production. No hemoptysis. Cardiovascular: No chest pain, chest pressure or chest discomfort. No palpitations or pedal edema. Neurologic: No headache, dizziness, syncope Skin: No rash or itching. Endocrine: No cold or heat intolerance. No polyuria or polydipsia. Physical exam: Constitutional: Alert, in no distress. Eyes: Pupils are equal, round and reactive to light. Extraocular muscles intact. Neck: Supple, Full range of motion. No lymphadenopathy. No palpable thyroid masses. Respiratory: Clear to auscultation. No dyspnea. No crackles, rales or wheezes. Cardiovascular: S1 S2 regular. No murmurs. Extremities: No lower extremity edema, warm and well perfused, intact radial pulses. [facility] Medical History (Updated 02/16/25 @ 14:10 by LOCO De Anda) Constipation Loose stools Anemia Colon cancer screening Type 2 diabetes mellitus with diabetic neuropathy CVA (cerebrovascular accident due to intracerebral hemorrhage) Chronic rhinitis JEAN MARIE on CPAP Hypertension Diabetic polyneuropathy associated with type 2 diabetes mellitus CKD stage 3 due to type 2 diabetes mellitus Diabetic nephropathy associated with type 2 diabetes mellitus USP (current) use of insulin Proliferative diabetic retinopathy Diabetes type 2, uncontrolled Dyslipidemia Surgical History Hx of lithotripsy History of appendectomy Hx of laser photocoagulation of retina Hx of colonoscopy Family History Father Lung cancer Father No problems noted. Mother Diabetes Social History Household Members: None Housing: Apartment Alcohol intake: never Patient Tobacco Use Status: Former Tobacco user Office Procedures Glucose Monitoring Details Details: See HPI 97764 - Glucose monitoring, continuous-physician I&R Procedure code (CPT) selection complete Results AMB Hemoglobin A1c AMB Hemoglobin A1c 7.5 % Last Edit by HARIKA Robles on 02/16/25 13:36 Results Reviewed Results Reviewed: Laboratory Tests 08/09/24 11:30 Creatinine 1.53 H Estimated GFR 46 Hemoglobin A1c % 7.5 H Assessment & Plan Assessment & Plan (1) Type 2 diabetes mellitus with diabetic neuropathy: Code(s): E11.40 - Type 2 diabetes mellitus with diabetic neuropathy, unspecified Category: Medical Qualifiers: Diabetes mellitus retirement insulin use: with terminal carman use Qualified Code(s): E11.40 - Type 2 diabetes mellitus with diabetic neuropathy, unspecified; Z79.4 - USP (current) use of insulin (2) Hypertension: Code(s): I10 - Essential (primary) hypertension Category: Medical Qualifiers: Hypertension type: primary hypertension Qualified Code(s): I10 - Essential (primary) hypertension Plan: Monitor. Blood pressure normal today. (3) Dyslipidemia: Code(s): E78.5 - Hyperlipidemia, unspecified Category: Medical Plan: He is due for labs. Continue rosuvastatin. He also takes fenofibrate. Plan In summary this is a 64-year-old male with suboptimally controlled type 2 diabetes on basal bolus insulin. I recommended adding a GLP 1, but he continues to decline it. We discussed tightening glycemic control following lunch and dinner by adjusting his short-acting insulin regimen. We also discussed decreasing carbohydrates and sugars in his diet. Reviewed treatment of hypoglycemia. Patient declines prescription for glucose gel or tablets. He uses juice or candy. Diabetes medications: Insulin glargine 100 units daily NovoLog 25-35 units 3 times daily with meals Follow up in 3 months. Advised patient to have labs done. He has the printed orders because he would like them done at [facility]. Note: Initially with the patient had his vitals taken the pulse oximeter registered his oxygen at 89% and his heart rate at 120. After a minute inside the office his pulse ox was 100% and heart rate 72. The patient's hands were very cold from walking from the parking lot. He denied chest pain, shortness of breath, palpitations, dizziness. The patient walked up and down the hallway at a faster pace, and the lowest oxygen was 96%, and the highest heart rate was 90. Abnormal vitals were likely machine error. Orders: Orders AMB Hemoglobin A1c Today E11.40 - Type 2 diabetes mellitus with diabetic neuropathy, unspecified, Z79.4 - USP (current) use of insulin AMB Glucose Monitoring Today E11.9 - Type 2 diabetes mellitus without complications Medications: Changed From insulin aspart U-100 (Novolog FlexPen U-100 Insulin aspart) 30-40 units with meals three times daily, subcutaneously; maximum 120 units per day 30 days 45 mL 5RF To insulin aspart U-100 (Novolog FlexPen U-100 Insulin aspart) 35 units (0.35 mL) subcut TID 100 mL 1RF 90 days Refilled blood-glucose sensor (FreeStyle Nevaeh 3 Plus Sensor device) Apply 1 new sensor every 15 days as directed to monitor blood glucose continuously. 6 ea 1RF E16.2 - Hypoglycemia, unspecified, R73.03 - Prediabetes Coding Level of Care Code Est Pt Level 4 (88407) Diagnoses Type 2 diabetes mellitus with diabetic neuropathy, with long-term current use of insulin E11.40; Z79.4 Diabetes mellitus retirement insulin use: with terminal carman use Primary hypertension I10 Hypertension type: primary hypertension Dyslipidemia E78.5 CPT Codes Details - CPT: 93090 - Glucose monitoring, continuous-physician I&R ([id number])
[2025-02-16 13:14] LABS: Glucose, Whole Blood 134 mg/dL (60-115)
--- OUTSIDE RECORDS SUMMARY | 2025-02-16 19:14 | XMS_ITS | Encounter Summary ---
Author Organization [employer] Address [address] [facility] [address] [place] [address] Care Team Providers Care Occupational Health Nurse Supervisor Name Role Phone Dayanna Hernandez MD Primary Care Provider Encounter Details Date Type Department Care Team ([facility] st Contact Info) Description 01/23/2025 Results Follow-Up [facility] MEDICINE [address] [place] [address] Dayanna Hernandez MD [address] [place] [address] POCT Glucose, POCT Hgb A1c, PSA, Screen [...] documented as of this encounter Care Teams Occupational Health Nurse Supervisor Relationship Specialty Start Date End Date Dayanna Hernandez MD [address] [place] [address] PCP - General Family Medicine 10/24/12 documented as of this encounter
--- OUTSIDE RECORDS SUMMARY | 2025-02-16 19:14 | XMS_ITS | Encounter Summary ---
Author Organization [employer] Address [address] [facility] [address] [place] [address] Care Team Providers Care Regional Sales Manager Name Role Phone Dayanna Hernandez MD Primary Care Provider [phone] Encounter Details Date Type Department Care Team [...] on filedocumented in this encounter Care Teams Regional Sales Manager Relationship Specialty Start Date End Date Dayanna Hernandez MD [address] [place] [address] PCP - General Family Medicine 10/24/12 documented as of this encounter
--- OUTSIDE RECORDS SUMMARY | 2025-02-16 19:15 | XMS_ITS | Encounter Summary ---
Author Organization [employer] Address [address] [facility] [address] [place] [address] Care Team Providers Care Facility Coordinator Name Role Phone Dayanna Hernandez MD Primary Care Provider [phone] Encounter Details Date Type Department Care Team ([facility] st Contact Info) Description 01/09/2025 Orders Only [facility] MEDICINE [address] [place] [address] Dayanna Hernandez MD [address] [place] [address] Social History Tobacco Use Types Packs/Day Years [...] documented as of this encounter Care Teams Facility Coordinator Relationship Specialty Start Date End Date Dayanna Hernandez MD [address] [place] [address] PCP - General Family Medicine 10/24/12 documented as of this encounter
--- OUTSIDE RECORDS SUMMARY | 2025-02-16 19:15 | XMS_ITS | Encounter Summary ---
Author Organization [employer] Address [address] [facility] [address] [place] [address] Care Team Providers Care Transplant Registered Nurse Name Role Phone Dayanna Hernandez MD Primary Care Provider [phone] Reason for Referral * Consultation (Routine) - Closed Specialty Diagnoses / Procedures Referred By Contac emma Referred To Contact Physical Therapy Diagnoses Gait instability Hemiparesis affecting left side as late effect of cerebrovascular accident (CVA) (CMS/HCC) (HCC) Legal blindness Dayanna Hernandez MD [address] [place] [address] Phone: tel: fax: [facility] [address] [place] [address] Phone: tel: fax: Referral ID Status Reason Start Date Expiration Date V isits Requested Visits Authorized [id number] Closed Specialty Services Required 09/09/2023 09/08/2024 1 1 Encounter Details Date Type Department Care Team (Late st Contact Info) Description 09/09/2023 Orders Only [facility] MEDICINE [address] [place] [address] Dayanna Hernandez MD [address] [place], [place] [phone] Gait instability (Primary Dx); Hemiparesis affecting left [...] as late effect of cerebrovascular accident (CVA) ([facility]) Legal blindness Expected: 09/09/2023 (Approximate), Expires: 09/08/2024 documented as of this encounter Visit Diagnoses Diagnosis Gait instability- Primary Abnormality of gait Hemiparesis affecting left side as late effect of cerebrovascular accident (CVA) ([facility]) (HCC) Legal blindness Legal blindness, as defined in [place] documented in this encounter Additional Health Concerns Assessment Noted Time PHQ-9 Depression Total Score: 8 07/31/19 23 10:10 AM EDT documented as of this encounter Care Teams Transplant Registered Nurse Relationship Specialty Start Date End Date Dayanna Hernandez MD [address] [place] [phone] PCP - General Family Medicine 10/24/12 documented as of this encounter
--- OUTSIDE RECORDS SUMMARY | 2025-02-16 19:15 | XMS_ITS | Encounter Summary ---
Author Organization [employer] Address [address] [facility] [address] [place] [address] Care Team Providers Care Lab Intern Name Role Phone Dayanna Hernandez MD Primary Care Provider [phone] Encounter Details Date Type Department Care Team ([facility] st Contact Info) Description 08/19/2023 Orders Only [facility] MEDICINE [address] [place], [place] [phone] Dayanna Hernandez MD [address] [place], [place] [phone] Social History Tobacco Use Types Packs/Day Years [...] documented as of this encounter Care Teams Lab Intern Relationship Specialty Start Date End Date Dayanna Hernandez MD [address] [place] [address] PCP - General Family Medicine 10/24/12 documented as of this encounter
--- OUTSIDE RECORDS SUMMARY | 2025-02-16 19:15 | XMS_ITS | Encounter Summary ---
Author Organization [facility] Address [address] [place] [address] Phone Care Team Providers Care Supervisor Tubing Name Role Phone Alison Luu Primary Care Provider [phone] Encounter Details Date Type Department Care Team (Late st Contact Info) Description 01/19/2020 Ancillary Orders [facility] [address] [place] [address] Alison Luu PA [address] [place] [address] [email or web address] Social History Tobacco Use Types Packs/Day [...] Palpitations documented in this encounter Care Teams Supervisor Tubing Relationship Specialty Start Date End Date Alison Luu PA [address] [place] [phone] [email or web address] PCP - General Car Seat Maker 01/19/20 documented as of this encounter Additional Source Comments The information contained in this document represents components of the legal health record. It is not the complete legal health record.[facility]
--- OUTSIDE RECORDS SUMMARY | 2025-02-16 19:15 | XMS_ITS | Clinical Summary ---
Author Organization [facility] Address [address] [place], [place] [phone] Phone Care Team Providers Care Branch Employment Coordinator Name Role Phone Alison Luu Primary Care Provider [phone] Social History Tobacco Use Types Packs/Day Years [...] file Medical Devices Not on file Insurance [facility] [employer] MEDICARE REPLACEMENT LOCO OLVERA [id number] [place] [address] MEDICARE REPLACEMENT Care Teams Branch Employment Coordinator Relationship Specialty Start Date End Date Alison Luu PA [address] [place] [phone] [email or web address] PCP - General Lei Seller 01/19/20 Additional Source Comments The information contained in this document represents components of the legal health record. It is not the complete legal health record.[facility]
--- OUTSIDE RECORDS SUMMARY | 2025-02-16 19:15 | XMS_ITS | Encounter Summary ---
Author Organization [employer] Address [address] [place] [address] Care Team Providers Care Academy Director Name Role Phone Dayanna Hernandez MD Primary Care Provider [phone] Encounter Details Date Type Department Care Team (Late st Contact Info) Description 02/16/2025 Orders Only GENERIC EXTERNAL DATA DEPARTMENT Provider, [...] Associated Diagnosis Comments GLUCOSE, WHOLE BLOOD Routine 02/16/2025 1:08 PM EST documented in this encounter Results * (ABNORMAL) Glucose, Whole Blood (02/16/2025 1:08 PM EST) Glucose, Whole Blood 134(H) 60 - 115 mg/dL [facility] Comment:METER #: [id number] Testing performed in the Endocrinology Department [address], [address], [facility]. 02/16/2025 1:08 PM EST 02/16/2025 1:14 PM EST us Generic External Data Provider LAB BLOOD ORDERAB LES Final Result [facility] [address] [place] [address] [phone] documented in this encounter Visit Diagnoses Not on filedocumented in this encounter Additional Health Concerns Assessment Noted Time PHQ-9 Depression Total Score: 16 025 10:54 AM EDT documented as of this encounter Care Teams Academy Director Relationship Specialty Start Date End Date Dayanna Hernandez MD [address] [place] [phone] PCP - General Family Medicine 10/24/12 documented as of this encounter
--- OUTSIDE RECORDS SUMMARY | 2025-02-16 19:15 | XMS_ITS | Encounter Summary ---
Author Organization [employer] Address [address] [facility] [address] [place] [address] Care Team Providers Care Health And Physical Education Professor Name Role Phone Dayanna Hernandez MD Primary Care Provider Encounter Details Date Type Department Care Team ([facility] st Contact Info) Description 08/24/2022 Orders Only [facility] MEDICINE [address] [place] [address] Dayanna Hernandez MD [address] [place] [address] Type 2 diabetes 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, with long-term current use of insulin ([facility]) (Primary Dx) Social History Tobacco [...] disease, with long-term current use of insulin ([facility]) BASIC METABOLIC PANEL Routine 12/18/2022 12:28 PM EDT Type 2 diabetes 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, with long-term current use of insulin ([facility]) ALBUMIN, RANDOM URINE W/CREATININE Routine 12/18/2022 12:09 PM EDT Type 2 diabetes 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, with long-term current use of insulin ([facility]) GLUCOSE, WHOLE BLOOD Routine 12/18/2022 11:24 AM EDT Type 2 diabetes 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, with long-term current use of insulin ([facility]) documented in this encounter Results * (ABNORMAL) Lipid Panel, Standard (12/18/2022 12:28 PM EDT) Triglycerides 308(H) <150 mg/dL [facility] Comment:Desirable Triglyceri de: less than 150 mg/dLBorderline High Triglyceride 150-199 mg/dLHigh Triglyceride: 200-499 mg/dLVery High Triglyceride: greater than or equal to 5OO mg/dL Cholesterol 251(H) <200 mg/dL [facility] Comment:Desirable Cholestero l: less than 200 mg/dLBorderline High Cholesterol: 200-239 mg/dLHigh Cholesterol: greater than 239 mg/dL LDL Cholesterol Calculated 152(H) <100 mg/dL [facility] Comment:Desirable LDL: less than 100 mg/dLNear Optimal/Above Optimal LDL: 110- 129 mg/dLBorderline High LDL: 130-159 mg/dLHigh LDL: 160-189 mg/dLVery High LDL: greater than or equal to 190 mg/dL HDL Cholesterol 38(L) >40 mg/dL [facility] Comment:Desirable HDL: great er than 40 mg/dL Note: This HDL assay may give artificially low results in patients with liver disease. 12/18/2022 12:2 8 PM EDT 12/18/2022 12:32 PM EDT Generic External Data Provider LAB BLOOD ORDERAB LES Final Result Performing Organization Address [facility] Co de Phone Number [facility] [address] [place] [address] [phone] * (ABNORMAL) Basic Metabolic Panel (12/18/2022 12:28 PM EDT) Sodium 137 135 - 145 mmol/L [facility] Potassium 4.0 3.3 - 5.1 mmol/L [facility] Comment:Slight Hemolysis Chloride 104 96 - 108 mmol/L [facility] Carbon Dioxide 24 22 - 29 mmol/L [facility] Anion Gap 13 12 - 20 [facility] Urea Nitrogen (BUN) 16 9 - 16 mg/dL [facility] Creatinine, Serum 1.40 0.5 - 1.4 mg/dL [facility] Estimated Glomerular Filt Rate 52 [facility] Comment:NOTE: For -Am erican individuals, multiply the result by 1.210.Chronic Kidney Disease: Estimated GFR < 60 mL/min/1.86w5Btrtil Kidney Disease: Estimated GFR < 15 mL/min/1.73m2 Glucose 137(H) 60 - 115 mg/dL [facility] Calcium 9.4 8.4 - 10.2 mg/dL [facility] 12/18/2022 12:2 8 PM EDT 12/18/2022 12:32 PM EDT [facility] External Provider LAB BLO OD ORDERABLES Final Result Performing Organization Address [facility] Co de Phone Number [facility] [address] [place] [address] [phone] * (ABNORMAL) Albumin, Random Urine W/Creatinine (12/18/2022 12:09 PM EDT) Creatinine, Urine 158.87 mg/dL [facility] Microalbumin Urine 1,684.0 mg/L H [facility] Microalbum Creatinine Ratio Ur 1,059.9(H ) <30 ug/mg cr [facility] Comment:Albumin/Creatinine R atio Reference Ranges: Normal: < 30 ug/mg creatinine Microalbuminuria: 30 - 300 ug/mg creatinineClinical Albuminuria: > 300 ug/mg creatinine 12/18/2022 12:0 9 PM EDT 12/18/2022 1:59 PM EDT [facility] External Provider LAB URI NE ORDERABLES Final Result Performing Organization Address [facility] Co de Phone Number [facility] [address] [place] [address] [phone] * (ABNORMAL) Glucose, Whole Blood (12/18/2022 11:24 AM EDT) Glucose, Whole Blood 155(H) 60 - 115 mg/dL [facility] Comment:METER #: [id number] Testing performed in the Endocrinology Department [address] , [address], [facility]. 12/18/2022 11:2 4 AM EDT 12/18/2022 11:30 AM EDT [facility] External Provider LAB BLO OD ORDERABLES Final Result Performing Organization Address [facility] Co de Phone Number [facility] [address] [place] [address] [phone] documented in this encounter Visit Diagnoses Diagnosis Type 2 diabetes 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, with long-term current use of insulin (HCC)- Primary documented in this encounter Additional Health Concerns Assessment Noted Time PHQ-9 Depression Total Score: 8 07/31/19 23 10:10 AM EDT documented as of this encounter Care Teams Health And Physical Education Professor Relationship Specialty Start Date End Date Dayanna Hernandez MD [address] [place] [phone] PCP - General Family Medicine 10/24/12 documented as of this encounter
--- OUTSIDE RECORDS SUMMARY | 2025-02-16 19:16 | XMS_ITS | Encounter Summary ---
Author Organization [employer] Address [address] [facility] [address] [place] [address] Care Team Providers Care Gill Box Operator Name Role Phone Dayanna Hernandez MD Primary Care Provider [phone] Encounter Details Date Type Department Care Team ([facility] st Contact Info) Description 01/09/2025 Orders Only [facility] MEDICINE [address] [place] [address] Dayanna Hernandez MD [address] [place] [address] Social History Tobacco Use Types Packs/Day Years [...] documented as of this encounter Care Teams Gill Box Operator Relationship Specialty Start Date End Date Dayanna Hernandez MD [address] [place] [address] PCP - General Family Medicine 10/24/12 documented as of this encounter
--- OUTSIDE RECORDS SUMMARY | 2025-02-16 19:16 | XMS_ITS | Clinical Summary ---
Author Organization [facility] Address [address] [place] [address] Phone Care Team Providers Care Case Specialist Name Role Phone Dayanna Hernandez MD Primary Care Provider [phone] Allergies Active Allergy Reactions Criticality Noted Date [...] disorder 08/06/2022 Atherosclerotic heart diseas e of [place] coronary artery without angina pectoris 08/06/2022 Benign [...] on , worsened from 6.1% on 09/04/21 -Regional Planner: [facility] [place], last seen in 07/04/21 -Current medications: Tresiba 56 units daily, Humalog U-200 10-15 units with snack, 25-30 units with meal, Tradjenta 5 mg daily -Last eye exam: April 2019, Dr. Mazariegos -Last foot exam: 10/31/2018; high-risk, has a accounts receivable administrator. -Last microalbumin test: 09/25/20 UACR 1256, albuminuria [...] taking fenofibrate 54 mg daily because his substation wireman in prescribed him. We discussed about his [...] latest note -Pt wants to go to [facility] in March because his psoriasis [...] Years Used Date Smoking Tobacco: Former Cigarettes 0 Q uit: 04/05/1996 Smokeless Tobacco: Never Tobacco [...] Discontinued 12/26/2015 Insurance (A2793) ([id number]) Care Teams Case Specialist Relationship Specialty Start Date End Date Dayanna Hernandez MD PCP - General 04/15/20
--- OUTSIDE RECORDS SUMMARY | 2025-02-16 19:16 | XMS_ITS | Encounter Summary ---
Author Organization [employer] Address [address] [facility] [address] [place] [address] Care Team Providers Care Powder Shoveler Name Role Phone Dayanna Hernandez MD Primary Care Provider [phone] Encounter Details Date Type Department Care Team [...] on filedocumented in this encounter Care Teams Powder Shoveler Relationship Specialty Start Date End Date Dayanna Hernandez MD [address] [place] [address] PCP - General Family Medicine 10/24/12 documented as of this encounter
--- OUTSIDE RECORDS SUMMARY | 2025-02-16 19:16 | XMS_ITS | Clinical Summary ---
Author Organization [employer] Address [address] [facility] [address] [place] [address] Care Team Providers Care Short Story Writer Name Role Phone Dayanna Hernandez MD Primary Care Provider [phone] Allergies Active Allergy Reactions Criticality Noted Date [...] DAILY NEEDED. 11/07/19 25 Active Continuous Glucose Acoustical Tile Carpenters Supervisor (FreeStyle Nevaeh 3 [place]) device USE DAILY TO MONITOR BLOOD GLUCOSE LEVELS CONTINUOUSLY. 09/09/19 25 Active Continuous Glucose Sensor (FreeStyle Nevaeh 3 Plus Sensor) [facility] APPLY 1 NEW SENSOR EVERY 15 DAYS DIRECTED TO MONITOR BLOOD GLUCOSE CONTINUOUSLY. 11/15/19 25 Active polyvinyl alcohol (Artificial Tears) 1.4 % ophthalmic solution INSTILL 1 DROP INTO LEFT EYE TWICE DAILY Active clobetasol (Temovate) 0.05 % external solution [...] day. 90 tablet 3 01/24/20 25 Active rosuvastatin (Crestor) 40 MG tablet TOME 1 TABLETA POR V A ORAL TODOS LOS D 11/05/19 25 025 Discontinued(Do se adjustment) FLUoxetine (PROzac) 20 MG capsule Take 1 capsule (20 mg) by mouth Once per day. 180 capsule 01/10/20 025 Discontinued Active Problems Problem Noted Date [...] (obstructive sleep apnea) 11/27/2022 Assessment & Plan (02/05/2025 11:08 AM EST): -Seen by exhaust emissions inspector on 03/11/20 for JEAN MARIE -Pt had several sleep studies, most recently in 2019, showing JEAN MARIE -Continue auto PAP pressure 6-14 cm H2O -Most recent echo did not show pulmonary HTN -Military Source Operations Specialist recommended him to use azelastine for rhinitis. -Referred back to exhaust emissions inspector Dr. Sanchez Assessment & Plan (09/12/2024 9:11 AM EDT): -Seen by exhaust emissions inspector on 03/11/20 for JEAN MARIE -Pt had several sleep studies, most recently in 2019, showing JEAN MARIE -Continue auto PAP pressure 6-14 cm H2O -Will order a new autoPAP machine; may need a new sleep study -Most recent echo did not show pulmonary HTN -Military Source Operations Specialist recommended him to use azelastine for rhinitis. -Refer back to exhaust emissions inspector Dr. Sanchez Assessment & Plan (08/17/2023 11:35 AM EDT): -Seen by exhaust emissions inspector on 03/11/20 for JEAN MARIE -Pt had several sleep studies, most recently in 2019, showing JEAN MARIE -Continue auto PAP pressure 6-14 cm H2O -Will order a new autoPAP machine; may need a new sleep study -Most recent echo did not show pulmonary HTN -Military Source Operations Specialist recommended him to use azelastine for rhinitis. -Refer back to exhaust emissions inspector Dr. Sanchez Assessment & Plan (11/27/2022 4:34 PM EDT): -Seen by exhaust emissions inspector on 03/11/20 for JEAN MARIE -Pt had several sleep studies, most recently in 2019, showing JEAN MARIE -Continue auto PAP pressure 6-14 cm H2O -Will order a new autoPAP machine; may need a new sleep study -Most recent echo did not show pulmonary HTN -Military Source Operations Specialist recommended him to use azelastine for rhinitis. -Refer back to exhaust emissions inspector Dr. Sanchez Intertrigo 10/23/2022 Assessment & Plan (11/27/2022 4:24 PM EDT): - s/p clotrimazole BID x 28 days in October 2022 - responding well to nystatin pwd TID; refill - follow up with nascar pit crew person Assessment & Plan (10/23/2022 12:46 PM EDT): [...] symptoms -pt to f up w his nascar pit crew person in 2 months per pt and has [...] montelukast -continue fluticasone nasal Hemiparesis ([facility]) 06/05/2020 Hypertensive renal disease 06/05/2020 Proteinuria 06/05/2020 Assessment & Plan (11/27/2022 4:26 PM EDT): - pt refuses to take ARB or ACEI - consider SGLT-2 inhibitor Renal stone 07/28/2016 Biliary calculus 09/16/2015 Hemiparesis affecting left s amari as late effect of cerebrovascular accident (CVA) ([facility]) 09/16/2015 Stage 3 chronic kidney disease ([facility]) 016 Assessment & Plan (02/05/2025 11:15 AM EST): -Tick Sewer: Dr. Velasquez, last seen in December 2024 -Diabetic and vascular etiology, proteinuria -In a setting of recurrent nephrolithiasis -Avoid nephrotoxic drugs. -Treatment Hx: Pt reported throat itching with ARB, and cough with ACEI - Possibly starting SGLT2 inhibitor. Because his blood pressure was on the lower side, it was not started at the last visit Assessment & Plan (09/26/2024 1:29 PM EDT): -Tick Sewer: Dr. Velasquez, last seen in October 2023 -Diabetic and vascular etiology, proteinuria -07/31/22 BUN 20; Scr 1.53; eGFR 53; K 4.1; Bicarb 28, UACR 1,147 -Baseline Cr 1.3-1.5 -In a setting of recurrent nephrolithiasis -Stable -Avoid nephrotoxic drugs. -Treatment Hx: Pt reported throat itching with ARB, and cough with ACEI. Assessment & Plan (08/17/2023 11:36 AM EDT): -Tick Sewer: Dr. Velasquez, last seen on 09/02/22 -Diabetic and vascular etiology, proteinuria -07/31/22 BUN 20; Scr 1.53; eGFR 53; K 4.1; Bicarb 28, UACR 1,147 -Baseline Cr 1.3-1.5 -In a setting of recurrent nephrolithiasis -Stable -Avoid nephrotoxic drugs. -Treatment Hx: Pt reported throat itching with ARB, and cough with ACEI. Assessment & Plan (11/19/2022 5:11 AM EDT): -Tick Sewer: Dr. Velasquez, last seen on 09/02/22 -Diabetic and vascular etiology, proteinuria -07/31/22 BUN 20; Scr 1.53; eGFR 53; K 4.1; Bicarb 28, UACR 1,147 -Baseline Cr 1.3-1.5 -In a setting of recurrent nephrolithiasis -Stable -Avoid nephrotoxic drugs. -Treatment Hx: Pt reported throat itching with ARB, and cough with ACEI. Assessment & Plan (07/31/2022 5:30 AM EDT): -Tick Sewer: Dr. Velasquez, last seen on 08/16/19, but pt reports more recent visit -09/25/20 BUN 32; SCr 1.98, K+ 4.1, UACR 1256, Microalbuminuria -> albuminuria -Baseline Cr 1.3-1.5 -In a setting of recurrent nephrolithiasis -Stable -Avoid nephrotoxic drugs. Anemia of chronic disease 04/02/2015 Assessment & Plan (02/05/2025 11:13 AM EST): - In a setting of CKD - Most recent CBC does not indicate the need for erythropoietin - Periodic monitoring Assessment & Plan (09/12/2024 9:09 AM EDT): - check CBC Assessment & Plan (07/31/2022 5:34 AM EDT): - check CBC Arthritis 01/29/2015 Cobalamin deficiency 01/29/2015 Type 2 diabetes mellitus 06/19/2014 Assessment & Plan (02/05/2025 11:19 AM EST): -A1C 7.7% on 01/23/25, slight increase from 7.4% on 09/12/24 -Yeast Distiller: [facility], last seen in November 2024 - Continue basal insulin, glargine, 100 units daily - Continue bolus insulin, NovoLog, 8 to 12 units for snacks and 30 to 40 units with meals - Continue tradjenta 5 mg daily - Patient declined GLP-1 RA - Tick Sewer recommend SGLT2 inhibitor -Last eye exam: August 2022 (requesting note) -Last foot exam: 09/12/24. Marceration between toes -Last microalbumin test: 11/16/24 UACR 1,228.2 -Last lipid profile: 11/16/24 TC 138-140; TG 155-159; HDL 35-36; LDL 72-73; Last dental exam: ? Immunizations: Reviewed and discussed. Pt chose not to fully vaccinated Follow up in 3-4 mo or sooner prn Assessment & Plan (09/12/2024 11:52 AM EDT): -A1C 7.4% on 09/12/24, improved 9.6% on 08/17/23 -Yeast Distiller: [facility], last seen in [...] 12:36 PM EDT): -A1C 9.6% on 08/17/23 -Yeast Distiller: [facility], last seen in 12/2022, advised to schedule appointment - change tresiba to Lantus, will start at 60 units - Continue humalog - restart tradjenta 5 mg daily -Last eye exam: August 2022 (requesting note) -Last foot exam: 08/17/2023; high-risk, has a scanner supervisor. -Last microalbumin test: 07/31/22 UACR 1,147 -Last lipid profile: 06/23/23 TC 149; TG 167; HDL 56; LDL 60 Last dental exam: ? Immunizations: Reviewed and discussed. Pt chose not to fully vaccinated Follow up in 3-4 mo or sooner prn Assessment & Plan (11/27/2022 4:21 PM EDT): -A1C 7.0% on 11/19/22, improved from 8.3% on 07/30/22 ( 6.1% on 09/04/21) -Yeast Distiller: [facility], last seen in 07/04/21, upcoming appt -Current medications: Tresiba 80 units daily, Humalog U-200 10-15 units with snack, 20-25 units with meal, Tradjenta 5 mg daily -Last eye exam: August 2022 (requesting note) -Last foot exam: 10/31/2018; high-risk, has a scanner supervisor. -Last microalbumin test: 07/31/22 UACR 1,147 -Last lipid profile: 07/31/22 TC 224; TG 183; HDL 36; LDL 156 Last dental exam: ? Immunizations: Reviewed and discussed. Pt chose not to fully vaccinated Follow up in 3-4 mo or sooner prn Assessment & Plan (07/31/2022 5:33 AM EDT): -A1C 8.3% on , worsened from 6.1% on 09/04/21 -Yeast Distiller: [facility], last seen in 07/04/21 -Current medications: Tresiba 56 units daily, Humalog U-200 10-15 units with snack, 25-30 units with meal, Tradjenta 5 mg daily -Last eye exam: April 2019, Dr. Mazariegos -Last foot exam: 10/31/2018; high-risk, has a scanner supervisor. -Last microalbumin test: 09/25/20 UACR 1256, albuminuria -Last FLP: 09/25/20 TC 144; TG 189; HDL 37; LDL 67; vit D12 227 Last dental exam: ? Immunizations: -Influenza - He declined -Pneumovax - Dec 2015 -Hep B series - Completed Aspirin use: Prescribed Dyslipidemia 01/30/2014 Assessment & Plan (02/05/2025 11:21 AM EST): Marked hypertriglyceridemia (CKDIII) and low HDL Lab 11/16/24 TC 138-140; TG 155-159; HDL 35-36; LDL 72-73; more recent test done in Current medication: Previously Crestor 40 mg daily, decreased to 10 mg daily due to CKDIII; pt also has been taking fenofibrate 54 mg daily because his submarine advisory team watch officer in [place] prescribed him. We discussed about his potential drug interaction and possible side effects with the pt, but he would like to continue taking fenofibrate. He is not fond of statin Emphasized the importance of lifestyle modification. Assessment & Plan (09/26/2024 1:27 PM EDT): Marked hypertriglyceridemia (CKDIII) and low HDL Lab 12/18/22 TC 251; TG 308; HDL 38; LDL 152; more recent test done in Current medication: Previously Crestor 40 mg daily, decreased to 10 mg daily due to CKDIII; pt also has been taking fenofibrate 54 mg daily because his submarine advisory team watch officer in [place] prescribed him. We discussed about [...] taking fenofibrate 54 mg daily because his submarine advisory team watch officer in [place] prescribed him. We discussed about [...] taking fenofibrate 54 mg daily because his submarine advisory team watch officer in [place] prescribed him. We discussed about [...] taking fenofibrate 54 mg daily because his submarine advisory team watch officer in [place] prescribed him. We discussed about [...] Anxiety and depression 10/09/2013 Assessment & Plan (02/05/2025 11:11 AM EST): - S provider: [facility] - prescribed clonazepam, fluoxetine, and trazodone - good family support Assessment & Plan (09/12/2024 9:09 AM EDT): - he has [facility] provider - prescribed clonazepam, fluoxetine, and trazodone - good family support Assessment & Plan (07/31/2022 5:36 AM EDT): - he has [facility] provider - prescribed clonazepam, fluoxetine, and trazodone - good family support Chronic recurrent major depressive disorder 10/2013 Glaucoma 10/09/2013 Assessment & Plan (09/12/2024 9:07 AM EDT): - following with moth proofer - continue current medication Assessment & Plan (11/27/2022 4:26 PM EDT): - following with moth proofer - continue current medication Hypertension 05/16/2012 Assessment [...] lifestyle modifications Psoriasis 01/02/2012 Assessment & Plan (02/05/2025 11:06 AM EST): - Previously followed by Dr. Rico. Patient requests a referral to [facility] Derm clinic - Pt wants to go to [facility] in March because his psoriasis improves - Patient also has been trying special diet that helps his psoriasis - Previously on apremilast (Otezla) and clobetasol topical - Will prescribe clobetasol Assessment & Plan (09/12/2024 9:11 AM EDT): -Dietary regimen is improving symptoms -Continue on Otezla and clobetasol topical -Patient is still followed by Dr. Rico - we have not received a note, will obtain latest note -Pt wants to go to [facility] in March because his psoriasis improves. -Pt will schedule a follow up appt Assessment & Plan (08/17/2023 11:36 AM EDT): -Dietary regimen is improving symptoms -Continue on Otezla and clobetasol topical -Patient is still followed by Dr. Rico - we have not received a note, will obtain latest note -Pt wants to go to [facility] in March because his psoriasis improves. -Pt will schedule a follow up appt Assessment & Plan (11/27/2022 4:24 PM EDT): -Dietary regimen is improving symptoms -Continue on Otezla and clobetasol topical -Patient is still followed by Dr. Rico - we have not received a note, will obtain latest note -Pt wants to go to [facility] in March because his psoriasis improves. -Pt will schedule a follow up appt Assessment & Plan (07/31/2022 5:35 AM EDT): -Dietary regimen is improving symptoms -Continue on Otezla and clobetasol topical -Patient is still followed by Dr. Rico - we have not received a note, will obtain latest note -Pt wants to go to [facility] in March because his psoriasis improves. -Pt will schedule a follow up appt Backache 12/21/2011 Knee pain 12/21/2011 Proliferative diabetic retinopathy 11/25/2011 Encounters Date Type Department Care Team Description 02/16/2025 Orders Only GENERIC EXTERNAL DATA DEPARTMENT Provider, Generic External Data 01/25/2025 Orders Only GENERIC EXTERNAL DATA DEPARTMENT Provider, Generic External Data 01/23/2025 1:15 PM EDT Office Visit [address] [address] Dayanna Hernandez MD Primary hypertension (Primary Dx); Dyslipidemia; Type 2 diabetes 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, with long-term current use of insulin (HCC); Nocturia; Premature beats; Psoriasis; JEAN MARIE (obstructive sleep apnea); Chronic recurrent major depressive disorder (CMS/HCC); Anxiety and depression; Anemia of chronic disease; Stage 3b chronic kidney disease (CMS/HCC) (HCC); Class 1 obesity due to excess calories with serious comorbidity and body mass index (BMI) of 34.0 to 34.9 in adult; Legal blindness 01/23/2025 Results Follow-Up [address] [address] Dayanna Hernandez MD POCT Glucose, POCT Hgb A1c, PSA, Screen 01/23/2025 Orders Only GENERIC EXTERNAL DATA DEPARTMENT Provider, Generic External Data 01/23/2025 Travel 01/22/[address] [address] Dayanna Hernandez MD chartprep 01/15/2025 Results Follow-Up [address] [address] Dayanna Hernandez MD Urinalysis with Reflex to Microscopic, Urinalysis Complete, Basic Metabolic Panel 01/15/2025 Orders Only GENERIC EXTERNAL DATA DEPARTMENT Provider, Generic External Data 01/09/2025 Orders Only [address] [address] Dayanna Hernandez MD 01/09/2025 Orders Only [address] [address] Dayanna Hernandez MD 01/09/2025 Refill [facility] [address] [place] [address] Dayanna Hernandez MD 01/09/2025 Travel 01/05/2025 Telephone [facility] [address] [place] [address] Dayanna Hernandez MD Durable Medical Equipment ([facility] [employer]: Shower Chair) 12/25/[address] [address] Dayanna Hernandez MD chart prep 12/11/2024 Refill [facility] [address] [place] [address] Dayanna Hernandez MD 11/16/2024 Orders Only GENERIC [...] FOBT 1960 Sigmoidoscopy 1960 Eye Exam 02/13/1972 RSV Patients and Patients Aged 60 years or older (1 - Risk 50-74 years 1-dose series) 02/13/2012 Zoster Vaccines (1 of 2) 02/13/2012 Pneumococcal Vaccine: 50+ Years (2 of 2 - PCV) 12/25/2016 12/26/2015 COVID-19 Vaccine ( - season) 2024 Influenza Vaccine (#1) 2024 Depression Monitoring 03/14/2025 09/12/2024, 025 Diabetes: Hemoglobin A1C 04/25/2025 025, 11/16/2024, 09/12/2024, Additional history exists Alcohol/Substance Use Screening 09/12/2025 09/12/2024 Disability Screening 09/12/2025 09/12/2024 SDOH Screening 09/12/2025 09/12/2024 Lipid Panel 11/16/2025 11/16/2024, 11/03, 12/18/2022, Additional history exists DTaP/Tdap/Td Vaccines (2 - Td or Tdap) 12/25/2025 12/26/2015 Diabetes: Foot Exam 01/23/2026 01/23/2025, 08/17/2023, 08/17/2023, Additional history exists Tobacco Screening 01/23/2026 01/23/2025 Hepatitis B Vaccines [...] WHOLE BLOOD Routine 02/16/2025 1:08 PM EST XR KUB AND UPRIGHT 2 VIEWS Routine [...] LDL Routine 11/16/2024 11:02 AM EDT Dyslipidemia ZZZ HISTORICAL HEPATITIS C AB W/REFL TO HCV RNA, QN, PCR Routine 09/09/2021 1:06 PM EDT HIV 1/2 ANTIGEN/ANTIBODY, FOURTH GENERATION W/RFL Routine 09/09/2021 1:06 PM EDT from Last 3 Months or Most Recently Relevant to Health Maintenance Results * (ABNORMAL) Glucose, Whole Blood (02/16/2025 1:08 PM EST) Glucose, Whole Blood 134(H) 60 - 115 mg/dL [facility] Comment:METER #: [id number] Testing performed in the Endocrinology Department [address] , [address], [facility]. 02/16/2025 1:08 PM EST 02/16/2025 1:14 PM EST us Generic External Data Provider LAB BLOOD ORDERAB LES Final Result [facility] [address] [place] [phone] * XR KUB and Upright 2 Views (01/25/2025 11:13 AM EDT) Anatomical Region Laterality Modality Radiographic Maira ging 01/25/2025 11:1 3 AM EDT Narrative 01/25/2025 11:23 AM EDT [address] [address] XRay Report Signed Patient: Yehuda Casanova MR# : [id number] : 1960 Acct:[id number] Age/Sex: 64 / M ADM Date: 01/25/25 Loc: HO.LAB Attending Dr: Nubia Vaca CNP Ordering Physician: Nubia Vaca CNP Date of Service: 01/25/25 Procedure(s): XR KUB Accession Number(s): [id number] cc: Dayanna Hernandez MD; Nubia Vaca CNP [...] 01/25/25 1120 DD/ 1113 TD/TT: 01/25/25 1115 Early Childhood Special Educator: SANDRA Procedure Note Donotuseinterpreter, Image - 01/25/[address] [address] XRay Report Signed Patient: Yehuda Casanova DMR# : [id number] : 1960cct:[id number] Age/Sex: 64 / MADM Date: 01/25/25 Loc: HO.LAB Attending Dr: Nubia Vaca CNP Ordering Physician: Nubia Vaca CNP Date of Service: 01/25/25 Procedure(s): XR KUB Accession Number(s): [id number] cc: Dayanna Hernandez MD; Nubia Vaca CNP [...] Srinivas Montelongo MD 01/25/2025 11:20 AM EDT RP Dictated By: Srinivas Montelongo MD Signed By: <Electronically signed by Srinivas Montelongo MD in [place]> 01/25/25 1120 DD/ 1113 TD/TT: 01/25/25 1115 Early Childhood Special Educator: SANDRA us [facility] External Provider IMG XR PROCEDURES Edited Result - Final * Vitamin B12 (Cobalamin) and Folate Panel, Serum (01/25/2025 10:37 AM EDT) Vitamin B12 214 200 - 900 pg/mL [facility] Comment:NORMAL 200-900 PG/ML INDETERMINATE 160-199 PG/ML DEFICIENT < 160 PG/ML Folate 8.2 > or = 4.0 ng/mL [facility] Comment:Reference Values:> o r = [...] LES Final Result Performing Organization Address [facility] Co de Phone Number [facility] [address] [place] [phone] * Iron And Total Iron Binding Capacity (01/25/2025 10:37 AM EDT) Iron 102 45 - 160 mcg/dL [facility] Total Iron Binding Capacity 274 228 - 428 mcg/dL [facility] Percent Iron Saturation 37 15 - 50 % [facility] Unsaturated Iron Binding 172 ug/dL [facility] 01/25/2025 10:3 7 AM EDT 01/25/2025 10:37 AM EDT us Generic External Data Provider LAB BLOOD ORDERAB LES Final Result Performing Organization Address [facility] Number [facility] [address] [place] [phone] * PSA, Screen (01/23/2025 2:08 PM EDT) PSA, Total 0.42 <0.05 - 4.0 ng/mL [facility] Comment:PSA methodology: Abb jessica Thomas i ChemiluminescentMicroparticle Immunoassay (CMIA) Blood Venous blood specimen / Unknown 01/23/2025 2:08 PM EDT 01/23/2025 4:04 PM EDT us Dayanna Hernandez MD LAB BLOOD ORDERABLES Final Resul t Performing Organization Address [facility] Co de Phone Number [facility] [address] [place] [phone] * (ABNORMAL) Urinalysis with Reflex to Microscopic (01/23/2025 2:08 PM EDT) Only the most recent of2 resultswithin the time period is included. Color Urine Yellow [facility] Appearance Urine Clear [facility] PH 6.0 5.0 - 9.0 [facility] Glucose Urine UA 100(A) Negative mg/dL [facility] Urine Blood Negative Negative [facility] Specific [place] - Urine 1.020 1.005 - 1.025 [facility] Urine Protein >=1000 (4+)(A) Neg-Trace mg/dL [facility] Urine Ketones Negative Negative mg/dL [facility] Nitrite Urine Negative Negative [facility] Leukocyte Esterase Urine Negative Negative [facility] 01/23/2025 2:08 PM EDT 01/23/2025 4:02 PM EDT us Generic External Data Provider LAB URINE ORDERAB LES Final Result [facility] [address] [place] [phone] * (ABNORMAL) POCT Hgb A1c (01/23/2025 1:28 PM EDT) Hemoglobin A1C 7.7(A) 4.0 - 5.7 % QC Media Lot # [id number] Lot# Expiration Date 5, Blood 01/23/2025 1:28 PM EDT us Dayanna Hernandez MD POINT OF CARE TEST ENTER/EDIT OR DERABLES Final Result * POCT Glucose (01/23/2025 1:25 PM EDT) Glucose Blood, POC 190 60 - 200 mg/dL QC Media Lot # [id number] Lot# Expiration Date 317, Blood Capillary blood specimen / Unknown 01/23/2025 1:25 PM EDT us Dayanna Hernandez MD POINT OF CARE TEST ENTER/EDIT OR DERABLES Final Result * US Renal Complete (01/15/2025 10:58 AM EDT) Anatomical Region Laterality Modality Kidney Ultrasound 01/15/2025 10:5 8 AM EDT Narrative 01/15/2025 10:59 AM EDT [address] [address] Ultrasound Report Signed Patient: Yehuda Casanova MR# : [id number] : 1960 Acct:[id number] Age/Sex: 64 / M ADM Date: 01/15/25 Loc: .US Attending Dr: Ramesh Hamm MD Ordering Physician: Ramesh Hamm MD Date of Service: 01/15/25 Procedure(s): US renal BI Accession Number(s): [id number] cc: Ramesh Hamm MD; Dayanna Hernandez MD [...] to intermediate echogenic region measured by the hearing aid repair technician at level of the right kidney may be artifactual/due to renal pyramid or secondary to the questionable cyst seen on prior ultrasound exam. IMPRESSION: Limited exam. No hydronephrosis. This document has been electronically signed by: Charley Arnold MD on 01/15/2025 10:58:14 Dictated By: Charley Arnold MD Signed By: <Electronically signed by Charley Arnold MD in OV> 01/15/25 1059 DD/ 1058 TD/TT: 01/15/251057 Early Childhood Special Educator: Procedure Note Donotuseinterpreter, Image - 01/15/[address] [address] Ultrasound Report Signed Patient: Yehuda Casanova DMR# : [id number] : 1960cct:[id number] Age/Sex: 64 / MADM Date: 01/15/25 Loc: HO.US Attending Dr: Ramesh Hamm MD Ordering Physician: Ramesh Hamm MD Date of Service: 01/15/25 Procedure(s): US renal BI Accession Number(s): [id number] cc: Ramesh Hamm MD; Dayanna Hernandez MD [...] to intermediate echogenic region measured by the hearing aid repair technician at level of the right kidney may be artifactual/due to renal pyramid or secondary to the questionable cyst seen on prior ultrasound exam. IMPRESSION: Limited exam. No hydronephrosis. This document has been electronically signed by: Charley Arnold MD on 01/15/2025 10:58:14 Dictated By: Charley Arnold MD Signed By: <Electronically signed by Charley Arnold MD in OV> 01/15/259 DD/ 57 TD/TT: 01/15/251057 Early Childhood Special Educator: us [facility] External Provider IMG US PROCEDURES Final Result * Phospholipase A2 Receptor (PLA2R) Antibody Panel (01/15/2025 9:51 AM EDT) Phospholipase A2 Receptor (PLA2R) Ab, PRAVIN <4 RU/mL [facility] Comment:Reference Range: <14 : NEGATIVE 14-19: BORDERLINE >19: POSITIVE Phospholipase A2 Receptor (PLA2R) Ab, IFA NEGATIVE NEGATIVE [facility] [facility] Comment:THIS TEST WAS PERFOR MED AT:[id number] [place] [phone] AUSTIN MD,PHD,ANALISA 01/15/2025 9:51 AM EDT 01/15/2025 9:52 AM EDT us Generic External Data Provider LAB BLOOD ORDERAB LES Final Result [facility] [address] [place] [phone] * (ABNORMAL) Urinalysis Complete (01/15/2025 9:51 AM EDT) Only the most recent of2 resultswithin the time period is included. Color Urine Yellow [facility] Appearance Urine Clear [facility] PH 6.0 5.0 - 9.0 [facility] Glucose Urine UA 100(A) Negative mg/dL [facility] Urine Blood Negative Negative [facility] Specific [place] - Urine 1.015 1.005 - 1.025 [facility] Urine Protein 300 (3+)(A) Neg-Trace mg/dL [facility] Urine Ketones Negative Negative mg/dL [facility] Nitrite Urine Negative Negative [facility] Leukocyte Esterase Urine Negative Negative [facility] RBC Urine 0-2 0 - 2 /HPF [facility] Urine WBC 0-5 0 - 5 /HPF [facility] Urine Squamous Epithelial Cell 0-2 0 - 2 /HPF [facility] Urine Bacteria None Seen None Seen [facility] Hyaline Casts, Urine 0-2 0 - 2 /LPF [facility] 01/15/2025 9:51 AM EDT 01/15/2025 10:11 AM EDT us Generic External Data Provider LAB URINE ORDERAB LES Final Result Performing Organization Address [facility] de Phone Number [facility] [address] [place] [phone] * Complement Component C3c (01/15/2025 9:51 AM EDT) Complement C3 168 82 - 185 mg/dL [facility] Comment:THIS TEST WAS PERFOR MED AT:[facility] [place] [phone] BRIGGS MD 01/15/2025 9:51 AM EDT 01/15/2025 9:52 AM EDT Generic External Data Provider LAB BLOOD ORDERAB LES Final Result Performing Organization Address [facility] [address] [place] [phone] * Complement Component C4c (01/15/2025 9:51 AM EDT) Complement C4 36 15 - 53 mg/dL [facility] Comment:THIS TEST WAS PERFOR MED AT:[facility] [address] [phone] BRIGGS MD 01/15/2025 9:51 AM EDT 01/15/2025 9:52 AM EDT us Generic External Data Provider LAB BLOOD ORDERAB LES Final Result Performing Organization Address [facility] de Phone Number [facility] [address] [place] [phone] * (ABNORMAL) Protein, Total and Protein??Electrophoresis (01/15/2025 9:51 AM EDT) Prot Elec - Total Protein 6.4 6.1 - 8.1 g/dL [facility] Prot Elec - Albumin 3.7(A) 3.8 - 4.8 g/dL [facility] Prot Elec - Alpha1 0.3 0.2 - 0.3 g/dL [facility] Prot Elec - Alpha2 0.8 0.5 - 0.9 g/dL [facility] Prot Elec - Beta 1 0.5 0.4 - 0.6 g/dL [facility] Prot Elec - Beta 2 0.4 0.2 - 0.5 g/dL [facility] Prot Elec - Gamma 0.8 0.8 - 1.7 g/dL [facility] PES - Abn Protein Band 1 TNP [facility] PES-Abn Protein Band 2 TNP [facility] PES-Abn Protein Band 3 [facility] Prot Elec - Interpretation SEE NOTE [facility] Comment:Evaluation reveals a n isolated decrease in albumin.This pattern is suggestive of decreased proteinsynthesis or protein loss. Consider ordering pre-albumin quantitation.THIS TEST WAS PERFORMED AT:[facility] [place] [phone] BRIGGS MD 01/15/2025 9:51 AM EDT 01/15/2025 9:52 AM EDT us Generic External Data Provider LAB BLOOD ORDERAB LES Final Result [facility] [address] [place] [phone] * (ABNORMAL) Basic Metabolic Panel (01/15/2025 9:51 AM EDT) Sodium 139 135 - 145 mmol/L [facility] Potassium 4.2 3.3 - 5.1 mmol/L [facility] Chloride 106 96 - 108 mmol/L [facility] Carbon Dioxide 26 22 - 29 mmol/L [facility] Anion Gap 11(L) 12 - 20 [facility] Urea Nitrogen (BUN) 26(H) 9 - 16 mg/dL [facility] Creatinine, Serum 2.04(H) 0.5 - 1.4 mg/dL [facility] Estimated Glomerular Filt Rate 33 [facility] Comment:Chronic Kidney Disea se: Estimated GFR < 60 mL/min/1.10p2Ihufyh Kidney Disease: Estimated GFR < 15 mL/min/1.73m2 Glucose 189(H) 60 - 115 mg/dL [facility] Calcium 9.4 8.4 - 10.2 mg/dL [facility] 01/15/2025 9:51 AM EDT 01/15/2025 9:52 AM EDT us Generic External Data Provider LAB BLOOD ORDERAB LES Final Result [facility] [address] [place] [phone] * (ABNORMAL) Lipid Panel with Reflex to Direct LDL (11/16/2024 11:02 AM EDT) Triglycerides 155(H) <150 mg/dL [facility] Comment:Desirable Triglyceri de: less than 150 mg/dLBorderline High Triglyceride 150-199 mg/dLHigh Triglyceride: 200-499 mg/dLVery High Triglyceride: greater than or equal to 5OO mg/dL Cholesterol 138 <200 mg/dL [facility] Comment:Desirable Cholestero l: less than 200 mg/dLBorderline High Cholesterol: 200-239 mg/dLHigh Cholesterol: greater than 239 mg/dL LDL Cholesterol Calculated 72 <100 mg/dL [facility] Comment:Desirable LDL: less than 100 mg/dLNear Optimal/Above Optimal LDL: 110- 129 mg/dLBorderline High LDL: 130-159 mg/dLHigh LDL: 160-189 mg/dLVery High LDL: greater than or equal to 190 mg/dL HDL Cholesterol 35(L) >40 mg/dL [facility] Comment:Desirable HDL: great er than 40 mg/dL Note: This HDL assay may give artificially low results in patients with liver disease. Blood 11/16/2024 11:0 2 AM EDT 11/16/2024 1:35 PM EDT us Dayanna Hernandez MD LAB BLOOD ORDERABLES Final Resul t Performing Organization Address [facility] Co de Phone Number [facility] [address] [place] [phone] * (ABNORMAL) Creatinine, Serum (11/16/2024 11:02 AM EDT) Creatinine, Serum 1.86(H) 0.5 - 1.4 mg/dL [facility] Estimated Glomerular Filt Rate 37 [facility] Comment:Chronic Kidney Disea se: Estimated GFR < 60 mL/min/1.40j1Rmsjoe Kidney Disease: Estimated GFR < 15 mL/min/1.73m2 11/16/2024 11:0 2 AM EDT 11/16/2024 1:40 PM EDT us Generic External Data Provider LAB BLOOD ORDERAB LES Final Result Performing Organization Address [facility] de Phone Number [facility] [address] [place] [phone] * (ABNORMAL) Albumin, Random Urine W/Creatinine (11/16/2024 11:02 AM EDT) Creatinine, Urine 162.83 mg/dL [facility] Microalbumin Urine >2,000.0 mg/L H [facility] Microalbum Creatinine Ratio Ur 1,228.2(H ) <30 ug/mg cr [facility] Comment:Albumin/Creatinine R atio Reference Ranges: Normal: < 30 ug/mg creatinine Microalbuminuria: 30 - 300 ug/mg creatinineClinical Albuminuria: > 300 ug/mg creatinine 11/16/2024 11:0 2 AM EDT 11/16/2024 12:55 PM EDT us Generic External Data Provider LAB URINE ORDERAB LES Final Result Performing Organization Address [facility] Co de Phone Number [facility] [address] [place] [address] [phone] * (ABNORMAL) CBC (11/16/2024 11:02 AM EDT) White Blood Count 6.2 4.8 - 10.8 X10*3/uL [facility] Red Blood Count 4.23(L) 4.60 - 5.80 X10*6/uL [facility] Hemoglobin 13.5(L) 14.0 - 18.0 g/dl [facility] Hematocrit 40.4(L) 42.0 - 52.0 % [facility] Mean Corpuscular Volume 95.5 80.0 - 98.0 fL [facility] Mean Corpuscular Hemoglobin 31.9 27.0 - 33.0 pg [facility] Mean Corpuscular HGB Conc 33.4 31.0 - 36.0 g/dl [facility] Red Cell Distribution Width 11.9 11.0 - 16.0 % [facility] Platelet Count 296 160 - 400 X10*3/uL [facility] Mean Platelet Volume 10.3 9.4 - 12.4 fL [facility] NRBC Pct Auto 0.0 0.0 - 0.2 /100WBC [facility] NRBC Abs Auto 0.000 0.0 - 0.012 X10*3/uL [facility] 11/16/2024 11:0 2 AM EDT 11/16/2024 1:35 PM EDT us Generic External Data Provider LAB BLOOD ORDERAB LES Final Result [facility] [address] [place] [phone] * ALT (11/16/2024 11:02 AM EDT) Alanine Aminotransferase 16 0 - 40 U/L [facility] 11/16/2024 11:0 2 AM EDT 11/16/2024 1:40 PM EDT us Generic External Data Provider LAB BLOOD ORDERAB LES Final Result Performing Organization Address [facility]/ZIP Co de Phone Number [facility] [address] [place] [address] [phone] * AST (11/16/2024 11:02 AM EDT) Aspartate Amino Transferase 25 5 - 37 U/L [facility] 11/16/2024 11:0 2 AM EDT 11/16/2024 1:40 PM EDT Generic External Data Provider LAB BLOOD ORDERAB LES Final Result Performing Organization Address [facility] de Phone Number [facility] [address] [place] [address] [phone] * (ABNORMAL) Hemoglobin A1c (11/16/2024 11:02 AM EDT) Hemoglobin A1c 7.1(H) <6.0 % [facility] Comment:Hemoglobin A1C Refer ence Range Adults: 4.8 - 6.0 % Non diabetic: < 6.0 % Goal: < 7.0 %Additional Action Suggested: > 8.0 %Note: Hemoglobin A1c results are invalid for patients with abnormal amounts of HbF. Blood transfusions may impact the HbA1c concentration in the patient sample. Estimated Average Glucose 157 mg/dL [facility] Comment:eAG = Estimated ave rage glucose which is %A1C expressed asaverage glucose, using the formula of the U7D-SysnfxdNbxrjsl Glucose study (ADAG), Diabetes Care, Vol.31,#8,Nov. 2007 11/16/2024 11:0 2 AM EDT 11/16/2024 1:35 PM EDT Generic External Data Provider LAB BLOOD ORDERAB LES Final Result Performing Organization Address [facility] Co de Phone Number [facility] [address] [place] [address] [phone] * (ABNORMAL) Lipid Panel, Standard (11/16/2024 11:02 AM EDT) Triglycerides 159(H) <150 mg/dL [facility] Comment:Desirable Triglyceri de: less than 150 mg/dLBorderline High Triglyceride 150-199 mg/dLHigh Triglyceride: 200-499 mg/dLVery High Triglyceride: greater than or equal to 5OO mg/dL Cholesterol 140 <200 mg/dL [facility] Comment:Desirable Cholestero l: less than 200 mg/dLBorderline High Cholesterol: 200-239 mg/dLHigh Cholesterol: greater than 239 mg/dL LDL Cholesterol Calculated 73 <100 mg/dL [facility] Comment:Desirable LDL: less than 100 mg/dLNear Optimal/Above Optimal LDL: 110- 129 mg/dLBorderline High LDL: 130-159 mg/dLHigh LDL: 160-189 mg/dLVery High LDL: greater than or equal to 190 mg/dL HDL Cholesterol 36(L) >40 mg/dL [facility] Comment:Desirable HDL: great er than 40 mg/dL Note: This HDL assay may give artificially low results in patients with liver disease. 11/16/2024 11:0 2 AM EDT 11/16/2024 1:40 PM EDT us Generic External Data Provider LAB BLOOD ORDERAB LES Final Result [facility] [address] [place] [phone] * HEPATITIS C AB W/REFL TO HCV RNA, QN, PCR (09/09/2021 1:06 PM EDT) HEPATITIS C ANTIBODY NON-REACT [facility] NON-REACT [facility] INDEX 0.04 <1.00 [facility] Comment: HCV antibody was non-reactive. There is no laboratory evidence of HCV infection. In most cases, no further action is required. However, if recent HCV exposure is suspected, a test for HCV RNA (test code 01900) is suggested. For additional information please refer to http://education.Nomacorc/faq/UQZ05u8 (This link is being provided for informational/ educational purposes only.) 09/09/2021 1:06 PM EDT Dayanna Hernandez MD HISTORICAL/NON ORDERABLE LABS Fi nal Result Performing Organization Address [facility] Co de Phone Number [facility] [address] * HIV 1/2 ANTIGEN/ANTIBODY,FOURTH GENERATION W/RFL (09/09/2021 1:06 PM EDT) HIV-1/2 ANTIGEN AND ANTIBODIES, 4TH GENERATION W/ REFLEX NON-REACT EDWARD NON-REACT EDWARD [facility] Comment: HIV-1 antigen and HIV-1/HIV-2 [...] purpose. For additional information please refer to http://education.[employer]/faq/OVJ688 (This link is being provided for informational/ educational purposes only.) The performance of this assay has not been clinically validated in patients less than 2 years old. 09/09/2021 1:06 PM EDT Dayanna Hernandez MD LAB BLOOD ORDERABLES Final Resul t Performing Organization Address [facility] Co de Phone Number [facility] [address] from Last 3 Months or Most Recently Relevant to Health Maintenance Insurance [facility] ONE CARE < 67 [place] [id number] Care Teams Short Story Writer Relationship Specialty Start Date End Date Dayanna Hernandez MD [address] [place] [address] PCP - General Family Medicine 10/24/12
== END 2025-02-16 13:38 | disposition home or self-care (01) ==
LOC: HO.ENCR 13:04
PROVIDERS: PCP Family Medicine; Visit Provider Physician Assistant Medical
DX: E11.40 Type 2 diabetes mellitus with diabetic neuropathy, unspecified (principal); Z79.4 Long term (current) use of insulin; I10 Essential (primary) hypertension; E78.5 Hyperlipidemia, unspecified

== ENCOUNTER → 2025-02-16 13:03 | Outpatient (BNVA) | payer OTHER, SELFPAY | PROVIDERS: PCP Family Medicine; Visit Provider Physician Assistant Medical | DX: E11.40 Type 2 diabetes mellitus with diabetic neuropathy, unspecified (principal); E11.21 Type 2 diabetes mellitus with diabetic nephropathy; E11.319 Type 2 diabetes mellitus with unspecified diabetic retinopathy without macular edema; I10 Essential (primary) hypertension; E78.5 Hyperlipidemia, unspecified; F17.210 Nicotine dependence, cigarettes, uncomplicated; Z79.4 Long term (current) use of insulin | CPT/HCPCS: 82947; 83036; 99212 ==

== ENCOUNTER → 2025-02-20 10:54 | Outpatient (REF) | payer OTHER, SELFPAY ==
--- NOTE | 2025-02-20 | HM_ITS ---
* Total monitoring time 1 day 18 hours. * Underlying rhythm is sinus with an average rate of 84/Min. * Frequent ventricular ectopy with a burden of 16%. Rare couplets. One episode of NSVT, 5 beats. * No significant pauses or high-grade AV blocks. * No patient markers or diary events. MTDD
== END ==
LOC: HO.CARD 10:54
PROVIDERS: PCP Family Medicine; Visit Provider Family Medicine
DX: I49.49 Other premature depolarization (principal); I49.3 Ventricular premature depolarization
CPT/HCPCS: 93225

== ENCOUNTER → 2025-02-20 11:25 | Outpatient (BNV) | payer OTHER, SELFPAY | PROVIDERS: PCP Family Medicine; Visit Provider Internal Medicine | DX: I49.49 Other premature depolarization (principal) | CPT/HCPCS: 93227 ==

== ENCOUNTER 2025-03-19 11:03 | Outpatient (AMB) | payer OTHER, SELFPAY ==
[2025-03-19 11:25] VITALS: BP 118/62; PULSE 96; O2SAT 95; BMI 33.9
--- NOTE | 2025-03-19 11:25 | HO.NEPHOV_ITS ---
Vital Signs 03/19/25 11:25 Height 5 ft 6 in Weight 210 lb BMI 33.9 BP 118/62 Blood Pressure Location Rt brachial Position Sitting Pulse 96 Pulse Source Pulse Oximeter Pulse Oximetry (%) 95 Oxygen Delivery Method Room Air Intake Visit Reasons: FU with Labs Field Servicer Required: Yes Field Servicer Name: Marielena [id number] Accompanied by: Self / Same As Patient Allergies Penicillins (PENICILLINS) Allergy (Unknown, Verified 03/19/25 11:28) UNKNOWN-CHILDHOOD REACTION ARB-Angiotensin Receptor Antagonist Adverse Reaction (Mild, Verified 03/19/25 11:28) Cough SEAFOOD Allergy (Severe, Uncoded 11/14/24 10:01) DIARRHEA,GI PAIN, NAUSEA Fish Allergy (Mild, Uncoded 11/14/24 10:01) Gastrointestinal Upset Medication List - Last Reconciled 03/19/25 by Ramesh Hamm MD acetaminophen (Tylenol) 325 mg PO QID PRN apremilast (Otezla) 30 mg PO BID aspirin 81 mg PO DAILY bisacodyl 20 mg (4 x 5 mg) PO ONCE blood sugar diagnostic (FreeStyle Lite Strips) 4 times a day blood-glucose meter (FreeStyle Lite Meter kit) 4 times a day blood-glucose sensor (FreeStyle Nevaeh 3 Plus Sensor device) Apply 1 new sensor every 15 days as directed to monitor blood glucose continuously. blood-glucose,missing persons investigator,cont (FreeStyle Nevaeh 3 [place]) Use daily to monitor blood glucose levels continuously. cetirizine 10 mg PO QAM cholecalciferol (vitamin D3) 50 mcg PO DAILY 90 days clobetasol 0.05% 1 appl topical BID clonazepam 0.5 mg PO DAILY PRN CPAP (CPAP Machine/Device) As directed dorzolamide-timolol 22.3-6.8 mg/mL 1 drp ophthalmic (eye) BID fenofibrate 54 mg PO DAILY 90 days fluoxetine 40 mg PO QAM fluticasone propionate 50 mcg/actuation 50 mcg intranasal DAILY FreeStyle Lancets (lancets) 4 times a day NS hydrocortisone 2.5% 1 appl topical DAILY insulin aspart U-100 (Novolog FlexPen U-100 Insulin aspart) 35 units (0.35 mL) subcut TID 90 days insulin glargine U-300 conc 100 units (0.3333 mL) subcut DAILY 90 days melatonin 5 mg PO BEDTIME pen needle, diabetic 5 times a day to inject insulin polyethylene glycol 3350 (Miralax) 17 grams PO DAILY 30 days quetiapine 12.5 - 25 mg PO BEDTIME PRN roflumilast 0.3% (Zoryve) appl topical rosuvastatin 40 mg PO DAILY sennosides (senna) 8.6 mg PO BEDTIME 30 days simethicone (Gas Relief (simethicone)) 500 mg (4 x 125 mg) PO ONCE [sock pull As directed] [telescoping foot mirror As directed] trazodone 100 mg BEDTIME HPI Comments Details: History of Present Illness The patient is a 65-year-old male presenting for follow-up and management of long-standing diabetes mellitus, hypertension, and chronic kidney disease (CKD). He also has a history of screening for prostate cancer. His CKD is attributed to diabetes and has been monitored for at least five years, with kidney function fluctuating between 35% and 50%. His current kidney function is between 33% and 35%. He has a history of 1200 mg of proteinuria and a creatinine of 1.8, and is unable to tolerate losartan. Recent blood tests show an HbA1c of 7.3%. A recent kidney ultrasound was normal, with no evidence of blockage or stones. There is a history of cysts found in the kidney, and he has a pending urology appointment for further evaluation. The patient denies taking any new medications since his last visit and specifically denies use of NSAIDs such as Aleve, Advil, or Motrin. He takes an unspecified medication for sleep. He reports drinking three to five bottles of water per day. He reports experiencing lightheadedness when he lowers his head. Results - Labs: - HbA1c: 7.3% (3 months ago). - Kidney Function (eGFR): Currently 33-35%. Has fluctuated between 35% and 50% over the last 5 years. - Prior Creatinine: 1.8. - Prior Urine Protein: 1200 mg. - Imaging: - Kidney Ultrasound: Normal; no blockage or stones noted. 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 Mother Diabetes Social History Household Members: None Housing: Apartment Alcohol intake: never Patient Tobacco Use Status: Former Tobacco user Physical Exam Exam Exam: Physical Exam General: Awake. Comfortable. HENT: Neck supple. Mucosa moist. Pulmonary: Lungs aeration equal. No rales. Cardiology: Heart S1-S2 heard. No gallop. Abdomen: Soft. Non tender. Bowel sounds normal. Neurologic: No involuntary movements. No myoclonus. Extremities: No edema. No rash. Vital Signs: Last Vital Signs Pulse 96 03/19/25 11:25 BP 118/62 03/19/25 11:25 Pulse Ox 95 03/19/25 11:25 Oxygen Delivery Method Room Air 03/19/25 11:25 BMI result Body Mass Index 33.9 Results Reviewed Results Reviewed: October 2023 1. Bilateral nodular renal contours and prominent renal pyramids are difficult to evaluate as visualization is limited due to bowel gas. 2. No renal calculi. 3. Right renal 0.9 cm lower pole cyst with posterior echogenic focus characteristic of a calcification not identified on prior exam. Nephrology Results: Urine Protein, (Neg-Trace) >=1000 (4+) mg/dL H 01/23/25 Renal US 01/15/25 Assessment & Plan Assessment & Plan (1) CKD stage 3 due to type 2 diabetes mellitus: Code(s): E11.22 - Type 2 diabetes mellitus with diabetic chronic kidney disease; N18.30 - Chronic kidney disease, stage 3 unspecified Category: Medical (2) DM2 (diabetes mellitus, type 2): Code(s): E11.9 - Type 2 diabetes mellitus without complications Category: Medical (3) Hypertension: Code(s): I10 - Essential (primary) hypertension Category: Medical Qualifiers: Hypertension type: primary hypertension Qualified Code(s): I10 - Essential (primary) hypertension (4) Vitamin D deficiency: Code(s): E55.9 - Vitamin D deficiency, unspecified Category: Medical (5) Proteinuria: Code(s): R80.9 - Proteinuria, unspecified Category: Medical (6) Diabetes type 2, uncontrolled: Code(s): E11.65 - Type 2 diabetes mellitus with hyperglycemia Category: Medical Plan Plan 1. Chronic Kidney Disease - The patient's chronic kidney disease is secondary to diabetes, with current function stable at 33-35%. - The patient was reassured that he is far from requiring dialysis, which is typically considered for kidney function below 10%. - Advised to avoid NSAIDs like Aleve, Advil, and Motrin. - Instructed to increase fluid intake and adhere to a low-salt diet. - He will continue blood work while on vacation in [place] to monitor kidney function. - The patient will follow up in six months. 2. Type 2 Diabetes Mellitus - The patient's HbA1c is 7.3%. - The importance of maintaining blood sugar control was emphasized to preserve kidney function. 3. Hypertension - Management includes adherence to a low-salt diet. - The patient has a history of intolerance to losartan. 4. ? Renal cyst Has Urology evaluation today Orders: Orders Total Protein Urine Random Today E11.22 - Type 2 diabetes mellitus with diabetic chronic kidney disease, N18.30 - Chronic kidney disease, stage 3 unspecified, R80.9 - Proteinuria, unspecified Basic Metabolic Panel 6 Months E11.22 - Type 2 diabetes mellitus with diabetic chronic kidney disease, N18.30 - Chronic kidney disease, stage 3 unspecified, R80.9 - Proteinuria, unspecified Basic Metabolic Panel Today E11.22 - Type 2 diabetes mellitus with diabetic chronic kidney disease, N18.30 - Chronic kidney disease, stage 3 unspecified, R80.9 - Proteinuria, unspecified Creatinine Urine Today E11.22 - Type 2 diabetes mellitus with diabetic chronic kidney disease, N18.30 - Chronic kidney disease, stage 3 unspecified, R80.9 - Proteinuria, unspecified UA and rflx microscopic Today E11.22 - Type 2 diabetes mellitus with diabetic chronic kidney disease, N18.30 - Chronic kidney disease, stage 3 unspecified, R80.9 - Proteinuria, unspecified Coding Level of Care Code Est Pt Level 4 ([id number]) Diagnoses CKD stage 3 due to type 2 diabetes mellitus E11.22; N18.30 Type 2 diabetes mellitus with diabetic polyneuropathy, with long-term current use of insulin E11.9 Primary hypertension I10 Hypertension type: primary hypertension Vitamin D deficiency E55.9 Proteinuria R80.9 Diabetes type 2, uncontrolled E11.65
== END 2025-03-19 11:45 | disposition home or self-care (01) ==
LOC: HO.HKA 11:05
PROVIDERS: PCP Family Medicine; Visit Provider Internal Medicine Hypertension Specialist
DX: E11.22 Type 2 diabetes mellitus with diabetic chronic kidney disease (principal); N18.30 Chronic kidney disease, stage 3 unspecified; I10 Essential (primary) hypertension; E55.9 Vitamin D deficiency, unspecified; R80.9 Proteinuria, unspecified; E11.65 Type 2 diabetes mellitus with hyperglycemia
CPT/HCPCS: 99214

== ENCOUNTER 2025-03-19 13:09 | Outpatient (AMB) | payer OTHER, SELFPAY ==
--- NOTE | 2025-03-19 13:25 | MHC.OFFVIS ---
Intake Visit Reasons: Renal cyst/Hx of Kidney stones (set(UA) Intake Note: New patient presents today for initial visit for renal cyst/hx of kidney stones Urology Medication:None Blood Thinner:Aspirin Antibiotic Allergies:None Automobile Relocation Engineer Required: Yes Automobile Relocation Engineer Name: Adina Gutierrez Information Interpreted: non-clinical & clinical Allergies Penicillins (PENICILLINS) Allergy (Unknown, Verified 03/19/25 13:25) UNKNOWN-CHILDHOOD REACTION ARB-Angiotensin Receptor Antagonist Adverse Reaction (Mild, Verified 03/19/25 13:25) Cough SEAFOOD Allergy (Severe, Uncoded 11/14/24 10:01) DIARRHEA,GI PAIN, NAUSEA Fish Allergy (Mild, Uncoded 11/14/24 10:01) Gastrointestinal Upset PFSH Medical History Constipation Loose stools Anemia Colon cancer screening Type 2 diabetes mellitus with diabetic neuropathy CVA (cerebrovascular accident due to intracerebral hemorrhage) Chronic rhinitis JEAN MARIE on CPAP Hypertension Diabetic polyneuropathy associated with type 2 diabetes mellitus CKD stage 3 due to type 2 diabetes mellitus Diabetic nephropathy associated with type 2 diabetes mellitus 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 Mother Diabetes Social History Household Members: None Housing: Apartment Alcohol intake: never Patient Tobacco Use Status: Former Tobacco user Results AMB Urinalysis, Automated UA Leukoctes 0 Dre/uL Last Edit by Lynda Villanueva on 03/19/25 17:24 UA Nitrite Negative Last Edit by Lynda Villanueva on 03/19/25 17:24 UA Urobilinogen 0.2 mg/dL Last Edit by Lynda Villanueva on 03/19/25 17:24 UA Protein 300 mg/dL Last Edit by Lynda Villanueva on 03/19/25 17:24 UA pH 6.0 Last Edit by Lynda Villanueva on 03/19/25 17:24 UA Blood 10 Segundo/uL Last Edit by Lynda Villanueva on 03/19/25 17:24 UA Specific [place] 1.025 Last Edit by Lynda Villanueva on 03/19/25 17:24 UA Ketone Negative Last Edit by Lynda Villanueva on 03/19/25 17:24 UA Bilirubin 0 mg/dL Last Edit by Lynda Villanueva on 03/19/25 17:24 UA Glucose 0 mg/dL Last Edit by Lynda Villanueva on 03/19/25 17:24 Results Reviewed Results Reviewed: Date of Service: 01/15/25 CLINICAL HISTORY: CKD 3 US Renal Comparison: US/SR - US KIDNEY BILATERAL - 10/12/2023 09:21 AM EDT Findings: Right kidney 10.5 cm length. Left kidney 11.1 cm length. Increased bilateral renal cortical echogenicity cannot be excluded on this limited study (spleen and liver were not included in the obtained images for comparison with renal cortical echogenicity). No hydronephrosis. 13 mm hypoechoic to intermediate echogenic region measured by the transfill technician at level of the right kidney may be artifactual/due to renal pyramid or secondary to the questionable cyst seen on prior ultrasound exam. IMPRESSION: Limited exam. No hydronephrosis. Assessment & Plan Assessment & Plan Orders: Orders AMB Urinalysis Automated Today N20.0 - Calculus of kidney, N28.1 - Cyst of kidney, acquired, R80.9 - Proteinuria, unspecified Coding
--- OUTSIDE RECORDS SUMMARY | 2025-03-19 19:04 | XMS_ITS | Encounter Summary ---
Author Organization [facility] Address [address] [place] [address] Phone Care Team Providers Care Svp Innovation Partnerships Name Role Phone Alison Luu Primary Care Provider [phone] Encounter Details Date Type Department Care Team (Late st Contact Info) Description 01/19/2020 Ancillary Orders [facility] [address] [place] [address] Alison Luu PA [address] [place] [address] [email or web address] Social History Tobacco Use Types Packs/Day [...] Palpitations documented in this encounter Care Teams Svp Innovation Partnerships Relationship Specialty Start Date End Date Alison Luu PA [address] [place] [phone] [email or web address] PCP - General Freight Unloader 01/19/20 documented as of this encounter Additional Source Comments The information contained in this document represents components of the legal health record. It is not the complete legal health record.[facility]
--- OUTSIDE RECORDS SUMMARY | 2025-03-19 19:04 | XMS_ITS | Clinical Summary ---
Author Organization [facility] Address [address] [place], [place] [id number] Phone Care Team Providers Care Station Cleaning Porter Name Role Phone Alison Luu Primary Care Provider [phone] Social History Tobacco Use Types Packs/Day Years [...] file Medical Devices Not on file Insurance [facility] [employer] MEDICARE REPLACEMENT [place] [id number] [place] [address] MEDICARE REPLACEMENT Care Teams Station Cleaning Porter Relationship Specialty Start Date End Date Alison Luu PA [address] [place] [phone] [email or web address] PCP - General Sales Utility Representative 01/19/20 Additional Source Comments The information contained in this document represents components of the legal health record. It is not the complete legal health record.[facility]
== END 2025-03-19 14:08 | disposition home or self-care (01) ==
PROVIDERS: PCP Family Medicine; Visit Provider Urology
DX: N20.0 Calculus of kidney (principal); R80.9 Proteinuria, unspecified; N28.1 Cyst of kidney, acquired

== ENCOUNTER 2025-03-21 13:15 | Outpatient (AMB) | payer OTHER, SELFPAY ==
--- NOTE | 2025-03-21 13:39 | A.OFFVIS_ITS ---
Vital Signs 03/21/25 13:41 Height 5 ft 6 in Weight 212 lb BMI 34.2 BP 128/68 Blood Pressure Location Lt brachial Position Sitting Pulse 66 Pulse Source Pulse Oximeter Pulse Oximetry (%) 96 Oxygen Delivery Method Room Air Intake Visit Reasons: constipation Intake Note: Patient follow up for constipation. Patient cc: Pt denies any GI sx or concerns at this time. Confirms that he is having adequate BMs and is still taking currently rx'd therapies w/o complication. Personal Injury Paralegal Required: Yes Personal Injury Paralegal Services: Personal Injury Paralegal Present Personal Injury Paralegal Name: [id number] Sonny Accompanied by: Self / Same As Patient Allergies Penicillins (PENICILLINS) Allergy (Unknown, Verified 03/19/25 13:25) UNKNOWN-CHILDHOOD REACTION ARB-Angiotensin Receptor Antagonist Adverse Reaction (Mild, Verified 03/19/25 13:) Cough SEAFOOD Allergy (Severe, Uncoded 11/14/24 10:01) DIARRHEA,GI PAIN, NAUSEA Fish Allergy (Mild, Uncoded 11/14/24 10:01) Gastrointestinal Upset HPI HPI constipation: Details: Patient is a 64-year-old male with PMH of diabetes, hyperlipidemia, hypertension, CKD stage 3, JEAN MARIE on CPAP, history of CVA. Follow-up of constipation and to plan for a colonoscopy. He has a history of constipation, previously confirmed by [facility], and was advised to use MiraLax daily and Senna. Currently, the patient reports his constipation has improved and he feels he is emptying completely. He denies any blood in his stool, nausea, or vomiting. His weight has been stable. 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 Mother Diabetes Social History Household Members: None Housing: Apartment Alcohol intake: never Patient Tobacco Use Status: Former Tobacco user Review of Systems Const Reports as per HPI ENT Reports as per HPI Card Reports as per HPI Resp Reports as per HPI GI Reports as per HPI Reports as per HPI Physical Exam Vital Signs: Last Vital Signs Pulse 66 03/21/25 13:41 BP 128/68 03/21/25 13:41 Pulse Ox 96 03/21/25 13:41 Oxygen Delivery Method Room Air 03/21/25 13:41 BMI result Body Mass Index 34.2 Const General: healthy appearing, no acute distress and well developed Nutritional Appearance: average body habitus Orientation/consciousness: patient oriented x3 HEENT Head: Yes normal to inspection, Yes normocephalic and Yes atraumatic Face and sinus: Yes normal facial exam Eyes General: appearance normal, both eyes and all related structures Neck Neck: Yes normal visual inspection Resp Effort & Inspection: normal respiratory effort, able to speak in complete sentences, no tracheal deviation and symmetric chest movement Cardio Jugular venous distension: no JVD Heart sounds: Murmur heart sound present GI Inspection: Yes obesity Neuro General: patient oriented x3 Gait exam (Neuro): Assistive device used Psych Appearance: grossly normal Mental Status: mental status grossly normal Speech and movement: Normal speech and movement present Affect: normal affect Attitude: cooperative Thought process: Normal thought process present Thought content: Normal thought content present Insight: Good insight present (Psych) Judgement: Good judgement present (Psych) Assessment & Plan Assessment & Plan (1) Colon cancer screening: Comment: 01/30/15 colonoscopy (Dr. Beasley) incomplete 2/2 poor prep and colon looping. 01/30/25 barium swallow-complete with poor prep-mx filling defects throughout colon c/w fecal material. No obstruction, constriction or narrowing. Code(s): Z12.11 - Encounter for screening for malignant neoplasm of colon Category: Medical Plan: A colonoscopy is planned. - The patient will be traveling for five months and may have the procedure performed in [place], in which case he will bring the results back. - Alternatively, the procedure can be performed upon his return in the summer. - The recommended preparation is a standard 4-liter PEG solution split prep. Plus 2 Bisacodyl tablets nightly 5 days before procedure - The patient will call to schedule the procedure after he returns from his travels. - Plan for a follow-up visit in six months. (2) Constipation: Code(s): K59.00 - Constipation, unspecified Category: Medical Qualifiers: Constipation type: unspecified constipation type Qualified Code(s): K59.00 - Constipation, unspecified Plan: The patient reports that his constipation has resolved and he is having complete bowel movements. - Plan to proceed with colonoscopy now that constipation is resolved. Plan Follow-up upon return from vacation ( per pt's request) or sooner as needed Time: I spent a total of 20 minutes on the date of encounter which includes: Preparing to see the patient (reviewed previous documentation, test results and medical history) Performing a medically appropriate exam and/or evaluation Ordering medications, tests, and procedures Documenting clinical information in the health record Coding Level of Care Code Established Pt Est Pt Level 3 (23049) Patient Type Established Diagnoses Colon cancer screening Z12.11 Constipation, unspecified constipation type K59.00 Constipation type: unspecified constipation type
[2025-03-21 13:41] VITALS: BP 128/68; PULSE 66; O2SAT 96; BMI 34.2
--- OUTSIDE RECORDS SUMMARY | 2025-03-21 17:25 | XMS_ITS | Encounter Summary ---
Author Organization [employer] Address [address] [place] [address] Care Team Providers Care Bus And Trolley Dispatcher Name Role Phone Dayanna Hernandez MD Primary Care Provider [phone] Encounter Details Date Type Department Care Team ([facility] st Contact Info) Description 01/09/2025 Orders Only [facility] [address] [place] [address] Dayanna Hernandez MD [address] [place] [address] Social History Tobacco Use Types Packs/Day Years [...] Care Team (Late st Contact Info) Description 03/26/2025 11:30 AM EST Office Visit [facility] [address] [place] [address] Dayanna Hernandez MD [address] [place] [address] documented as of this encounter Visit Diagnoses Not on filedocumented in this encounter Additional Health Concerns Assessment Noted Time PHQ-9 Depression Total Score: 16 025 10:54 AM EDT documented as of this encounter Care Teams Bus And Trolley Dispatcher Relationship Specialty Start Date End Date Dayanna Hernandez MD [address] [place] [address] PCP - General Family Medicine 10/24/12 documented as of this encounter
--- OUTSIDE RECORDS SUMMARY | 2025-03-21 17:25 | XMS_ITS | Encounter Summary ---
Author Organization [employer] Address [address] [place] [address] Care Team Providers Care Brush Material Preparer Name Role Phone Dayanna Hernandez MD Primary Care Provider [phone] Reason for Visit * Reason Onset Date Comments Blood pressure homoe checks 03/19/2025 Encounter Details Date Type Department Care Team ([facility] st Contact Info) Description 03/19/2025 Telephone [facility] [address] [place], [place] [phone] Sharon Vogt FNP [address] [place], [place] [phone] Blood pressure homoe checks Social History Tobacco Use Types Packs/Day Years [...] encounter Miscellaneous Notes * Telephone Encounter - Aby Rodriguez RN - 03/19/2025 11:25 AM EST TC placed to pt who reports that he is not on any BP medication advised pt to check his BP daily keep a log and bring information to upcoming appointment with PCP 03/26/2025. Reviewed Ed precautions when to seek emergency medical care pt verbalized understanding. No BP meds seen on med list. ----- Message from Sharon Vogt sent at 03/18/2025 12:00 PM EST ----- Please inform Critobal to keep a BP log 3 times a week, taking his BP after 45 mins - 1 hr after taking his BP med in the AM and BP in the evening. He should take his BP log with him to his upcoming visit with his PCP for further assessment and management of his BP. His BP was elevated at the last visit to [facility] documented in this encounter Plan of Treatment Upcoming Encounters Date Type Department Care Team (Late st Contact Info) Description 03/26/2025 11:30 AM EST Office Visit [facility] [address] [place] [address] Dayanna Hernandez MD [address] [place] [address] documented as of this encounter Goals Goal Patient Goal Type Associated Problems Recent Progress Patient-Stated? Author Help patients manage their type 2 diabetes Care Plan Help patients manage their type 2 diabetes No Hull, Adore Weekly blood pressure task Care Plan Weekly blood pressure task No Hull, Adore Help patients manage their type 2 diabetes Care Plan Help patients manage their type 2 diabetes No [place], Adore Patient has diabetic eye disease Care Plan Patient has diabetic eye disease No [place], Adore Help patients manage their type 2 diabetes Care Plan Help patients manage their type 2 diabetes No [place], Adore Patient has chronic kidney disease Care Plan Patient has chronic kidney disease No [place], Adore Weekly blood pressure task Care Plan Weekly blood pressure task No [place], Adore Weekly blood pressure task Care Plan Weekly blood pressure task No [place], Adore Patient has diabetic eye disease Care Plan Patient has diabetic eye disease No [place], Adore Patient has diabetic eye disease Care Plan Patient has diabetic eye disease No [place], Adore Patient has chronic kidney disease Care Plan Patient has chronic kidney disease No Hull, Adore Patient has chronic kidney disease Care Plan Patient has chronic kidney disease No Kurtis, Adore Weekly blood pressure task Care Plan Weekly blood pressure task No Sarah Tamayo [place] Weekly blood pressure task Care Plan Weekly blood pressure task No Sarah Tamayo [place] Weekly blood pressure task Care Plan Weekly blood pressure task No Sarah Tamayo [place] Patient has diabetic eye disease Care Plan Patient has diabetic eye disease No Sarah Tamayo [place] Patient has diabetic eye disease Care Plan Patient has diabetic eye disease No Sarah Tamayo [place] Patient has diabetic eye disease Care Plan Patient has diabetic eye disease No Sarah Tamayo [place] Patient has chronic kidney disease Care Plan Patient has chronic kidney disease No Sarah Tamayo [place] Patient has chronic kidney disease Care Plan Patient has chronic kidney disease No Sarah Tamayo [place] Patient has chronic kidney disease Care Plan Patient has chronic kidney disease No Sarah Tamayo [place] Weekly blood pressure task Care Plan Weekly blood pressure task No Dayanna Hernandez MD Weekly blood pressure task Care Plan Weekly blood pressure task No Dayanna Hernandez MD Weekly blood pressure task Care Plan Weekly blood pressure task No Dayanna Hernandez MD Patient has diabetic eye disease Care Plan Patient has diabetic eye disease No Dayanna Hernandez MD Patient has diabetic eye disease Care Plan Patient has diabetic eye disease No Dayanna Hernandez MD Patient has diabetic eye disease Care Plan Patient has diabetic eye disease No Dayanna Hernandez MD Patient has chronic kidney disease Care Plan Patient has chronic kidney disease No Dayanna Hernandez MD Patient has chronic kidney disease Care Plan Patient has chronic kidney disease No Dayanna Hernandez MD Patient has chronic kidney disease Care Plan Patient has chronic kidney disease No Dayanna Hernandez MD Weekly blood pressure task Care Plan Weekly blood pressure task No Amara Chong RN Weekly blood pressure task Care Plan Weekly blood pressure task No Amara Chong RN Weekly blood pressure task Care Plan Weekly blood pressure task No Amara Chong RN Patient has diabetic eye disease Care Plan Patient has diabetic eye disease No Amara Chong RN Patient has diabetic eye disease Care Plan Patient has diabetic eye disease No Amara Chong RN Patient has diabetic eye disease Care Plan Patient has diabetic eye disease No Amara Chong RN Patient has chronic kidney disease Care Plan Patient has chronic kidney disease No Amara Chong RN Patient has chronic kidney disease Care Plan Patient has chronic kidney disease No Amara Chong RN Patient has chronic kidney disease Care Plan Patient has chronic kidney disease No Amara Chong RN Weekly blood pressure task Care Plan Weekly blood pressure task No Moncho Alarcon [place] Weekly blood pressure task Care Plan Weekly blood pressure task No Moncho Alarcon [place] Weekly blood pressure task Care Plan Weekly blood pressure task No Moncho Alarcon [place] Patient has diabetic eye disease Care Plan Patient has diabetic eye disease No Moncho Alarcon, [place] Patient has diabetic eye disease Care Plan Patient has diabetic eye disease No Ivan Alarcon, [place] Patient has diabetic eye disease Care Plan Patient has diabetic eye disease No Moncho Alarcon, [place] Patient has chronic kidney disease Care Plan Patient has chronic kidney disease No Moncho Alarcon [place] Patient has chronic kidney disease Care Plan Patient has chronic kidney disease No Jakob Alonso [place] Patient has chronic kidney disease Care Plan Patient has chronic kidney disease Jakob Michael [place] Weekly blood pressure task Care Plan Weekly blood pressure task Aby Palacio RN Weekly blood pressure task Care Plan Weekly blood pressure task Aby Palacio RN Weekly blood pressure task Care Plan Weekly blood pressure task Aby Palacio RN Patient has diabetic eye disease Care Plan Patient has diabetic eye disease Aby Palacio RN Patient has diabetic eye disease Care Plan Patient has diabetic eye disease Aby Palacio RN Patient has diabetic eye disease Care Plan Patient has diabetic eye disease Aby Palacio RN Patient has chronic kidney disease Care Plan Patient has chronic kidney disease Aby Palacio RN Patient has chronic kidney disease Care Plan Patient has chronic kidney disease Aby Palacio RN Patient has chronic kidney disease Care Plan Patient has chronic kidney disease Aby Palacio RN documented as of this encounter Visit Diagnoses Not on filedocumented in this encounter Additional Health Concerns Active Problems Noted Date Diagnosed Date Help patients manage their type 2 diabetes 02/26 Weekly blood pressure task 02/26/2025 Help patients manage their type 2 diabetes 02/26 Patient has diabetic eye disease 02/26/2025 Help patients manage their type 2 diabetes 02/26 Patient has chronic kidney disease 02/26/2025 Weekly blood pressure task 02/26/2025 Weekly blood pressure task 02/26/2025 Patient has diabetic eye disease 02/26/2025 Patient has diabetic eye disease 02/26/2025 Patient has chronic kidney disease 02/26/2025 Patient has chronic kidney disease 02/26/2025 Weekly blood pressure task 02/28/2025 Weekly blood pressure task 02/28/2025 Weekly blood pressure task 02/28/2025 Patient has diabetic eye disease 02/28/2025 Patient has diabetic eye disease 02/28/2025 Patient has diabetic eye disease 02/28/2025 Patient has chronic kidney disease 02/28/2025 Patient has chronic kidney disease 02/28/2025 Patient has chronic kidney disease 02/28/2025 Weekly blood pressure task 03/04/2025 Weekly blood pressure task 03/04/2025 Weekly blood pressure task 03/04/2025 Patient has diabetic eye disease 03/04/2025 Patient has diabetic eye disease 03/04/2025 Patient has diabetic eye disease 03/04/2025 Patient has chronic kidney disease 03/04/2025 Patient has chronic kidney disease 03/04/2025 Patient has chronic kidney disease 03/04/2025 Weekly blood pressure task 03/05/2025 Weekly blood pressure task 03/05/2025 Weekly blood pressure task 03/05/2025 Patient has diabetic eye disease 03/05/2025 Patient has diabetic eye disease 03/05/2025 Patient has diabetic eye disease 03/05/2025 Patient has chronic kidney disease 03/05/2025 Patient has chronic kidney disease 03/05/2025 Patient has chronic kidney disease 03/05/2025 Weekly blood pressure task 03/15/2025 Weekly blood pressure task 03/15/2025 Weekly blood pressure task 03/15/2025 Patient has diabetic eye disease 03/15/2025 Patient has diabetic eye disease 03/15/2025 Patient has diabetic eye disease 03/15/2025 Patient has chronic kidney disease 03/15/2025 Patient has chronic kidney disease 03/15/2025 Patient has chronic kidney disease 03/15/2025 Weekly blood pressure task 03/19/2025 Weekly blood pressure task 03/19/2025 Weekly blood pressure task 03/19/2025 Patient has diabetic eye disease 03/19/2025 Patient has diabetic eye disease 03/19/2025 Patient has diabetic eye disease 03/19/2025 Patient has chronic kidney disease 03/19/2025 Patient has chronic kidney disease 03/19/2025 Patient has chronic kidney disease 03/19/2025 Assessment Noted Time PHQ-9 Depression Total Score: 16 025 10:54 AM EDT documented as of this encounter Care Teams Brush Material Preparer Relationship Specialty Start Date End Date Dayanna Hernandez MD [address] [place] [id number] PCP - General Family Medicine 10/24/12 documented as of this encounter
--- OUTSIDE RECORDS SUMMARY | 2025-03-21 17:25 | XMS_ITS | Encounter Summary ---
Author Organization [employer] Address [address] [place] [address] Care Team Providers Care Complaint Adjuster Name Role Phone Dayanna Hernandez MD Primary Care Provider [phone] Encounter Details Date Type Department Care Team ([facility] st Contact Info) Description 01/23/2025 Results Follow[facility] [address] [place] [address] Dayanna Hernandez MD [address] [place] [address] POCT Glucose, POCT Hgb A1c, PSA, Screen [...] Description 03/26/2025 11:30 AM EST Office Visit [facility] [address] [place] [address] Dayanna Hernandez MD [address] [place] [address] documented as of this encounter Visit Diagnoses Not on filedocumented in this encounter Additional Health Concerns Assessment Noted Time PHQ-9 Depression Total Score: 16 025 10:54 AM EDT documented as of this encounter Care Teams Complaint Adjuster Relationship Specialty Start Date End Date Dayanna Hernandez MD [address] [place] [id number] PCP - General Family Medicine 10/24/12 documented as of this encounter
--- OUTSIDE RECORDS SUMMARY | 2025-03-21 17:25 | XMS_ITS | Encounter Summary ---
Author Organization [facility] Address [address] [place] [address] Phone Care Team Providers Care Auditing Coder Name Role Phone Alison Luu Primary Care Provider [phone] Encounter Details Date Type Department Care Team (Late st Contact Info) Description 01/19/2020 Ancillary Orders [facility] [address] [place] [address] Alison Luu PA [address] [place] [address] [email or web address] Social History Tobacco Use Types Packs/Day [...] Palpitations documented in this encounter Care Teams Auditing Coder Relationship Specialty Start Date End Date Alison Luu PA [address] [place] [phone] [email or web address] PCP - General Chef French 01/19/20 documented as of this encounter Additional Source Comments The information contained in this document represents components of the legal health record. It is not the complete legal health record.[facility]
--- OUTSIDE RECORDS SUMMARY | 2025-03-21 17:25 | XMS_ITS | Encounter Summary ---
Author Organization [employer] Address [address] [place] [address] Care Team Providers Care Knitter Wire Mesh Name Role Phone Dayanna Hernandez MD Primary Care Provider [phone] Encounter Details Date Type Department Care Team ([facility] st Contact Info) Description 08/24/2022 Orders Only [facility] MED[facility] [address] [place] [phone] Dayanna Hernandez MD [address] [place], [place] [phone] Type 2 diabetes 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, with long-term current use of insulin ([facility]) (Primary Dx) Social History Tobacco Use Types [...] Description 03/26/2025 11:30 AM EST Office Visit [facility] [address] [place] [address] Dayanna Hernandez MD [address] [place] [address] documented as of this encounter Procedures Procedure Name Priority Date/Time Associated Diagnosis Comments LIPID PANEL, STANDARD Routine 12/18/2022 12:28 PM EDT Type 2 diabetes 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, with long-term current use of insulin ([facility]) BASIC METABOLIC PANEL Routine 12/18/2022 12:28 PM EDT Type 2 diabetes 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, with long-term current use of insulin ([facility]) ALBUMIN, RANDOM URINE W/CREATININE Routine 12/18/2022 12:09 PM EDT Type 2 diabetes 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, with long-term current use of insulin ([facility]) GLUCOSE, WHOLE BLOOD Routine 12/18/2022 11:24 AM EDT Type 2 diabetes 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, with long-term current use of insulin ([facility]) documented in this encounter Results * (ABNORMAL) Lipid Panel, Standard (12/18/2022 12:28 PM EDT) Triglycerides 308(H) <150 mg/dL [facility] Comment:Desirable Triglyceri de: less than 150 mg/dLBorderline High Triglyceride 150-199 mg/dLHigh Triglyceride: 200-499 mg/dLVery High Triglyceride: greater than or equal to 5OO mg/dL Cholesterol 251(H) <200 mg/dL [facility] Comment:Desirable Cholestero l: less than 200 mg/dLBorderline High Cholesterol: 200-239 mg/dLHigh Cholesterol: greater than 239 mg/dL LDL Cholesterol Calculated 152(H) <100 mg/dL [facility] Comment:Desirable LDL: less than 100 mg/dLNear Optimal/Above Optimal LDL: 110- 129 mg/dLBorderline High LDL: 130-159 mg/dLHigh LDL: 160-189 mg/dLVery High LDL: greater than or equal to 190 mg/dL HDL Cholesterol 38(L) >40 mg/dL [facility] Comment:Desirable HDL: great er than 40 mg/dL Note: This HDL assay may give artificially low results in patients with liver disease. 12/18/2022 12:2 8 PM EDT 12/18/2022 12:32 PM EDT Generic External Data Provider LAB BLOOD ORDERAB LES Final Result [facility] [address] [place] [phone] * (ABNORMAL) Basic Metabolic Panel (12/18/2022 12:28 PM EDT) Sodium 137 135 - 145 mmol/L [facility] Potassium 4.0 3.3 - 5.1 mmol/L [facility] Comment:Slight Hemolysis Chloride 104 96 - 108 mmol/L [facility] Carbon Dioxide 24 22 - 29 mmol/L [facility] Anion Gap 13 12 - 20 [facility] Urea Nitrogen (BUN) 16 9 - 16 mg/dL [facility] Creatinine, Serum 1.40 0.5 - 1.4 mg/dL [facility] Estimated Glomerular Filt Rate 52 [facility] Comment:NOTE: For -Am erican individuals, multiply the result by 1.210.Chronic Kidney Disease: Estimated GFR < 60 mL/min/1.35q4Tycwar Kidney Disease: Estimated GFR < 15 mL/min/1.73m2 Glucose 137(H) 60 - 115 mg/dL [facility] Calcium 9.4 8.4 - 10.2 mg/dL [facility] 12/18/2022 12:2 8 PM EDT 12/18/2022 12:32 PM EDT [facility] External Provider LAB BLO OD ORDERABLES Final Result Performing Organization Address [facility] Co de Phone Number [facility] [address] [place] [address] [phone] * (ABNORMAL) Albumin, Random Urine W/Creatinine (12/18/2022 12:09 PM EDT) Creatinine, Urine 158.87 mg/dL [facility] Microalbumin Urine 1,684.0 mg/L H [facility] Microalbum Creatinine Ratio Ur 1,059.9(H ) <30 ug/mg cr [facility] Comment:Albumin/Creatinine R atio Reference Ranges: Normal: < 30 ug/mg creatinine Microalbuminuria: 30 - 300 ug/mg creatinineClinical Albuminuria: > 300 ug/mg creatinine 12/18/2022 12:0 9 PM EDT 12/18/2022 1:59 PM EDT [facility] External Provider LAB URI NE ORDERABLES Final Result Performing Organization Address [facility] Co de Phone Number [facility] [address] [place] [phone] [phone] * (ABNORMAL) Glucose, Whole Blood (12/18/2022 11:24 AM EDT) Glucose, Whole Blood 155(H) 60 - 115 mg/dL [facility] Comment:METER #: [id number] Testing performed in the Endocrinology Department [address] , [address], [facility]. 12/18/2022 11:2 4 AM EDT 12/18/2022 11:30 AM EDT [facility] External Provider LAB BLO OD ORDERABLES Final Result Performing Organization Address [facility] Co de Phone Number [facility] [address] [place] [address] [phone] documented in this encounter Visit Diagnoses Diagnosis Type 2 diabetes 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, with long-term current use of insulin (HCC)- Primary documented in this encounter Additional Health Concerns Assessment Noted Time PHQ-9 Depression Total Score: 8 07/31/19 23 10:10 AM EDT documented as of this encounter Care Teams Knitter Wire Mesh Relationship Specialty Start Date End Date Dayanna Hernandez MD [address] [place] [address] PCP - General Family Medicine 10/24/12 documented as of this encounter
--- OUTSIDE RECORDS SUMMARY | 2025-03-21 17:25 | XMS_ITS | Clinical Summary ---
Author Organization [facility] Address [address] [place], [place] [phone] Phone Care Team Providers Care Hydraulic Technician Name Role Phone Alison Luu Primary Care Provider [phone] Social History Tobacco Use Types Packs/Day Years [...] file Medical Devices Not on file Insurance [facility] [employer] MEDICARE REPLACEMENT [employer] [address] [place] [address] MEDICARE REPLACEMENT Care Teams Hydraulic Technician Relationship Specialty Start Date End Date Alison Luu PA [address] [place] [phone] [email or web address] PCP - General Counsel 01/19/20 Additional Source Comments The information contained in this document represents components of the legal health record. It is not the complete legal health record.[facility]
--- OUTSIDE RECORDS SUMMARY | 2025-03-21 17:25 | XMS_ITS | Encounter Summary ---
Author Organization [employer] Address [address] [facility] [address] [place] [address] Care Team Providers Care Fire Pot Operator Name Role Phone Dayanna Hernandez MD Primary Care Provider [phone] Reason for Referral * Imaging (Routine) - Closed Specialty Diagnoses / Procedures Referred By Contac t Referred To Contact Cardiology Diagnoses Premature beats History of CVA (cerebrovascular accident) Frequent ventricular premature beats Procedures Transthoracic Echo (TTE) Complete Dayanna Hernandez MD [address] [place] [address] Phone: tel: fax: [address] [phone] Phone: tel: fax: Referral ID Status Reason Start Date Expiration Date V isits Requested Visits Authorized [id number] Closed Perform Procedure 03/04/2025 03/04/2026 1 1 * Consultation (Routine) - Authorized Specialty Diagnoses / Procedures Referred By Contac t Referred To Contact Cardiology Diagnoses Premature beats JEAN MARIE (obstructive sleep apnea) History of CVA (cerebrovascular accident) Dayanna Hernandez MD [address] [place] [address] Phone: tel: fax: [facility] Referral ID Status Reason Start Date Expiration Date Visits Requested Visits Authorized [id number] Authorized Specialty Services Required 03/04/2026 1 1 Encounter Details Date Type Department Care Team (Late st Contact Info) Description 03/04/2025 Orders Only [facility] [address] [place] [address] Dayanna Hernandez MD [address] [place] [address] Premature beats (Primary Dx); JEAN MARIE (obstructive sleep apnea); History of CVA (cerebrovascular accident); Frequent ventricular premature beats Social History Tobacco Use Types Packs/Day Years [...] Description 03/26/2025 11:30 AM EST Office Visit [facility] [address] [place] [address] Dayanna Hernandez MD [address] [place] [address] Scheduled Orders Name Type Priority Associated Diagnoses Orde r Schedule Transthoracic Echo (TTE) Complete Echocardiography Routine Premature beats History of CVA (cerebrovascular accident) Frequent ventricular premature beats Expected: 03/04/2025 (Approximate), Expires: 03/04/2027 Scheduled Referrals Name Type Priority Associated Diagnoses Order Schedule Referral to Cardiology Outpatient Referral Routine Premature beats JEAN MARIE (obstructive sleep apnea) History of CVA (cerebrovascular accident) Expected: 03/04/2025 (Approximate), Expires: 03/04/2026 documented as of this encounter Goals Goal [...] Care Plan Patient has diabetic eye disease Dayanna Cotton MD Patient has chronic kidney disease Care Plan Patient has chronic kidney disease Dayanna Cotton MD Patient has chronic kidney disease Care Plan Patient has chronic kidney disease Dayanna Cotton MD Patient has chronic kidney disease Care Plan Patient has chronic kidney disease No Dayanna Hernandez MD documented as of this encounter Visit Diagnoses Diagnosis Premature beats- Primary Unspecified premature beats JEAN MARIE (obstructive sleep apnea) Obstructive sleep apnea (adult) (pediatric) History of CVA (cerebrovascular accident) Transient ischemic attack (TIA), and cerebral infarction without residual deficits Frequent ventricular premature beats documented in this encounter Additional Health Concerns Active [...] 03/04/2025 Patient has chronic kidney disease 03/04/2025 Assessment Noted Time PHQ-9 Depression Total Score: 16 025 10:54 AM EDT documented as of this encounter Care Teams Fire Pot Operator Relationship Specialty Start Date End Date Dayanna Hernandez MD [address] [place] [phone] PCP - General Family Medicine 10/24/12 documented as of this encounter
--- OUTSIDE RECORDS SUMMARY | 2025-03-21 17:25 | XMS_ITS | Encounter Summary ---
Author Organization [employer] Address [address] [facility] [address] [place] [address] Care Team Providers Care Fit Model Name Role Phone Dayanna Hernandez MD Primary Care Provider [phone] Encounter Details Date Type Department Care Team ([facility] st Contact Info) Description 08/19/2023 Orders Only [facility] [address] [place], [place] [phone] Dayanna Hernandez MD [address] [place], [place] [phone] Social History Tobacco Use Types Packs/Day Years [...] Description 03/26/2025 11:30 AM EST Office Visit [facility] [address] [place] [phone] Dayanna Hernandez MD [address] [place] [phone] documented as of this encounter Visit Diagnoses Not on filedocumented in this encounter Additional Health Concerns Assessment Noted Time PHQ-9 Depression Total Score: 8 07/31/19 23 10:10 AM EDT documented as of this encounter Care Teams Fit Model Relationship Specialty Start Date End Date Dayanna Hernandez MD [address] [place] [phone] PCP - General Family Medicine 10/24/12 documented as of this encounter
--- OUTSIDE RECORDS SUMMARY | 2025-03-21 17:25 | XMS_ITS | Encounter Summary ---
Author Organization [employer] Address [address] [facility] [address] [place] [address] Care Team Providers Care Blend Technician Name Role Phone Dayanna Hernandez MD Primary Care Provider [phone] Reason for Referral * Consultation (Routine) - Closed Specialty Diagnoses / Procedures Referred By Contac emma Referred To Contact Physical Therapy Diagnoses Gait instability Hemiparesis affecting left side as late effect of cerebrovascular accident (CVA) (CMS/HCC) (HCC) Legal blindness Dayanna Hernandez MD [address] [place] [address] Phone: tel: fax: [facility] [address] [place] [address] Phone: tel: fax: Referral ID Status Reason Start Date Expiration Date V isits Requested Visits Authorized [id number] Closed Specialty Services Required 09/09/2023 09/08/2024 1 1 Encounter Details Date Type Department Care Team (Late st Contact Info) Description 09/09/2023 Orders Only [facility] [address] [place] [address] Dayanna Hernandez MD [address] [place], [place] [phone] Gait instability (Primary Dx); Hemiparesis affecting left [...] 03/26/2025 11:30 AM EST Office Visit [facility] [address] [place] [address] Dayanna Hernandez MD [address] [place] [address] Scheduled Referrals Name Type Priority Associated Diagnoses Orde r Schedule Referral to Physical Therapy Outpatient Referral Routine Gait instability Hemiparesis affecting left side as late effect of cerebrovascular accident (CVA) ([facility]) Legal blindness Expected: 09/09/2023 (Approximate), Expires: [...] documented as of this encounter Care Teams Blend Technician Relationship Specialty Start Date End Date Dayanna Hernandez MD [address] [place] [phone] PCP - General Family Medicine 10/24/12 documented as of this encounter
--- OUTSIDE RECORDS SUMMARY | 2025-03-21 17:25 | XMS_ITS | Encounter Summary ---
Author Organization [employer] Address [address] [facility] [address] [place] [address] Care Team Providers Care Hogshead Roller Name Role Phone Dayanna Hernandez MD Primary Care Provider [phone] Encounter Details Date Type Department Care Team (Latest Contact Info) Description 12/19/2018 Abstract [facility] Dental, Provider, DDS Social History Tobacco [...] EST Office Visit [facility] [address] [place] [phone] Dayanna Hernandez MD [address] [place] [address] documented as of this encounter Visit Diagnoses Not on filedocumented in this encounter Care Teams Hogshead Roller Relationship Specialty Start Date End Date Dayanna Hernandez MD [address] [place] [phone] PCP - General Family Medicine 10/24/12 documented as of this encounter
--- OUTSIDE RECORDS SUMMARY | 2025-03-21 17:26 | XMS_ITS | Encounter Summary ---
Author Organization [employer] Address [address] [facility] [address] [place] [address] Care Team Providers Care Vp Cardiovascular Name Role Phone Dayanna Hernandez MD Primary Care Provider [phone] Encounter Details Date Type Department Care Team (Latest Contact Info) Description 01/23/2021 Abstract [facility] CON[facility]S Dental, Provider, DDS Social History [...] Description 03/26/2025 11:30 AM EST Office Visit [facility] MEDICINE [address] [place] [address] [phone] Dayanna Hernandez MD [address] [place] [address] documented as of this encounter Visit Diagnoses Not on filedocumented in this encounter Care Teams Vp Cardiovascular Relationship Specialty Start Date End Date Dayanna Hernandez MD [address] [place] [address] PCP - General Family Medicine 10/24/12 documented as of this encounter
--- OUTSIDE RECORDS SUMMARY | 2025-03-21 17:26 | XMS_ITS | Clinical Summary ---
Author Organization [employer] Address [address] [facility] [facility] [address] [place] [address] Care Team Providers Care Live Ammunition Inspector Name Role Phone Dayanna Hernandez MD Primary Care Provider [phone] Allergies Active Allergy Reactions Criticality Noted Date Comments Fish Protein-Containing Drug Products 03/06/2019 Lisinopril Cough 10/05/2012 Other reaction(s): Other (see comments) Penicillin G 01/29/2012 Penicillin V Rash Low 06/05/2020 Shellfish Allergy 08/06/2022 Medications * This document contains information received from the source organization and may not represent a complete record from that organization. Otezla 30 MG tablet 2 Active Aspirin Low Dose 81 MG EC tablet 2 Active cholecalciferol (Vitamin D-3) 50 MCG (1999 UT) capsule 3 Active clobetasol (Temovate) 0.05 % ointment 3 Active Clobetasol Propionate 0.05 % shampoo 3 Active clonazePAM (KlonoPIN) 0.5 MG tablet 3 Active dorzolamide-delaney lol (Cosopt) 22.3-6.8 MG/ML ophthalmic solution 3 Active hydrocortisone 2.5 % ointment 3 Active BD Pen Needle Lisbet 2nd Gen 32G X 4 MM misc 2 Active Melatonin 5 MG capsule 3 Active Rocklatan 0.02-0.005 % solution 3 Active QUEtiapine (SEROquel) 25 MG tablet 3 Active fenofibrate (Tricor) 54 [...] prednisoLONE acetate (Pred-Forte) 1 % ophthalmic suspension 3 Active meclizine (Antivert) 25 MG tablet TOME ROBIN TABLETA AL ROXANA CUANDO SEA NECESARIO 90 tablet 3 Active Cyanocobalamin (B-12) 1000 MCG capsule TOME ROBIN CAPSULA TODOS LOS ALLEN 90 capsule 3 3 Active fluticasone (Flonase) 50 MCG/ACT nasal sprayIndications :Allergic rhinitis, unspecified seasonality, unspecified trigger USE 1 SPRAY INTO EACH NOSTRIL ONCE DAILY 48 mL 1 4 Active FREESTYLE LITE test strip USE TO TEST 4 TIMES A DAY 200 each 4 Active insulin glargine (Edith Jacobsonosttrista, 1 unit dial,) 300 UNIT/ML injection Administer 60 units daily. Adjust as directed. 7.5 mL 11 4 Active lidocaine (Lidoderm) 5 % patchIndications :Acute right-sided low back pain without sciatica,Acute pain of left knee Apply 1 patch topically Once per day. Remove & discard patch within 12 hours or as directed by MD. 30 patch 1 5 Active ciclopirox (Loprox) 0.77 % cream Apply topically 2 times daily. 90 g 1 5 Active Diclofenac Sodium 1 % gelIndications:A cute right-sided low back pain without sciatica,Acute pain of left knee APPLY 1 G TOPICALLY IN THE MORNING, AT NOON AND AT BEDTIME NEEDED FOR PAIN 100 g 5 Active Tradjenta 5 MG tablet TOME 1 TABLETA POR VIA ORAL TODOS LOS ALLEN 90 tablet 3 5 Active traZODone (Desyrel) 100 MG tablet TAKE 1 TABLET BY MOUTH AT BEDTIME 90 tablet 5 Active atropine 1 % ophthalmic solution INSTILL 1 DROP IN LEFT EYE ONLY ONCE A DAY 5 Active brimonidine (AlphaGAN) 0.2 % ophthalmic solution instill 1 drop into left eye twice a day Active calcipotriene (Dovonex) 0.005 % cream APPLY TO AFFECTED AREAS OF PSORIASIS TWICE DAILY NEEDED. 5 Active Continuous Glucose Body Stylist (FreeStyle Nevaeh 3 Union) device USE DAILY TO MONITOR BLOOD GLUCOSE LEVELS CONTINUOUSLY. 5 Active Continuous Glucose Sensor (FreeStyle Nevaeh 3 Plus Sensor) [facility] APPLY 1 NEW SENSOR EVERY 15 DAYS DIRECTED TO MONITOR BLOOD GLUCOSE CONTINUOUSLY. 5 Active polyvinyl alcohol (Artificial Tears) 1.4 % ophthalmic solution INSTILL 1 DROP INTO LEFT EYE TWICE DAILY Active clobetasol (Temovate) 0.05 % external solution APPLY TO SCALP TWICE DAILY FOR 2 WEEKS BREAK FOR 1 WEEK AND REPEAT NEEDED Active rosuvastatin (Crestor) 10 MG tablet Take 1 tablet (10 mg) by mouth Once per day. 30 tablet 11 5 01/17/20 26 Active FLUoxetine (PROzac) 10 MG tablet Take 1 tablet (10 mg) by mouth Once per day. 90 tablet 3 5 Active acetaminophen (Tylenol 8 Hour) 650 MG ER tablet Take 1 tablet (650 mg) by mouth every 8 (eight) hours if needed for mild pain for up to 10 days. Do not crush, chew, or split. 30 tablet 5 03/25/20 25 Active Active Problems Problem Noted Date Diagnosed Date History of CVA (cerebrovascular accident) 2024 Urinary incontinence 08/17/2023 Assessment & Plan (09/12/2024 [...] Plan (02/05/2025 11:08 AM EST): -Seen by tube molder fiberglass on 03/11/20 for JEAN MARIE -Pt had several sleep studies, most recently in 2019, showing JEAN MARIE -Continue auto PAP pressure 6-14 cm H2O -Most recent echo did not show pulmonary HTN -Salesperson [employer] recommended him to use azelastine for rhinitis. -Referred back to tube molder fiberglass Dr. Sanchez Assessment & Plan (09/12/2024 9:11 AM EDT): -Seen by tube molder fiberglass on 03/11/20 for JEAN MARIE -Pt had several sleep studies, most recently in 2019, showing JEAN MARIE -Continue auto PAP pressure 6-14 cm H2O -Will order a new autoPAP machine; may need a new sleep study -Most recent echo did not show pulmonary HTN -Salesperson [employer]'S [employer]ats recommended him to use azelastine for rhinitis. -Refer back to tube molder fiberglass Dr. Sanchez Assessment & Plan (08/17/2023 11:35 AM EDT): -Seen by tube molder fiberglass on 03/11/20 for JEAN MARIE -Pt had several sleep studies, most recently in 2019, showing JEAN MARIE -Continue auto PAP pressure 6-14 cm H2O -Will order a new autoPAP machine; may need a new sleep study -Most recent echo did not show pulmonary HTN -Salesperson [employer] recommended him to use azelastine for rhinitis. -Refer back to tube molder fiberglass Dr. aSnchez Assessment & Plan (11/27/2022 4:34 PM EDT): -Seen by tube molder fiberglass on 03/11/20 for JEAN MARIE -Pt had several sleep studies, most recently in 2019, showing JEAN MARIE -Continue auto PAP pressure 6-14 cm H2O -Will order a new autoPAP machine; may need a new sleep study -Most recent echo did not show pulmonary HTN -Salesperson [employer] recommended him to use azelastine for rhinitis. -Refer back to tube molder fiberglass Dr. Sanchez Intertrigo 10/23/2022 Assessment & Plan (11/27/2022 4:24 PM EDT): - s/p clotrimazole BID x 28 days in October 2022 - responding well to nystatin pwd TID; refill - follow up with cash posting representative Assessment & Plan (10/23/2022 12:46 PM [...] symptoms -pt to f up w his cash posting representative in 2 months per pt and [...] cetrizine -continue montelukast -continue fluticasone nasal Hemiparesis ([facility]) 06/05/2020 Hypertensive renal disease 06/05/2020 Proteinuria 06/05/2020 Assessment & Plan (11/27/2022 4:26 PM EDT): - pt refuses to take ARB or ACEI - consider SGLT-2 inhibitor Renal stone 07/28/2016 Biliary calculus 09/16/2015 Hemiparesis affecting left s amari as late effect of cerebrovascular accident (CVA) ([facility]) 09/16/2015 Stage 3 chronic kidney disease ([facility]) 016 Assessment & Plan (02/05/2025 11:15 AM EST): -Executive Account Manager: Dr. Velasquez, last seen in December 2024 -Diabetic and vascular etiology, proteinuria -In a setting of recurrent nephrolithiasis -Avoid nephrotoxic drugs. -Treatment Hx: Pt reported throat itching with ARB, and cough with ACEI - Possibly starting SGLT2 inhibitor. Because his blood pressure was on the lower side, it was not started at the last visit Assessment & Plan (09/26/2024 1:29 PM EDT): -Executive Account Manager: Dr. Velasquez, last seen in October 2023 -Diabetic and vascular etiology, proteinuria -07/31/22 BUN 20; Scr 1.53; eGFR 53; K 4.1; Bicarb 28, UACR 1,147 -Baseline Cr 1.3-1.5 -In a setting of recurrent nephrolithiasis -Stable -Avoid nephrotoxic drugs. -Treatment Hx: Pt reported throat itching with ARB, and cough with ACEI. Assessment & Plan (08/17/2023 11:36 AM EDT): -Executive Account Manager: Dr. Velasquez, last seen on 09/02/22 -Diabetic and vascular etiology, proteinuria -07/31/22 BUN 20; Scr 1.53; eGFR 53; K 4.1; Bicarb 28, UACR 1,147 -Baseline Cr 1.3-1.5 -In a setting of recurrent nephrolithiasis -Stable -Avoid nephrotoxic drugs. -Treatment Hx: Pt reported throat itching with ARB, and cough with ACEI. Assessment & Plan (11/19/2022 5:11 AM EDT): -Executive Account Manager: Dr. Velasquez, last seen on 09/02/22 -Diabetic and vascular etiology, proteinuria -07/31/22 BUN 20; Scr 1.53; eGFR 53; K 4.1; Bicarb 28, UACR 1,147 -Baseline Cr 1.3-1.5 -In a setting of recurrent nephrolithiasis -Stable -Avoid nephrotoxic drugs. -Treatment Hx: Pt reported throat itching with ARB, and cough with ACEI. Assessment & Plan (07/31/2022 5:30 AM EDT): -Executive Account Manager: Dr. Velasquez, last seen on 08/16/19, [...] 01/23/25, slight increase from 7.4% on 09/12/24 -Windows Software Engineer: JEROME, last seen in November 2024 - Continue basal insulin, glargine, 100 units daily - Continue bolus insulin, NovoLog, 8 to 12 units for snacks and 30 to 40 units with meals - Continue tradjenta 5 mg daily - Patient declined GLP-1 RA - Executive Account Manager recommend SGLT2 inhibitor -Last eye exam: August [...] 7.4% on 09/12/24, improved 9.6% on 08/17/23 -Windows Software Engineer: [facility], last seen in 12/2022, advised to schedule [...] 12:36 PM EDT): -A1C 9.6% on 08/17/23 -Windows Software Engineer: [facility], last seen in 12/2022, advised to schedule appointment - change tresiba to Lantus, will start at 60 units - Continue humalog - restart tradjenta 5 mg daily -Last eye exam: August 2022 (requesting note) -Last foot exam: 08/17/2023; high-risk, has a jeweler apprentice. -Last microalbumin test: 07/31/22 UACR 1,147 -Last lipid profile: 06/23/23 TC 149; TG 167; HDL 56; LDL 60 Last dental exam: ? Immunizations: Reviewed and discussed. Pt chose not to fully vaccinated Follow up in 3-4 mo or sooner prn Assessment & Plan (11/27/2022 4:21 PM EDT): -A1C 7.0% on 11/19/22, improved from 8.3% on 07/30/22 ( 6.1% on 09/04/21) -Windows Software Engineer: [facility], last seen in 07/04/21, upcoming appt -Current medications: Tresiba 80 units daily, Humalog U-200 10-15 units with snack, 20-25 units with meal, Tradjenta 5 mg daily -Last eye exam: August 2022 (requesting note) -Last foot exam: 10/31/2018; high-risk, has a jeweler apprentice. -Last microalbumin test: 07/31/22 UACR 1,147 -Last lipid profile: 07/31/22 TC 224; TG 183; HDL 36; LDL 156 Last dental exam: ? Immunizations: Reviewed and discussed. Pt chose not to fully vaccinated Follow up in 3-4 mo or sooner prn Assessment & Plan (07/31/2022 5:33 AM EDT): -A1C 8.3% on , worsened from 6.1% on 09/04/21 -Windows Software Engineer: [facility], last seen in 07/04/21 -Current medications: Tresiba 56 units daily, Humalog U-200 10-15 units with snack, 25-30 units with meal, Tradjenta 5 mg daily -Last eye exam: April 2019, Dr. Mazariegos -Last foot exam: 10/31/2018; high-risk, has a jeweler apprentice. -Last microalbumin test: 09/25/20 UACR 1256, albuminuria [...] taking fenofibrate 54 mg daily because his certified fraud examiner in [place] prescribed him. We discussed about [...] taking fenofibrate 54 mg daily because his certified fraud examiner in [place] prescribed him. We discussed about [...] taking fenofibrate 54 mg daily because his certified fraud examiner in [place] prescribed him. We discussed about [...] taking fenofibrate 54 mg daily because his certified fraud examiner in [place] prescribed him. We discussed about [...] taking fenofibrate 54 mg daily because his certified fraud examiner in [place] prescribed him. We discussed about [...] (02/05/2025 11:11 AM EST): - S provider: N - prescribed clonazepam, fluoxetine, and trazodone - [...] (09/12/2024 9:07 AM EDT): - following with air table operator - continue current medication Assessment & Plan (11/27/2022 4:26 PM EDT): - following with air table operator - continue current medication Hypertension 05/16/2012 Assessment [...] Dr. Rico. Patient requests a referral to [facility] Derm clinic - Pt wants to go to [facility] in March because his psoriasis improves - [...] latest note -Pt wants to go to [facility] in March because his psoriasis improves. -Pt will schedule a follow up appt Assessment & Plan (08/17/2023 11:36 AM EDT): -Dietary regimen is improving symptoms -Continue on Otezla and clobetasol topical -Patient is still followed by Dr. Rico - we have not received a note, will obtain latest note -Pt wants to go to [facility] in March because his psoriasis improves. -Pt will schedule a follow up appt Assessment & Plan (11/27/2022 4:24 PM EDT): -Dietary regimen is improving symptoms -Continue on Otezla and clobetasol topical -Patient is still followed by Dr. Rico - we have not received a note, will obtain latest note -Pt wants to go to [facility] in March because his psoriasis improves. -Pt will schedule a follow up appt Assessment & Plan (07/31/2022 5:35 AM EDT): -Dietary regimen is improving symptoms -Continue on Otezla and clobetasol topical -Patient is still followed by Dr. Rico - we have not received a note, will obtain latest note -Pt wants to go to [facility] in March because his psoriasis improves. -Pt will schedule a follow up appt Backache 12/21/2011 Knee pain 12/21/2011 Proliferative diabetic retinopathy 11/25/2011 Encounters * This document contains information received from the source organization and may not represent a complete record from that organization. Date Type Department Care Team Description 03/19/[address] [facility] [address] [place] [address] Sharon Vogt, RACHELLE Blood pressure homoe checks 03/15/2025 3:40 PM EST Office Visit [facility] [address] [facility] [place] [address] Sharon Vogt FNP Toe pain, left (Primary Dx); Elevated blood pressure reading with diagnosis of hypertension 03/15/2025 Travel 03/05/[address] [address] Amara Chong RN Cardiac Testing 03/04/2025 Orders Only [address] [place] [address] Dayanna Hernandez MD Premature beats (Primary Dx); JEAN MARIE (obstructive sleep apnea); History of CVA (cerebrovascular accident); Frequent ventricular premature beats 02/28/[address] [address] Dayanna Hernandez MD march recall 02/26/[address] [address] Dayanna Hernandez MD telephone call 02/16/2025 Orders Only GENERIC EXTERNAL DATA DEPARTMENT Provider, Generic External Data 01/25/2025 Orders Only GENERIC EXTERNAL DATA DEPARTMENT Provider, Generic External Data 01/23/2025 1:15 PM EDT Office Visit [facility] [place] [address] Dayanna Hernandez MD Primary hypertension (Primary Dx); [...] in adult; Legal blindness 01/23/2025 Results Follow-Up [address] [place] [address] Dayanna Hernandez MD POCT Glucose, POCT Hgb A1c, PSA, Screen 01/23/2025 Orders Only GENERIC EXTERNAL DATA DEPARTMENT Provider, Generic External Data 01/23/2025 Travel 01/22/2025 Telephone [facility] [place] [address] Dayanna Hernandez MD chartprep 01/15/2025 Results Follow-Up [address] [address] Dayanna Hernandez MD Urinalysis with Reflex to Microscopic, Urinalysis Complete, Basic Metabolic Panel 01/15/2025 Orders Only GENERIC EXTERNAL DATA DEPARTMENT Provider, Generic External Data 01/09/2025 Orders Only [address] [address] Dayanna Hernandez MD 01/09/2025 Orders Only [address] [address] Dayanna Hernandez MD 01/09/[address] [id number] Dayanna Hernandez MD 01/09/2025 Travel 01/05/2025 Telephone [facility] [place] [address] Dayanna Hernandez MD Durable Medical Equipment ([facility]: Shower Chair) 12/25/2024 Telephone [facility] [place], [place] [phone] Dayanna Hernandez MD chart prep from Last 3 Months Immunizations Immunization Administration [...] Sign Reading Time Taken Comments Blood Pressure 167/95 03/15/2025 3:51 PM EST Pulse 83 03/15/2025 3:51 PM EST Temperature 36.7 C (98 F) 03/15/2025 3:51 PM EST Respiratory Rate 18 03/15/2025 3:51 PM EST Oxygen Saturation 97% 03/15/2025 3:51 PM EST Inhaled Oxygen Concentration - - Weight 98.3 kg (216 lb 12.8 oz) 01/23/2025 1:22 PM EDT Height 167.6 cm (5' 6 ) 01/23/2025 1:22 PM EDT Body Mass Index 34.99 01/23/2025 1:22 PM EDT Plan of Treatment Upcoming Encounters Date Type Department Care Team (Late st Contact Info) Description 03/26/2025 11:30 AM EST Office Visit [facility] [address] [place] [address] Dayanna Hernandez MD [address] [place], [place] [phone] Health Maintenance Due Date Last Done Comments [...] 08/17/2023, 08/17/2023, Additional history exists Tobacco Screening 03/15/2026 03/15/2025 Hepatitis B Vaccines Completed 01/29/2015, 06/19/2014, 01/30/2014 [...] on patient's age to complete this topic Goals Goal Patient Goal Type Associated Problems Recent Progress Patient-Stated? Author Help patients manage their type 2 diabetes Care Plan Help patients manage their type 2 diabetes No HullAdore hickey Weekly blood pressure task Care Plan Weekly [...] Plan Patient has chronic kidney disease No Adore Hull Weekly blood pressure task Care Plan Weekly [...] task Care Plan Weekly blood pressure task Dayanna Cotton MD Weekly blood pressure task Care Plan Weekly blood pressure task Dayanna Cotton MD Patient has diabetic eye disease Care [...] Care Plan Weekly [facility] [place] Weekly blood pressure task Care Plan Weekly blood pressure task No [facility] [place] Weekly blood pressure task Care Plan Weekly blood pressure task No [facility] [place] Patient has diabetic eye disease Care Plan Patient has diabetic eye disease No [place], [place] Patient has diabetic eye disease Care Plan Patient has diabetic eye disease No [facility] [place] Patient has diabetic eye disease Care Plan Patient has diabetic eye disease No [facility] [place] Patient has chronic kidney disease Care Plan Patient has chronic kidney disease No [facility] [place] Patient has chronic kidney disease Care Plan Patient has chronic kidney disease No [facility] [place] Patient has chronic kidney disease Care Plan Patient has chronic kidney disease No [place], [place] Weekly blood pressure task Care Plan Weekly blood pressure task No Aby Rodriguez RN Weekly blood pressure task Care Plan Weekly blood pressure task No Aby Rodriguze RN Weekly blood pressure task Care Plan Weekly blood pressure task No Aby Rodriguez RN Patient has diabetic eye disease Care Plan Patient has diabetic eye disease No Aby Rodriguez RN Patient has diabetic eye disease Care Plan Patient has diabetic eye disease No Aby Rodriguez RN Patient has diabetic eye disease Care Plan Patient has diabetic eye disease No Aby Rodriguez RN Patient has chronic kidney disease Care Plan Patient has chronic kidney disease No Aby Rodriguez RN Patient has chronic kidney disease Care Plan Patient has chronic kidney disease Aby Palacio RN Patient has chronic kidney disease Care Plan Patient has chronic kidney disease No Aby Rodriguez RN Procedures Procedure Name Priority Date/Time Associated Diagnosis [...] Routine 01/15/2025 9:51 AM EDT URINALYSIS, COMPLETE (INCLUDES MACRO AND MICRO) Routine 01/15/2025 9:51 AM EDT URINALYSIS WITH REFLEX TO MICROSCOPIC Routine 01/15/2025 9:51 AM EDT LIPID PANEL WITH REFLEX TO [...] Whole Blood 134(H) 60 - 115 mg/dL [facility] Comment:METER #: [id number] Testing performed in the Endocrinology Department [address] , [address], [facility]. 02/16/2025 1:08 PM EST 02/16/2025 1:14 PM EST us Generic External Data Provider LAB BLOOD ORDERAB LES Final Result Performing Organization Address City/State/[facility] Co de Phone Number [facility] [address] [place] [phone] * XR KUB and Upright 2 Views (01/25/2025 11:13 AM EDT) Anatomical Region Laterality Modality Radiographic Maira ging 01/25/2025 11:1 3 AM EDT Narrative 01/25/2025 11:23 AM EDT [address] [address] XRay Report Signed Patient: Yehuda Casanova MR# : [id number] : 1960 Acct:[id number] Age/Sex: 64 / M ADM Date: 01/25/25 Loc: HO.LAB Attending Dr: Nubia Vaca CNP Ordering Physician: Nubia Vaca CNP Date of Service: 01/25/25 Procedure(s): XR KUB Accession Number(s): [id number] cc: Dayanna Hernandez MD; Nubia Vaca CNP [...] 01/25/25 1120 DD/ 1113 TD/TT: 01/25/25 1115 Construction Administrator: SANDRA Procedure Note Donotuseinterpreter, Image - 01/25/2025 [place] [id number] XRay Report Signed Patient: Yehuda Casanova DMR# : [id number] : [id number]:[id number] Age/Sex: 64 / MADM Date: 01/25/25 Loc: HO.LAB Attending Dr: Nubia Vaca CNP Ordering Physician: Nubia Vaca CNP Date of Service: 01/25/25 Procedure(s): XR KUB Accession Number(s): [id number] cc: Dayanna Hernandez MD; Nubia Vaca CNP [...] 01/25/25 1120 DD/ 1113 TD/TT: 01/25/25 1115 Construction Administrator: SANDRA [facility] External Provider IMG XR PROCEDURES Edited Result - Final * Vitamin B12 (Cobalamin) and Folate Panel, Serum (01/25/2025 10:37 AM EDT) Vitamin B12 214 200 - 900 pg/mL [facility] Comment:NORMAL 200-900 PG/ML INDETERMINATE 160-199 PG/ML DEFICIENT < 160 PG/ML Folate 8.2 > or = 4.0 ng/mL [facility] Comment:Reference Values:> o r = 4.0 ng/mL< 4.0 ng/mL suggests folate deficiency Methotrexate, aminopterin and folinic acid(leucovorin) are chemotherapeutic agents whose molecularstructures are similar to folate; therefore, the Architectfolate assay cannot be used for patients using these drugs. 01/25/2025 10:3 7 AM EDT 01/25/2025 10:37 AM EDT Generic External Data Provider LAB BLOOD ORDERAB LES Final Result [facility] [address] [place] [phone] * Iron And Total Iron Binding Capacity (01/25/2025 10:37 AM EDT) Iron 102 45 - 160 mcg/dL [facility] Total Iron Binding Capacity 274 228 - 428 mcg/dL [facility] Percent Iron Saturation 37 15 - 50 % [facility] Unsaturated Iron Binding 172 ug/dL [facility] 01/25/2025 10:3 7 AM EDT 01/25/2025 10:37 AM EDT us Generic External Data Provider LAB BLOOD ORDERAB LES Final Result Performing Organization Address [facility]/ZIP Co de Phone Number [facility] [address] [place] [address] [phone] * PSA, Screen (01/23/2025 2:08 PM EDT) PSA, Total 0.42 <0.05 - 4.0 ng/mL [facility] Comment:PSA methodology: Abb jessica Alivipul i ChemiluminescentMicroparticle Immunoassay (CMIA) Blood Venous blood specimen / Unknown 01/23/2025 2:08 PM EDT 01/23/2025 4:04 PM EDT us Dayanna Hernandez MD LAB BLOOD ORDERABLES Final Resul t Performing Organization Address City/[facility]/ZIP Co de Phone Number [facility] [address] [place] [address] [phone] * (ABNORMAL) Urinalysis with Reflex to Microscopic (01/23/2025 2:08 PM EDT) Only the most recent of2 resultswithin the time period is included. Color Urine Yellow [facility] Appearance Urine Clear [facility] PH 6.0 5.0 - 9.0 [facility] Glucose Urine UA 100(A) Negative mg/dL [facility] Urine Blood Negative Negative [facility] Specific [place] - Urine 1.020 1.005 - 1.025 [facility] Urine Protein >=1000 (4+)(A) Neg-Trace mg/dL [facility] Urine Ketones Negative Negative mg/dL [facility] Nitrite Urine Negative Negative [facility] Leukocyte Esterase Urine Negative Negative [facility] 01/23/2025 2:08 PM EDT 01/23/2025 4:02 PM EDT us Generic External Data Provider LAB URINE ORDERAB LES Final Result [facility] [address] [place] [phone] * (ABNORMAL) POCT Hgb A1c (01/23/2025 1:28 PM EDT) Hemoglobin A1C 7.7(A) 4.0 - 5.7 % QC Media Lot # [id number] Lot# Expiration Date [id number] Blood 01/23/2025 1:28 PM EDT Dayanna Hernandez MD POINT OF CARE TEST ENTER/EDIT OR DERABLES Final Result * POCT Glucose (01/23/2025 1:25 PM EDT) Glucose Blood, POC 190 60 - 200 mg/dL QC Media Lot # [id number] Lot# Expiration Date [id number] Blood Capillary blood specimen / Unknown 01/23/2025 1:25 PM EDT Dayanna Hernandez MD POINT OF CARE TEST ENTER/EDIT OR DERABLES Final Result * US Renal Complete (01/15/2025 10:58 AM EDT) Anatomical Region Laterality Modality Kidney Ultrasound 01/15/2025 10:5 8 AM EDT Narrative 01/15/2025 10:59 AM EDT [address] [address] Ultrasound Report Signed Patient: Yehuda Casanova MR# : [id number] : 1960 Acct:[id number] Age/Sex: 64 / M ADM Date: 01/15/25 Loc: HO.US Attending Dr: Ramesh Hamm MD Ordering Physician: Ramesh Hamm MD Date of Service: 01/15/25 Procedure(s): US renal BI Accession Number(s): [id number] cc: Ramesh Hamm MD; Dayanna Hernandez MD [...] to intermediate echogenic region measured by the x ray electronics wiring technician at level of the right kidney [...] 01/15/25 1059 DD/ 1058 TD/TT: 01/15/25 1058 Construction Administrator: Procedure Note Donotuseinterpreter, Image - 01/15/2025 [place] [address] Ultrasound Report Signed Patient: Yehuda Casanova [facility]# : [id number] : 1960cct:[id number] Age/Sex: 64 / MADM Date: 01/15/25 Loc: .US Attending Dr: Ramesh Hamm MD Ordering Physician: Ramesh Hamm MD Date of Service: 01/15/25 Procedure(s): US renal BI Accession Number(s): [id number] cc: Ramesh Hamm MD; Dayanna Hernandez MD [...] to intermediate echogenic region measured by the x ray electronics wiring technician at level of the right kidney may be artifactual/due to renal pyramid or secondary to the questionable cyst seen on prior ultrasound exam. IMPRESSION: Limited exam. No hydronephrosis. 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: us [facility] External Provider IMG US PROCEDURES Final Result * Phospholipase A2 Receptor (PLA2R) Antibody Panel (01/15/2025 9:51 AM EDT) [facility] Phospholipase A2 Receptor (PLA2R) Ab, PRAVIN <4 RU/mL [facility] Comment:Reference Range: <14 : NEGATIVE 14-19: BORDERLINE >19: POSITIVE Phospholipase A2 Receptor (PLA2R) Ab, IFA NEGATIVE NEGATIVE [facility] Comment:THIS TEST WAS PERFOR MED AT:[employer] [id number] REPLACED BY [facility] ANSONREINALDO REESE [place] [address]BCGZQKATIE AUSTIN MD,PHD,ANALISA 01/15/2025 9:51 AM EDT 01/15/2025 9:52 AM EDT Generic External Data Provider LAB BLOOD ORDERAB LES Final Result [facility] [address] [place] [phone] * (ABNORMAL) Urinalysis Complete (01/15/2025 9:51 AM EDT) Color Urine Yellow [facility] Appearance Urine Clear [facility] PH 6.0 5.0 - 9.0 [facility] Glucose Urine UA 100(A) Negative mg/dL [facility] Urine Blood Negative Negative [facility] Specific [place] - Urine 1.015 1.005 - 1.025 [facility] Urine Protein 300 (3+)(A) Neg-Trace mg/dL [facility] Urine Ketones Negative Negative mg/dL [facility] Nitrite Urine Negative Negative [facility] Leukocyte Esterase Urine Negative Negative [facility] RBC Urine 0-2 0 - 2 /HPF [facility] Urine WBC 0-5 0 - 5 /HPF [facility] Urine Squamous Epithelial Cell 0-2 0 - 2 /HPF [facility] Urine Bacteria None Seen None Seen [facility] Hyaline Casts, Urine 0-2 0 - 2 /LPF [facility] 01/15/2025 9:51 AM EDT 01/15/2025 10:11 AM EDT us Generic External Data Provider LAB URINE ORDERAB LES Final Result Performing Organization Address [facility] Co de Phone Number [facility] [address] [place] [phone] * Complement Component C3c (01/15/2025 9:51 AM EDT) Complement C3 168 82 - 185 mg/dL [facility] Comment:THIS TEST WAS PERFOR MED AT:[employer] [place] [id number] BRIGGS MD 01/15/2025 9:51 AM EDT 01/15/2025 9:52 AM EDT us Generic External Data Provider LAB BLOOD ORDERAB LES Final Result Performing Organization Address [facility]/ZIP Co de Phone Number [facility] [address] [place] [phone] * Complement Component C4c (01/15/2025 9:51 AM EDT) Complement C4 36 15 - 53 mg/dL [facility] Comment:THIS TEST WAS PERFOR MED AT:[employer] [address] [id number] BRIGGS MD 01/15/2025 9:51 AM EDT 01/15/2025 9:52 AM EDT us Generic External Data Provider LAB BLOOD ORDERAB LES Final Result [facility] [address] [place] [phone] * (ABNORMAL) Protein, Total and Protein??Electrophoresis (01/15/2025 9:51 AM EDT) Prot Elec - Total Protein 6.4 6.1 - 8.1 g/dL [facility] Prot Elec - Albumin 3.7(A) 3.8 - 4.8 g/dL [facility] Prot Elec - Alpha1 0.3 0.2 - 0.3 g/dL [facility] Prot Elec - Alpha2 0.8 0.5 - 0.9 g/dL [facility] Prot Elec - Beta 1 0.5 0.4 - 0.6 g/dL [facility] Prot Elec - Beta 2 0.4 0.2 - 0.5 g/dL [facility] Prot Elec - Gamma 0.8 0.8 - 1.7 g/dL [facility] PES - Abn Protein Band 1 TNP [facility] PES-Abn Protein Band 2 [facility] PES-Abn Protein Band 3 [facility] Prot Elec - Interpretation SEE NOTE [facility] Comment:Evaluation reveals a n isolated decrease in albumin.This pattern is suggestive of decreased proteinsynthesis or protein loss. Consider ordering pre-albumin quantitation.THIS TEST WAS PERFORMED AT:[employer] [place] [id number] BRIGGS MD 01/15/2025 9:51 AM EDT 01/15/2025 9:52 AM EDT us Generic External Data Provider LAB BLOOD ORDERAB LES Final Result Performing Organization Address City/[facility]/ZIP Co de Phone Number [facility] [address] [place] [phone] * (ABNORMAL) Basic Metabolic Panel (01/15/2025 9:51 AM EDT) Sodium 139 135 - 145 mmol/L [facility] Potassium 4.2 3.3 - 5.1 mmol/L [facility] Chloride 106 96 - 108 mmol/L [facility] Carbon Dioxide 26 22 - 29 mmol/L [facility] Anion Gap 11(L) 12 - 20 [facility] Urea Nitrogen (BUN) 26(H) 9 - 16 mg/dL [facility] Creatinine, Serum 2.04(H) 0.5 - 1.4 mg/dL [facility] Estimated Glomerular Filt Rate 33 [facility] Comment:Chronic Kidney Disea se: Estimated GFR < 60 mL/min/1.95o2Imsioc Kidney Disease: Estimated GFR < 15 mL/min/1.73m2 Glucose 189(H) 60 - 115 mg/dL [facility] Calcium 9.4 8.4 - 10.2 mg/dL [facility] 01/15/2025 9:51 AM EDT 01/15/2025 9:52 AM EDT us Generic External Data Provider LAB BLOOD ORDERAB LES Final Result Performing Organization Address City/[facility]/ZIP Co de Phone Number [facility] [address] [place] [phone] * (ABNORMAL) Lipid Panel with Reflex to Direct LDL (11/16/2024 11:02 AM EDT) Triglycerides 155(H) <150 mg/dL [facility] Comment:Desirable Triglyceri de: less than 150 mg/dLBorderline High Triglyceride 150-199 mg/dLHigh Triglyceride: 200-499 mg/dLVery High Triglyceride: greater than or equal to 5OO mg/dL Cholesterol 138 <200 mg/dL [facility] Comment:Desirable Cholestero l: less than 200 mg/dLBorderline High Cholesterol: 200-239 mg/dLHigh Cholesterol: greater than 239 mg/dL LDL Cholesterol Calculated 72 <100 mg/dL [facility] Comment:Desirable LDL: less than 100 mg/dLNear Optimal/Above Optimal LDL: 110- 129 mg/dLBorderline High LDL: 130-159 mg/dLHigh LDL: 160-189 mg/dLVery High LDL: greater than or equal to 190 mg/dL HDL Cholesterol 35(L) >40 mg/dL [facility] Comment:Desirable HDL: great er than 40 mg/dL Note: This HDL assay may give artificially low results in patients with liver disease. Blood 11/16/2024 11:0 2 AM EDT 11/16/2024 1:35 PM EDT us Dayanna Hernandez MD LAB BLOOD ORDERABLES Final Resul t [facility] [address] [place] [phone] * HEPATITIS C AB W/REFL TO [...] a test for HCV RNA (test code 48073) is suggested. For additional information please refer to http://education.Whitepages/faq/RNP18m7 (This link is being provided for informational/ educational purposes only.) 09/09/2021 1:06 PM EDT Dayanna Hernandez MD HISTORICAL/NON ORDERABLE LABS Fi nal Result Performing Organization Address [facility] Co de Phone Number [facility] [address] * HIV 1/2 ANTIGEN/ANTIBODY,FOURTH GENERATION W/RFL [...] purpose. For additional information please refer to http://education.Embrace+.Marketo/faq/JKP545 (This link is being provided for informational/ educational purposes only.) The performance of this assay has not been clinically validated in patients less than 2 years old. 09/09/2021 1:06 PM EDT Dayanna Hernandez MD LAB BLOOD ORDERABLES Final Resul t Performing Organization Address [facility] Phone Number [facility] [address] from Last 3 Months or Most Recently Relevant to Health Maintenance Additional Health Concerns Active Problems Noted Date [...] 03/19/2025 Patient has chronic kidney disease 03/19/2025 Insurance [employer] < 65 [place] [id number] Care Teams Live Ammunition Inspector Relationship Specialty Start Date End Date Dayanna Hernandez MD [address] [place] [address] PCP - General Family Medicine 10/24/12
--- OUTSIDE RECORDS SUMMARY | 2025-03-21 17:26 | XMS_ITS | Encounter Summary ---
Author Organization [employer] Address [address] [facility] [address] [place] [address] Care Team Providers Care Sanitary Chemist Name Role Phone Dayanna Hernandez MD Primary Care Provider [phone] Encounter Details Date Type Department Care Team ([facility] st Contact Info) Description 01/09/2025 Orders Only [facility] [address] [place] [phone] Dayanna Hernandez MD [address] [place] [address] Social History Tobacco Use Types Packs/Day Years [...] Description 03/26/2025 11:30 AM EST Office Visit [facility] [address] [place] [phone] Dayanna Hernandez MD [address] [place] [address] documented as of this encounter Visit Diagnoses Not on filedocumented in this encounter Additional Health Concerns Assessment Noted Time PHQ-9 Depression Total Score: 16 025 10:54 AM EDT documented as of this encounter Care Teams Sanitary Chemist Relationship Specialty Start Date End Date Dayanna Hernandez MD [address] [place] [address] PCP - General Family Medicine 10/24/12 documented as of this encounter
== END 2025-03-21 13:54 | disposition home or self-care (01) ==
PROVIDERS: PCP Family Medicine; Visit Provider Nurse Practitioner Family
DX: K59.00 Constipation, unspecified (principal)
CPT/HCPCS: 99213

== ENCOUNTER → 2025-03-21 13:15 | Outpatient (BNVA) | payer OTHER, SELFPAY | PROVIDERS: PCP Family Medicine; Visit Provider Nurse Practitioner Family | DX: Z12.11 Encounter for screening for malignant neoplasm of colon (principal); K59.00 Constipation, unspecified | CPT/HCPCS: 99212 ==